=== PATIENT | female | born 1975 | race Hispanic/Latino ===

== ENCOUNTER 2021-08-24 14:58 | Emergency (ER) | payer BC, OTHER, SELFPAY ==
--- NOTE | ~2021-08-24 | XR_ITS ---
EXAMINATION: XR chest 1V portable INDICATION: Fever and body aches TECHNIQUE: Portable AP chest at 1833 hours COMPARISON: 09/01/2019 FINDINGS: There is atelectasis of the left lung base. Minimal airspace opacities are seen in the lung bases. There is no pleural effusion or pneumothorax. The cardiomediastinal silhouette is normal. IMPRESSION: 1. Minimal bibasilar airspace opacities consistent with atelectasis and/or pneumonia. Reviewed, dictated and finalized at location F. ER WAITRESS IMPRESSION: 1. Minimal bibasilar airspace opacities consistent with atelectasis and/or pneu monia.
--- NOTE | ~2021-08-24 | CT_ITS ---
EXAMINATION: CT abdomen pelvis wo con DATE: 08/24/2021 20:16 INDICATION: Back pain and hematuria TECHNIQUE: Computed tomography (CT) of the abdomen and pelvis was performed without intravenous contr ast. The dose-length product (DLP) was 420.59 mGy-cm. Automated exposure control and iterative recons truction technique were employed. COMPARISON: None FINDINGS: There are patchy groundglass opacities of the visualized lung bases. There our areas of sub segmental atelectasis in the lower lobes. The liver, spleen, pancreas, gallbladder, and adrenal gland s are normal. The kidneys are unremarkable. No stones are identified in the kidneys, ureters, or blad annette. There is no hydronephrosis or hydroureter. No pathologically enlarged abdominal or pelvic lymph nodes are identified. The appendix is normal. There is no free intraperitoneal gas or evidence of bow el obstruction. There is a small fat-containing umbilical hernia. Mild enlargement of uterus is likel y due to uterine fibroids. IMPRESSION: 1. No CT correlate for the patient's symptoms. 2. Patchy opacities of the visualized lung bases which could reflect pneumonia, possibly COVID 19. Reviewed, dictated and finalized at location F. LIANCE INVESTIGATOR
[2021-08-24 15:09] VITALS: BP 129/75; PULSE 77; RESP 17; TEMP 36.8; O2SAT 99
[2021-08-24 17:52] VITALS: BP 132/78; PULSE 88; RESP 16; O2SAT 99
[2021-08-24 18:04] VITALS: BP 120/76; PULSE 82; RESP 20; TEMP 36.4; O2SAT 95
--- NOTE | 2021-08-24 18:27 | ECG_ITS ---
Measurements Intervals [place] Rate: 77 P: 57 OR: 165 QRS: 58 QRSD: 68 T: 62 QT: 368 QTc: 419 Interpretive Statements SINUS RHYTHM BASELINE ARTIFACT- I, V4-V6 NORMAL ECG Electronically Signed On 08-25-2021 8:41:26 [employer] by Nicho Abbott D.O.
[2021-08-24] MEDS: ONDANSETRON HCL ODT 4 MG TABLET PO (18:50)
[2021-08-24 19:28] LABS: Add Urine Microscopic? YES; Appearance Urine Cloudy (Clear); Bacteria Urine Trace /hpf; Bilirubin Urine Negative (Negative); Blood Urine 3+ (Negative); Color Urine Yellow (Yellow); Glucose Urine UA Negative (Negative); Ketones Urine 1+ mg/dL (Negative); Leukocyte Esterase Ur 2+ LEU/UL (Negative); Mucus Urine Rare /lpf; Nitrate Urine Negative (Negative); Protein Urine 1+ mg/dL (Negative); RBC Urine 51-75 /hpf (0-2); Specific Grav Ur 1.011 (1.001-1.035); Squamous Epithelial Cell Urine Many /hpf (Few); Urobilinogen Urine Negative mg/dL (<2.0); WBC Urine 31-50 /hpf
--- NOTE | 2021-08-24 19:32 | ED.NAVMDI ---
HPI - Nausea/Vomiting/Diarrhea General Chief complaint: Upper Respiratory Infection Stated complaint: dizzy/nausea/abd pain Time Seen by Provider: 08/24/21 17:58 Source: patient Mode of arrival: ambulatory Limitations: language barrier (egyptian speaking, using alteration tailor) History of Present Illness HPI Narrative: This is a female who presents for evaluation of nausea and body aches. Patient states starting 6 days ago she develop body aches, chills and subjective fever. She reports her body aches have resolved but she is having nausea with intermittent abdominal pain. She is also complaining of back pain. She has mild cough but denies chest pain or shortness of breath. Related Data Allergies Allergy/AdvReac Type Severity Reaction Status Date / Time Penicillins Allergy Rash Verified 09/01/19 14:32 Review of Systems Review of Systems: All systems reviewed & are unremarkable except as noted in HPI and below ENT: Reports sore throat Cardiovascular: Cardiovascular: Denies chest pain Respiratory: Respiratory: Reports cough and Denies dyspnea Gastrointestinal: Gastrointestinal: Reports abdominal pain, Denies diarrhea, Reports nausea and Denies vomiting Genitourinary: Genitourinary: Denies hematuria and Denies dysuria Musculoskeletal: Musculoskeletal: Reports back pain and Reports myalgias PMFSH Past Medical History Medical History Anemia Asthma Gastritis Pre-diabetes Surgical History Surgical History (Updated 09/01/19 @ 13:57 by Regino Longoria) Surgical history unknown Social History Social History (Updated 09/01/19 @ 13:57 by Regino Longoria) Smoking status: Unknown if ever smoked Gender identity (if verbalized by the patient): Female Exam Const: General: no acute distress and alert Orientation/consciousness: patient oriented x3 Eyes: EOM: EOMs intact bilaterally Resp: Effort & Inspection: normal respiratory effort and no retractions Auscultation: clear to auscultation bilaterally Cardio: Rate: regular rate Rhythm: regular rhythm Heart sounds: no murmurs GI: GI Palp: Yes Soft to palpation, Yes Tenderness to palpation present (GI) (LLQ), No Guarding due to palpation present (GI) and No Rigid due to palpation Auscultation: normal bowel sounds : General: Yes no CVA tenderness Skin: General skin exam: normal color Rashes: no rashes Neuro: General: patient oriented x3, moves all extremities and CN's II-XI intact bilaterally Psych: Mental Status: mental status grossly normal Affect: normal affect Course Reevaluation(s) Reevaluation #1: I discussed with patient CT findings consistent with covid pneumonia. She now states daughter developed symptoms 1 day after her and she tested positive with rapid test. Her daughter's symptoms only lasted 2 days but patient's symptoms lasted long. She is not having chest pain or shortness of breath. I discussed discharge plan to treat with antibiotics for bladder infection and symptomatic management Date: 08/24/21 Time: 21:43 Vital Signs Vital signs: Vital Signs Temperature 98.3 F 08/24/21 15:09 Pulse Rate 77 08/24/21 15:09 Respiratory Rate 17 08/24/21 15:09 Blood Pressure 129/75 08/24/21 15:09 Pulse Oximetry 99 08/24/21 15:09 Temperature 97.6 F 08/24/21 18:04 Pulse Rate 78 08/24/21 22:07 Respiratory Rate 18 08/24/21 22:07 Blood Pressure 132/76 08/24/21 22:07 Pulse Oximetry 99 08/24/21 22:07 MDM - Nausea/Vomiting/Diarrhea Lab Data Attestation: I reviewed the patient's lab results. Result diagrams: 08/24/21 19:33 08/24/21 19:33 Labs: Lab Results 08/24/21 08/24/21 08/24/21 Range/Units 19:10 19:27 19:33 WBC 3.1 L (4.5-10.0) K/mm3 RBC 5.01 (4.2-5.4) M/mm3 Hgb 14.6 D (12.0-15.0) g/dL Hct 43.6 (37.0-47.0) % MCV 87.0 (80-100) fl MCH 29.1 (26-34) pg MCHC 33.5
[2021-08-24 19:41] LABS: Basophils Percent Auto 0.3 % (0.2-1.2); Hematocrit 43.6 % (37.0-47.0); Hemoglobin 14.6 g/dL (12.0-15.0); Immature Granulocyte Absolute 0.01 K/mm3 (0.00-0.031); Immature Granulocyte Percent A 0.3 % (0-0.5); Lymphocytes Absolute Auto 0.89 K/mm3 (0.9-3.2); Lymphocytes Percent Auto 28.7 % (18.3-44.2); Mean Corpuscular HGB Conc 33.5 g/dl (32-36); Mean Corpuscular Hemoglobin 29.1 pg (26-34); Mean Platelet Volume 9.1 fl (7.4-10.4); Monocytes Absolute Auto 0.4 K/mm3 (0.1-0.6); Monocytes Percent Auto 12.6 % (2.6-8.5); Neutrophils Absolute Auto 1.8 K/mm3 (1.3-6.7); Neutrophils Percent Auto 58.1 % (45.5-73.1); Platelet Count Result 212 k/mm3 (150-375); Red Blood Count 5.01 M/mm3 (4.2-5.4); Red Cell Distribution Width 14.6 % (11.5-14.5); White Blood Count 3.1 K/mm3 (4.5-10.0)
[2021-08-24 20:00] LABS: Alanine Aminotransferase 53 U/L (4-35); Albumin Level 4.4 g/dL (3.5-5.1); Alkaline Phosphatase 63 U/L (38-126); Anion Gap 9 mmol/L (8-16); Aspartate Amino Transferase 46 U/L (14-36); Bilirubin,Total 0.3 mg/dL (0.2-1.3); Blood Urea Nitrogen 5 mg/dL (7-17); Calcium 8.6 mg/dL (8.4-10.2); Carbon Dioxide 23 mmol/L (22-30); Chloride 106 mmol/L (98-107); Estimated CRCL calculation 110 ml/min; Estimated Glomerular Filt Rate > 60; Glucose 116 mg/dL (65-110); Lipase 66 U/L (23-300); Potassium 3.5 mmol/L (3.4-5.0); Sodium 138 mmol/L (137-145)
[2021-08-24] MEDS: NITROFURANTOIN MONOHYD MACROCR 100 MG CAP PO (22:04)
[2021-08-24 22:07] VITALS: BP 132/76; PULSE 78; RESP 18; O2SAT 99
[2021-08-25 21:02] LABS: SARS-CoV-2 RNA PCR Positive
== END 2021-08-24 22:08 | disposition home or self-care (01) ==
PROVIDERS: Emergency Provider General Practice; PCP Physician Assistant
DX: U07.1 COVID-19 (principal); J12.82 Pneumonia due to coronavirus disease 2019; N39.0 Urinary tract infection, site not specified; J45.909 Unspecified asthma, uncomplicated; R73.03 Prediabetes; Z86.2 Personal history of diseases of the blood and blood-forming organs and certain disorders involving the immune mechanism
CPT/HCPCS: 36415; 71045; 74176; 80053; 81001; 81025; 83690; 85025; 87077; 87086; 87088; 93005; 99284; A9270; C9803; U0003; U0005

== ENCOUNTER 2024-05-30 08:56 | Emergency (ER) | payer BC, OTHER, SELFPAY ==
--- NOTE | ~2024-05-30 | XR_ITS ---
EXAMINATION: XR chest 2V DATE: 05/30/2024 10:24 INDICATION: Cough with fever TECHNIQUE: PA and lateral views of the chest were obtained. COMPARISON: Chest radiograph dated 08/24/2021 FINDINGS: Chronic linear discoid atelectasis/scarring at the left lower lung zone. No other airspace opacities, pulmonary edema, pleural effusion or pneumothorax. The cardiomediastinal silhouette is normal. Visua lized bones and soft tissues are unremarkable. IMPRESSION: 1. Chronic mild discoid atelectasis/scarring at the left lower lung zone. Reviewed, dictated and finalized at location A.
[2024-05-30 09:00] VITALS: BP 105/66; PULSE 94; RESP 20; TEMP 36.4; O2SAT 100
--- NOTE | 2024-05-30 09:18 | ED.GENADULT ---
HPI - General Adult General Chief complaint: Upper Respiratory Infection Stated complaint: cough Time Seen by Provider: 05/30/24 08:58 History of Present Illness HPI narrative: 48-year-old Sammarinese-speaking female presents to the ER with cough, chest congestion, wheezing, and fevers x1 week. Patient has a history of asthma. Patient has been using inhalers with no relief. Patient states she has coughing fits due to constriction. Patient denies any other symptoms. Onset (ago): week(s) (One) Related Data Allergies Allergy/AdvReac Type Severity Reaction Status Date / Time Penicillins Allergy Rash Verified 05/30/24 09:21 Review of Systems Review of Systems: A 10 system review of systems was completed on the patient and is negative except for what is stated in the HPI. Nursing and ancillary documentation was reviewed. [facility] Past Medical History Medical History Anemia Asthma Gastritis Pre-diabetes Surgical History Surgical History (Updated 09/01/19 @ 13:57 by Regino Longoria) Surgical history unknown Social History Social History (Updated 09/01/19 @ 13:57 by Regino Longoria) Smoking status: Unknown if ever smoked Gender identity (if verbalized by the patient): Female Exam Narrative: General appearance: Well-developed, well-nourished Skin: Normal color Head: Normocephalic, nontraumatic Eyes: Clear conjunctiva ENT: Oropharynx normal, ears normal, nose normal Neck: Supple, nontender Chest and respiratory: Airway patent, wheezing in all lung spaces, no accessory muscle use Heart: Regular rate/rhythm Abdomen: Soft, nontender, no organomegaly, quiet bowel sounds Vascular: Normal peripheral pulses, normal capillary refill. Musculoskeletal: Normal range of motion, nontender back Neurologic: Alert and oriented ?3, FLOATLIGHT POWDER MIXER is normal as tested, no gross motor deficit Course Course Emergency Course: labs and cxr, Solu-Medrol, DuoNeb ordered Vital Signs Vital signs: Vital Signs Temperature 36.4 C 05/30/24 09:00 Pulse Rate 94 05/30/24 09:00 Respiratory Rate 20 05/30/24 09:00 Blood Pressure 105/66 05/30/24 09:00 Pulse Oximetry 100 05/30/24 09:00 Oxygen Delivery Room Air 05/30/24 09:00 Temperature 36.4 C 05/30/24 09:00 Pulse Rate 78 05/30/24 09:32 Respiratory Rate 20 05/30/24 09:32 Blood Pressure 105/66 05/30/24 09:00 Pulse Oximetry 100 05/30/24 09:00 Oxygen Delivery Room Air 05/30/24 09:00 Medical Decision Making MDM Narrative Medical decision making narrative: Labs, chest x-ray are negative. Will prescribe prednisone, albuterol nebs, and Pepcid per request. Patient is requesting cough medicine. Differential Diagnosis Differential Diagnosis: URI, asthma exacerbation, pneumonia, COVID, influenza Vital Signs Vital Signs: Vital Signs Temperature 36.4 C 05/30/24 09:00 Pulse Rate 94 05/30/24 09:00 Respiratory Rate 20 05/30/24 09:00 Blood Pressure 105/66 05/30/24 09:00 Pulse Oximetry 100 05/30/24 09:00 Oxygen Delivery Room Air 05/30/24 09:00 Temperature 36.4 C 05/30/24 09:00 Pulse Rate 78 05/30/24 09:32 Respiratory Rate 20 05/30/24 09:32 Blood Pressure 105/66 05/30/24 09:00 Pulse Oximetry 100 05/30/24 09:00 Oxygen Delivery Room Air 05/30/24 09:00 Lab Data 05/30/24 09:26 05/30/24 09:26 Labs: Lab Results 05/30/24 Range/Units 09:26 WBC 8.4 (4.5-10.0) K/mm3 RBC 4.32 (4.2-5.4) M/mm3 Hgb 11.0 L D (12.0-15.0) g/dL Hct 35.8 L (37.0-47.0) % MCV 82.9 (80-100) fl MCH 25.5 L (26-34) pg MCHC 30.7 L (32-36
[2024-05-30] MEDS: methylPREDNISolone SOD SUCC 125 MG VIAL IV PUSH (09:25)
[2024-05-30 09:27] VITALS: PULSE 74; RESP 17
[2024-05-30] MEDS: IPRATROPIUM 0.5 MG/ALBUTEROL SULFATE 2.5 MG AMPUL.NEB 3 ML INHALATION (09:27)
[2024-05-30 09:32] VITALS: PULSE 78; RESP 20
[2024-05-30 09:35] LABS: Basophils Absolute Auto 0.1 K/mm3 (0.0-0.1); Basophils Percent Auto 1.1 % (0.2-1.2); Eosinophils Absolute Auto 0.9 K/mm3 (0-0.3); Eosinophils Percent Auto 10.4 % (0-4.4); Hematocrit 35.8 % (37.0-47.0); Immature Granulocyte Absolute 0.04 K/mm3 (0.00-0.031); Immature Granulocyte Percent A 0.5 % (0-0.5); Lymphocytes Absolute Auto 1.48 K/mm3 (0.9-3.2); Lymphocytes Percent Auto 17.6 % (18.3-44.2); Mean Corpuscular HGB Conc 30.7 g/dl (32-36); Mean Corpuscular Hemoglobin 25.5 pg (26-34); Mean Corpuscular Volume 82.9 fl (80-100); Mean Platelet Volume 9.1 fl (7.4-10.4); Monocytes Absolute Auto 0.7 K/mm3 (0.1-0.6); Monocytes Percent Auto 7.9 % (2.6-8.5); Neutrophils Absolute Auto 5.3 K/mm3 (1.3-6.7); Neutrophils Percent Auto 62.5 % (45.5-73.1); Platelet Count Result 377 k/mm3 (150-375); Red Blood Count 4.32 M/mm3 (4.2-5.4); Red Cell Distribution Width 15.1 % (11.5-14.5); White Blood Count 8.4 K/mm3 (4.5-10.0)
[2024-05-30 09:44] LABS: Alanine Aminotransferase 21 U/L (6-35); Albumin Level 3.7 g/dL (3.5-5.1); Alkaline Phosphatase 46 U/L (38-126); Anion Gap 7 mmol/L (4-12); Aspartate Amino Transferase 26 U/L (14-36); Bilirubin,Total 0.3 mg/dL (0.2-1.3); Blood Urea Nitrogen 7 mg/dL (7-17); Calcium 8.7 mg/dL (8.4-10.2); Carbon Dioxide 25 mmol/L (22-30); Chloride 105 mmol/L (98-107); Estimated CRCL calculation 75 ml/min; Estimated Glomerular Filt Rate > 60; Glucose 115 mg/dL (65-110); Potassium 3.5 mmol/L (3.4-5.0); Sodium 137 mmol/L (137-145)
[2024-05-30 09:53] LABS: Platelet Estimate Slightly Increased (Adequate)
[2024-05-30 09:54] LABS: Anisocytosis 1+; Ovalocytes 1+
[2024-05-30 09:55] LABS: Schistocytes Rare
[2024-05-30 10:10] LABS: Influenza A QL RT-PCR Negative (Negative); Influenza B QL RT-PCR Negative (Negative); SARS-CoV-2 RNA PCR Negative (Negative)
[2024-05-30 11:03] VITALS: BP 107/65; PULSE 87; RESP 20; O2SAT 97
== END 2024-05-30 11:07 | disposition home or self-care (01) ==
PROVIDERS: Emergency Provider Nurse Practitioner Family; PCP Physician Assistant
DX: J45.901 Unspecified asthma with (acute) exacerbation (principal); Z20.822 Contact with and (suspected) exposure to COVID-19; D64.9 Anemia, unspecified; R73.03 Prediabetes
CPT/HCPCS: 36415; 71046; 80053; 85025; 87636; 94640; 96374; 99284; J2919

== ENCOUNTER 2024-06-17 14:02 | Emergency (ER) | payer BC, OTHER, MEDICAID, SELFPAY ==
[2024-06-17] VITALS (16 sets, daily range): BP systolic 98–123; BP diastolic 49–69; PULSE 72–110; RESP 13–24; TEMP 36.3; O2SAT 90–100
--- NOTE | ~2024-06-17 | US_ITS ---
US venous doppler [facility] DATE: 06/17/2024 15:32 INDICATION: Calf pain. Dyspnea. TECHNIQUE: Real-time and color flow imaging and Doppler analysis of the veins of the left lower extre mity COMPARISON: None FINDINGS: The left greater saphenous vein is patent. There is spontaneous and phasic flow and normal augmentation and color flow signal in the common femoral, femoral, popliteal, peroneal and posterior tibial veins. IMPRESSION: No evidence of deep venous thrombosis of the left lower extremity Reviewed, dictated and finalized at Location A. Reviewed, dictated and finalized at location A. NT PAVER
--- NOTE | ~2024-06-17 | CT_ITS ---
EXAMINATION: CTA chest PE protocol DATE: 06/17/2024 16:49 INDICATION: Dizziness TECHNIQUE: Computed tomography angiography (CTA) of the chest was performed with 100 mL Omnipaque-350 intravenous contrast timed to evaluate the pulmonary arteries. Coronal maximum intensity projection 3D-reconstructions were created by the technologist. Automated exposure control and iterative reconst ruction technique were employed. Exam dose: 198.27 mGy-cm total exam DLP. COMPARISON: 05/30/2024 PA and lateral chest FINDINGS: There is diagnostic contrast enhancement of the pulmonary arteries and no evidence of pulmo nary embolism. No thoracic aortic aneurysm or dissection. Normal heart size. No pericardial or pleural effusion. Normal morphology of the adrenal glands. Included upper abdominal structures are unremarkable. Linear discoid atelectasis or scarring, middle lobe, lingula and left lower lobe. No pulmonary infiltrate or consolidation or suspicious pulmonary mass lesion is noted. Included skeletal structures are unremarkable. IMPRESSION: No evidence of pulmonary embolism Reviewed, dictated and finalized at Location A. Reviewed, dictated and finalized at location A. PING/RECEIVING MANAGER
--- NOTE | 2024-06-17 15:18 | ECG_ITS ---
Test Date: 2024-06-17 16:10:14 Measurements Intervals [place] Rate: 79 P: 48 MA: 151 QRS: 67 QRSD: 79 T: 75 QT: 384 QTc: 442 Interpretive Statements SINUS RHYTHM BORDERLINE ST-T WAVE ABNORMALITY- INFERIOR LEADS BASELINE ARTIFACT- I, II, III, AVR, AVL, AVF, V1-V6 BORDERLINE ECG No previous ECG available for comparison Electronically Signed On 06-17-2024 16:44:20 PROCESSING ARCHIVIST by Nicho Abbott D.O.
--- NOTE | 2024-06-17 15:21 | ED.ASTHMA ---
HPI - Asthma General Chief Complaint: Asthma Stated Complaint: asthma Time Seen by Provider: 06/17/24 14:44 History of Present Illness HPI Narrative: 48-year-old female with history of asthma, prediabetes, hyperlipidemia, anemia and GERD presents to the emergency department with her family at bedside for difficulty breathing and increasing her acid reflux. Patient is Malay-speaking. I offered to use a production drilling machine operator, however she is requesting her daughter translate for her. States that she has been struggling with asthma and GERD for several months now. She sees a criminal investigator customs at [facility]. She is on albuterol inhaler, steroid inhaler, Spiriva, montelukast for asthma which she has been taking with minimal improvement. She is on Protonix 40 mg and Pepcid 20 mg b.i.d. which has also been taking without improvement. She states she will get significant acid reflux that then results in her coughing in flaring her asthma. She states yesterday she was coughing so hard she began having blood-tinged sputum. States that has persisted today but seems to be improved. She is also stating that she has pain in her left calf for 1 month with intermittent swelling to this area. States she talked to her PCP about and they were planning to do a Doppler to her LLE, however have yet to do it. She denies history of VTE, fever. She denies melena or hematochezia, hematemesis. States she does get chest pain with inspiration. She is currently on Levaquin from her criminal investigator customs and has been taking this for 3 days. She is not currently on steroids but did finish a course of prednisone 1 week ago. Related Data Allergies Allergy/AdvReac Type Severity Reaction Status Date / Time Penicillins Allergy Rash Verified 06/17/24 14:07 Review of Systems Review of Systems: All systems reviewed & are unremarkable except as noted in HPI and below PMFSH Past Medical History Medical History Anemia Asthma Gastritis Pre-diabetes Surgical History Surgical History Surgical history unknown Social History Social History Smoking status: Unknown if ever smoked Gender identity (if verbalized by the patient): Female Exam Narrative: GENERAL: Well-appearing, well-nourished, and in no acute distress. HEAD: Normocephalic, atraumatic. EYES: PERRLA and EOMI. ENT: Nares clear, no rhinorrhea or epistaxis. Mucous membranes moist. NECK: Supple. CHEST: Decreased breath sounds over all lung sykes with expiratory wheezing. No rales or rhonchi. Speaking in full sentences satting 95% on room air in no respiratory distress. HEART: Regular rate and rhythm. No murmur heard. Normal peripheral pulses. ABDOMEN: Soft, nontender, nondistended, normal active bowel sounds. RECTAL: Chaperoned by Latesha Seth: no melena or hematochezia, negative Hemoccult EXTREMITIES: Normal range of motion. No edema. Tenderness to the left calf, no overlying skin changes SKIN: Warm, dry, no rash. NEURO: No focal deficits. Alert and oriented x3 Course Vital Signs Vital signs: Vital Signs Temperature 97.3 F L 06/17/24 14:04 Pulse Rate 94 06/17/24 14:04 Respiratory Rate 18 06/17/24 14:04 Blood Pressure 123/58 L 06/17/24 14:04 Pulse Oximetry 93 06/17/24 14:04 Oxygen Delivery Room Air 06/17/24 14:04 Temperature 97.3 F L 06/17/24 14:04 Pulse Rate 94 06/17/24 16:23 Respiratory Rate 20 06/17/24 16:23 Blood Pressure 118/69 06/17/24 16:23 Pulse Oximetry 90 06/17/24 16:23 Oxygen Delivery Room Air 06/17/24 14:57 MDM - Asthma MDM Narrative Medical decision making narrative: 48-year-old female with history of GERD and asthma presents to the emergency department for increase in her acid reflux, cough, shortness of breath. See HPI for further history. Vitals are stable. Patient is satting 93% on room air in no respiratory distress. She is speaking in full sentences. Exam is significant for decreased lung sounds and wheezing throughout all lung sykes. Will obtain lab work, chest x-ray, left lower extremity Doppler to rule out DVT and CTA chest PE given reported hemoptysis. CBC shows mild leukocytosis of 10.1. Hemoglobin is stable at 11.5. Chemistry are unremarkable with a normal BUN and creatinine. test is negative. BNP within normal limits. Magnesium normal at 2.3. EKG shows sinus rhythm with normal TX interval, normal QRS duration, normal QTC, no ischemic changes. Troponin is undetectable. Left lower extremity duplex is negative for DVT. CTA chest PE is unremarkable, no PE. I suspect the scant hemoptysis was secondary to irritation from coughing. I did consider GI bleed. She does have a history of peptic ulcers and sees GI at [facility]. She is scheduled for an endoscopy in 2 weeks. Rectal exam showed no melena or hematochezia, Hemoccult was negative. She states that she is certain she was not vomiting blood. Patient was given an hour long DuoNeb and 25 mg of Solu-Medrol with improvement. Lung sounds have significantly improved. Vitals remained stable. She also received Protonix and GI cocktail for her GERD with improvement. She feels safe to be discharged home. will send Maalox to the pharmacy, guard her to continue Protonix and Pepcid. Will also provide another round of steroids, encouraged her to continue her inhalers and Levaquin. She is also requesting refills on her nebulizers. Advised follow-up with her PCP, GI and criminal investigator customs. Strict ED return precautions discussed. She and her family are agreeable to plan verbalized understanding. Discharged in stable condition. Lab Data 06/17/24 15:35 06/17/24 15:35 Labs: Lab Results 06/17/24 06/17/24 Range/Units 15:35 16:47 WBC 10.1 H (4.5-10.0) K/mm3 RBC 4.53 (4.2-5.4) M/mm3 Hgb 11.5 L (12.0-15.0) g/dL Hct 35.8 L (37.0-47.0) % MCV 79.0 L (80-100) fl MCH 25.4 L (26-34) pg MCHC 32.1 (32-36) g/dl RDW 15.8 H (11.5-14.5) % Plt Count 386 H (150-375) k/mm3 MPV 9.6 (7.4-10.4) fl Immature Gran % (Auto) 0.4 (0-0.5) % Neut % (Auto) 67.7 (45.5-73.1) % Lymph % (Auto) 19.8 (18.3-44.2) % Gray % (Auto) 9.6 H (2.6-8.5) % Eos % (Auto) 1.7 (0-4.4) % Baso % (Auto) 0.8 (0.2-1.2) % Lymph # (Auto) 2.00 (0.9-3.2) K/mm3 Gray # (Auto) 1.0 H (0.1-0.6) K/mm3 Eos # (Auto) 0.2 (0-0.3) K/mm3 Baso # (Auto) 0.1 (0.0-0.1) K/mm3 Abs Immat Gran (auto) 0.04 H (0.00-0.031) K/mm3 Absolute Neuts (auto) 6.8 H (1.3-6.7) K/mm3 Absolute Nucleated RBC 0.000 (0.0-0.012) K/mm3 Nucleated RBC % 0.0 (0.0-0.2) % PT 14.4 (11.1-14.7) Seconds INR 1.1 APTT 25.8 (22.3-36.8) Seconds Sodium 140 (137-145) mmol/L Potassium 3.7 (3.4-5.0) mmol/L Chloride 107 (98-107) mmol/L Carbon Dioxide 24 (22-30) mmol/L Anion Gap 9 (4-12) mmol/L BUN 11 (7-17) mg/dL Creatinine 0.90 (0.7-1.0) mg/dL Estim Creat Clear Calc 58 ml/min Estimated GFR > 60 (59 - ) Glucose 120 H (65-110) mg/dL Calcium 9.0 (8.4-10.2) mg/dL Magnesium 2.3 (1.6-2.3) mg/dL Total Bilirubin 0.3 (0.2-1.3) mg/dL AST 20 (14-36) U/L ALT 16 (6-35) U/L Alkaline Phosphatase 39 (38-126) U/L Troponin I < 0.012 (0.000-0.034) ng/mL NT-Pro-B Natriuret Pep < 20 (19.9-100) pg/mL Total Protein 7.0 (6.3-8.2) g/dL Albumin 3.9 (3.5-5.1) g/dL POC Urine HCG, Qual Negative (Negative) Discharge Plan Discharge Clinical Impression: Chronic gastroesophageal reflux disease Asthma with acute exacerbation Qualifiers: Asthma severity: unspecified severity Asthma persistence: unspecified Qualified Code(s): J45.901 - Unspecified asthma with (acute) exacerbation Patient Disposition: Home, Self-Care Condition: Stable Instructions: Antibiotic Form, Asthma (ED), GERD (Gastroesophageal Reflux Disease) (DC) Patient Language: Malay Prescriptions: New prednisone 20 mg tablet 40 mg PO DAILY Qty: 10 0RF ipratropium-albuterol 0.5 mg-3 mg(2.5 mg base)/3 mL solution for nebulization 3 ml inhalation QID PRN (Reason: shortness of breath or wheezing) Qty: 90 1RF alum-mag hydroxide-simeth [Maalox Advanced] 200-200-20 mg/5 mL suspension 10 ml PO QID PRN (Reason: indigestion) Qty: 3000 0RF Rx Instructions: administer between meals and at bedtime No Action nitrofurantoin monohyd/m-cryst [Macrobid] 100 mg capsule 100 mg PO Q12H 5 Days Qty: 10 0RF Rx Instructions: must administer with a meal/food ondansetron 4 mg tablet,disintegrating 4 mg PO Q6H PRN (Reason: nausea and vomiting) Qty: 10 0RF famotidine [Acid Controller] 20 mg tablet 20 mg PO BID Qty: 14 0RF prednisone 20 mg tablet 20 mg PO DAILY Qty: 12 0RF Rx Instructions: 60 mg day 1 and 2, 40 mg day 3 and 4, 20 mg day 5 and 6 dextromethorphan polistirex [Robitussin ER] 30 mg/5 mL suspension,extended rel 12 hr 10 ml PO Q12H PRN (Reason: cough) Qty: 89 0RF albuterol sulfate 2.5 mg /3 mL (0.083 %) solution for nebulization 2.5 mg inhalation Q4H Qty: 90 0RF meclizine 25 mg tablet 25 mg PO BID 10 Days Qty: 20 0RF Follow-up/Referrals: Paul,ABIDA Moyer [Primary Care Provider] -
[2024-06-17] MEDS: IPRATROPIUM 0.5 MG/ALBUTEROL SULFATE 2.5 MG AMPUL.NEB 3 ML INHALATION ×3 (15:30)
[2024-06-17 15:41] LABS: Basophils Absolute Auto 0.1 K/mm3 (0.0-0.1); Basophils Percent Auto 0.8 % (0.2-1.2); Eosinophils Absolute Auto 0.2 K/mm3 (0-0.3); Eosinophils Percent Auto 1.7 % (0-4.4); Hematocrit 35.8 % (37.0-47.0); Hemoglobin 11.5 g/dL (12.0-15.0); Immature Granulocyte Absolute 0.04 K/mm3 (0.00-0.031); Immature Granulocyte Percent A 0.4 % (0-0.5); Lymphocytes Percent Auto 19.8 % (18.3-44.2); Mean Corpuscular HGB Conc 32.1 g/dl (32-36); Mean Corpuscular Hemoglobin 25.4 pg (26-34); Mean Platelet Volume 9.6 fl (7.4-10.4); Monocytes Percent Auto 9.6 % (2.6-8.5); Neutrophils Absolute Auto 6.8 K/mm3 (1.3-6.7); Neutrophils Percent Auto 67.7 % (45.5-73.1); Platelet Count Result 386 k/mm3 (150-375); Red Blood Count 4.53 M/mm3 (4.2-5.4); Red Cell Distribution Width 15.8 % (11.5-14.5); White Blood Count 10.1 K/mm3 (4.5-10.0)
[2024-06-17 15:53] LABS: Alanine Aminotransferase 16 U/L (6-35); Albumin Level 3.9 g/dL (3.5-5.1); Alkaline Phosphatase 39 U/L (38-126); Anion Gap 9 mmol/L (4-12); Aspartate Amino Transferase 20 U/L (14-36); Bilirubin,Total 0.3 mg/dL (0.2-1.3); Blood Urea Nitrogen 11 mg/dL (7-17); Carbon Dioxide 24 mmol/L (22-30); Chloride 107 mmol/L (98-107); Estimated CRCL calculation 58 ml/min; Estimated Glomerular Filt Rate > 60; Glucose 120 mg/dL (65-110); Magnesium 2.3 mg/dL (1.6-2.3); Potassium 3.7 mmol/L (3.4-5.0); Sodium 140 mmol/L (137-145)
[2024-06-17 15:54] LABS: INR 1.1; Prothrombin Time 14.4 Seconds (11.1-14.7)
[2024-06-17 15:55] LABS: Partial Thromboplastin Time 25.8 Seconds (22.3-36.8)
[2024-06-17 16:08] LABS: Troponin I < 0.012 ng/mL (0.000-0.034)
[2024-06-17] MEDS: BELLADONNA ALK/PHENOB ELIX 10 ML, MAG HYDROX/ALUMINUM HYD/SIMETH 30 ML, LIDOCAINE HCL 2... PO (16:12)
[2024-06-17] MEDS: PANTOPRAZOLE SODIUM IV 40 MG VIAL IV PUSH (16:13)
[2024-06-17] MEDS: methylPREDNISolone SOD SUCC 125 MG VIAL IV PUSH (16:14)
[2024-06-17 16:16] LABS: NT Pro B Type Natriuretic Pept < 20 pg/mL (19.9-100)
[2024-06-17 16:49] LABS: BEDSIDEPREGUCG Negative (Negative)
== END 2024-06-17 18:15 | disposition home or self-care (01) ==
PROVIDERS: Emergency Provider Physician Assistant; PCP Physician Assistant
DX: J45.901 Unspecified asthma with (acute) exacerbation (principal); K21.9 Gastro-esophageal reflux disease without esophagitis; M79.662 Pain in left lower leg; E78.5 Hyperlipidemia, unspecified; R73.03 Prediabetes; D64.9 Anemia, unspecified; R94.31 Abnormal electrocardiogram [ECG] [EKG]
CPT/HCPCS: 36415; 71275; 80053; 81025; 83735; 83880; 84484; 85025; 85610; 85730; 93005; 93971; 94640; 96374; 96375; 99284; A9270; J2470; J2919; Q9967

== ENCOUNTER 2024-07-03 18:24 | Inpatient (IN) | payer MEDICAID, SELFPAY ==
[2024-07-03] VITALS (16 sets, daily range): BP systolic 96–119; BP diastolic 51–73; PULSE 85–106; RESP 16–32; TEMP 36.6; O2SAT 91–97
--- NOTE | ~2024-07-03 | CT_ITS ---
EXAMINATION: CTA chest PE protocol DATE: 07/03/2024 21:53 INDICATION: Dyspnea. Hemoptysis. TECHNIQUE: Computed tomography angiography (CTA) of the chest was performed with 100 mL Omnipaque-350 intravenous contrast timed to evaluate the pulmonary arteries. Coronal maximum intensity projection 3D-reconstructions were created by the technologist. Automated exposure control and iterative reconst ruction technique were employed. The dose-length product was 227.25 mGy-cm. COMPARISON: Chest CT 06/17/2024 FINDINGS: There are patchy groundglass opacities in the upper lobes and lower lobes. There is mild at electasis bilaterally. No pleural effusion. The heart size is normal. No pericardial effusion. There is no pulmonary embolus. There is mild thoracic spondylosis. IMPRESSION: 1. No pulmonary embolus. 2. New patchy groundglass opacities in the lungs, consistent with pneumonia. Reviewed, dictated and finalized at location A. CE PATROL LIEUTENANT
--- NOTE | ~2024-07-03 | XR_ITS ---
EXAMINATION: XR chest 2V DATE: 07/03/2024 19:00 INDICATION: Chest pain. Shortness of breath. Cough. TECHNIQUE: Frontal and lateral views of the chest were obtained. COMPARISON: Chest 2 views 05/30/2024, chest CT 06/17/2024 FINDINGS: There is mild scarring at the lung apices. There are airspace opacities in left lower lobe. No pleural effusion or pneumothorax. The heart size is normal. IMPRESSION: 1. Airspace opacities in left lower lobe, consistent with atelectasis versus pneumonia. Reviewed, dictated and finalized at location A. ND LANGUAGE TUTOR IMPRESSION: 1. Airspace opacities in left lower lobe, consistent with atelectasis versus pn eumonia.
--- NOTE | ~2024-07-03 | NM_ITS ---
EXAM: NM gastric emptying study DATE: 07/06/2024 13:06 INDICATION: Early satiety TECHNIQUE: A gastric emptying study was performed using the methodology of Brandon AVILES, et al. J Nucl Med 2007; 48:568-572. The patient was given a meal consisting of 2 scrambled eggs labeled with 1.061 mCi Tc-99m sulfur colloid, 2 slices of toast, two packages of jam, and approximately 120 mL of water . Simultaneous anterior and posterior 1-min images of the abdomen were obtained with the patient supi ne at multiple time points over a total period of 4 hours. The geometric mean of anterior and posteri or views was determined, and the percentage retention was calculated for each time point. COMPARISON: None. FINDINGS: Gastric retention of the radiotracer-labeled meal was 67%, 38%, and 3% at the 1-hour, 2-hour, and 4-h our time points, respectively. With this technique, apparent rapid gastric emptying is suggested by < 30% gastric retention at 1 hour. Delayed gastric emptying is defined by gastric retention of >90% at 1 hour, >60% retention at 2 hours, or >10% retention at 4 hours. IMPRESSION: 1. Normal gastric emptying. Reviewed, dictated and finalized at location B. DENTIAL TREATMENT STAFF IMPRESSION: 1. Normal gastric emptying.
--- NOTE | ~2024-07-03 | XR_ITS ---
CHEST RADIOGRAPH CLINICAL HISTORY: pneumonia . COMPARISON: 07/03/2024 TECHNIQUE: Single portable view of the chest. FINDINGS The cardiomediastinal silhouette is unremarkable. Trace increased interstitial thickening and patchy groundglass opacification within the bilateral low er lobes (right greater than left), when compared with previous days examination. The remainder of the lungs are clear. Visualized osseous structures and soft tissues are unremarkable. IMPRESSION: Trace increased interstitial thickening and patchy groundglass opacification within the bilateral low er lobes (right greater than left), when compared with previous days examination. Reviewed, dictated and finalized at location A. R SCHOOL MUSIC TEACHER IMPRESSION: Trace increased interstitial thickening and patchy groundglass opacification wi thin the bilateral lower lobes (right greater than left), when compared with pr evious days examination.
--- NOTE | 2024-07-03 18:44 | ECG_ITS ---
Test Date: 2024-07-03 18:48:57 Measurements Intervals [place] Rate: 104 P: 74 IA: 172 QRS: 66 QRSD: 72 T: 57 QT: 331 QTc: 437 Interpretive Statements SINUS TACHYCARDIA POSSIBLE LEFT ATRIAL ENLARGEMENT BASELINE ARTIFACT- I, III, AVL BORDERLINE ECG Compared to ECG 06/17/2024 16:10:14 HEART RATE HAS INCREASED Electronically Signed On 07-03-2024 20:25:15 INSPECTOR BICYCLE by Nicho Abbott D.O.
[2024-07-03 19:59] LABS: Basophils Absolute Auto 0.1 K/mm3 (0.0-0.1); Basophils Percent Auto 1.1 % (0.2-1.2); Eosinophils Absolute Auto 0.1 K/mm3 (0-0.3); Eosinophils Percent Auto 1.3 % (0-4.4); Hematocrit 41.3 % (37.0-47.0); Hemoglobin 12.9 g/dL (12.0-15.0); Immature Granulocyte Absolute 0.03 K/mm3 (0.00-0.031); Immature Granulocyte Percent A 0.3 % (0-0.5); Lymphocytes Absolute Auto 2.21 K/mm3 (0.9-3.2); Lymphocytes Percent Auto 23.5 % (18.3-44.2); Mean Corpuscular HGB Conc 31.2 g/dl (32-36); Mean Corpuscular Hemoglobin 24.3 pg (26-34); Mean Corpuscular Volume 77.9 fl (80-100); Mean Platelet Volume 9.7 fl (7.4-10.4); Monocytes Absolute Auto 0.8 K/mm3 (0.1-0.6); Monocytes Percent Auto 8.5 % (2.6-8.5); Neutrophils Absolute Auto 6.2 K/mm3 (1.3-6.7); Neutrophils Percent Auto 65.3 % (45.5-73.1); Platelet Count Result 420 k/mm3 (150-375); Red Cell Distribution Width 16.2 % (11.5-14.5); White Blood Count 9.4 K/mm3 (4.5-10.0)
[2024-07-03 20:09] LABS: Alanine Aminotransferase 15 U/L (6-35); Albumin Level 4.5 g/dL (3.5-5.1); Alkaline Phosphatase 57 U/L (38-126); Anion Gap 9 mmol/L (4-12); Aspartate Amino Transferase 23 U/L (14-36); Bilirubin,Total 0.3 mg/dL (0.2-1.3); Blood Urea Nitrogen 6 mg/dL (7-17); Calcium 9.3 mg/dL (8.4-10.2); Carbon Dioxide 22 mmol/L (22-30); Chloride 108 mmol/L (98-107); Estimated CRCL calculation 72 ml/min; Estimated Glomerular Filt Rate > 60; Glucose 104 mg/dL (65-110); Lipase 108 U/L (23-300); Potassium 3.7 mmol/L (3.4-5.0); Sodium 139 mmol/L (137-145)
[2024-07-03 20:12] LABS: INR 1.1; Prothrombin Time 14.3 Seconds (11.1-14.7)
[2024-07-03 20:13] LABS: Partial Thromboplastin Time 27.5 Seconds (22.3-36.8)
[2024-07-03 20:21] LABS: Troponin I < 0.012 ng/mL (0.000-0.034)
--- NOTE | 2024-07-03 21:14 | ED.SOB ---
HPI - SOB/Dyspnea General Chief Complaint: Shortness of Breath/Dyspnea <Marilyn Gallego PA-C - Last Filed: 07/03/24 23:35> Stated Complaint: SOB <Marilyn Gallego PA-C - Last Filed: 07/03/24 23:35> Time Seen by Provider: 07/03/24 20:58 <Marilyn Gallego PA-C - Last Filed: 07/03/24 23:35> History of Present Illness HPI Narrative: 49-year-old female with history of asthma, gastritis presents to the emergency department complaining of shortness of breath for the past 1-2 days. Patient is Portuguese speaking. Daughter is at bedside. Offered to the translating service, however patient is requesting her daughter translate. States she has been feeling more short of breath the past 2 days with a productive cough. She states the productive cough is consisting of mostly phlegm, however she has noticed streaks of blood in the mucus. She states she has been using her inhaler without improvement. She has a tamale maker but has been unable to get in contact with them for several weeks. Upon arrival to the ED she was satting 88% on room air and was placed on 3 L nasal cannula with O2 saturations at 94%. She normally does not wear O2. Patient is also reporting chest pain with coughing. She notes that she had an endoscopy for her GERD a few weeks ago which showed irritation but no focal ulcers and no active bleeding. She denies smoking and lower extremity edema. Denies fevers <Marilyn Gallego PA-C - Last Filed: 07/03/24 23:35> Related Data Home Medications: Home Medications Medication Instructions Recorded Confirmed albuterol sulfate 2.5 mg/3 mL 2.5 mg inhalation Q6H PRN 07/04/24 07/04/24 (0.083 %) solution for nebulization sob/wheezing albuterol sulfate 90 mcg/actuation 2 puff inhalation Q4H PRN 07/04/24 07/04/24 aerosol inhaler sob/wheezing fluticasone 500 mcg-salmeterol 50 1 inh inhalation BID 07/04/24 07/04/24 mcg/dose blistr powdr for inhalation montelukast 10 mg tablet 10 mg PO HS 07/04/24 07/04/24 pantoprazole 40 mg tablet,delayed 40 mg PO DAILY 07/04/24 07/04/24 release tiotropium bromide 1.25 2 puff inhalation BID 07/04/24 07/04/24 mcg/actuation mist for inhalation (Spiriva Respimat) <Marilyn aGllego PA-C - Last Filed: 07/03/24 23:35> Allergies/Adverse Reactions: Allergies Allergy/AdvReac Type Severity Reaction Status Date / Time Penicillins Allergy Rash Verified 07/03/24 18:24 <Marilyn Gallego PA-C - Last Filed: 07/03/24 23:35> Review of Systems Review of Systems: All systems reviewed & are unremarkable except as noted in HPI and below <Marilyn Gallego PA-C - Last Filed: 07/03/24 23:35> PMFSH Past Medical History Medical History: Medical History Anemia Asthma Gastritis Pre-diabetes <Marilyn Gallego PA-C - Last Filed: 07/03/24 23:35> Surgical History Surgical History: Surgical History Surgical history unknown <Marilyn Gallego PA-C - Last Filed: 07/03/24 23:35> Family History Family History: Family History (Updated 07/04/24 @ 00:52 by Viri Alicia RN) Mother Enlarged heart <Marilyn Gallego PA-C - Last Filed: 07/03/24 23:35> Social History Social History: Social History Smoking status: Never smoker Do You Feel Safe in your Home?: Yes Lack of Transportation: No Lack of Food: Never True Current Housing: I Have Housing Concerned About Future Housing: No Difficulty Paying Gas/Electric Bills: No Difficulty Paying for Meds: No Currently Unemployed: No Education: High School Diploma/GED Difficulty w/ Childcare or Family Care: No Gender identity (if verbalized by the patient): Female Spiritual care concerns: No <Marilyn Gallego PA-C - Last Filed: 07/03/24 23:35> Exam Narrative: GENERAL: Well-appearing, well-nourished, and in no acute distress. HEAD: Normocephalic, atraumatic. EYES: EOMI. ENT: Nares clear, no rhinorrhea or epistaxis. Mucous membranes moist. NECK: Supple. CHEST: decreased lung sounds with expiratory wheezing throughout all lung sykes. Patient satting 94% on 3 L nasal cannula. She is speaking full sentences. No retractions. No respiratory distress. HEART: Regular rate and rhythm. No murmur heard. Normal peripheral pulses. ABDOMEN: Soft, nontender, nondistended, normal active bowel sounds. EXTREMITIES: Normal range of motion. No edema. SKIN: Warm, dry, no rash. NEURO: No focal deficits. Alert and oriented x3 <Marilyn Gallego PA-C - Last Filed: 07/03/24 23:35> Course [employer]PERVISOR [employer]PARTMENT/PA Physician Supervision For this patient encounter, I reviewed the SUPERVISOR [employer] DEPARTMENT or PA documentation, treatment plan, and medical decision making and had [id number] time with this patient. I performed all aspects of the MDM as documented. <Dinora Castillo MD - Last Filed: 07/04/24 01:04> Vital Signs Vital signs: Vital Signs Temperature 97.9 F 07/03/24 18:38 Pulse Rate 106 H 07/03/24 18:38 Respiratory Rate 16 07/03/24 18:38 Blood Pressure 119/68 07/03/24 18:38 Pulse Oximetry 92 07/03/24 18:38 Oxygen Delivery Room Air 07/03/24 18:38 Temperature 97.9 F 07/03/24 18:38 Pulse Rate 98 07/03/24 22:08 Respiratory Rate 24 H 07/03/24 22:08 Blood Pressure 119/68 07/03/24 18:38 Pulse Oximetry 91 07/03/24 20:52 Oxygen Delivery Nasal Cannula 07/03/24 20:52 Oxygen Flow Rate 2 07/03/24 20:52 <Marilyn Gallego PA-C - Last Filed: 07/03/24 23:35> Vital Signs Temperature 97.9 F 07/03/24 18:38 Pulse Rate 106 H 07/03/24 18:38 Respiratory Rate 16 07/03/24 18:38 Blood Pressure 119/68 07/03/24 18:38 Pulse Oximetry 92 07/03/24 18:38 Oxygen Delivery Room Air 07/03/24 18:38 Temperature 97.9 F 07/03/24 18:38 Pulse Rate 98 07/03/24 22:08 Respiratory Rate 24 H 07/03/24 22:08 Blood Pressure 119/68 07/03/24 18:38 Pulse Oximetry 91 07/03/24 20:52 Oxygen Delivery Nasal Cannula 07/03/24 20:52 Oxygen Flow Rate 2 07/03/24 20:52 <Dinora Castillo MD - Last Filed: 07/04/24 01:04> MDM - SOB/Dyspnea MDM Narrative Medical decision making narrative: 49-year-old female with history of asthma presents to emergency department for productive cough and shortness of breath. Triage vitals with tachycardia 106. She is found to be hypoxic at 88% on room air and was placed on 3 L nasal cannula satting 94%. Upon my evaluation the patient speaking full sentences and in no respiratory distress. Lung sounds are significantly diminished throughout all lung sykes with mild expiratory wheezing. Suspect asthma exacerbation. Will give hour long DuoNeb, 125 mg of Solu-Medrol and 2 g of IV magnesium. Given reported hemoptysis, will also obtain CTA chest PE. CBC shows no leukocytosis or anemia. Chemistries are largely unremarkable. ABG with pH is 7.434, pCO2 of 27.4, PO2 of 65, bicarb of 17.9. Lipase is normal. COVID, flu RSV are negative. Mag is normal at 2.3. CTA chest PE shows no PE, there is new patchy ground-glass opacities in the lungs consistent with pneumonia. EKG shows sinus tachycardia with a rate of 104, no ischemic changes. Troponin undetectable. Patient in family updated on workup. She is currently on her DuoNeb satting 98%. Her lung sounds have minimally improved. I feel she would benefit from admission for asthma exacerbation and treatment for pneumonia. Discussed with the hospitalist, Dr. Kristal lemus, who agrees to the plan for admission. Patient was started on Rocephin and azithromycin, blood cultures are pending. <Marilyn Gallego PA-C - Last Filed: 07/03/24 23:35> 49-year-old female with history of asthma presents to emergency department for productive cough and shortness of breath. Triage vitals with tachycardia 106. She is found to be hypoxic at 88% on room air and was placed on 3 L nasal cannula satting 94%. Upon my evaluation the patient speaking full sentences and in no respiratory distress. Lung sounds are significantly diminished throughout all lung sykes with mild expiratory wheezing. Suspect asthma exacerbation. Will give hour long DuoNeb, 125 mg of Solu-Medrol and 2 g of IV magnesium. Given reported hemoptysis, will also obtain CTA chest PE. CBC shows no leukocytosis or anemia. Chemistries are largely unremarkable. ABG with pH is 7.434, pCO2 of 27.4, PO2 of 65, bicarb of 17.9. Lipase is normal. COVID, flu RSV are negative. Mag is normal at 2.3. CTA chest PE shows no PE, there is new patchy ground-glass opacities in the lungs consistent with pneumonia. EKG shows sinus tachycardia with a rate of 104, no ischemic changes. Troponin undetectable. Patient in family updated on workup. She is currently on her DuoNeb satting 98%. Her lung sounds have minimally improved. I feel she would benefit from admission for asthma exacerbation and treatment for pneumonia. Discussed with the hospitalist, Dr. Garcia, who agrees to the plan for admission. Patient was started on Rocephin and azithromycin, blood cultures are pending. <Dinora Castillo MD - Last Filed: 07/04/24 01:04> Lab Data Result diagrams: 07/03/24 19:53 07/03/24 19:53 <Marilyn Gallego PA-C - Last Filed: 07/03/24 23:35> Labs: Lab Results 07/03/24 07/03/24 Range/Units 19:53 22:28 WBC 9.4 (4.5-10.0) K/mm3 RBC 5.30 (4.2-5.4) M/mm3 Hgb 12.9 (12.0-15.0) g/dL Hct 41.3 (37.0-47.0) % MCV 77.9 L (80-100) fl MCH 24.3 L (26-34) pg MCHC 31.2 L (32-36) g/dl RDW 16.2 H (11.5-14.5) % Plt Count 420 H (150-375) k/mm3 MPV 9.7 (7.4-10.4) fl Immature Gran % (Auto) 0.3 (0-0.5) % Neut % (Auto) 65.3 (45.5-73.1) % Lymph % (Auto) 23.5 (18.3-44.2) % [place] % (Auto) 8.5 (2.6-8.5) % Eos % (Auto) 1.3 (0-4.4) % Baso % (Auto) 1.1 (0.2-1.2) % Lymph # (Auto) 2.21 (0.9-3.2) K/mm3 [place] # (Auto) 0.8 H (0.1-0.6) K/mm3 Eos # (Auto) 0.1 (0-0.3) K/mm3 Baso # (Auto) 0.1 (0.0-0.1) K/mm3 Abs Immat Gran (auto) 0.03 (0.00-0.031) K/mm3 Absolute Neuts (auto) 6.2 (1.3-6.7) K/mm3 Absolute Nucleated RBC 0.000 (0.0-0.012) K/mm3 Nucleated RBC % 0.0 (0.0-0.2) % PT 14.3 (11.1-14.7) Seconds INR 1.1 APTT 27.5 (22.3-36.8) Seconds Sodium 139 (137-145) mmol/L Potassium 3.7 (3.4-5.0) mmol/L Chloride 108 H (98-107) mmol/L Carbon Dioxide 22 (22-30) mmol/L Anion Gap 9 (4-12) mmol/L BUN 6 L D (7-17) mg/dL Creatinine 0.70 (0.7-1.0) mg/dL Estim Creat Clear Calc 72 ml/min Estimated GFR > 60 (59 - ) Glucose 104 (65-110) mg/dL Calcium 9.3 (8.4-10.2) mg/dL Magnesium 2.3 (1.6-2.3) mg/dL Total Bilirubin 0.3 (0.2-1.3) mg/dL AST 23 (14-36) U/L ALT 15 (6-35) U/L Alkaline Phosphatase 57 (38-126) U/L Troponin I < 0.012 (0.000-0.034) ng/mL Total Protein 8.0 (6.3-8.2) g/dL Albumin 4.5 (3.5-5.1) g/dL Lipase 108 (23-300) U/L Influenza A (RT-PCR) Negative (Negative) Influenza B (RT-PCR) Negative (Negative) RSV (RT-PCR) Negative (Negative) SARS-CoV-2 RNA (RT-PCR) Negative (Negative) <Marilyn Gallego PA-C - Last Filed: 07/03/24 23:35> Lab Results 07/03/24 07/03/24 Range/Units 19:53 22:28 WBC 9.4 (4.5-10.0) K/mm3 RBC 5.30 (4.2-5.4) M/mm3 Hgb 12.9 (12.0-15.0) g/dL Hct 41.3 (37.0-47.0) % MCV 77.9 L (80-100) fl MCH 24.3 L (26-34) pg MCHC 31.2 L (32-36) g/dl RDW 16.2 H (11.5-14.5) % Plt Count 420 H (150-375) k/mm3 MPV 9.7 (7.4-10.4) fl Immature Gran % (Auto) 0.3 (0-0.5) % Neut % (Auto) 65.3 (45.5-73.1) % Lymph % (Auto) 23.5 (18.3-44.2) % [place] % (Auto) 8.5 (2.6-8.5) % Eos % (Auto) 1.3 (0-4.4) % Baso % (Auto) 1.1 (0.2-1.2) % Lymph # (Auto) 2.21 (0.9-3.2) K/mm3 [place] # (Auto) 0.8 H (0.1-0.6) K/mm3 Eos # (Auto) 0.1 (0-0.3) K/mm3 Baso # (Auto) 0.1 (0.0-0.1) K/mm3 Abs Immat Gran (auto) 0.03 (0.00-0.031) K/mm3 Absolute Neuts (auto) 6.2 (1.3-6.7) K/mm3 Absolute Nucleated RBC 0.000 (0.0-0.012) K/mm3 Nucleated RBC % 0.0 (0.0-0.2) % PT 14.3 (11.1-14.7) Seconds INR 1.1 APTT 27.5 (22.3-36.8) Seconds Sodium 139 (137-145) mmol/L Potassium 3.7 (3.4-5.0) mmol/L Chloride 108 H (98-107) mmol/L Carbon Dioxide 22 (22-30) mmol/L Anion Gap 9 (4-12) mmol/L BUN 6 L D (7-17) mg/dL Creatinine 0.70 (0.7-1.0) mg/dL Estim Creat Clear Calc 72 ml/min Estimated GFR > 60 (59 - ) Glucose 104 (65-110) mg/dL Calcium 9.3 (8.4-10.2) mg/dL Magnesium 2.3 (1.6-2.3) mg/dL Total Bilirubin 0.3 (0.2-1.3) mg/dL AST 23 (14-36) U/L ALT 15 (6-35) U/L Alkaline Phosphatase 57 (38-126) U/L Troponin I < 0.012 (0.000-0.034) ng/mL Total Protein 8.0 (6.3-8.2) g/dL Albumin 4.5 (3.5-5.1) g/dL Lipase 108 (23-300) U/L Influenza A (RT-PCR) Negative (Negative) Influenza B (RT-PCR) Negative (Negative) RSV (RT-PCR) Negative (Negative) SARS-CoV-2 RNA (RT-PCR) Negative (Negative) <Dinora Castillo MD - Last Filed: 07/04/24 01:04> ABG Data ABG results: 07/03/24 22:00 Puncture Site Right radial ABG pH 7.434 ABG pCO2 27.4 L ABG pO2 60.5 L ABG PO2/FiO2 Ratio 2.16 ABG HCO3 17.9 L ABG O2 Saturation 92.4 L ABG O2 Content 15.4 L ABG Base Excess -5.0 A-a Gradient 106.8 Oxyhemoglobin 89.6 L Total Hemoglobin 12.2 O2 Delivery Device Nasal cannula O2 Liters/Min 2.0 FiO2 28 <Marilyn Gallego PA-C - Last Filed: 07/03/24 23:35> 07/03/24 22:00 Puncture Site Right radial ABG pH 7.434 ABG pCO2 27.4 L ABG pO2 60.5 L ABG PO2/FiO2 Ratio 2.16 ABG HCO3 17.9 L ABG O2 Saturation 92.4 L ABG O2 Content 15.4 L ABG Base Excess -5.0 A-a Gradient 106.8 Oxyhemoglobin 89.6 L Total Hemoglobin 12.2 O2 Delivery Device Nasal cannula O2 Liters/Min 2.0 FiO2 28 <Dinora Castillo MD - Last Filed: 07/04/24 01:04> Discharge Plan Discharge Clinical Impression: Acute hypoxic respiratory failure Asthma exacerbation Qualifiers: Asthma severity: unspecified severity Asthma persistence: unspecified Qualified Code(s): J45.901 - Unspecified asthma with (acute) exacerbation Pneumonia Qualifiers: Pneumonia type: due to unspecified organism Laterality: unspecified laterality Lung location: unspecified part of lung Qualified Code(s): J18.9 - Pneumonia, unspecified organism <Marilyn Gallego PA-C - Last Filed: 07/03/24 23:35> Patient Disposition: Still a Patient <Marilyn Gallego PA-C - Last Filed: 07/03/24 23:35> Condition: Stable <Marilyn Gallego PA-C - Last Filed: 07/03/24 23:35>
[2024-07-03] MEDS: MAGNESIUM SULF 2 GM/WATER 50ML 2 GM/50 ML BAG IVPB (21:30)
[2024-07-03] MEDS: methylPREDNISolone SOD SUCC 125 MG VIAL IV PUSH (21:31)
--- NOTE | 2024-07-03 21:35 | PCRCNOTE ---
Addendum entered by Malgorzata Rene, [employer] 07/03/24 21:36: In CT Original Note: Patient not in room for ABG and nebulizer treatment.
[2024-07-03 21:36] LABS: Magnesium 2.3 mg/dL (1.6-2.3)
[2024-07-03] MEDS: IPRATROPIUM 0.5 MG/ALBUTEROL SULFATE 2.5 MG AMPUL.NEB 3 ML INHALATION ×3 (21:54→22:05)
[2024-07-03 22:07] LABS: Alveolar/Arterial O2 Gradient 106.8 mmHg; Fractional Inspired Oxygen 28 %; HCO3 ABG 17.9 mEq/l (22.0-26.0); Oxygen Content ABG 15.4 %vol (16.0-22.0); Oxygen Saturation ABG 92.4 % (95.0-100.0); Oxyhemoglobin 89.6 % THb (90.0-100.0); PCO2 ABG 27.4 mmHg (35.0-45.0); PO2 ABG 60.5 mmHg (80.0-100.0); PO2 FiO2 Ratio Arterial Blood 2.16 %; Total Hemoglobin 12.2 g/dL (12.0-18.0); pH ABG 7.434 (7.350-7.450)
[2024-07-03 22:08] LABS: Device NASAL CANNULA; Modified Allen's Test Pass; Site Drawn RIGHT RADIAL
[2024-07-03 23:09] LABS: Influenza A QL RT-PCR Negative (Negative); Influenza B QL RT-PCR Negative (Negative); RSV RNA, RT-PCR Negative (Negative); SARS-CoV-2 RNA PCR Negative (Negative)
[2024-07-04] VITALS (38 sets, daily range): BP systolic 95–121; BP diastolic 47–61; PULSE 9–132; RESP 18–30; TEMP 36.4–37.7; O2SAT 86–98; BMI 23.7
--- NOTE | 2024-07-04 | ECHO_ITS ---
Patient Info Name: Meaghan Hawthorne Age: 49 years : 1975 Gender: Female Ht: 64 in Wt: 138 lbs BSA: 1.69 m2 HR: 96 bpm BP: 101 / 61 mmHg Technical Quality: Fair Exam Date: 07/04/2024 12:30 PM Exam Location: Echo Lab Patient Status: Inpatient Admit Date: 07/04/2024 Staff Ordering Physician: Evert Alejandra MD Hr Advisor: BRUNILDA Attending Provider: Clarice Garcia MD Exam Type: CA echo doppler w bubble study Study Info Indications - HYPOXIA Contrast/Agitated Saline Contrast/Ag. Saline: Agitated Saline Amount: 2.00 ml Existing IV Access: Yes Summary 1. Normal LV size and wall thickness, hyperdynamic LV systolic function, ejection fraction more than 70%; normal diastolic function. Normal RV size and systolic function. No major interatrial shunt on agitated normal saline study. Image quality suboptimal. Normal mitral valve structure, no significant MR. Aortic valve not well visualized, no significant stenosis by Doppler. Unable to assess RVSP due to inadequate TR jet. Left Ventricle Left ventricular chamber dimension is normal. Left ventricular systolic function is hyperdynamic, estimated at >70%. There is no increased left ventricular wall thickness. Right Ventricle Right ventricular chamber dimension is normal. Right ventricular systolic function is normal. Left Atria Left atrial chamber dimension is normal. Right Atria Right atrial chamber dimension is normal. Aortic Valve The aortic valve is not well visualized. There is no aortic valve stenosis. Mitral Valve The mitral valve has normal leaflets. Tricuspid Valve The tricuspid valve leaflets are normal. Pericardium/Pleural The pericardium appears epicardial fat pad. Aorta The aortic root size at the sinus of Valsalva is normal. Left Ventricular Outflow Tract Name Value Normal LVOT 2D LVOT Diameter 1.9 cm LVOT Doppler LVOT Peak Gradient 5 mmHg LVOT Mean Gradient 2 mmHg LVOT VTI 22 cm LVOT VTI/AV VTI Ratio 0.9 LVOT Stroke Volume 61 ml LVOT CO 5.9 l/min LVOT CI 3.5 l/min/m2 Pulmonic Valve Name Value Normal RVOT Doppler RVOT Peak Gradient 3 mmHg PV Doppler PV Peak Gradient 4 mmHg Mitral Valve Name Value Normal MV Doppler MV Decel [place] 508 cm/s2 MV PHT 43 ms MV Area (PHT) 5.1 cm2 4.0-5.0 MV Diastolic Function MV E Peak Velocity 75 cm/s MV A Peak Velocity 90 cm/s MV E/A 0.8 MV Decel Time 147 ms MV Annular TDI MV E/e' (Septal) 7.4 <=8.0 MV E/e' (Lateral) 5.0 <=8.0 MV E/e' (Average) 6.2 Tricuspid Valve Name Value Normal Estimated PAP/RSVP RA Pressure 10 mmHg <=5 Aorta Name Value Normal Ascending Aorta Ao Root Diameter (MM) 2.4 cm Ao Root Diam Index (MM) 1.4 cm/m2 Aortic Valve Name Value Normal AV Doppler AV Peak Velocity 123 cm/s AV Peak Gradient 6 mmHg AV Mean Gradient 4 mmHg AV VTI 23 cm AV Area (Cont Eq VTI) 2.6 cm2 >=3.0 AV Area (Cont Eq Riley) 2.5 cm2 AV Regurgitation 2D LVOT Area 2.8 cm2 Ventricles Name Value Normal LV Dimensions 2D/MM IVS Diastolic Thickness (2D) 0.9 cm 0.6-1.0 LVID Diastole (2D) 3.5 cm 3.8-5.2 LVIW Diastolic Thickness (2D) 1.1 cm 0.6-0.9 LVID Systole (2D) 2.5 cm 2.2-3.5 LVOT Diameter 1.9 cm LV Mass (2D Cubed) 104.55 g 67.00-162.00 LV Mass Index (2D Cubed) 62 g/m2 43-95 Relative Wall Thickness (2D) 0.63 LV Fractional Shortening/Ejection Fraction 2D/MM LV Fractional Shortening (2D) 29 % 27-45 LV EF (2D Teicholz) 57 % 54-74 LV Diastolic Volume (4C MOD) 70 ml LV EF (4C MOD) 61 % LV Diastolic Volume (2C MOD) 58 ml LV EF (2C MOD) 74 % LV Diastolic Volume (BP MOD) 66 ml 46-106 LV Diastolic Volume Index (BP MOD) 39 ml/m2 29-61 LV Systolic Volume (BP MOD) 21 ml 14-42 LV Systolic Volume Index (BP MOD) 12 ml/m2 8-24 LV EF (BP MOD) 69 % 54-74 LV Diastolic Length (4C) 7.6 cm LV Systolic Length (4C) 5.8 cm LV Stroke Volume (4C MOD) 43 ml Atria Name Value Normal LA Dimensions LA Dimension (MM) 3.0 cm 2.7-3.8 LA Volume (4C A-L) 25 ml LA Volume (BP A-L) 30 ml RA Dimensions RA Area (4C) 10.1 cm2 <=18.0 Report Signatures
--- NOTE | 2024-07-04 01:58 | ADMGEN ---
This patient, Meaghan Hawthorne, was admitted to IMU Room 213-01. Patient/family oriented to hospital policies and general routines including ID bracelet, bed and alarms, visiting hours, pain management, procedures, bathroom and other care routines, personal items, smoking policy, room service/diet, and visiting hours. Information on how to activate the Rapid Response Team has been discussed. Patient/Family are encouraged to report perceived risks to care and to ask questions if they do not understand what they are told or what they should do.
[2024-07-04] MEDS: AZITHROMYCIN 500 MG/NS 250 ML 500 MG/250 ML BAG 250 MG IVPB (02:39)
--- NOTE | 2024-07-04 05:29 | PCRCNOTE ---
Window of time for administration has passed. See next scheduled administration.
[2024-07-04] MEDS: methylPREDNISolone SOD SUCC 125 MG VIAL 60 MG IV PUSH (06:20)
[2024-07-04] MEDS: IPRATROPIUM 0.5 MG/ALBUTEROL SULFATE 2.5 MG AMPUL.NEB 3 ML INHALATION ×3 (08:38→20:02)
--- NOTE | 2024-07-04 08:38 | P.HP_ITS ---
H&P: HPI History of Present Illness Date/Time: 07/04/24 08:38 Chief Complaint: Shortness of breath Narrative: 49yo female with asthma, pre-DM and GERD here for shortness of breath. Patient is Faroese speaking only. Daughter is at bedside. Offered to provide translating service, but patient is comfortable her daughter translate. Patient was seen in ED 05/30/24 for cough and treated as asthma exacerbation. She was sent albuterol, Pepcid and 6 days of tapering prednisone. She was seen again on 06/17/2024 in the ED shortness of breath and was treated for asthma exacerbation. She was discharged on prednisone 40 mg daily for 5 days. Her symptoms did improve initially but then worsened off the steroids. She does follow with a computer systems software architect at [facility]. She has tried to contact him but unable to connect with him. She has been using her inhaler without much improvement. She has been having a chronic cough with coughing jags and post-tussive emesis. Cough is productive of whitish sputum with occasional trace blood. She has been having low back pain mostly on left side as well as headache and neck pain. She does have chronic neck and back pain with associated mild left-sided weakness that is longstanding. She has severe acid reflux and history of gastric ulcer noted by EGD in the recent past and states that she developed pneumonia after that EGD. More recently on 06/25/2024, patient had a repeat EGD which showed ?irritation? the esophagus. Patient also states that the esophagus was dilated. She does have the feeling of acid reflux that also triggers the coughing spells. Does have some mild incontinence with the coughing spells. No dysuria or hematuria. She has been lung constipated but no melena or hematochezia. Last bowel movement was yesterday. She was living with someone who did test positive for TB. She has never been tested herself that she is aware of. No night sweats. She has had about 20 lb weight loss over the past 5 months felt related to the GERD. No clear triggers. No history of mechanical ventilation. They have an air conditioner unit that cools the whole house and they do changes filter out regularly. No history of IV drug use. No HIV risk factors. No sick contacts. No odynophagia dysphagia. Patient's symptoms worsened over the past 2 days prompting this presentation to the ED. In the ED, she was tachycardic (106) but not tachypneic or febrile. She was 92% on room air. Covid, RSV and influenza PCR were negative. CXR showing an airspace opacity in the LLL. CTA chest was negative for PE but showed new patchy ground glass opaticies in the lung in upper and lower lobes with atelectasis in the bases. EKG showing sinus tachycardia (104) and possible LAE. CBC showe normal WBC and Hgb but microcytic. No left shift. Platelet count slightly elevated. AB.43//61 on 2L. CMP essentially normal. Troponin negative. She was given Solu-Medrol, Duoneb, Magnesium, Rocephin and Azithromycin. She was admitted for further care. Oxygen requirement has worsened since admission. She does feel better since admission. Review of Systems Review of Systems: All systems reviewed & are unremarkable except as noted in HPI and below PMFSH Past Medical History Medical History (Updated 07/04/24 @ 09:54 by Evert Alejandra MD) Anemia Asthma Breast cyst Gastritis GERD (gastroesophageal reflux disease) Hx of thyroiditis Pre-diabetes Uterine fibroid Surgical History Surgical History (Updated 07/04/24 @ 09:42 by Evert Alejandra MD) No history of previous surgery Family History Family History (Updated 07/04/24 @ 09:43 by Evert Alejandra MD) Mother Enlarged heart Son Asthma Social History Social History (Updated 07/05/24 @ 06:49 by Evert Alejandra MD) Social History: Lives at home with and 3 children. Lifelong non-smoker. No alcohol or drug use. Code status - Full Code Surrogate decision maker - Smoking status: Never smoker Do You Feel Safe in your Home?: Yes Lack of Transportation: No Lack of Food: Never True Current Housing: I Have Housing Concerned About Future Housing: No Difficulty Paying Gas/Electric Bills: No Difficulty Paying for Meds: No Currently Unemployed: No Education: High School Diploma/GED Difficulty w/ Childcare or Family Care: No Gender identity (if verbalized by the patient): Female Spiritual care concerns: No Meds Home Medications and Allergies Home Medications Medication Instructions Recorded Confirmed Type famotidine 20 mg tablet (Acid 20 mg PO BID #14 tabs 05/30/24 07/04/24 Rx Controller) albuterol sulfate 2.5 mg/3 mL 2.5 mg inhalation Q6H PRN 07/04/24 07/04/24 History (0.083 %) solution for nebulization sob/wheezing albuterol sulfate 90 mcg/actuation 2 puff inhalation Q4H PRN 07/04/24 07/04/24 History aerosol inhaler sob/wheezing fluticasone 500 mcg-salmeterol 50 1 inh inhalation BID 07/04/24 07/04/24 History mcg/dose blistr powdr for inhalation montelukast 10 mg tablet 10 mg PO HS 07/04/24 07/04/24 History pantoprazole 40 mg tablet,delayed 40 mg PO DAILY 07/04/24 07/04/24 History release tiotropium bromide 1.25 2 puff inhalation BID 07/04/24 07/04/24 History mcg/actuation mist for inhalation (Spiriva Respimat) Allergies Allergy/AdvReac Type Severity Reaction Status Date / Time Penicillins Allergy Rash Verified 07/03/24 18:24 Vital Signs Vital Signs - 24 hr 07/03/24 18:38 07/03/24 20:51 07/03/24 20:52 Temperature 97.9 F Pulse Rate 106 H 104 H Respiratory Rate 16 Blood Pressure 119/68 Pulse Oximetry 92 91 Oxygen Delivery Room Air Nasal Cannula Oxygen Flow Rate 2 07/03/24 22:08 07/03/24 22:16 07/03/24 22:31 Temperature Pulse Rate 98 85 86 Respiratory Rate 24 H 27 H 31 H Blood Pressure 109/68 110/73 Pulse Oximetry 97 97 Oxygen Delivery Oxygen Flow Rate 07/03/24 22:45 07/03/24 22:46 07/03/24 23:00 Temperature Pulse Rate 88 86 88 Respiratory Rate 31 H 28 H 32 H Blood Pressure 106/57 L Pulse Oximetry 96 96 93 Oxygen Delivery Oxygen Flow Rate 07/03/24 23:01 07/03/24 23:15 07/03/24 23:16 Temperature Pulse Rate 93 95 96 Respiratory Rate 30 H 29 H 23 H Blood Pressure 103/51 L 96/60 L Pulse Oximetry 94 94 94 Oxygen Delivery Oxygen Flow Rate 07/03/24 23:30 07/03/24 23:31 07/03/24 23:45 Temperature Pulse Rate 97 102 H 95 Respiratory Rate 20 24 H 24 H Blood Pressure 108/51 L Pulse Oximetry 97 97 95 Oxygen Delivery Oxygen Flow Rate 07/03/24 23:46 07/04/24 00:00 07/04/24 00:01 Temperature Pulse Rate 99 109 H 109 H Respiratory Rate 29 H 20 22 H Blood Pressure 103/65 104/60 Pulse Oximetry 95 90 89 L Oxygen Delivery Oxygen Flow Rate 07/04/24 00:15 07/04/24 00:30 07/04/24 00:32 Temperature Pulse Rate 102 H 105 H 103 H Respiratory Rate 27 H 30 H 28 H Blood Pressure 101/47 L Pulse Oximetry 87 L 86 L Oxygen Delivery Oxygen Flow Rate 07/04/24 00:45 07/04/24 00:46 07/04/24 01:00 Temperature Pulse Rate 111 H 114 H 102 H Respiratory Rate 19 29 H 25 H Blood Pressure 102/60 Pulse Oximetry 90 89 L 92 Oxygen Delivery Oxygen Flow Rate 07/04/24 01:01 07/04/24 01:15 07/04/24 01:30 Temperature 98.1 F Pulse Rate 110 H 109 H 117 H Respiratory Rate 24 H 30 H 22 H Blood Pressure 100/56 L 121/59 L Pulse Oximetry 91 90 92 Oxygen Delivery Oxygen Flow Rate 07/04/24 04:21 07/04/24 04:00 07/04/24 06:37 Temperature 98.2 F Pulse Rate 99 99 99 Respiratory Rate 22 H 22 H 22 H Blood Pressure 95/54 L Pulse Oximetry 91 91 91 Oxygen Delivery Nasal Cannula High Flow Nasal Cannula Oxygen Flow Rate 4 6 07/04/24 02:00 07/04/24 04:00 07/04/24 06:00 Temperature Pulse Rate 110 H 102 H 109 H Respiratory Rate Blood Pressure Pulse Oximetry Oxygen Delivery Oxygen Flow Rate 07/04/24 01:35 Temperature Pulse Rate 99 Respiratory Rate 22 H Blood Pressure Pulse Oximetry 91 Oxygen Delivery Nasal Cannula Oxygen Flow Rate 4 Exam Narrative: AF 97.6 101/61 92 20 91% 8L HFNC Gen - well appearing female in no acute respiratory distress who is nontoxic- appearing lying semi recumbent in bed HEENT - normocephalic. Atraumatic. Pupils equal round and reactive. Ext raocular motions intact. Sclera mildly injected and anicteric. Nares patent. Oropharynx was clear. No oral lesions. Moist mucous membranes. Tongue was midline. Palate izaiah symmetrically. No facial asymmetry. Neck - neck was supple. No dominant adenopathy, thyromegaly or masses. No supraclavicular or axillary adenopathy Chest - lungs with distant breath sounds. Bibasilar inspiratory faint crackles. No wheezing. Breast exam was deferred. CV - heart was regular rate and rhythm. S1-S2. No murmurs gallops or rubs. Abd - abdomen was soft. Nondistended. Positive bowel sounds. No organomegaly or masses. No guarding or rebound but states pain in LLQ and epigastric region. Back - left CVA tenderness and left posterior rib pain but no rash or crepitus. Ext - no clubbing, cyanosis or edema. 2+ DP pulses bilaterally. Neuro - patient is alert and oriented x4. Strength is 5/5 in both upper and lower extremities except slight weakness to the left hip flexor. Cranial nerves 2-12 are intact. Speech is clear. Psych - normal mood and affect. Patient is pleasant and cooperative. Skin - warm and dry. No rashes noted. H&P: Results Labs Labs: Short CBC 07/03/24 Range/Units 19:53 WBC 9.4 (4.5-10.0) K/mm3 Hgb 12.9 (12.0-15.0) g/dL Hct 41.3 (37.0-47.0) % Plt Count 420 H (150-375) k/mm3 BMP 07/03/24 19:53 Sodium 139 Potassium 3.7 Chloride 108 H Carbon Dioxide 22 BUN 6 L D Creatinine 0.70 Glucose 104 Calcium 9.3 Cardiac Enzymes 07/03/24 Range/Units 19:53 Troponin I < 0.012 (0.000-0.034) ng/mL Liver Function 07/03/24 Range/Units 19:53 Total Bilirubin 0.3 (0.2-1.3) mg/dL AST 23 (14-36) U/L ALT 15 (6-35) U/L Alkaline Phosphatase 57 (38-126) U/L Albumin 4.5 (3.5-5.1) g/dL Assessment and Plan Assessment and plan (1) Acute hypoxic respiratory failure: Code(s): J96.01 - Acute respiratory failure with hypoxia Status: Acute Assessment and Plan: Patient with poorly controlled asthma. She follows with [facility]. She is on Spiriva and Advair chronically and is compliant. AB.43 on 2L. Covid, RSV and influenza PCR were negative. No systemic eosinophilia (was at 900cells in May). CXR showing an airspace opacity in the LLL. CTA chest was negative for PE but showed new patchy ground glass opacities in the lung in upper and lower lobes with atelectasis in the bases. Hemoptysis felt related to cough and small upper airway irritation. CTA negative for PE. Exclude TB. Flare could be related to severe GERD. Consider also PNA that was partially treated (she was on Levaquin earlier this month). Consider pertussis to explain why she has persistent symptoms. Consider TB given the CTA chest findings and known exposure. Check MRSA swab, pertussis and Gold . Check Sputum Cx. Check Echo. Elevate HOB. Add carafate. GERD diet. Consider GES. Add Vanco. Pulmonary consult (2) Pneumonia: Qualifiers: Laterality: unspecified laterality Lung location: unspecified part of lung Pneumonia type: due to unspecified organism Qualified Code(s): J18.9 - Pneumonia, unspecified organism Code(s): J18.9 - Pneumonia, unspecified organism Status: Acute Assessment and Plan: As above Follow up on BCx. (3) Asthma exacerbation: Qualifiers: Asthma persistence: unspecified Asthma severity: unspecified severity Qualified Code(s): J45.901 - Unspecified asthma with (acute) exacerbation Code(s): J45.901 - Unspecified asthma with (acute) exacerbation Status: Acute Assessment and Plan: As above. Wean steroids today. (4) GERD (gastroesophageal reflux disease): Code(s): K21.9 - Gastro-esophageal reflux disease without esophagitis Status: Acute Assessment and Plan: Elevate HOB. Continue Protonix but increase to Q12h. Add carafate. Plan Microcytosis - check iron studies DVT prophylaxis - SCDs Code status - full Hospitalist MIPS Advance Care Plan I have confirmed that the patient's Advanced Care Plan is present, code status is documented, or surrogate decision maker is listed in patient medical record.: Yes Medication Reconciliation I have utilized all available resources to obtain, update and review the patients current medications (includes all prescriptions, OTC, herbals, cannabis, and nutritional supplements).: Yes
[2024-07-04 10:58] LABS: Add Urine Microscopic? YES; Appearance Urine Cloudy (Clear); Bacteria Urine None Seen /hpf; Bilirubin Urine Negative (Negative); Blood Urine 3+ (Negative); Color Urine Yellow (Yellow); Glucose Urine UA 3+ mg/dL (Negative); Ketones Urine Trace mg/dL (Negative); Leukocyte Esterase Ur Negative LEU/UL (Negative); Nitrate Urine Negative (Negative); Non Pathogenic Casts 0-2; Protein Urine Negative (Negative); RBC Urine >100 /hpf (0-2); Specific Grav Ur 1.016 (1.001-1.035); Squamous Epithelial Cell Urine None Seen /hpf (Few); Urobilinogen Urine 0.2 mg/dL (<2.0); WBC Urine 0-5 /hpf (0-3)
[2024-07-04 11:25] LABS: SPREG INTERNAL CONTROL Positive; Serum Qual hCG Negative
[2024-07-04 11:54] LABS: Thyroid Stimulating Hormone Reflex 0.443 uIU/mL (0.465-4.68)
[2024-07-04 12:10] LABS: MRSA (PCR) NOT DETECTED (NOT DETECTE)
[2024-07-04 12:12] LABS: Folic Acid 11.2 ng/mL (2.76->20)
--- NOTE | 2024-07-04 12:12 | P.CONPL_ITS ---
Assessment and Plan Assessment and plan (1) Asthma exacerbation: Qualifiers: Asthma persistence: unspecified Asthma severity: unspecified severity Qualified Code(s): J45.901 - Unspecified asthma with (acute) exacerbation Code(s): J45.901 - Unspecified asthma with (acute) exacerbation Status: Acute Assessment and Plan: Regarding her asthma she was diagnosed at age 33 with a is been on inhalers since then. Her drug triggers include dust, cold air, upper resp iratory infections and allergies especially in the fall. Over the last year she has had 10 prednisone burst. She got sick and self referred her to [facility] pulmonary in is seen them 5 times since August of 2023. They recommend she start on Dupixent but this was never arranged and she has not heard back from them regarding this medicine. Her PCP started her on trelegy but this caused a cough with nausea and vomiting. She was switched to Advair 500-50 and continued on Spiriva 1.25 at 1 puff b.i.d. and montelukast 10 mg a day. She states that the Advair 500-50 makes her cough and that she takes 1 inhalation 2 to 3 times a week. The Spiriva Respimat does not make her cough. She faithfully takes her Spiriva and montelukast. She takes rescue albuterol every day. At baseline she can walk 1 mi over 40-50 minutes. A year ago she could do the same. 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 Regarding contributing factors to poorly controlled asthma she has bad acid reflux and GERD. She has had EGD twice in the past and both times after that has developed pneumonia. Apparently she had an EGD on 06/25 that showed esophageal irritation. She states that her GERD is poorly controlled and that when her GERD flares her asthma also is worse. She has no sinus congestion. She snores but is not have any witnessed apneas. Her BMI is 23.7. Patient with 2 recent exacerbations Requiring prednisone burst on 05/30/2024 and 06/17/2024. 07/04/2024. The patient's daughter is a room and translates for me. The patient states she is better and breathing 100% back to her normal. She denies any wheezing. She has pain in posterior left rib cage that pulses in his relieved by massage. Today she has some brown phlegm but no hemoptysis. When I walked into the room she was on 8 L nasal cannula saturations 95%. I decreased her to 5 L nasal cannula and her saturations were 93%. She denies fever, chills, rigors, night sweats. Two months ago she had a hot sensation twice at the night that she thought may be related to menopause. She had reflux on presentation but currently her reflux is gone. Plan: I will continue to treat asthma exacerbation. she has improved with steroids, bronchodilators and antibiotics. I will continue Solu-Medrol and decrease the dose to 20 mg IV q.6 hours, increase DuoNebs to Q 4 hours. Continue montelukast 10 mg. I will discontinue her Advair HFA at this time as she is on maximal beta agonist and muscarinic antagonists with the DuoNeb Q 4 hr. Regarding contributors to poorly controlled asthma she has no sinus disease and no history suggestive of a restrictive sleep apnea. She does have bad acid reflux that does worsen her asthma. Currently she is on Protonix 40 mg p.o. q.12 hours and Carafate 1000 AC and HS and today she states that her reflux is gone. Will continue. The patient has had multiple prednisone bursts approximately 10 in the last 10 months. she is unable to tolerate DPI Advair or trelegy so she has been inadequately treated throughout this time. Prior to discharge we will trial her on Advair HFA to determine if she can tolerate this. Discussed with Dr. Alejandra. Will follow with you. (2) Pneumonia: Qualifiers: Laterality: unspecified laterality Lung location: unspecified part of lung Pneumonia type: due to unspecified organism Qualified Code(s): J18.9 - Pneumonia, unspecified organism Code(s): J18.9 - Pneumonia, unspecified organism Status: Acute Assessment and Plan: patient has new patchy small ground-glass infiltrates in all lung sykes on her CT scan new since 06/17/24. COVID, influenza, RSV RT PCR negative. Bordetella PCR study negative. Blood cultures pending. She was started on ceftriaxone and azithromycin. vancomycin was added. Patient's son's recently moved from [place] and is part of this move she had a blood test that was positive for exposure to tuberculosis. A chest x-ray was taken and this was negative. She was told she had been exposed to TB but did not have active disease. Currently she is breast feeding and the doctors told her that when she has finished breast feeding in 2 months they will treat her with 2 meds for 3 months. The patient has 3 children all had skin test and blood tests that were positive for tuberculosis. This was 8 years ago and the patient does not remember if they have chest x-rays. To the siblings were given pills for 4 months and 1 was given a syrup for 6 months. This was in [facility]. Plan: Patient has worsening oxygenation and was on 8 L this morning I have weaned her down to 5 L with adequate oxygenation. I will repeat a chest x-ray. Echocardiogram with bubble study has been ordered. I will send a sputum for Gram stain and culture. I will send the respiratory pathogen panel. I will send a procalcitonin level. Agree with current antibiotics. If MRSA nasal swab negative consider discontinuation of vancomyc in. The patient does not have any symptoms consistent with active tuberculosis. Her CT scan would be atypical for active tuberculosis. The patient may have been previously exposed to tuberculosis as her children and in- laws have and QuantiFERON gold study is pending. At this time I do not feel respiratory isolation or sputum for AFB are warranted. History of Present Illness History of Present Illness Consult date: 07/04/24 Chief complaint: Pneumonia, Acute hypoxic respiratory failure Narrative: 07/04/2024: This is a new pulmonary consult for asthma, pneumonia and TB exposure. 49-year-old with a history of asthma, esophagitis-GERD. regarding her asthma she was diagnosed at age 33 with a is been on inhalers since then. Her drug triggers include dust, cold air, upper respiratory infections and allergies especially in the fall. Over the last year she has had 10 prednisone burst. She got sick and self referred her to [facility] pulmonary in is seen them 5 times since August of 2023. They recommend she start on Dupixent but this was never arranged and she has not heard back from them regarding this medicine. Her PCP started her on trelegy but this caused a cough with nausea and vomiting. She was switched to Advair 500-50 and continued on Spiriva 1.25 at 1 puff b.i.d. and montelukast 10 mg a day. She states that the Advair 500-50 makes her cough and that she takes 1 inhalation 2 to 3 times a week. The Spiriva Respimat does not make her cough. She faithfully takes her Spiriva and montelukast. She takes rescue albuterol every day. At baseline she can walk 1 mi over 40-50 minutes. A year ago she could do the same. 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 Regarding contributing factors to poorly controlled asthma she has bad acid reflux and GERD. She has had EGD twice in the past and both times after that has developed pneumonia. Apparently she had an EGD on 06/25 that showed esophageal irritation. She states that her GERD is poorly controlled and that when her GERD flares her asthma also is worse. She has no sinus congestion. She snores but is not have any witnessed apneas. Her BMI is 23.7. Patient was seen in the emergency department on 05/30/24 and given a prednisone burst. She improved but worsened and on 06/17/24 was seen in the emergency room and received a prednisone burst. she had blood-tinged sputum on this presentation peer Patient presented on 07/03/2024 to the emergency department with 2 days history of shortness of breath, coughing, wheezing, spots of blood in her phlegm and a cough the cause chest pain. Her room air saturations were 88 when she was placed on 3 L nasal cannula and her saturations were 94%. She had mild expiratory wheezes throughout with a white blood cell count of 9.4, eosinophils 1.3% equals 122 per micro L. creatinine 0.7. COVID, influenza, RSV RT PCR studies negative. ABG on 2 L was 7.4 11/08/2060. CT angiogram of the chest showed no PE, Small scattered areas of ground-glass infiltrates in all lobes with no evidence of cavitation, no pleural disease, no emphysema no interstitial lung disease. Patient was treated with Solu-Medrol 125, bronchodilators and IV magnesium. 07/04/2024. The patient's daughter is a room and translates for me. The patient states she is better and breathing 100% back to her normal. She denies any wheezing. She has pain in posterior left rib cage that pulses in his relieved by massage. Today she has some brown phlegm but no hemoptysis. When I walked into the room she was on 8 L nasal cannula saturations 95%. I decreased her to 5 L nasal cannula and her saturations were 93%. She denies fever, chills, rigors, night sweats. Two months ago she had a hot sensation twice at the night that she thought may be related to menopause. She had reflux on presentation but currently her reflux is gone. Patient's son's recently moved from [place] and is part of this move she had a blood test that was positive for exposure to tuberculosis. A chest x-ray was taken and this was negative. She was told she had been exposed to TB but did not have active disease. Currently she is breast feeding and the doctors told her that when she has finished breast feeding in 2 months they will treat her with 2 meds for 3 months. The patient has 3 children all had skin test and blood tests that were positive for tuberculosis. This was 8 years ago and the patient does not remember if they have chest x-rays. To the siblings were given pills for 4 months and 1 was given a syrup for 6 months. This was in [facility]. DATA: 07/03/24: EXAMINATION: CTA chest PE protocol INDICATION: Dyspnea. Hemoptysis. TECHNIQUE: Computed tomography angiography (CTA) of the chest was performed with 100 mL Omnipaque-350 intravenous contrast timed to evaluate the pulmonary arteries. Coronal maximum intensity projection 3D-reconstructions were created by the technologist. Automated exposure control and iterative reconstruction technique were employed. The dose-length product was 227.25 mGy-cm. COMPARISON: Chest CT 06/17/2024 FINDINGS: There are patchy groundglass opacities in the upper lobes and lower lobes. There is mild atelectasis bilaterally. No pleural effusion. The heart size is normal. No pericardial effusion. There is no pulmonary embolus. There is mild thoracic spondylosis. IMPRESSION: 1. No pulmonary embolus. 2. New patchy groundglass opacities in the lungs, consistent with pneumonia. 06/17/24: EXAMINATION: CTA chest PE protocol DATE: 06/17/2024 16:49 INDICATION: Dizziness TECHNIQUE: Computed tomography angiography (CTA) of the chest was performed with 100 mL Omnipaque-350 intravenous contrast timed to evaluate the pulmonary arteries. Coronal maximum intensity projection 3D-reconstructions were created by the technologist. Automated exposure control and iterative reconstruction technique were employed. Exam dose: 198.27 mGy-cm total exam DLP. COMPARISON: 05/30/2024 PA and lateral chest FINDINGS: There is diagnostic contrast enhancement of the pulmonary arteries and no evidence of pulmonary embolism. No thoracic aortic aneurysm or dissection. Normal heart size. No pericardial or pleural effusion. Normal morphology of the adrenal glands. Included upper abdominal structures are unremarkable. Linear discoid atelectasis or scarring, middle lobe, lingula and left lower lobe. No pulmonary infiltrate or consolidation or suspicious pulmonary mass lesion is noted. Included skeletal structures are unremarkable. IMPRESSION: No evidence of pulmonary embolism Review of Systems Constitutional: Constitutional: Reports no additional constitutional c omplaints Eyes: Eyes: Reports no additional eye complaints ENT: Reports system reviewed and no additional complaints, except as documented Cardiovascular: Cardiovascular: Reports no additional cardiovascular complaints Respiratory: Respiratory: Reports no additional respiratory complaints Gastrointestinal: Gastrointestinal: Reports no additional gastrointestinal complaints Musculoskeletal: Musculoskeletal: Reports no additional musculoskeletal complaints Neurologic: Reports system reviewed and no additional complaints, except as documented Psychiatric: Psychiatric: Reports no additional psychiatric complaints Endocrine: Endocrine: Reports no additional endocrine complaints Hematologic/Lymphatic: Hematologic/Lymphatic: Reports no additional hematologic/lymphatic complaints Allergic/Immunologic: Allergic/Immunologic: Reports no additional aller gic/immunologic complaints [facility] Past Medical History Medical History (Updated 07/04/24 @ 09:54 by Evert Alejandra MD) Anemia Asthma Breast cyst Gastritis GERD (gastroesophageal reflux disease) Hx of thyroiditis Pre-diabetes Uterine fibroid Surgical History Surgical History (Updated 07/04/24 @ 09:42 by Evert Alejandra MD) No history of previous surgery Family History Family History (Updated 07/04/24 @ 09:43 by Evert Alejandra MD) Mother Enlarged heart Son Asthma Social History Social History (Updated 07/04/24 @ 09:44 by Evert Alejandra MD) Social History: Lives at home with and 3 children. Lifelong non-smoker. No alcohol or drug use. Code status - Full Code Smoking status: Never smoker Do You Feel Safe in your Home?: Yes Lack of Transportation: No Lack of Food: Never True Current Housing: I Have Housing Concerned About Future Housing: No Difficulty Paying Gas/Electric Bills: No Difficulty Paying for Meds: No Currently Unemployed: No Education: High School Diploma/GED Difficulty w/ Childcare or Family Care: No Gender identity (if verbalized by the patient): Female Spiritual care concerns: No Meds Home Medications and Allergies Home Medications Medication Instructions Recorded Confirmed Type famotidine 20 mg tablet (Acid 20 mg PO BID #14 tabs 05/30/24 07/04/24 Rx Controller) albuterol sulfate 2.5 mg/3 mL 2.5 mg inhalation Q6H PRN 07/04/24 07/04/24 History (0.083 %) solution for nebulization sob/wheezing albuterol sulfate 90 mcg/actuation 2 puff inhalation Q4H PRN 07/04/24 07/04/24 History aerosol inhaler sob/wheezing fluticasone 500 mcg-salmeterol 50 1 inh inhalation BID 07/04/24 07/04/24 History mcg/dose blistr powdr for inhalation montelukast 10 mg tablet 10 mg PO HS 07/04/24 07/04/24 History pantoprazole 40 mg tablet,delayed 40 mg PO DAILY 07/04/24 07/04/24 History release tiotropium bromide 1.25 2 puff inhalation BID 07/04/24 07/04/24 History mcg/actuation mist for inhalation (Spiriva Respimat) Allergies Allergy/AdvReac Type Severity Reaction Status Date / Time Penicillins Allergy Rash Verified 07/03/24 18:24 Vital Signs Vital Signs - 24 hr 07/03/24 18:38 07/03/24 20:51 07/03/24 20:52 Temperature 36.6 C Pulse Rate 106 H 104 H Respiratory Rate 16 Blood Pressure 119/68 Pulse Oximetry 92 91 Oxygen Delivery Room Air Nasal Cannula Oxygen Flow Rate 2 07/03/24 22:08 07/03/24 22:16 07/03/24 22:31 Temperature Pulse Rate 98 85 86 Respiratory Rate 24 H 27 H 31 H Blood Pressure 109/68 110/73 Pulse Oximetry 97 97 Oxygen Delivery Oxygen Flow Rate 07/03/24 22:45 07/03/24 22:46 07/03/24 23:00 Temperature Pulse Rate 88 86 88 Respiratory Rate 31 H 28 H 32 H Blood Pressure 106/57 L Pulse Oximetry 96 96 93 Oxygen Delivery Oxygen Flow Rate 07/03/24 23:01 07/03/24 23:15 07/03/24 23:16 Temperature Pulse Rate 93 95 96 Respiratory Rate 30 H 29 H 23 H Blood Pressure 103/51 L 96/60 L Pulse Oximetry 94 94 94 Oxygen Delivery Oxygen Flow Rate 07/03/24 23:30 07/03/24 23:31 07/03/24 23:45 Temperature Pulse Rate 97 102 H 95 Respiratory Rate 20 24 H 24 H Blood Pressure 108/51 L Pulse Oximetry 97 97 95 Oxygen Delivery Oxygen Flow Rate 07/03/24 23:46 07/04/24 00:00 07/04/24 00:01 Temperature Pulse Rate 99 109 H 109 H Respiratory Rate 29 H 20 22 H Blood Pressure 103/65 104/60 Pulse Oximetry 95 90 89 L Oxygen Delivery Oxygen Flow Rate 07/04/24 00:15 07/04/24 00:30 07/04/24 00:32 Temperature Pulse Rate 102 H 105 H 103 H Respiratory Rate 27 H 30 H 28 H Blood Pressure 101/47 L Pulse Oximetry 87 L 86 L Oxygen Delivery Oxygen Flow Rate 07/04/24 00:45 07/04/24 00:46 07/04/24 01:00 Temperature Pulse Rate 111 H 114 H 102 H Respiratory Rate 19 29 H 25 H Blood Pressure 102/60 Pulse Oximetry 90 89 L 92 Oxygen Delivery Oxygen Flow Rate 07/04/24 01:01 07/04/24 01:15 07/04/24 01:30 Temperature 36.7 C Pulse Rate 110 H 109 H 117 H Respiratory Rate 24 H 30 H 22 H Blood Pressure 100/56 L 121/59 L Pulse Oximetry 91 90 92 Oxygen Delivery Oxygen Flow Rate 07/04/24 04:21 07/04/24 04:00 07/04/24 06:37 Temperature 36.8 C Pulse Rate 99 99 99 Respiratory Rate 22 H 22 H 22 H Blood Pressure 95/54 L Pulse Oximetry 91 91 91 Oxygen Delivery Nasal Cannula High Flow Nasal Cannula Oxygen Flow Rate 4 6 07/04/24 02:00 07/04/24 04:00 07/04/24 06:00 Temperature Pulse Rate 110 H 102 H 109 H Respiratory Rate Blood Pressure Pulse Oximetry Oxygen Delivery Oxygen Flow Rate 07/04/24 01:35 07/04/24 08:38 07/04/24 08:39 Temperature Pulse Rate 99 94 92 Respiratory Rate 22 H 20 20 Blood Pressure Pulse Oximetry 91 91 Oxygen Delivery Nasal Cannula High Flow Nasal Cannula Oxygen Flow Rate 4 8 07/04/24 08:49 07/04/24 08:00 Temperature 36.4 C Pulse Rate 88 96 Respiratory Rate 20 22 H Blood Pressure 101/61 Pulse Oximetry 92 Oxygen Delivery Oxygen Flow Rate Exam Const: General: cooperative, healthy appearing and comfortable Orientation/consciousness: oriented to person, oriented to place and oriented to time HENMT: Head: normal to inspection Ears: hearing grossly normal bilaterally Eyes: General: appearance normal, both eyes and all related structures Neck: Neck: normal visual inspection Chest: Chest palpation & inspection: normal inspection of the chest Resp: Effort & Inspection: normal respiratory effort and able to speak in complete sentences Auscultation: no crackles, no rales, no rhonchi, wheezes and lung sounds not diminished Other: few end-expiratory wheezes on the right, left is clear to auscultation. Cardio: Jugular venous distension: no JVD GI: Inspection: normal to inspection GI Palp: No abdominal tenderness Skin: General skin exam: normal color Neuro: General: oriented to person, oriented to place and oriented to time Extrem: General: normal to inspection and no edema Psych: Appearance: grossly normal Results Laboratory Findings 07/03/24 19:53 07/03/24 19:53 ABG, PT/INR, D-dimer: ABG ABG pH 7.434 (7.350-7.450) 07/03/24 22:00 ABG pCO2 27.4 mmHg (35.0-45.0) L 07/03/24 22:00 ABG pO2 60.5 mmHg (80.0-100.0) L 07/03/24 22:00 ABG O2 Saturation 92.4 % (95.0-100.0) L 07/03/24 22:00 PT/INR, D-dimer PT 14.3 Seconds (11.1-14.7) 07/03/24 19:53 INR 1.1 07/03/24 19:53 Abnormal lab findings: Abnormal Labs 07/03/24 07/03/24 07/04/24 19:53 22:00 10:41 MCV 77.9 L MCH 24.3 L MCHC 31.2 L RDW 16.2 H Plt Count 420 H [place] # (Auto) 0.8 H ABG pCO2 27.4 L ABG pO2 60.5 L ABG HCO3 17.9 L ABG O2 Saturation 92.4 L ABG O2 Content 15.4 L Oxyhemoglobin 89.6 L Chloride 108 H BUN 6 L D TSH (Reflex) 0.443 L Urine Appearance Urine Glucose (UA) Urine Ketones Ur Blood (Man) Urine RBC 07/04/24 10:44 MCV MCH MCHC RDW Plt Count [place] # (Auto) ABG pCO2 ABG pO2 ABG HCO3 ABG O2 Saturation ABG O2 Content Oxyhemoglobin Chloride BUN TSH (Reflex) Urine Appearance Cloudy H Urine Glucose (UA) 3+ H Urine Ketones Trace H Ur Blood (Man) 3+ H Urine RBC >100 H Diagnostic Findings Additional studies: ITS Impressions Chest X-Ray 07/03/24 19:16 IMPRESSION: 1. Airspace opacities in left lower lobe, consistent with atelectasis versus pneumonia. Chest CTA 07/03/24 21:56
[2024-07-04] MEDS: VANCOMYCIN 1,500 MG/NS 500 ML 1,500 MG/500 ML BAG 250 MG IVPB (13:24)
[2024-07-04] MEDS: SUCRALFATE SUSP 100 MG/ML 10 ML UDC 1000 MG PO ×3 (13:27→20:21)
[2024-07-04] MEDS: methylPREDNISolone SOD SUCC 40 MG VIAL 20 MG IV PUSH ×2 (13:27→17:42)
[2024-07-04] MEDS: FAMOTIDINE 20 MG TABLET PO ×2 (13:28→17:40)
[2024-07-04 13:51] LABS: Free T4 Free Thyroxine Reflex 1.36 ng/dL (0.78-2.19)
[2024-07-04 13:52] LABS: Procalcitonin < 0.0 ng/mL
[2024-07-04 14:52] LABS: Total Triiodothyronine (T3) 1.21 NG/ML (0.97-1.69)
[2024-07-04] MEDS: PANTOPRAZOLE 40 MG TABLET PO (20:21)
[2024-07-04 21:53] LABS: Iron 18 ug/dL (37-170)
[2024-07-04 22:02] LABS: Percent Iron Saturation 5 % (20-50)
[2024-07-04 22:29] LABS: Ferritin 5.09 ng/mL (6.24-137)
[2024-07-05] VITALS (23 sets, daily range): BP systolic 90–100; BP diastolic 43–55; PULSE 74–113; RESP 14–20; TEMP 36.7–37.1; O2SAT 86–96
[2024-07-05] MEDS: methylPREDNISolone SOD SUCC 40 MG VIAL 20 MG IV PUSH ×2 (00:06→05:27)
[2024-07-05] MEDS: IPRATROPIUM 0.5 MG/ALBUTEROL SULFATE 2.5 MG AMPUL.NEB 3 ML INHALATION ×3 (00:22→08:30)
--- NOTE | 2024-07-05 00:48 | PC.NURSE ---
This RN used the pt's daughter for translation per request of patient, for patient care.
[2024-07-05] MEDS: SUCRALFATE SUSP 100 MG/ML 10 ML UDC 1000 MG PO ×4 (05:27→20:37)
[2024-07-05 05:51] LABS: Anion Gap 9 mmol/L (4-12); Blood Urea Nitrogen 16 mg/dL (7-17); Calcium 8.7 mg/dL (8.4-10.2); Carbon Dioxide 19 mmol/L (22-30); Chloride 112 mmol/L (98-107); Estimated CRCL calculation 83 ml/min; Estimated Glomerular Filt Rate > 60; Glucose 177 mg/dL (65-110); Potassium 3.4 mmol/L (3.4-5.0); Sodium 140 mmol/L (137-145)
[2024-07-05] MEDS: FAMOTIDINE 20 MG TABLET PO ×2 (09:12→16:33)
[2024-07-05] MEDS: IRON SUCROSE COMPLEX 100 MG in SODIUM CHLORIDE 0.9% IV 50 ML 220 MG IVPB (09:12)
[2024-07-05] MEDS: PANTOPRAZOLE 40 MG TABLET PO ×2 (09:12→20:37)
[2024-07-05] MEDS: DOXYCYCLINE HYCLATE 100 MG TABLET PO ×2 (09:12→20:36)
--- NOTE | 2024-07-05 10:18 | PM.PNPUL ---
Progress Note: A&P Assessment and Plan (1) Asthma exacerbation: Qualifiers: Asthma persistence: unspecified Asthma severity: unspecified severity Qualified Code(s): J45.901 - Unspecified asthma with (acute) exacerbation Code(s): J45.901 - Unspecified asthma with (acute) exacerbation Status: Acute Assessment and Plan: Regarding her asthma she was diagnosed at age 33 with a is been on inhalers since then. Her drug triggers include dust, cold air, upper respiratory infections and allergies especially in the fall. Over the last year she has had 10 prednisone burst. She got sick and self referred her to [facility] pulmonary in is seen them 5 times since August of 2023. They recommend she start on Dupixent but this was never arranged and she has not heard back from them regarding this medicine. Her PCP started her on trelegy but this caused a cough with nausea and vomiting. She was switched to Advair 500-50 and continued on Spiriva 1.25 at 1 puff b.i.d. and montelukast 10 mg a day. She states that the Advair 500-50 makes her cough and that she takes 1 inhalation 2 to 3 times a week. The Spiriva Respimat does not make her cough. She faithfully takes her Spiriva and montelukast. She takes rescue albuterol every day. At baseline she can walk 1 mi over 40-50 minutes. A year ago she could do the same. 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 Regarding contributing factors to poorly controlled asthma she has bad acid reflux and GERD. She has had EGD twice in the past and both times after that has developed pneumonia. Apparently she had an EGD on 06/25 that showed esophageal irritation. She states that her GERD is poorly controlled and that when her GERD flares her asthma also is worse. She has no sinus congestion. She snores but is not have any witnessed apneas. Her BMI is 23.7. Patient with 2 recent exacerbations Requiring prednisone burst on 05/30/2024 and 06/17/2024. 07/04/2024. The patient's daughter is a room and translates for me. The patient states she is better and breathing 100% back to her normal. She denies any wheezing. She has pain in posterior left rib cage that pulses in his relieved by massage. Today she has some brown phlegm but no hemoptysis. When I walked into the room she was on 8 L nasal cannula saturations 95%. I decreased her to 5 L nasal cannula and her saturations were 93%. She denies fever, chills, rigors, night sweats. Two months ago she had a hot sensation twice at the night that she thought may be related to menopause. She had reflux on presentation but currently her reflux is gone. Plan: I will continue to treat asthma exacerbation. she has improved with steroids, bronchodilators and antibiotics. I will continue Solu-Medrol and decrease the dose to 20 mg IV q.6 hours, increase DuoNebs to Q 4 hours. Continue montelukast 10 mg. I will discontinue her Advair HFA at this time as she is on maximal beta agonist and muscarinic antagonists with the DuoNeb Q 4 hr. Regarding contributors to poorly controlled asthma she has no sinus disease and no history suggestive of a restrictive sleep apnea. She does have bad acid reflux that does worsen her asthma. Currently she is on Protonix 40 mg p.o. q.12 hours and Carafate 1000 AC and HS and today she states that her reflux is gone. Will continue. The patient has had multiple prednisone bursts approximately 10 in the last 10 months. she is unable to tolerate DPI Advair or trelegy so she has been inadequately treated throughout this time. Prior to discharge we will trial her on Advair HFA to determine if she can tolerate this. Later in the day echocardiogram with normal LV systolic function, normal right ventricular size and function, normal right atrial size. RVSP not calculated due to inadequate TR jet. Negative bubble study. 07/05/24: Overall the patient has improved. She tells me she is breathing back to normal at rest. She has no shortness of breath when she walks to the bathroom but she does get anxious. Her back pain has resolved. She has no phlegm, no hemoptysis and her cough persists but is improved. Patient had a temperature last night of 37.7. Creatinine 0.6. When I entered the room she was on 2 L nasal cannula with saturations 94% and I placed her on room air and after 11 minutes her saturations were 90-91%. No wheezing on exam. Plan: I will discontinue Solu-Medrol place her on prednisone 40 mg q.day, day 3 steroids. I will discontinue her DuoNebs and place her on Advair HFA 230-21 at 2 puffs b.i.d. hopefully she can tolerate HFA inhalers and this will not cause coughing paroxysms. Goal saturation greater than 88 ideallyi 90-94%. Wean oxygen accordingly. if patient continues to improve will consider discharge on 07/06/2024. Regarding her home symptoms it sounds like she gets chest tightness followed by difficulty breathing in and now followed by anxiety. She has not tried to take rescue albuterol for this chest tightness to see if this alleviates the shortness of breath and anxiety. Regarding her gastroesophageal reflux she says that she has currently no reflux or heartburn on Protonix 40 b.i.d., Carafate 1000 twice a day and Pepcid 20 b.i.d.. Hospitalist managing this issue. Discussed with Dr. Alejandra. Will follow with you. (2) Pneumonia: Qualifiers: Laterality: unspecified laterality Lung location: unspecified part of lung Pneumonia type: due to unspecified organism Qualified Code(s): J18.9 - Pneumonia, unspecified organism Code(s): J18.9 - Pneumonia, unspecified organism Status: Acute Assessment and Plan: Patient has new patchy small ground-glass infiltrates in all lung sykes on her CT scan new since 06/17/24. COVID, influenza, RSV RT PCR negative. Bordetella PCR study negative. Blood cultures pending. She was started on ceftriaxone and azithromycin. vancomycin was added. Patient's son's recently moved from [place] and is part of this move she had a blood test that was positive for exposure to tuberculosis. A chest x-ray was taken and this was negative. She was told she had been exposed to TB but did not have active disease. Currently she is breast feeding and the doctors told her that when she has finished breast feeding in 2 months they will treat her with 2 meds for 3 months. The patient has 3 children all had skin test and blood tests that were positive for tuberculosis. This was 8 years ago and the patient does not remember if they have chest x-rays. To the siblings were given pills for 4 months and 1 was given a syrup for 6 months. This was in [facility]. Plan: Patient has worsening oxygenation and was on 8 L this morning I have weaned her down to 5 L with adequate oxygenation. I will repeat a chest x-ray. Echocardiogram with bubble study has been ordered. I will send a sputum for Gram stain and culture. I will send the respiratory pathogen panel. I will send a procalcitonin level. Agree with current antibiotics. If MRSA nasal swab negative consider discontinuation of vancomycin. The patient does not have any symptoms consistent with active tuberculosis. Her CT scan would be atypical for active tuberculosis. The patient may have been previously exposed to tuberculosis as her children and in-laws have and QuantiFERON gold study is pending. At this time I do not feel respiratory isolation or sputum for AFB are warranted. 07/05/24: Patient has clinically improved and denies fever, chills, rigors. Patient had a temperature last night of 37.7. Plan: Continue ceftriaxone, day 3, status post azithromycin 07/03 through 07/04. Currently on doxycycline day 1. QuantiFERON gold pending, Bordetella pending, extended respiratory pathogen panel pending. Subjective Date/time seen: 07/05/24 10:18 Interval history: 07/04/2024: This is a new pulmonary consult for asthma, pneumonia and TB exposure. 49-year-old with a history of asthma, esophagitis-GERD. regarding her asthma she was diagnosed at age 33 with a is been on inhalers since then. Her drug triggers include dust, cold air, upper respiratory infections and allergies especially in the fall. Over the last year she has had 10 prednisone burst. She got sick and self referred her to [facility] pulmonary in is seen them 5 times since August of 2023. They recommend she start on Dupixent but this was never arranged and she has not heard back from them regarding this medicine. Her PCP started her on trelegy but this caused a cough with nausea and vomiting. She was switched to Advair 500-50 and continued on Spiriva 1.25 at 1 puff b.i.d. and montelukast 10 mg a day. She states that the Advair 500-50 makes her cough and that she takes 1 inhalation 2 to 3 times a week. The Spiriva Respimat does not make her cough. She faithfully takes her Spiriva and montelukast. She takes rescue albuterol every day. At baseline she can walk 1 mi over 40-50 minutes. A year ago she could do the same. 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 Regarding contributing factors to poorly controlled asthma she has bad acid reflux and GERD. She has had EGD twice in the past and both times after that has developed pneumonia. Apparently she had an EGD on 06/25 that showed esophageal irritation. She states that her GERD is poorly controlled and that when her GERD flares her asthma also is worse. She has no sinus congestion. She snores but is not have any witnessed apneas. Her BMI is 23.7. Patient was seen in the emergency department on 05/30/24 and given a prednisone burst. She improved but worsened and on 06/17/24 was seen in the emergency room and received a prednisone burst. she had blood-tinged sputum on this presentation peer Patient presented on 07/03/2024 to the emergency department with 2 days history of shortness of breath, coughing, wheezing, spots of blood in her phlegm and a cough the cause chest pain. Her room air saturations were 88 when she was placed on 3 L nasal cannula and her saturations were 94%. She had mild expiratory wheezes throughout with a white blood cell count of 9.4, eosinophils 1.3% equals 122 per micro L. creatinine 0.7. COVID, influenza, RSV RT PCR studies negative. ABG on 2 L was 7.4 11/08/2060. CT angiogram of the chest showed no PE, Small scattered areas of ground-glass infiltrates in all lobes with no evidence of cavitation, no pleural disease, no emphysema no interstitial lung disease. Patient was treated with Solu-Medrol 125, bronchodilators and IV magnesium. 07/04/2024. The patient's daughter is a room and translates for me. The patient states she is better and breathing 100% back to her normal. She denies any wheezing. She has pain in posterior left rib cage that pulses in his relieved by massage. Today she has some brown phlegm but no hemoptysis. When I walked into the room she was on 8 L nasal cannula saturations 95%. I decreased her to 5 L nasal cannula and her saturations were 93%. She denies fever, chills, rigors, night sweats. Two months ago she had a hot sensation twice at the night that she thought may be related to menopause. She had reflux on presentation but currently her reflux is gone. Patient's son's recently moved from [place] and is part of this move she had a blood test that was positive for exposure to tuberculosis. A chest x-ray was taken and this was negative. She was told she had been exposed to TB but did not have active disease. Currently she is breast feeding and the doctors told her that when she has finished breast feeding in 2 months they will treat her with 2 meds for 3 months. The patient has 3 children all had skin test and blood tests that were positive for tuberculosis. This was 8 years ago and the patient does not remember if they have chest x-rays. To the siblings were given pills for 4 months and 1 was given a syrup for 6 months. This was in [facility]. Later in the day echocardiogram with normal LV systolic function, normal right ventricular size and function, normal right atrial size. RVSP not calculated due to inadequate TR jet. Negative bubble study. 07/05/24: Overall the patient has improved. She tells me she is breathing back to normal at rest. She has no shortness of breath when she walks to the bathroom but she does get anxious. Her back pain has resolved. She has no phlegm, no hemoptysis and her cough persists but is improved. Patient had a temperature last night of 37.7. Creatinine 0.6. When I entered the room she was on 2 L nasal cannula with saturations 94% and I placed her on room air and after 11 minutes her saturations were 90-91%. No wheezing on exam. DATA: 07/04/24: Echo Summary 1. Normal LV size and wall thickness, hyperdynamic LV systolic function, ejection fraction more than 70%; normal diastolic function. Normal RV size and systolic function. No major interatrial shunt on agitated normal saline study. Image quality suboptimal. Normal mitral valve structure, no significant MR. Aortic valve not well visualized, no significant stenosis by Doppler. Unable to assess RVSP due to inadequate TR jet. Left Ventricle Left ventricular chamber dimension is normal. Left ventricular systolic function is hyperdynamic, estimated at >70%. There is no increased left ventricular wall thickness. Right Ventricle Right ventricular chamber dimension is normal. Right ventricular systolic function is normal. Left Atria Left atrial chamber dimension is normal. Right Atria Right atrial chamber dimension is normal. 07/03/24: EXAMINATION: CTA chest PE protocol INDICATION: Dyspnea. Hemoptysis. TECHNIQUE: Computed tomography angiography (CTA) of the chest was performed with 100 mL Omnipaque-350 intravenous contrast timed to evaluate the pulmonary arteries. Coronal maximum intensity projection 3D-reconstructions were created by the technologist. Automated exposure control and iterative reconstruction technique were employed. The dose-length product was 227.25 mGy-cm. COMPARISON: Chest CT 06/17/2024 FINDINGS: There are patchy groundglass opacities in the upper lobes and lower lobes. There is mild atelectasis bilaterally. No pleural effusion. The heart size is normal. No pericardial effusion. There is no pulmonary embolus. There is mild thoracic spondylosis. IMPRESSION: 1. No pulmonary embolus. 2. New patchy groundglass opacities in the lungs, consistent with pneumonia. 06/17/24: EXAMINATION: CTA chest PE protocol DATE: 06/17/2024 16:49 INDICATION: Dizziness TECHNIQUE: Computed tomography angiography (CTA) of the chest was performed with 100 mL Omnipaque-350 intravenous contrast timed to evaluate the pulmonary arteries. Coronal maximum intensity projection 3D-reconstructions were created by the technologist. Automated exposure control and iterative reconstruction technique were employed. Exam dose: 198.27 mGy-cm total exam DLP. COMPARISON: 05/30/2024 PA and lateral chest FINDINGS: There is diagnostic contrast enhancement of the pulmonary arteries and no evidence of pulmonary embolism. No thoracic aortic aneurysm or dissection. Normal heart size. No pericardial or pleural effusion. Normal morphology of the adrenal glands. Included upper abdominal structures are unremarkable. Linear discoid atelectasis or scarring, middle lobe, lingula and left lower lobe. No pulmonary infiltrate or consolidation or suspicious pulmonary mass lesion is noted. Included skeletal structures are unremarkable. IMPRESSION: No evidence of pulmonary embolism Review of Systems Constitutional: Constitutional: Reports no additional constitutional complaints Eyes: Eyes: Reports no additional eye complaints ENT: Reports system reviewed and no additional complaints, except as documented Cardiovascular: Cardiovascular: Reports no additional cardiovascular complaints Respiratory: Respiratory: Reports no additional respiratory complaints Gastrointestinal: Gastrointestinal: Reports no additional gastrointestinal complaints Musculoskeletal: Musculoskeletal: Reports no additional musculoskeletal complaints Neurologic: Reports system reviewed and no additional complaints, except as documented Psychiatric: Psychiatric: Reports no additional psychiatric complaints Endocrine: Endocrine: Reports no additional endocrine complaints Hematologic/Lymphatic: Hematologic/Lymphatic: Reports no additional hematologic/lymphatic complaints Allergic/Immunologic: Allergic/Immunologic: Reports no additional allergic/immunologic complaints Exam Const: General: cooperative, healthy appearing and comfortable Orientation/consciousness: oriented to person, oriented to place and oriented to time HENMT: Head: normal to inspection Ears: hearing grossly normal bilaterally Eyes: General: appearance normal, both eyes and all related structures Neck: Neck: normal visual inspection Chest: Chest palpation & inspection: normal inspection of the chest Resp: Effort & Inspection: normal respiratory effort and able to speak in complete sentences Auscultation: no crackles, no rales, no rhonchi, no wheezes and lung sounds not diminished Other: No wheezing on exam Cardio: Jugular venous distension: no JVD GI: Inspection: normal to inspection Skin: General skin exam: normal color Neuro: General: oriented to person, oriented to place and oriented to time Extrem: General: normal to inspection and no edema Psych: Appearance: grossly normal Objective Data Vital Signs Vital Signs: Vital Signs - 24 hr 07/04/24 12:00 07/04/24 12:00 07/04/24 12:00 Temperature 36.5 C Pulse Rate 113 H 103 H Respiratory Rate 18 Blood Pressure 102/60 Pulse Oximetry 93 95 Oxygen Delivery High Flow Nasal Cannula Oxygen Flow Rate 5 07/04/24 13:05 07/04/24 13:07 07/04/24 13:18 Temperature Pulse Rate 94 89 91 Respiratory Rate 20 20 20 Blood Pressure Pulse Oximetry 92 Oxygen Delivery High Flow Nasal Cannula Oxygen Flow Rate 5 07/04/24 16:12 07/04/24 16:00 07/04/24 16:00 Temperature 37.7 C H Pulse Rate 102 H 96 9 L Respiratory Rate 20 18 20 Blood Pressure 98/53 L Pulse Oximetry 98 Oxygen Delivery Oxygen Flow Rate 07/04/24 16:00 07/04/24 13:30 07/04/24 14:00 Temperature Pulse Rate 90 101 H Respiratory Rate Blood Pressure Pulse Oximetry 95 Oxygen Delivery High Flow Nasal Cannula Oxygen Flow Rate 4 07/04/24 15:30 07/04/24 18:00 07/04/24 20:02 Temperature Pulse Rate 105 H 92 Respiratory Rate 20 Blood Pressure Pulse Oximetry 94 Oxygen Delivery High Flow Nasal Cannula Oxygen Flow Rate 2 07/04/24 20:05 07/04/24 20:14 07/04/24 20:37 Temperature 36.8 C Pulse Rate 101 H 104 H Respiratory Rate 20 20 Blood Pressure 101/47 L Pulse Oximetry 92 92 Oxygen Delivery High Flow Nasal Cannula Oxygen Flow Rate 2 07/04/24 20:00 07/04/24 20:00 07/04/24 22:00 Temperature Pulse Rate 103 H 132 H Respiratory Rate Blood Pressure Pulse Oximetry 94 Oxygen Delivery Nasal Cannula Oxygen Flow Rate 3 07/05/24 00:00 07/05/24 00:22 07/05/24 00:30 Temperature Pulse Rate 96 100 Respiratory Rate 20 20 Blood Pressure Pulse Oximetry 92 Oxygen Delivery Nasal Cannula Oxygen Flow Rate 3 07/05/24 00:23 07/05/24 00:00 07/05/24 02:00 Temperature 37.1 C Pulse Rate 95 107 H 79 Respiratory Rate 20 Blood Pressure 91/50 L Pulse Oximetry 93 Oxygen Delivery Oxygen Flow Rate 07/05/24 04:22 07/05/24 04:31 07/05/24 05:10 Temperature 37.1 C Pulse Rate 102 H 96 107 H Respiratory Rate 20 20 20 Blood Pressure 100/50 L Pulse Oximetry 91 Oxygen Delivery Oxygen Flow Rate 07/05/24 04:00 07/05/24 04:00 07/05/24 04:05 Temperature Pulse Rate 74 Respiratory Rate Blood Pressure Pulse Oximetry 86 L 96 Oxygen Delivery Nasal Cannula Nasal Cannula Oxygen Flow Rate 3 4 07/05/24 06:00 07/05/24 08:00 07/05/24 08:31 Temperature 37.1 C Pulse Rate 95 105 H Respiratory Rate 18 Blood Pressure 100/52 L Pulse Oximetry 90 96 Oxygen Delivery Nasal Cannula Oxygen Flow Rate 4 07/05/24 08:31 07/05/24 08:43 07/05/24 09:00 Temperature Pulse Rate 113 H 90 Respiratory Rate 20 20 Blood Pressure Pulse Oximetry 92 Oxygen Delivery Room Air Oxygen Flow Rate 07/05/24 09:00 07/05/24 08:00 07/05/24 10:00 Temperature Pulse Rate 90 105 H Respiratory Rate Blood Pressure Pulse Oximetry 92 Oxygen Delivery Room Air Oxygen Flow Rate Intake/Output Intake/Output: Intake & Output 07/02/24 07/03/24 07/04/24 07/05/24 23:59 23:59 23:59 23:59 Intake Total 50 1490 600 Balance 50 1490 600 Meds/Results Medications: Active Medications Generic Name Dose Route Start Last Admin Trade Name Freq PRN Reason Stop Dose Admin Albuterol 2 puff 07/04/24 10:01 Albuterol Sulfate (*Sp) Aerosol 1 Puff INHALATION Q4H PRN sob/wheezing Doxycycline Hyclate 100 mg 07/05/24 09:00 07/05/24 09:12 Doxycycline Hyclate 100 Mg Tablet PO 07/10/24 21:01 100 mg Q12HR MARIAM Administration Famotidine 20 mg 07/04/24 10:05 07/05/24 09:12 Famotidine 20 Mg Tablet PO 20 mg BID MARIAM Administration Ceftriaxone Sodium 1 gm in 50 mls @ 100 mls/hr 07/05/24 01:00 07/05/24 00:36 Rocephin 1 Gm/Ns 50 Ml IVPB Infused Q24H MARIAM Infusion Iron Sucrose 100 mg/ Sodium 55 mls @ 220 mls/hr 07/05/24 09:00 07/05/24 09:12 Chloride IVPB 07/07/24 09:14 220 mls/hr DAILY MARIAM Administration Pantoprazole Sodium 40 mg 07/04/24 21:00 07/05/24 09:12 Pantoprazole 40 Mg Tablet PO 40 mg Q12HR MARIAM Administration Perflutren Lipid Microsphere 0 ml 07/04/24 10:02 Perflutren Lipid Microspheres 1.5 Ml Vial Diluted To 10 Ml Total Volume IV PUSH 07/07/24 10:03 ONCE PRN adequate visualization Protocol Prednisone 40 mg 07/05/24 10:15 Prednisone 20 Mg Tablet PO DAILY@0800 MARIAM Fluticasone/Salmeterol 2 puff 07/05/24 10:15 Fluticasone/Salmeterol 230-21 Mcg Inhaler 1 Puff INHALATION Q12HRT MARIAM Sucralfate 1,000 mg 07/04/24 11:30 07/05/24 05:27 Sucralfate Susp 100 Mg/Ml 10 Ml Udc PO 1,000 mg ACHS MARIAM Administration Radiology Results: ITS Impressions Chest CTA 07/03/24 21:56 IMPRESSION: 1. No pulmonary embolus. 2. New patchy groundglass opacities in the lungs, consistent with pneumonia. Chest X-Ray 07/04/24 13:18 IMPRESSION: Trace increased interstitial thickening and patchy groundglass opacification within the bilateral lower lobes (right greater than left), when compared with previous days examination. Labs Labs: Laboratory Results - last 24 hr 07/04/24 07/04/24 07/05/24 10:41 10:44 05:02 Sodium 140 Potassium 3.4 Chloride 112 H Carbon Dioxide 19 L Anion Gap 9 BUN 16 D Creatinine 0.60 L Estim Creat Clear Calc 83 Estimated GFR > 60 Glucose 177 H Calcium 8.7 Iron 18 L TIBC 353 % Saturation 5 L Ferritin 5.09 L Vitamin B12 658.0 Folate 11.2 Procalcitonin < 0.0 TSH (Reflex) 0.443 L Free T4 1.36 Total T3 1.21 Serum HCG, Qual Negative Urine Color Yellow Urine Appearance Cloudy H Urine pH 6.0 Ur Specific [place] 1.016 Urine Protein Negative Urine Glucose (UA) 3+ H Urine Ketones Trace H Ur Blood (Man) 3+ H Urine Nitrate Negative Urine Bilirubin Negative Urine Urobilinogen 0.2 Leukocyte Esterase Rfl Negative Urine RBC >100 H Urine WBC 0-5 Ur Squamous Epith Cells None seen Urine Bacteria None seen Urine Casts 0-2 Nasal MRSA (PCR) Not detected
--- NOTE | 2024-07-05 10:59 | P.PNIM_ITS ---
Progress Note: A&P Assessment and Plan (1) Acute hypoxic respiratory failure: Code(s): J96.01 - Acute respiratory failure with hypoxia Status: Acute Assessment and Plan: Patient with poorly controlled asthma. She follows with [facility]. She is on Spiriva and Advair chronically and is somewhat compliant. AB.43 on 2L. Covid, RSV and influenza PCR were negative. No systemic eosinophilia (w as at 900cells in May). CXR showing an airspace opacity in the LLL. CTA chest was negative for PE but showed new patchy ground glass opacities in the lung in upper and lower lobes with atelectasis in the bases. CTA negative for PE. Gold testing ordered to exclude TB. Hemoptysis felt related to cough and upper airway irritation. MRSA nasal swab negative. Asthma flare could be related to severe GERD. Consider also PNA that was partially treated (she was on Levaquin earlier this month). Consider pertussis to explain why she has persistent symptoms. Consider TB given the CTA chest findings and known exposure. Pertussis and Gold pending. Sputum Cx pending Echo normal LV size and wall thickness, hyperdynamic LV systolic fxn with EF 70% and normal diastolic fxn. No intracardiac shunt. No significant valve disease. Continue bronchodilators and steroids. Advair HFA added to see if this helps with compliance. Change the prednisone. Elevate HOB. Continue Carafate, Pepcid and Protonix. GERD diet. Pulmonary consulted and appreciate their input. (2) Pneumonia: Qualifiers: Laterality: unspecified laterality Lung location: unspecified part of lung Pneumonia type: due to unspecified organism Qualified Code(s): J18.9 - Pneumonia, unspecified organism Code(s): J18.9 - Pneumonia, unspecified organism Status: Acute Assessment and Plan: As above BCx no growth to date (3) Asthma exacerbation: Qualifiers: Asthma persistence: unspecified Asthma severity: unspecified severity Qualified Code(s): J45.901 - Unspecified asthma with (acute) exacerbation Code(s): J45.901 - Unspecified asthma with (acute) exacerbation Status: Acute Assessment and Plan: Weaned steroids to the prednisone now. As above (4) GERD (gastroesophageal reflux disease): Code(s): K21.9 - Gastro-esophageal reflux disease without esophagitis Status: Acute Assessment and Plan: Elevate HOB. Continue Protonix but increase to Q12h. Continue Carafate. Will stop Pepcid. She is having early satiety so will check gastric emptying scan. Plan Microcytosis -iron deficiency noted. She states she is on oral iron at home. Will start IV iron. DVT prophylaxis - SCDs Code status - full Subjective Date/time seen: 07/05/24 10:59 Interval history: 49yo female with asthma, pre-DM and GERD here for shortness of breath. Patient is [place] speaking only. Daughter is at bedside who translates. She feels better. SHe felt anxious prior to going to sleep last night but able to sleep without problems overnight. Walking to tbathroom with some fatigue. GERD symptoms are better but only ate small amount due to coughing with food. She also has early satiety and bloating after eating. Weaned to room air. Heart rate increases with walking Exam Narrative: AF 98.7 100/52 105 20 92% RA Gen - NARD Chest - clear, distant BS. CV - RRR S1/S2. Tele showing occasional sinus tachycardia. Abd - Soft, ND, Positive BS. Mild epigastric pain w/o guarding Ext - No pedal edema Psych - Nml mood and affect Skin - Warm and dry Objective Data Vital Signs Vital Signs: Vital Signs - 24 hr 07/04/24 12:00 07/04/24 12:00 07/04/24 12:00 Temperature 97.7 F Pulse Rate 113 H 103 H Respiratory Rate 18 Blood Pressure 102/60 Pulse Oximetry 93 95 Oxygen Delivery High Flow Nasal Cannula Oxygen Flow Rate 5 07/04/24 13:05 07/04/24 13:07 07/04/24 13:18 Temperature Pulse Rate 94 89 91 Respiratory Rate 20 20 20 Blood Pressure Pulse Oximetry 92 Oxygen Delivery High Flow Nasal Cannula Oxygen Flow Rate 5 07/04/24 16:12 07/04/24 16:00 07/04/24 16:00 Temperature 99.8 F H Pulse Rate 102 H 96 9 L Respiratory Rate 20 18 20 Blood Pressure 98/53 L Pulse Oximetry 98 Oxygen Delivery Oxygen Flow Rate 07/04/24 16:00 07/04/24 13:30 07/04/24 14:00 Temperature Pulse Rate 90 101 H Respiratory Rate Blood Pressure Pulse Oximetry 95 Oxygen Delivery High Flow Nasal Cannula Oxygen Flow Rate 4 07/04/24 15:30 07/04/24 18:00 07/04/24 20:02 Temperature Pulse Rate 105 H 92 Respiratory Rate 20 Blood Pressure Pulse Oximetry 94 Oxygen Delivery High Flow Nasal Cannula Oxygen Flow Rate 2 07/04/24 20:05 07/04/24 20:14 07/04/24 20:37 Temperature 98.2 F Pulse Rate 101 H 104 H Respiratory Rate 20 20 Blood Pressure 101/47 L Pulse Oximetry 92 92 Oxygen Delivery High Flow Nasal Cannula Oxygen Flow Rate 2 07/04/24 20:00 07/04/24 20:00 07/04/24 22:00 Temperature Pulse Rate 103 H 132 H Respiratory Rate Blood Pressure Pulse Oximetry 94 Oxygen Delivery Nasal Cannula Oxygen Flow Rate 3 07/05/24 00:00 07/05/24 00:22 07/05/24 00:30 Temperature Pulse Rate 96 100 Respiratory Rate 20 20 Blood Pressure Pulse Oximetry 92 Oxygen Delivery Nasal Cannula Oxygen Flow Rate 3 07/05/24 00:23 07/05/24 00:00 07/05/24 02:00 Temperature 98.7 F Pulse Rate 95 107 H 79 Respiratory Rate 20 Blood Pressure 91/50 L Pulse Oximetry 93 Oxygen Delivery Oxygen Flow Rate 07/05/24 04:22 07/05/24 04:31 07/05/24 05:10 Temperature 98.8 F Pulse Rate 102 H 96 107 H Respiratory Rate 20 20 20 Blood Pressure 100/50 L Pulse Oximetry 91 Oxygen Delivery Oxygen Flow Rate 07/05/24 04:00 07/05/24 04:00 07/05/24 04:05 Temperature Pulse Rate 74 Respiratory Rate Blood Pressure Pulse Oximetry 86 L 96 Oxygen Delivery Nasal Cannula Nasal Cannula Oxygen Flow Rate 3 4 07/05/24 06:00 07/05/24 08:00 07/05/24 08:31 Temperature 98.7 F Pulse Rate 95 105 H Respiratory Rate 18 Blood Pressure 100/52 L Pulse Oximetry 90 96 Oxygen Delivery Nasal Cannula Oxygen Flow Rate 4 07/05/24 08:31 07/05/24 08:43 07/05/24 09:00 Temperature Pulse Rate 113 H 90 Respiratory Rate 20 20 Blood Pressure Pulse Oximetry 92 Oxygen Delivery Room Air Oxygen Flow Rate 07/05/24 09:00 07/05/24 08:00 07/05/24 10:00 Temperature Pulse Rate 90 105 H Respiratory Rate Blood Pressure Pulse Oximetry 92 Oxygen Delivery Room Air Oxygen Flow Rate Intake/Output Intake/Output: Intake & Output 07/02/24 07/03/24 07/04/24 07/05/24 23:59 23:59 23:59 23:59 Intake Total 50 1490 720 Balance 50 1490 720 Meds/Results Medications: Active Medications Generic Name Dose Route Start Last Admin Trade Name Freq PRN Reason Stop Dose Admin Albuterol 2 puff 07/04/24 10:01 Albuterol Sulfate (*Sp) Aerosol 1 Puff INHALATION Q4H PRN sob/wheezing Doxycycline Hyclate 100 mg 07/05/24 09:00 07/05/24 09:12 Doxycycline Hyclate 100 Mg Tablet PO 07/10/24 21:01 100 mg Q12HR MARIAM Administration Famotidine 20 mg 07/04/24 10:05 07/05/24 09:12 Famotidine 20 Mg Tablet PO 20 mg BID MARIAM Administration Ceftriaxone Sodium 1 gm in 50 mls @ 100 mls/hr 07/05/24 01:00 07/05/24 00:36 Rocephin 1 Gm/Ns 50 Ml IVPB Infused Q24H MARIAM Infusion Iron Sucrose 100 mg/ Sodium 55 mls @ 220 mls/hr 07/05/24 09:00 07/05/24 09:12 Chloride IVPB 07/07/24 09:14 220 mls/hr DAILY MARIAM Administration Pantoprazole Sodium 40 mg 07/04/24 21:00 07/05/24 09:12 Pantoprazole 40 Mg Tablet PO 40 mg Q12HR MARIAM Administration Perflutren Lipid Microsphere 0 ml 07/04/24 10:02 Perflutren Lipid Microspheres 1.5 Ml Vial Diluted To 10 Ml Total Volume IV PUSH 07/07/24 10:03 ONCE PRN adequate visualization Protocol Prednisone 40 mg 07/05/24 10:15 Prednisone 20 Mg Tablet PO DAILY@0800 MARIAM Fluticasone/Salmeterol 2 puff 07/05/24 10:15 Fluticasone/Salmeterol 230-21 Mcg Inhaler 1 Puff INHALATION Q12HRT MARIAM Sucralfate 1,000 mg 07/04/24 11:30 07/05/24 05:27 Sucralfate Susp 100 Mg/Ml 10 Ml Udc PO 1,000 mg ACHS MARIAM Administration Radiology Results: ITS Impressions Chest CTA 07/03/24 21:56 IMPRESSION: 1. No pulmonary embolus. 2. New patchy groundglass opacities in the lungs, consistent with pneumonia. Chest X-Ray 07/04/24 13:18 IMPRESSION: Trace increased interstitial thickening and patchy groundglass opacification within the bilateral lower lobes (right greater than left), when compared with previous days examination. Labs Labs: Laboratory Results - last 24 hr 07/04/24 07/04/24 07/05/24 10:41 10:44 05:02 Sodium 140 Potassium 3.4 Chloride 112 H Carbon Dioxide 19 L Anion Gap 9 BUN 16 D Creatinine 0.60 L Estim Creat Clear Calc 83 Estimated GFR > 60 Glucose 177 H Calcium 8.7 Iron 18 L TIBC 353 % Saturation 5 L Ferritin 5.09 L Vitamin B12 658.0 Folate 11.2 Procalcitonin < 0.0 TSH (Reflex) 0.443 L Free T4 1.36 Total T3 1.21 Serum HCG, Qual Negative Urine Color Yellow Urine Appearance Cloudy H Urine pH 6.0 Ur Specific [place] 1.016 Urine Protein Negative Urine Glucose (UA) 3+ H Urine Ketones Trace H Ur Blood (Man) 3+ H Urine Nitrate Negative Urine Bilirubin Negative Urine Urobilinogen 0.2 Leukocyte Esterase Rfl Negative Urine RBC >100 H Urine WBC 0-5 Ur Squamous Epith Cells None seen Urine Bacteria None seen Urine Casts 0-2 Nasal MRSA (PCR) Not detected
[2024-07-05] MEDS: predniSONE 20 MG TABLET 40 MG PO (11:51)
[2024-07-05] MEDS: FLUTICASONE/SALMETEROL 230-21 MCG INHALER 1 PUFF 2 PUFF INHALATION ×2 (11:54→20:23)
--- NOTE | 2024-07-05 14:06 | PCSTNOTE ---
Please refer to the Bedside Swallow Evaluation in the EMR. Please note, silent aspiration cannot be ruled out at bedside. The above pt was admitted with acute respiratory failure, pneumonia, asthma, and severe GERD. Through the daughter translating the pt conveyed that she had an esophageal dilation in February 2024. She gestured that her difficulty with swallowing was in her chest region. She conveyed that the tomatoes she had at lunch were causing her to have reflux issues. She reported an isolated incidence of cough during a meal on this date. Otherwise, she denied h/o choking or coughing during meals. Pt was able to dry swallow on command and exhibited a clear vocal quality before oral trials. SOB was noted on vowel prolongation. Oral mucosa is normal; natural dentition is in good condition. Oral peripheral exam revealed lingual and labial structures to be within normal limits regarding ROM, speed, and strength. Pt was seated upright at bedside for an optimal feeding position. Just before the testing of controlled trials, the pt took her water bottle and drank consecutive swallows of water via a straw without difficulty. She was then also formally tested with thin liquids, pudding, and cracker in controlled amounts; pudding and thin liquids were then also tested again in uncontrolled amounts; thin liquids via a cup and a straw. The oral stages appeared WNL. No oral leakage or pocketing was noted. During the pharyngeal stage, swallow reflex appeared prompt & laryngeal elevation adequate. It is suspected dysphagia lies in the esophageal stage of the swallow for which the RN reported the pt is on several prescription medications. During this evaluation, no overt s/s of aspiration were exhibited; however, silent aspiration cannot be ruled out at bedside. General impression is normal swallow ability. Recommendation: Continue the current diet. Reflux precaution, i.e., sitting upright for at least an hour after all oral intake, was recommended. Thank you for this referral.
--- NOTE | 2024-07-05 17:45 | PC.NURSE ---
This patient, Meaghan Hawthorne, was transferred to [[id number]] on 07/05/24 at 1745. Personal belongings sent with patient. Report given to [Tigre NAVARRO]. Appropriate documentation sent with patient.
--- NOTE | 2024-07-05 17:45 | PC.NURSE ---
This patient, Meaghan Hawthorne, was received from ICU on 07/05/24 at 1831. Patient/family oriented to unit policies and routines
[2024-07-06] VITALS (8 sets, daily range): BP systolic 92–96; BP diastolic 48–54; PULSE 66–85; RESP 14–18; TEMP 36.4; O2SAT 93–96
[2024-07-06 08:18] LABS: Anion Gap 9 mmol/L (4-12); Blood Urea Nitrogen 19 mg/dL (7-17); Calcium 8.5 mg/dL (8.4-10.2); Carbon Dioxide 20 mmol/L (22-30); Chloride 109 mmol/L (98-107); Estimated CRCL calculation 83 ml/min; Estimated Glomerular Filt Rate > 60; Glucose 111 mg/dL (65-110); Potassium 3.6 mmol/L (3.4-5.0); Sodium 138 mmol/L (137-145)
--- NOTE | 2024-07-06 08:22 | PM.PNPUL ---
Progress Note: A&P Assessment and Plan (1) Asthma exacerbation: Qualifiers: Asthma persistence: unspecified Asthma severity: unspecified severity Qualified Code(s): J45.901 - Unspecified asthma with (acute) exacerbation Code(s): J45.901 - Unspecified asthma with (acute) exacerbation Status: Acute Assessment and Plan: Regarding her asthma she was diagnosed at age 33 with a is been on inhalers since then. Her drug triggers include dust, cold air, upper respiratory infections and allergies especially in the fall. Over the last year she has had 10 prednisone burst. She got sick and self referred her to [facility] pulmonary in is seen them 5 times since August of 2023. They recommend she start on Dupixent but this was never arranged and she has not heard back from them regarding this medicine. Her PCP started her on trelegy but this caused a cough with nausea and vomiting. She was switched to Advair 500-50 and continued on Spiriva 1.25 at 1 puff b.i.d. and montelukast 10 mg a day. She states that the Advair 500-50 makes her cough and that she takes 1 inhalation 2 to 3 times a week. The Spiriva Respimat does not make her cough. She faithfully takes her Spiriva and montelukast. She takes rescue albuterol every day. At baseline she can walk 1 mi over 40-50 minutes. A year ago she could do the same. 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 Regarding contributing factors to poorly controlled asthma she has bad acid reflux and GERD. She has had EGD twice in the past and both times after that has developed pneumonia. Apparently she had an EGD on 06/25 that showed esophageal irritation. She states that her GERD is poorly controlled and that when her GERD flares her asthma also is worse. She has no sinus congestion. She snores but is not have any witnessed apneas. Her BMI is 23.7. Patient with 2 recent exacerbations Requiring prednisone burst on 05/30/2024 and 06/17/2024. 07/04/2024. The patient's daughter is a room and translates for me. The patient states she is better and breathing 100% back to her normal. She denies any wheezing. She has pain in posterior left rib cage that pulses in his relieved by massage. Today she has some brown phlegm but no hemoptysis. When I walked into the room she was on 8 L nasal cannula saturations 95%. I decreased her to 5 L nasal cannula and her saturations were 93%. She denies fever, chills, rigors, night sweats. Two months ago she had a hot sensation twice at the night that she thought may be related to menopause. She had reflux on presentation but currently her reflux is gone. Plan: I will continue to treat asthma exacerbation. she has improved with steroids, bronchodilators and antibiotics. I will continue Solu-Medrol and decrease the dose to 20 mg IV q.6 hours, increase DuoNebs to Q 4 hours. Continue montelukast 10 mg. I will discontinue her Advair HFA at this time as she is on maximal beta agonist and muscarinic antagonists with the DuoNeb Q 4 hr. Regarding contributors to poorly controlled asthma she has no sinus disease and no history suggestive of a restrictive sleep apnea. She does have bad acid reflux that does worsen her asthma. Currently she is on Protonix 40 mg p.o. q.12 hours and Carafate 1000 AC and HS and today she states that her reflux is gone. Will continue. The patient has had multiple prednisone bursts approximately 10 in the last 10 months. she is unable to tolerate DPI Advair or trelegy so she has been inadequately treated throughout this time. Prior to discharge we will trial her on Advair HFA to determine if she can tolerate this. Later in the day echocardiogram with normal LV systolic function, normal right ventricular size and function, normal right atrial size. RVSP not calculated due to inadequate TR jet. Negative bubble study. 07/05/24: Overall the patient has improved. She tells me she is breathing back to normal at rest. She has no shortness of breath when she walks to the bathroom but she does get anxious. Her back pain has resolved. She has no phlegm, no hemoptysis and her cough persists but is improved. Patient had a temperature last night of 37.7. Creatinine 0.6. When I entered the room she was on 2 L nasal cannula with saturations 94% and I placed her on room air and after 11 minutes her saturations were 90-91%. No wheezing on exam. Plan: I will discontinue Solu-Medrol place her on prednisone 40 mg q.day, day 3 steroids. I will discontinue her DuoNebs and place her on Advair HFA 230-21 at 2 puffs b.i.d. hopefully she can tolerate HFA inhalers and this will not cause coughing paroxysms. Goal saturation greater than 88 ideallyi 90-94%. Wean oxygen accordingly. if patient continues to improve will consider discharge on 07/06/2024. Regarding her home symptoms it sounds like she gets chest tightness followed by difficulty breathing in and now followed by anxiety. She has not tried to take rescue albuterol for this chest tightness to see if this alleviates the shortness of breath and anxiety. Regarding her gastroesophageal reflux she says that she has currently no reflux or heartburn on Protonix 40 b.i.d., Carafate 1000 twice a day and Pepcid 20 b.i.d.. Hospitalist managing this issue. 07/06/24: Improving from a breathing perspective states she is breathing good and back to her normal. She still has a persistent cough that is dry and very minimal back pain. No phlegm and no hemoptysis. Currently she is on room air with saturations 92%. She has no wheezing on exam. states acid reflux is well controlled but has some bloating. Managed by hospitalist From a pulmonary perspective patient is ready to be discharged on these pulmonary medications: Prednisone 40 mg p.o. q.day x1 day, last dose on 07/07/2024 Doxycycline 100 mg PO BID X 7 days Cefdinir 300 mg PO BID Advair 230-21 at 2 puffs b.i.d. Spiriva Respimat 2.5 mcg at 1 puff twice a day rescue albuterol 2 puffs q.4 hours p.r.n. shortness of breath or wheezing Follow-up in the Pulmonary Clinic in 4 weeks. 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 Discussed with Dr. Alejandra. Will sign off. (2) Pneumonia: Qualifiers: Laterality: unspecified laterality Lung location: unspecified part of lung Pneumonia type: due to unspecified organism Qualified Code(s): J18.9 - Pneumonia, unspecified organism Code(s): J18.9 - Pneumonia, unspecified organism Status: Acute Assessment and Plan: Patient has new patchy small ground-glass infiltrates in all lung sykes on her CT scan new since 06/17/24. COVID, influenza, RSV RT PCR negative. Bordetella PCR study negative. Blood cultures pending. She was started on ceftriaxone and azithromycin. vancomycin was added. Patient's son's recently moved from [place] and is part of this move she had a blood test that was positive for exposure to tuberculosis. A chest x-ray was taken and this was negative. She was told she had been exposed to TB but did not have active disease. Currently she is breast feeding and the doctors told her that when she has finished breast feeding in 2 months they will treat her with 2 meds for 3 months. The patient has 3 children all had skin test and blood tests that were positive for tuberculosis. This was 8 years ago and the patient does not remember if they have chest x-rays. To the siblings were given pills for 4 months and 1 was given a syrup for 6 months. This was in [facility]. Plan: Patient has worsening oxygenation and was on 8 L this morning I have weaned her down to 5 L with adequate oxygenation. I will repeat a chest x-ray. Echocardiogram with bubble study has been ordered. I will send a sputum for Gram stain and culture. I will send the respiratory pathogen panel. I will send a procalcitonin level. Agree with current antibiotics. If MRSA nasal swab negative consider discontinuation of vancomycin. The patient does not have any symptoms consistent with active tuberculosis. Her CT scan would be atypical for active tuberculosis. The patient may have been previously exposed to tuberculosis as her children and in-laws have and QuantiFERON gold study is pending. At this time I do not feel respiratory isolation or sputum for AFB are warranted. 07/05/24: Patient has clinically improved and denies fever, chills, rigors. Patient had a temperature last night of 37.7. Plan: Continue ceftriaxone, day 3, status post azithromycin 07/03 through 07/04. Currently on doxycycline day 1. QuantiFERON gold pending, Bordetella pending, extended respiratory pathogen panel pending. 07/06/24: Clinically improving. Afebrile, no fever chills or rigors. Currently on ceftriaxone day 3 and status post azithromycin x2 days and doxycycline day 1. Plan: Will discharge on doxycycline 100 p.o. b.i.d. x7 days and cefdinir 300 mg p.o. b.i.d. x7 days. Will follow up on QuantiFERON gold, Bordetella, extended respiratory pathogen panel and mycoplasma IgM. Patient will need a CT scan in 6 Weeks to reassess infiltrates. Subjective Date/time seen: 07/06/24 08:22 Interval history: 07/04/2024: This is a new pulmonary consult for asthma, pneumonia and TB exposure. 49-year-old with a history of asthma, esophagitis-GERD. regarding her asthma she was diagnosed at age 33 with a is been on inhalers since then. Her drug triggers include dust, cold air, upper respiratory infections and allergies especially in the fall. Over the last year she has had 10 prednisone burst. She got sick and self referred her to [facility] pulmonary in is seen them 5 times since August of 2023. They recommend she start on Dupixent but this was never arranged and she has not heard back from them regarding this medicine. Her PCP started her on trelegy but this caused a cough with nausea and vomiting. She was switched to Advair 500-50 and continued on Spiriva 1.25 at 1 puff b.i.d. and montelukast 10 mg a day. She states that the Advair 500-50 makes her cough and that she takes 1 inhalation 2 to 3 times a week. The Spiriva Respimat does not make her cough. She faithfully takes her Spiriva and montelukast. She takes rescue albuterol every day. At baseline she can walk 1 mi over 40-50 minutes. A year ago she could do the same. 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 Regarding contributing factors to poorly controlled asthma she has bad acid reflux and GERD. She has had EGD twice in the past and both times after that has developed pneumonia. Apparently she had an EGD on 06/25 that showed esophageal irritation. She states that her GERD is poorly controlled and that when her GERD flares her asthma also is worse. She has no sinus congestion. She snores but is not have any witnessed apneas. Her BMI is 23.7. Patient was seen in the emergency department on 05/30/24 and given a prednisone burst. She improved but worsened and on 06/17/24 was seen in the emergency room and received a prednisone burst. she had blood-tinged sputum on this presentation peer Patient presented on 07/03/2024 to the emergency department with 2 days history of shortness of breath, coughing, wheezing, spots of blood in her phlegm and a cough the cause chest pain. Her room air saturations were 88 when she was placed on 3 L nasal cannula and her saturations were 94%. She had mild expiratory wheezes throughout with a white blood cell count of 9.4, eosinophils 1.3% equals 122 per micro L. creatinine 0.7. COVID, influenza, RSV RT PCR studies negative. ABG on 2 L was 7.4 11/08/2060. CT angiogram of the chest showed no PE, Small scattered areas of ground-glass infiltrates in all lobes with no evidence of cavitation, no pleural disease, no emphysema no interstitial lung disease. Patient was treated with Solu-Medrol 125, bronchodilators and IV magnesium. 07/04/2024. The patient's daughter is a room and translates for me. The patient states she is better and breathing 100% back to her normal. She denies any wheezing. She has pain in posterior left rib cage that pulses in his relieved by massage. Today she has some brown phlegm but no hemoptysis. When I walked into the room she was on 8 L nasal cannula saturations 95%. I decreased her to 5 L nasal cannula and her saturations were 93%. She denies fever, chills, rigors, night sweats. Two months ago she had a hot sensation twice at the night that she thought may be related to menopause. She had reflux on presentation but currently her reflux is gone. Patient's son's recently moved from [place] and is part of this move she had a blood test that was positive for exposure to tuberculosis. A chest x-ray was taken and this was negative. She was told she had been exposed to TB but did not have active disease. Currently she is breast feeding and the doctors told her that when she has finished breast feeding in 2 months they will treat her with 2 meds for 3 months. The patient has 3 children all had skin test and blood tests that were positive for tuberculosis. This was 8 years ago and the patient does not remember if they have chest x-rays. To the siblings were given pills for 4 months and 1 was given a syrup for 6 months. This was in [facility]. Later in the day echocardiogram with normal LV systolic function, normal right ventricular size and function, normal right atrial size. RVSP not calculated due to inadequate TR jet. Negative bubble study. 07/05/24: Overall the patient has improved. She tells me she is breathing back to normal at rest. She has no shortness of breath when she walks to the bathroom but she does get anxious. Her back pain has resolved. She has no phlegm, no hemoptysis and her cough persists but is improved. Patient had a temperature last night of 37.7. Creatinine 0.6. When I entered the room she was on 2 L nasal cannula with saturations 94% and I placed her on room air and after 11 minutes her saturations were 90-91%. No wheezing on exam. 07/06/24: Improving from a breathing perspective states she is breathing good and back to her normal. She still has a persistent cough that is dry and very minimal back pain. No phlegm and no hemoptysis. Currently she is on room air with saturations 92%. She has no wheezing on exam. DATA: 07/04/24: Echo Summary 1. Normal LV size and wall thickness, hyperdynamic LV systolic function, ejection fraction more than 70%; normal diastolic function. Normal RV size and systolic function. No major interatrial shunt on agitated normal saline study. Image quality suboptimal. Normal mitral valve structure, no significant MR. Aortic valve not well visualized, no significant stenosis by Doppler. Unable to assess RVSP due to inadequate TR jet. Left Ventricle Left ventricular chamber dimension is normal. Left ventricular systolic function is hyperdynamic, estimated at >70%. There is no increased left ventricular wall thickness. Right Ventricle Right ventricular chamber dimension is normal. Right ventricular systolic function is normal. Left Atria Left atrial chamber dimension is normal. Right Atria Right atrial chamber dimension is normal. 07/03/24: EXAMINATION: CTA chest PE protocol INDICATION: Dyspnea. Hemoptysis. TECHNIQUE: Computed tomography angiography (CTA) of the chest was performed with 100 mL Omnipaque-350 intravenous contrast timed to evaluate the pulmonary arteries. Coronal maximum intensity projection 3D-reconstructions were created by the technologist. Automated exposure control and iterative reconstruction technique were employed. The dose-length product was 227.25 mGy-cm. COMPARISON: Chest CT 06/17/2024 FINDINGS: There are patchy groundglass opacities in the upper lobes and lower lobes. There is mild atelectasis bilaterally. No pleural effusion. The heart size is normal. No pericardial effusion. There is no pulmonary embolus. There is mild thoracic spondylosis. IMPRESSION: 1. No pulmonary embolus. 2. New patchy groundglass opacities in the lungs, consistent with pneumonia. 06/17/24: EXAMINATION: CTA chest PE protocol DATE: 06/17/2024 16:49 INDICATION: Dizziness TECHNIQUE: Computed tomography angiography (CTA) of the chest was performed with 100 mL Omnipaque-350 intravenous contrast timed to evaluate the pulmonary arteries. Coronal maximum intensity projection 3D-reconstructions were created by the technologist. Automated exposure control and iterative reconstruction technique were employed. Exam dose: 198.27 mGy-cm total exam DLP. COMPARISON: 05/30/2024 PA and lateral chest FINDINGS: There is diagnostic contrast enhancement of the pulmonary arteries and no evidence of pulmonary embolism. No thoracic aortic aneurysm or dissection. Normal heart size. No pericardial or pleural effusion. Normal morphology of the adrenal glands. Included upper abdominal structures are unremarkable. Linear discoid atelectasis or scarring, middle lobe, lingula and left lower lobe. No pulmonary infiltrate or consolidation or suspicious pulmonary mass lesion is noted. Included skeletal structures are unremarkable. IMPRESSION: No evidence of pulmonary embolism Review of Systems Constitutional: Constitutional: Reports no additional constitutional complaints Eyes: Eyes: Reports no additional eye complaints ENT: Reports system reviewed and no additional complaints, except as documented Cardiovascular: Cardiovascular: Reports no additional cardiovascular complaints Respiratory: Respiratory: Reports no additional respiratory complaints Gastrointestinal: Gastrointestinal: Reports no additional gastrointestinal complaints Musculoskeletal: Musculoskeletal: Reports no additional musculoskeletal complaints Neurologic: Reports system reviewed and no additional complaints, except as documented Psychiatric: Psychiatric: Reports no additional psychiatric complaints Endocrine: Endocrine: Reports no additional endocrine complaints Hematologic/Lymphatic: Hematologic/Lymphatic: Reports no additional hematologic/lymphatic complaints Allergic/Immunologic: Allergic/Immunologic: Reports no additional allergic/immunologic complaints Exam Const: General: cooperative, healthy appearing and comfortable Orientation/consciousness: oriented to person, oriented to place and oriented to time HENMT: Head: normal to inspection Ears: hearing grossly normal bilaterally Eyes: General: appearance normal, both eyes and all related structures Neck: Neck: normal visual inspection Chest: Chest palpation & inspection: normal inspection of the chest Resp: Effort & Inspection: normal respiratory effort and able to speak in complete sentences Auscultation: no crackles, no rales, no rhonchi, no wheezes and lung sounds not diminished Other: No wheezing on exam Cardio: Jugular venous distension: no JVD GI: Inspection: normal to inspection Skin: General skin exam: normal color Neuro: General: oriented to person, oriented to place and oriented to time Extrem: General: normal to inspection and no edema Psych: Appearance: grossly normal Objective Data Vital Signs Vital Signs: Vital Signs - 24 hr 07/05/24 08:31 07/05/24 08:31 07/05/24 08:43 Temperature Pulse Rate 113 H 90 Respiratory Rate 20 20 Blood Pressure Pulse Oximetry 96 Oxygen Delivery Nasal Cannula Oxygen Flow Rate 4 07/05/24 09:00 07/05/24 09:00 07/05/24 10:00 Temperature Pulse Rate 105 H Respiratory Rate Blood Pressure Pulse Oximetry 92 92 Oxygen Delivery Room Air Room Air Oxygen Flow Rate 07/05/24 11:23 07/05/24 12:00 07/05/24 12:00 Temperature 36.7 C Pulse Rate 110 H 104 H Respiratory Rate 18 Blood Pressure 90/43 L Pulse Oximetry 95 91 Oxygen Delivery Room Air Oxygen Flow Rate 07/05/24 14:00 07/05/24 16:14 07/05/24 16:00 Temperature 36.7 C Pulse Rate 107 H 93 94 Respiratory Rate 18 Blood Pressure 95/54 L Pulse Oximetry 91 Oxygen Delivery Oxygen Flow Rate 07/05/24 20:00 07/05/24 20:00 07/05/24 20:22 Temperature Pulse Rate 88 Respiratory Rate Blood Pressure Pulse Oximetry 93 Oxygen Delivery Room Air Room Air Oxygen Flow Rate 07/05/24 20:00 07/06/24 00:05 07/06/24 04:00 Temperature 36.8 C Pulse Rate 80 82 75 Respiratory Rate 14 Blood Pressure 95/55 L Pulse Oximetry 92 Oxygen Delivery Oxygen Flow Rate 07/06/24 06:00 Temperature 36.4 C L Pulse Rate 84 Respiratory Rate 14 Blood Pressure 92/54 L Pulse Oximetry 96 Oxygen Delivery Oxygen Flow Rate Intake/Output Intake/Output: Intake & Output 07/03/24 07/04/24 07/05/24 07/06/24 23:59 23:59 23:59 23:59 Intake Total 50 1490 1505 50 Balance 50 1490 1505 50 Meds/Results Medications: Active Medications Generic Name Dose Route Start Last Admin Trade Name Freq PRN Reason Stop Dose Admin Albuterol 2 puff 07/04/24 10:01 Albuterol Sulfate (*Sp) Aerosol 1 Puff INHALATION Q4H PRN sob/wheezing Doxycycline Hyclate 100 mg 07/05/24 09:00 07/05/24 20:36 Doxycycline Hyclate 100 Mg Tablet PO 07/10/24 21:01 100 mg Q12HR MARIAM Administration Ceftriaxone Sodium 1 gm in 50 mls @ 100 mls/hr 07/05/24 01:00 07/06/24 01:30 Rocephin 1 Gm/Ns 50 Ml IVPB Infused Q24H MARIAM Infusion Iron Sucrose 100 mg/ Sodium 55 mls @ 220 mls/hr 07/05/24 09:00 07/05/24 09:30 Chloride IVPB 07/07/24 09:14 Infused DAILY MARIAM Infusion Pantoprazole Sodium 40 mg 07/04/24 21:00 07/05/24 20:37 Pantoprazole 40 Mg Tablet PO 40 mg Q12HR MARIAM Administration Perflutren Lipid Microsphere 0 ml 07/04/24 10:02 Perflutren Lipid Microspheres 1.5 Ml Vial Diluted To 10 Ml Total Volume IV PUSH 07/07/24 10:03 ONCE PRN adequate visualization Protocol Prednisone 40 mg 07/05/24 10:15 07/05/24 11:51 Prednisone 20 Mg Tablet PO 40 mg DAILY@0800 MARIAM Administration Fluticasone/Salmeterol 2 puff 07/05/24 10:15 07/05/24 20:23 Fluticasone/Salmeterol 230-21 Mcg Inhaler 1 Puff INHALATION 2 puff Q12HRT MARIAM Administration Sucralfate 1,000 mg 07/04/24 11:30 07/06/24 06:24 Sucralfate Susp 100 Mg/Ml 10 Ml Udc PO Not Given ACHS MARIAM Radiology Results: ITS Impressions Chest CTA 07/03/24 21:56 IMPRESSION: 1. No pulmonary embolus. 2. New patchy groundglass opacities in the lungs, consistent with pneumonia. Chest X-Ray 07/04/24 13:18 IMPRESSION: Trace increased interstitial thickening and patchy groundglass opacification within the bilateral lower lobes (right greater than left), when compared with previous days examination. Labs Labs: Laboratory Results - last 24 hr 07/06/24 07:52 Sodium 138 Potassium 3.6 Chloride 109 H Carbon Dioxide 20 L Anion Gap 9 BUN 19 H Creatinine 0.60 L Estim Creat Clear Calc 83 Estimated GFR > 60 Glucose 111 H Calcium 8.5
[2024-07-06] MEDS: IRON SUCROSE COMPLEX 100 MG in SODIUM CHLORIDE 0.9% IV 50 ML 220 MG IVPB (09:48)
[2024-07-06] MEDS: FLUTICASONE/SALMETEROL 230-21 MCG INHALER 1 PUFF 2 PUFF INHALATION (11:02)
--- NOTE | 2024-07-06 14:24 | P.DS_ITS ---
DS: Admitting Diagnosis Discharge Date 07/06/24 Admitting Diagnosis Shortness of breath DS: Discharge Diagnosis Discharge Diagnosis (1) Acute hypoxic respiratory failure: Code(s): J96.01 - Acute respiratory failure with hypoxia Status: Acute (2) Pneumonia: Qualifiers: Laterality: unspecified laterality Lung location: unspecified part of lung Pneumonia type: due to unspecified organism Qualified Code(s): J18.9 - Pneumonia, unspecified organism Code(s): J18.9 - Pneumonia, unspecified organism Status: Acute (3) Asthma exacerbation: Qualifiers: Asthma persistence: unspecified Asthma severity: unspecified severity Qualified Code(s): J45.901 - Unspecified asthma with (acute) exacerbation Code(s): J45.901 - Unspecified asthma with (acute) exacerbation Status: Acute (4) GERD (gastroesophageal reflux disease): Code(s): K21.9 - Gastro-esophageal reflux disease without esophagitis Status: Acute DS: Summary Hospital Course Reason for hospitalization: 49yo female with asthma, pre-DM and GERD here for shortness of breath. Please see H&P for details Hospital Course: Patient with poorly controlled asthma. She follows with [facility]. She is on Spiriva and Advair chronically and is somewhat compliant. AB.43 on 2L. Covid, RSV and influenza PCR were negative. No systemic eosinophilia (was at 900cells in May). CXR showing an airspace opacity in the LLL. CTA chest was negative for PE but showed new patchy ground glass opacities in the lung in upper and lower lobes with atelectasis in the bases. CTA negative for PE. Gold testing ordered to exclude TB. Hemoptysis felt related to cough and upper airway irritation. MRSA nasal swab negative. Speech therapy consulted and did not find and concerns with bedside swallow exam. Asthma flare could be related to severe GERD. Consider also PNA that was partially treated (she was on Levaquin earlier this month). Pertussis and Gold test pending. Sputum Cx pending. BCx no growth. Echo normal LV size and wall thickness, hyperdynamic LV systolic fxn with EF 70% and normal diastolic fxn. No intracardiac shunt. No significant valve disease. She was treated with bronchodilators and steroids. Advair HFA added. Pulmonary consulted and appreciate their input. We continued her medications for her GERD. She was having bloating and early stiety but gastric emptying scan normal. Consider Hpylori but had EGD recently. Recommended patient follow up with GI after discharge. Microcytosis noted and found to have iron deficiency noted. She states she is on oral iron at home. Treated with IV iron. She had clinical improvement. She was weaned to room air. She was able to be discharged on 07/06/24. Discharge instructions discussed and family translated. Status at Discharge Cognitive/behavioral status at discharge: stable. Time Spent with Patient Time attestation: Total time spent providing and/or coordinating discharge services: 35 minutes Time spent: Greater than 30 minutes Exam Narrative: AF 97.5 92/54 66 14 96% RA Gen - NARD Chest - clear, distant BS. CV - RRR S1/S2. Tele showing no significant dysrhytmias Abd - Soft, ND, Positive BS. Ext - No pedal edema Psych - Nml mood and affect Skin - Warm and dry DS: Data Data Completed and Pending Labs on day of discharge: Labs from last 24 hours 07/06/24 07/06/24 07:54 07:52 Sodium 138 Potassium 3.6 Chloride 109 H Carbon Dioxide 20 L Anion Gap 9 BUN 19 H Creatinine 0.60 L Estim Creat Clear Calc 83 Estimated GFR > 60 Glucose 111 H Calcium 8.5 Mycoplasma pneumon IgM Pending Preliminary micro results at discharge 07/04/24 16:47 Sputum Culture - Preliminary Sputum 07/04/24 00:23 Blood Culture - Preliminary Blood 07/04/24 00:23 Blood Culture - Preliminary Blood Discharge Plan Discharge Attending physician on discharge: Evert Alejandra Consulting providers: Erick Gordon Discharging Clinician: Evert Alejandra Anticipated Discharge Date/Time: 07/06/24 14:30 Patient Disposition: Home, Self-Care Activity: as tolerated Diet: heart healthy Discharge Instructions: Please provide discharge instructions in Pashto Please complete your antibiotic course even if you are starting to feel well. Contact your doctor or call 911 and come to the Emergency Room if you have increasing shortness of breath or other worrisome symptoms. Avoid NSAIDs (ibuprofen, naproxen, Aleve). Tylenol is safe to take. Follow-up with your primary care provider in 1-2 weeks. Please call for appointment. Follow-up with [facility] Supervisor in 4 weeks. Please call for appointment. Follow-up with your GI provider in 1-2 weeks. Please call for appointment. Thank you for using [facility] for your health care needs. Patient Instructions: Antibiotic Form, Pain Management (DC) Stand Alone Forms: General Discharge Information Follow-up/Referrals: UNKNOWN,DOCTOR [Primary Care Provider] - Call for Appointment Erick Gordon MD [Physician] - 4 Weeks Discharge Medications: New doxycycline hyclate 100 mg Tablet 100 mg PO Q12HR Qty: 15 0RF cefdinir 300 mg capsule 300 mg PO Q12H Qty: 15 0RF fluticasone propion-salmeterol [Advair HFA] 230-21 mcg/actuation Hfa Aerosol Inhaler 2 puff inhalation Q12HRT Qty: 12 1RF prednisone 20 mg Tablet 40 mg PO DAILY@0800 1 Days Qty: 2 0RF Continued famotidine [Acid Controller] 20 mg tablet 20 mg PO BID Qty: 14 0RF albuterol sulfate 90 mcg/actuation HFA aerosol inhaler 2 puff INHALATION Q4H PRN (Reason: sob/wheezing) albuterol sulfate 2.5 mg /3 mL (0.083 %) solution for nebulization 2.5 mg inhalation Q6H PRN (Reason: sob/wheezing) Spiriva Respimat 1.25 mcg/actuation mist 2 puff INHALATION BID pantoprazole 40 mg tablet,delayed release (DR/EC) 40 mg PO DAILY montelukast 10 mg Tablet 10 mg PO HS Discontinued fluticasone propion-salmeterol 500-50 mcg/dose blister with device 1 inh INHALATION BID Date of admission: 07/04/24 09:54 Primary Care Provider: UNKNOWN,DOCTOR Admitting Provider: Clarice Garcia V. Attending physician on admission: Clarice Garcia V. Condition: Stable Hospitalist MIPS Heart Failure (Exclusion) Patient has history of Heart Transplant or Left Ventricular Assistive Device?: No IF YES, STOP HERE Heart Failure (Qualifier) Patient has current or prior documentation of LVEF less than or equal to 40%, or mod/servere depressed LVSF?: No IF NO, STOP HERE
[2024-07-06 17:09] LABS: Pneumococcal Antigen Urine NOT DETECTED
[2024-07-07 14:09] LABS: NIL 0.01 IU/mL; Quantiferon TB Plus, 1T NEGATIVE (NEGATIVE); TB1-NIL 0.02 IU/mL; TB2-NIL 0.03 IU/mL
[2024-07-09 13:43] LABS: Adenovirus DNA Not Detected (Not Detected); Chlamydophila pneumoniae Not Detected (Not Detected); Coronavirus 229E Not Detected (Not Detected); Coronavirus HKU1 Not Detected (Not Detected); Coronavirus NL63 Not Detected (Not Detected); Coronavirus OC43 Not Detected (Not Detected); Human Metapneumovirus Not Detected (Not Detected); Human Parainfluenza Virus 1 Not Detected (Not Detected); Human Parainfluenza Virus 2 Not Detected (Not Detected); Human Parainfluenza Virus 3 Not Detected (Not Detected); Human Parainfluenza Virus 4 Not Detected (Not Detected); Human RSV B Not Detected (Not Detected); Influenza A Not Detected (Not Detected); Influenza B Not Detected (Not Detected); Mycoplasma pneumoniae Not Detected (Not Detected); Rhinovirus/Enterovirus Not Detected (Not Detected)
--- NOTE | 2024-07-10 08:01 | PC.NURSE ---
TB Gold, Pertussis, Urine Pneumococcl, Resp panel, Sputum, and Blood cx are all negative; not detected. Dr. Alejandra aware of findings.
== END 2024-07-06 15:33 | disposition home or self-care (01) | DRG 139 ==
LOC: ANHED 23:35 → ANHIMU 07-04 00:17 → ANH3MEDSUR 07-06 14:32 → ANHIMU 07-09 13:18
PROVIDERS: Emergency Medicine; Internal Medicine Pulmonary Disease; Admitting Provider Internal Medicine; Emergency Provider Physician Assistant; Visit Provider Internal Medicine
DX: J18.9 Pneumonia, unspecified organism (principal); J96.01 Acute respiratory failure with hypoxia; J45.901 Unspecified asthma with (acute) exacerbation; E61.1 Iron deficiency; K21.9 Gastro-esophageal reflux disease without esophagitis; R68.81 Early satiety; R73.03 Prediabetes; M54.2 Cervicalgia; M54.9 Dorsalgia, unspecified; G89.29 Other chronic pain; Z20.822 Contact with and (suspected) exposure to COVID-19
CPT/HCPCS: 36415; 36600; 71045; 71046; 71275; 78264; 80048; 80053; 81001; 82607; 82728; 82746; 82805; 83540; 83550; 83690; 83735; 84145; 84439; 84443; 84480; 84484; 84703; 85018; 85025; 85610; 85730; 86480; 86738; 87040; 87070; 87205; 87449; 87633; 87637; 87641; 87798; 87899; 92610; 93005; 93306; 94640; 94668; 96365; 96375; 99199; 99285; A9270; A9541; G0378; J0456; J0696; J1756; J2919; J3370; J3475; J7512; Q9967

== ENCOUNTER 2024-10-05 22:39 | Emergency (ER) | payer OTHER, SELFPAY ==
--- NOTE | ~2024-10-05 | XR_ITS ---
EXAMINATION: XR chest 1V DATE: 10/06/2024 00:09 INDICATION: Persistent cough TECHNIQUE: frontal view of the chest was obtained. COMPARISON: Chest radiograph dated 07/04/[address] dated 07/03/2024 FINDINGS: Airspace opacities in the left lower lung zone. Right lung is clear. No pulmonary edema, pleural effu nicolas or pneumothorax.. The cardiomediastinal silhouette is normal. Visualized bones and soft tissues are unremarkable. IMPRESSION: 1. Subtle opacities in the left lower lung zone which could represent atelectasis or pneumonia. Reviewed, dictated and finalized at location A. NG CHANGER IMPRESSION: 1. Subtle opacities in the left lower lung zone which could represent atelectas is or pneumonia.
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
--- OUTSIDE RECORDS SUMMARY | 2024-10-05 22:41 | XMS_ITS | Referral Summary ---
Author Organization [facility] Physician Office Building [address] [place] [address] Care Team Providers Care Service Sprinkler Helper Name Role Phone Lino Watson Primary Care Provider +1- [phone] Encounters Date Type Department Care Team Description 09/06/2024 2:15 PM MANAGER CLINICAL Office Visit [facility] [address] [place] [phone] Gilbert Carson MD Mary's thyroiditis (Primary Dx) from Last 3 Months Allergies Active Allergy Reactions Criticality Noted Date Comments Penicillanic Sulfone Bl Beta -Lactamase Inhibitors Hives Medium 10/27/2023 Medications polyethylene glycol (MIRALAX) 17 gram/dose bulk powder [address] (PROTONIX) 40 mg EC tablet Take 1 tablet (40 mg total) by mouth daily 4 Active montelukast (SINGULAIR) 10 mg tablet Take 1 tablet (10 mg total) by mouth nightly Active loratadine (CLARITIN) 10 mg tablet TAKE ONE TABLET BY MOUTH EVERY MORNING FOR ALLERGIES 4 Active fluticasone propionate (FLONASE) 50 mcg/actuation nasal spray 4 Active FeroSuL 325 mg (65 mg iron) tablet Take 1 tablet (325 mg total) by mouth 2 (two) times a day 4 Active albuterol HFA (PROVENTIL HFA,VENTOLIN HFA,PROAIR HFA) 90 mcg/actuation inhaler Inhale 2 puffs every 6 (six) hours as needed for wheezing Active alcohol swabs pads, medicated USE TO CLEAN THE INJECTION SITE OF INSULIN AND WHEN CHECKING BLOOD SUGAR 4 Active True Metrix Glucose Test Strip strip USE TO USE TO CHECK BLOOD SUGAR BLOOD SUGAR ONCE DAILY 4 Active TRUEplus Lancets 33 gauge misc USE TO CHECK BLOOD SUGAR ONCE DAILY 4 Active mometasone (ELOCON) 0.1 % ointment 3 Active sucralfate (CARAFATE) 1 gram tablet TAKE ONE TABLET BY MOUTH FOUR TIMES DAILY FOR STOMACH 4 Active fluticasone propion-salmet [place] (Advair Diskus) 500-50 mcg/dose diskus inhaler Inhale 1 puff 2 (two) times a day Rinse mouth with water after use. Do not swallow. 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 Should be a risk of developing hypothyroidism in the future so thyroid function tests should be monitored every 6 to 12 months. No sonographic of any solid nodules need to be addressed Social History Tobacco Use Types Packs/Day Years Used Date Smoking Tobacco: Never Tobacco Cessation:Counseling Given: Not Answered Comments Unknown Sex and Gender Information Value Date Recorded Sex Assigned at Not on file Legal Sex Female 3:55 PM MANAGER CLINICAL Gender Identity Not on file Sexual Orientation Not on file Last Filed Vital Signs Vital Sign Reading Time Taken Comments Blood Pressure 100/60 09/06/2024 1:53 PM MANAGER CLINICAL Pulse 66 09/06/2024 1:53 PM MANAGER CLINICAL Temperature 35.6 C (96 F) 05/28/2024 9:49 AM CDT Respiratory Rate 18 09/06/2024 1:53 PM MANAGER CLINICAL Oxygen Saturation 96% 05/28/2024 9:49 AM CDT Inhaled Oxygen Concentration - - Weight 65 kg (143 lb 3.2 oz) 09/06/2024 1:53 PM MANAGER CLINICAL Height 157.5 cm (5' 2 ) 09/06/2024 1:53 PM MANAGER CLINICAL Body Mass Index 26.19 09/06/2024 1:53 PM MANAGER CLINICAL Plan of Treatment Not on file Insurance [employer] OOS Care Teams Service Sprinkler Helper Relationship Specialty Start Date End Date Lino Watson PA [address] [place] [address] PCP - General Physician Acid Polymerization Operator 11/01/23
--- OUTSIDE RECORDS SUMMARY | 2024-10-05 22:41 | XMS_ITS | Data Portability ---
Author Organization [place] [facility], Main Office Address [address] [place] [address] Care Team Providers Care Hand Scraper Name Role Phone SAVITA MARSH Referring Provider Assessment No assessment recorded. Plan of Treatment Reminders Order Date Submit Date Provider Last Modified By Organization Details Last Modified Time Details Appointments None recorded. Lab None recorded. Referral None recorded. Procedures colonoscopy procedure (PROC) [address] ([facility]), [address] [place], [address], 3 08:05:09 upper endoscopy procedure (EGD) (PROC) [address] ([facility]), [address] [place], [address], 3 08:05:08 Surgeries None recorded. Imaging None recorded. Medication Orders Golytely 236 gram-22.74 gram-6.74 gram-5.86 gram oral solution 2022 023 [facility], [address] [place], [place], [id number], 3 13:21:06 Patient TargetsNo targets recorded. Patient Instructions Encounter Date Encounter Id Patient Instructions Last Modified By Organization Details Last Modified Time 11/17/2022 [id number] GOLYTELY [email or web address] Not available 12/2022 13:07:09 PT WITH GRED AND HX/O H. PYLORI . RECOMMEND AN EGD . PT NEEDS A SCREENING COLON . R/O POLYP . RECOMMEND A COLONOSOPY . Risks benefits and complications were explained to the pt. ( BLEEDING PERFORATION , INFECTION , ). PT VERBALIZES UNDERSTANDING AND IS WILLING TO PROCEDE . Not available 11/17/2022 13:08:01 Reason for Referral None Reported. Problems Name Problem SNOMED Code Status Onset Date Resolution Date Notes Provider Name and Address Organization Details Recorded Time Left upper quadrant pain 238305758 Active Alyssa Corrigan LPN null, [place] [facility] 3 12:33:22 Asthma 122870779 Active Alyssa Corrigan LPN null, [place] [facility] 3 12:33:53 Chronic obstructiv e pulmonary disease 91134271 Active Alyssa Corrigan LPN null, [place] [facility] 3 12:34:01 History of Helicobact er pylori infection 3663079109517 9108 Active Alyssa Corriagn LPN null, [place] [facility] 3 12:34:30 Constipati on 06857554 Active Alyssa Corrigan LPN null, [place] [facility] 3 12:42:29 Anemia 628528015 Active Alyssa Corrigan LPN null, [place] [facility] 3 11:56:55 Gastroesop hageal reflux disease without esophagiti s 353736511 Active 2022 Sonia Coronado MD [address] [place] [address], [phone] , [facility] 13:05:52 Problem Notes None recorded. Medical Equipment None Reported. Allergies Allergen ID Allergen Name Allergen Category Reaction Reaction Severity Criticality Documentation Date Start Date Code Code System Note Provider Name and Address Organization Details Recorded Time 17448 Product containin g penicilli n (product) medicatio n Not available Not available Not available 11/09/2022 21588 8001 SNOMED Alyssa dyer LPN null, [place] [facility] 3 12:36:14 Medications Name Sig Start Date Stop Date Status Note LastModified by Organization Details LastModified Time azithromyci n 250 mg tablet TAKE 2 TABLETS BY MOUTH ON DAY 1, THEN TAKE 1 TABLET DAILY ON DAYS 2-5 11/17 completed Not Available Not Available Not Available ibuprofen 800 mg tablet TAKE ONE TABLET BY MOUTH THREE TIMES DAILY WITH MEALS FOR 7 DAYS active Not Available Not Available No t Available benzonatate 200 mg capsule TAKE ONE CAPSULE BY MOUTH THREE TIMES DAILY NEEDED FOR 7 DAYS active Not Available Not Available No t Available sulfamethox azole 800 mg-trimetho prim 160 mg tablet TAKE ONE TABLET BY MOUTH EVERY TWELVE HOURS FOR 5 DAYS active Not Available Not Available No t Available triamcinolo ne acetonide 0.1 % topical cream APPLY TO THE AFFECTED AREA(S) TWICE DAILY FOR 7-10 DAYS active Not Available Not Available No t Available doxycycline monohydrate 100 mg capsule TAKE ONE CAPSULE BY MOUTH TWICE DAILY FOR 7 DAYS active Not Available Not Available No t Available cephalexin 500 mg capsule TAKE ONE TABLET BY MOUTH TWICE DAILY FOR 7 DAYS 11/17 completed Not Available Not Available Not Available nystatin 100,000 unit/gram topical cream APPLY TO THE AFFECTED AREA(S) TWICE DAILY active Not Available Not Available No t Available montelukast 10 mg tablet TAKE ONE TABLET BY MOUTH EVERY DAY FOR BREATHING active Not Available Not Available No t Available mometasone 0.1 % topical ointment aplicar TO RASH ON HANDS, FEET, ARMS, AND FOR BACK active Not Available Not Available No t Available methylpredn isolone 4 mg tablets in a dose pack Use as directed on package 11/17 completed Not Available Not Available Not Available albuterol sulfate HFA 90 mcg/actuati on aerosol inhaler Inhale 2 puffs every 4 hours by inhalatio n route as needed. active Not Available Not Available No t Available fluticasone propionate 50 mcg/actuati on nasal spray,suspe nsion [place] 1 spray every day by intranasa l route. active Not Available Not Available No t Available loratadine 10 mg tablet Take 1 tablet every day by oral route in the morning. active Not Available Not Available No t Available nitrofurant oin monohydrate /macrocryst als 100 mg capsule TAKE ONE CAPSULE BY MOUTH EVERY TWELVE HOURS FOR 5 DAYS active Not Available Not Available No t Available Swanzey Oil 1,000 mg capsule Take 1 capsule 3 times a day by oral route. active Not Available Not Available No t Available Symbicort 160 mcg-4.5 mcg/actuati on HFA aerosol inhaler Inhale 2 puffs twice a day by inhalatio n route. active Not Available Not Available No t Available peg 3350-electr olytes 236 gram-22.74 gram-6.74 gram-5.86 gram solution USE DIRECTED active Not Available Not Available No t Available vitamin E (dl, acetate) 450 mg (1,000 unit) capsule Take 1 capsule every day by oral route. active Not Available Not Available No t Available Combivent Respimat 20 mcg-100 mcg/actuati on solution for inhalation Inhale 1 puff 4 times a day by inhalatio n route. active Not Available Not Available No t Available Vitals Date Recorded Body weight Body mass index (BMI) Body height Body temperature Heart rate Oxygen saturation Oxygen saturation in Arterial blood by Pulse oximetry Provider Name and Address Organization Details Last Updated DateTime 3 71866.8 6 g 25.7 kg/m2 162.56 cm 97.6 [degF] 63 /min 97 % 97 % Alyssa dyer LPN [facility] 3 11:54:53 Social History Question Answer Notes LastModified by Organizat ion Details LastModified Time Tobacco Smoking Status Never Smoker Alyssa Corrigan LPN null, [facility] 11/09/2022 12:36:42 Do You Have An Advance Directive? No [email or web address] Information not available 11/09/2022 What Is Your Level Of Alcohol Consumption? None [email or web address] Information not available 11/09/2022 What Is Your Level Of Caffeine Consumption? Moderate [email or web address] Information not available 11/17/2022 What Type Of Diet Are You Following? REGULAR [email or web address] Information not available 11/17/2022 What Is The Highest Grade Or Level Of School You Have Completed Or The Highest Degree You Have Received? [id number] [email or web address] Information not available 11/09/2022 What Was The Date Of Your Most Recent Tobacco Screening? 11/01/2022 [email or web address] Information not available 11/09/2022 Do You Use Your Seat Belt Or Car Seat Routinely? Yes [email or web address] Information not available 11/09/2022 Are You Sexually Active? Yes [email or web address] Information not available 11/09/2022 Do You Have Smoke And Carbon Monoxide Detectors In Your Home? Yes [email or web address] Information not available 11/09/2022 Are You Passively Exposed To Smoke? Yes [email or web address] Information no t available 11/09/2022 Do You Use Any Illicit Or Recreational Drugs? No [email or web address] Information not available 11/09/2022 Has Tobacco Cessation Counseling Been Provided? No [email or web address] Information not available 11/09/2022 Do You Or Have You Ever Used Any Other Forms Of Tobacco Or Nicotine? No [email or web address] Information not available 11/09/2022 Sex: Unknown Functional Status Question Answer Note LastModified by Organizat ion Details LastModified Time What is your exercise level? Occasional [email or web address] Information not available 11/17/2022 Mental Status None recorded. Family History Relationship Description Onset Age of this Age Resolved Age Notes LastModified by Organization Details LastModified Time Father No current problems or disability [email or web address] Not available 0 11/09/2022 12:36:02 Mother No current problems or disability [email or web address] Not available 0 11/09/2022 12:36:02 Medical History No medical history recorded. Gynecological HistoryNo gynecological history recorded. Obstetrics History GPAL:G 0 P 0 0 0 0 Past Encounters Encounter ID Performer Location Encounter Start Date Encounter Closed Date Diagnosis/Indication Diagnosis SNOMED-CT Code Diagnosis ICD10 Code Diagnosis Note [id number] Sonia Coronado MD [facility] General Surgery [address] [phone] 11/17/2022 11:39:28 12/10/2022 11:20:57 Gastroesophageal reflux disease without esophagitis 964855973 K21.9 Left upper quadrant pain 525122334 R10.12 Screening for malignant neoplasm of colon 737581600 Z12.11 Health Concerns Section Related Observation LastModified by Organization Detai ls LastModified Time None Recorded Concern Status LastModified by Organization Details LastModified Time None Recorded Advance Directives Directive N: Payers Encounter Date Sequence Insurance Name Policy Number Policy Armstrong Covered Member ID Armstrong Member ID Guarantor Name 11/17/2022 1 [place] [id number] 01 Drew Pearson [id number] Meaghan Sarmiento Notes Date Note Type Note Provider Name and Address Organization Details Recorded Time 11/17/2022 text/html DESEAN WAS SE EN IN THE OFFICE TODAY FOR EVALUATION . PT IS C/O LUQ PAIN . SHE IS S/P H. [facility] DX [facility] TREATMENT . UBT DOCUMENTED ERRADICATION . SHE REPORTS WT LOSS 20 + LBS. SHE DENIES COLON SCREENING. SHE IS FROM [place] . SHE DENIES BLEEDING . N/V. Sonia Coronado MD [address] [place] [address], [place] [address], [place], [address], [place] [facility] 11/17/2022 13:09:01 OBGyn Episode No OBEpisode recorded.
--- OUTSIDE RECORDS SUMMARY | 2024-10-05 22:41 | XMS_ITS | Clinical Summary ---
Author Organization [facility] [address] [place] [address] Care Team Providers Care Cognos Developer Name Role Phone Lino Watson Primary Care Provider +1- [phone] Allergies Active Allergy Reactions Criticality Noted Date [...] 12/19/2023 Assessment & Plan (09/06/2024 2:39 PM CATERPILLAR OPERATOR): Update TFTS If TSH is normal, will [...] any solid nodules need to be addressed Encounters Date Type Department Care Team Description 09/06/2024 2:15 PM CATERPILLAR OPERATOR Office [facility] of [address] [address] Gilbert Carson MD Mary's thyroiditis (Primary Dx) from Last 3 Months Medical History Medical History Date Comments Thyroid disease Family History Medical History Relation Name Comments Hyperlipidemia Sister Relation Name Status Comments Sister Social History Tobacco Use Types Packs/Day Years Used Date Smoking Tobacco: Never Tobacco Cessation:Counseling Given: Not Answered Comments Unknown Sex and Gender Information Value Date Recorded Sex Assigned at Not on file Legal Sex Female 3:55 PM CATERPILLAR OPERATOR Gender Identity Not on file Sexual Orientation Not on file Obstetrics History Last Filed Vital Signs Vital Sign Reading Time Taken Comments Blood Pressure 100/60 09/06/2024 1:53 PM CATERPILLAR OPERATOR Pulse 66 09/06/2024 1:53 PM CATERPILLAR OPERATOR Temperature 35.6 C (96 F) 05/28/2024 9:49 AM CDT Respiratory Rate 18 09/06/2024 1:53 PM CATERPILLAR OPERATOR Oxygen Saturation 96% 05/28/2024 9:49 AM CDT Inhaled Oxygen Concentration - - Weight 65 kg (143 lb 3.2 oz) 09/06/2024 1:53 PM CATERPILLAR OPERATOR Height 157.5 cm (5' 2 ) 09/06/2024 1:53 PM CATERPILLAR OPERATOR Body Mass Index 26.19 09/06/2024 1:53 PM CATERPILLAR OPERATOR Plan of Treatment Health Maintenance Due Date Last Done Comments Breast Cancer Screening-Mammogram 1975 Cervical Cancer Screening 1975 Colon Cancer Screening-Colonoscopy 1975 Depression Screening 1975 Hepatitis C Screening 1975 DTaP/Tdap/Td Vaccine (1 - Tdap) 1986 Hepatitis B Screening 1993 Regular Well Visit/Exam 18-64 1993 Influenza Vaccine (#1) 2024 Pneumococcal vaccine <65 Completed 04/10/2024 Insurance Narr8 OOS Member Subscriber Plan / Payer (Ef fective 2019-Present) Name:Meaghan Torres Relation to Subscriber:Spouse Name:JUSTIN PEARSON Date of :1968 (Home) Address: [address] [place] [address] Payer ID:[id number] (NAIC) Type:BC ALLIANCE Address: [facility] [id number] [place] [phone] Care Teams Cognos Developer Relationship Specialty Start Date End Date Lino Watson PA [address] [place] [address] PCP - General Physician Chief Clinical Dietitian 11/01/23
--- OUTSIDE RECORDS SUMMARY | 2024-10-05 22:42 | XMS_ITS | Clinical Summary ---
Author Organization [facility] Care Team Providers Care Barrel Roller Name Role Phone Unavailable Primary Care Provider Unavailabl e Social History Tobacco Use Types Packs/Day Years Used Date Smoking Tobacco: Never Assessed Comments Unknown Sex and Gender Information Value Date Recorded Sex Assigned at Not on file Legal Sex Female 12:43 PM POULTRY FARM MANAGER Gender Identity Not on file Sexual Orientation Not on file Plan of Treatment Health Maintenance Due Date Last Done Comments Hepatitis C Virus (HCV) Screening 1975 TdaP Immunization 1975 Hepatitis B Immunization (1 of 3 - 19+ 3-dose series) 1994 Pap Smear 1996 Cervical Cancer Screening (CCS) 2005 HPV/Cotest 2005 Discussion re Starting/Frequ ency of Mammograms 2015 Colonoscopy 2020 Colorectal Cancer Screening 2020 Influenza Immunization (#1) 2024 SARS-COV-2 Immunization ( season) 2024 Respiratory Syncytial Virus (RSV) Immunization (Adult) (1 - 1-dose 75+ series) 2050 Meningococcal Immunization (ACWY) Aged Out No longer eligible based on patient's age to complete this topic Pneumococcal Immunization Combined Aged Out No longer eligible based on patient's age to complete this topic Rotavirus Immunization Aged Out No lo nger eligible based on patient's age to complete this topic
--- OUTSIDE RECORDS SUMMARY | 2024-10-05 22:42 | XMS_ITS | Patient Health Summary ---
Author Organization [facility] Address [address] [place] [address] Care Team Providers Care Woven Paper Hat Mender Name Role Phone Connie Miller PA-C Primary Care Provider + Note from [facility],non-owned Affiliates and Associated Physician Practices is amultiple site organization consisting of ambulatory clinics and hospital sitesin [place], [place], [place] and [place]. This disclosure is being madepursuant to the Care Everywhere program and may not contain all information available regarding this patient. Last updated 18.[facility] Allergies * Penicillins(Urticaria) -Medium Criticality Medications * Be aware that medications may not be up to date on this document. Alwaysverify current medications with the patient. * Budesonide-Formoterol Fumarate (SYMBICORT IN) 2 Sprays every 12 hours * Ipratropium-Albuterol (COMBIVENT IN) 2 sprays as needed * Umeclidinium [place] (INCRUSE ELLIPTA IN) Inhale by mouth once daily * montelukast (Singulair) 10 MG tablet Take 1 (one) tablet by mouth at bedtime * Ferrous Sulfate (IRON PO) Take by mouth once daily * Multiple Vitamin (MULTIVITAMIN ADULT PO) Take by mouth once daily * cetirizine (ZyrTEC) 10 MG tablet As needed * mometasone (Elocon) 0.1 % ointment(Started 10/03/2024) Apply to hands, feet, arms and back twice a day as needed for rash. 30 days supply. Label in malian please Ended Medications* mometasone (Elocon) 0.1 % ointment(Started 11/19/2022) (Discontinued) Apply to hands, feet, arms and back twice a day as needed for rash. 30 days supply. Label in malian please 3 refills by 11/19/2023 * mometasone (Elocon) 0.1 % ointment(Started 10/03/2024)(Discontinued) Apply to hands, feet, arms and back twice a day as needed for rash. 30 days supply. 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 Gastroesophageal reflux disease without esophagi tis 11/17/2022 Resolved Problems Problem Noted Date Diagnosed Date Resolved Date Constipation 11/19/2022 12/17/2022 Social History Tobacco Use Types Packs/Day Years Used Date Smoking Tobacco: Never Smokeless Tobacco: Never Tobacco Cessation:Counseling Given: No Sex and Gender Information Value Date Recorded Sex Assigned at Not on file Gender Identity Not on file Sexual Orientation Not on file Care Teams Woven Paper Hat Mender Relationship Specialty Start Date End Date Connie Miller PA-C [address] [place] [phone] PCP - General 06/11/22
--- OUTSIDE RECORDS SUMMARY | 2024-10-05 22:42 | XMS_ITS | Referral Summary ---
Author Organization [facility] Address [address] [facility] [place] [address] Care Team Providers Care Peanut Sheller Name Role Phone Connie Miller PA-C Primary Care Provider + Source Comments [facility],non-owned Affiliates and Associated Physician Practices is [facility] organization consisting of ambulatory clinics and hospital sitesin [place], [place], [place] and [place]. This disclosure is being madepursuant to the Care Everywhere program and may not contain all information available regarding this patient. Last updated 18.[facility] Encounters Date Type Department Care Team Description 10/03/2024 Refill [facility] - Dermatology [address] [place] [phone] Katalina Tai MD MEDICATION REFILL 10/01/2024 Refill [facility] [address] [place] [phone] Katalina Tai MD MEDICATION REFILL 10/01/2024 Telephone [facility] [address] [place] [phone] Katalina Tai MD Refill Request from Last 3 Months Allergies Active Allergy Reactions Criticality Noted Date Comments Penicillins Urticaria Medium 08/19/2022 Medications * Be aware that medications may not be up to date on this document. Alwaysverify current medications with the patient. Medication Sig Dispensed Refills Start Date End Date Status Budesonide-Formote rol Fumarate (SYMBICORT IN) 2 Sprays every 12 hours Active Ipratropium-Albute rol (COMBIVENT IN) 2 sprays as needed Active Umeclidinium Flushing (INCRUSE ELLIPTA IN) Inhale by mouth once daily Active montelukast (Singulair) 10 MG tablet Take 1 (one) tablet by mouth at bedtime Active Ferrous Sulfate (IRON PO) Take by mouth once daily Active Multiple Vitamin (MULTIVITAMIN ADULT PO) Take by mouth once daily Active cetirizine (ZyrTEC) 10 MG tablet As needed Active mometasone (Elocon) 0.1 % ointmentIndication s:Other specified dermatitis,Other pruritus,Macular cutaneous amyloidosis (HCC) Apply to hands, feet, arms and back twice a day as needed for rash. 30 days supply. Label in liberian please 45 g 10/03/2024 Active mometasone (Elocon) 0.1 % ointmentIndication s:Other specified dermatitis,Other pruritus,Macular cutaneous amyloidosis (HCC) Apply to hands, feet, arms and back twice a day as needed for rash. 30 days supply. Label in liberian please 45 g 3 11/19/2022 10/01/2024 Discontinued( Reorder) mometasone (Elocon) 0.1 % ointmentIndication s:Other specified dermatitis,Other pruritus,Macular cutaneous amyloidosis (HCC) Apply to hands, feet, arms and back twice a day as needed for rash. 30 days supply. Label in liberian please 45 g 10/03/2024 10/03/2024 Discontinued( Reorder) Active Problems Problem Noted Date Diagnosed Date [...] Orientation Not on file Plan of Treatment Upcoming Encounters Date Type Department Care Team (Late st Contact Info) Description 01/18/2025 1:30 PM CDT Office Visit [facility] - Dermatology [address] [facility], [place] [address] Katalina Tai MD [address] [facility] [address] [place] [address] Care Teams Peanut Sheller Relationship Specialty Start Date End Date Connie Miller PA-C [address] [place] [phone] PCP - General 06/11/22
--- OUTSIDE RECORDS SUMMARY | 2024-10-05 22:42 | XMS_ITS | Encounter Summary ---
Author Organization [facility] Address [address] [place], [place] [address] [address] Care Team Providers Care Geothermal Plant Manager Name Role Phone Connie Miller PA-C Primary Care Provider + Reason for Visit * Reason Onset Date Comments Medication Issue 09/13/2022 Encounter Details Date Type Department Care Team (Late st Contact Info) Description 09/13/2022 Telephone [facility] [address] [place] [address] Katalina Tai MD [facility] DE[place] [phone] Medication Issue Social History Tobacco Use Types Packs/Day Years Used Date Smoking Tobacco: Never Smokeless Tobacco: Never Sex and Gender Information Value Date Recorded Sex Assigned at Not on file Gender Identity Not on file Sexual Orientation Not on file documented as of this encounter Miscellaneous Notes * Telephone Encounter - Destini Ovalles PA - 09/24/2022 5:30 PM CST Switch to prescription mometasone ointment twice a day as needed for raised, pink, itchy rash on hands, feet, arms and back Start over the counter Sarna lotion multiple times a day as needed for itching (but no active rash - skin looks normal) Recommend continuing to use eucerin cream daily to skin as moisturizer Send us photos via MyChart if develop pus on bottom of foot again I attempted to call her and she needs a pulmonary nurse practitioner Clinical staff will call her and let her know she was advised to use Sarna CAL MANAGER * Telephone Encounter - Dee Grant - 09/13/2022 3:20 PM CST Pt needs to know what over the counter medication she was prescribed, she can't remember. CAL MANAGER documented in this encounter Plan of Treatment Upcoming Encounters Date Type Department Care Team (Late st Contact Info) Description 01/18/2025 1:30 PM CDT Office Visit [facility] - Dermatology [address] [place] [address], [place] [address] Katalina Tai MD [address] [place] [address] [address] [place] [address] documented as of this encounter Visit Diagnoses Not on filedocumented in this encounter Care Teams Geothermal Plant Manager Relationship Specialty Start Date End Date Connie Miller PA-C [address] [place] [phone] PCP - General 06/11/22 documented as of this encounter
--- OUTSIDE RECORDS SUMMARY | 2024-10-05 22:42 | XMS_ITS | Clinical Summary ---
Author Organization [facility] [employer] Address [address] [facility] [place] [address] Care Team Providers Care Attendance Secretary Name Role Phone Connie Miller PA-C Primary Care Provider + Source Comments [facility] [employer],non-owned Affiliates and Associated Physician Practices is amultiple site organization consisting of ambulatory clinics and hospital sitesin [place], [place], [place] and [place]. This disclosure is being madepursuant to the Care Everywhere program and may not contain all information available regarding this patient. Last updated 18.[facility] [employer] Allergies Active Allergy Reactions Criticality Noted Date Comments Penicillins Urticaria Medium 08/19/2022 Medications * Be aware that medications may not be up to date on this document. Alwaysverify current medications with the patient. Medication Sig Dispensed Refills Start Date End Date Status Budesonide-Formote rol Fumarate (SYMBICORT IN) 2 Sprays every 12 hours Active Ipratropium-Albute rol (COMBIVENT IN) 2 sprays as needed Active Umeclidinium [place] (INCRUSE ELLIPTA IN) Inhale by mouth once [...] for rash. 30 days supply. Label in singaporean please 45 g 10/03/2024 Active mometasone (Elocon) 0.1 % ointmentIndication s:Other specified dermatitis,Other pruritus,Macular cutaneous amyloidosis (HCC) Apply to hands, feet, arms and back twice a day as needed for rash. 30 days supply. Label in singaporean please 45 g 3 11/19/2022 10/01/2024 Discontinued( Reorder) mometasone (Elocon) 0.1 % ointmentIndication s:Other specified dermatitis,Other pruritus,Macular cutaneous amyloidosis (HCC) Apply to hands, feet, arms and back twice a day as needed for rash. 30 days supply. Label in singaporean please 45 g 10/03/2024 10/03/2024 Discontinued( Reorder) [...] Diagnosed Date Resolved Date Constipation 11/19/2022 12/17/2022 Encounters Date Type Department Care Team Description 10/03/2024 Refill [facility] Derm[facility]ology [address] [place] [phone] Katalina Tai MD MEDICATION REFILL 10/01/2024 Refill [facility] [address] [place] [phone] Katalina Tai MD MEDICATION REFILL 10/01/2024 Telephone [facility] [address] [place] [phone] Katalina Tai MD Refill Request from Last 3 Months Social History Tobacco Use Types Packs/Day Years [...] Visit [facility] [address] [facility] [place] [phone] Katalina Tai MD [address] [facility] [address] [place] [address] Health Maintenance Due Date Last Done Comments COLOGUARD (AGES 45-75) - COL ON CA SCREENING 1975 COLON MONITORING 1975 COLONOSCOPY - COLON CA SCREENING 1975 CT COLONOGRAPHY - COLON CA SCREENING 1975 Colorectal Cancer Screening 1975 FIT - COLON CA SCREENING 1975 FLEX SIG - COLON CA SCREENING 1975 LIPID TESTING 1975 MAMMOGRAM 1975 PAP SMEAR 1975 HIV SCREENING 1990 HEPATITIS C SCREENING 06/27/1993 DTAP/TDAP/TD VACCINES (1 - Tdap) 1994 HEPATITIS B VACCINE (1 of 3 - 19+ 3-dose series) 1994 COVID-19 VACCINE ( - 2023-2 5 season) 2024 INFLUENZA VACCINE (#1) 2024 DEPRESSION SCREENING 08/15/2024 ZOSTER VACCINE (1 of 2) 2025 HIB VACCINE Aged Out No longer eligi ble based on patient's age to complete this topic HPV VACCINE Aged Out No longer eligi ble based on patient's age to complete this topic MENINGOCOCCAL (Group B) VACCINE Aged Out No longer eligible based on patient's age to complete this topic MENINGOCOCCAL VACCINE Aged Out No nita sarah eligible based on patient's age to complete this topic Care Teams Attendance Secretary Relationship Specialty Start Date End Date Connie Miller PA-C [address] [place] [address] PCP - General 06/11/22
--- OUTSIDE RECORDS SUMMARY | 2024-10-05 22:42 | XMS_ITS | Data Portability ---
Author Organization [place] [facility] Address [address] [place] [address] Care Team Providers Care High Risk Ob Name Role Phone LINO WATSON Primary Care Provider [phone] Assessment Encounter Date Assessment Date Assessment LastModified by Organization Details LastModified Time 08/07/2024 08/07/2024 Labs completed 09/16/2023 TSH 1.800, T4 free 1.14, WBC 6.8, Hgb 10.3, Hct 34.9, Plt 471, Glucose 87, BUN 10, Creatinine 0.57, eGFR 112, Sodium 139, Potassium 4.4, Chloride 104, Co2 24, Calcium 8.8, Protein 7.0, Albumin 3.9, Bilirubin 0.3, AST 22, ALT 14 Laboratories done on 12/20/2022, cholesterol 170, triglycerides 147, HDL 45 and LDL 99 ECG performed on 08/07/2024 shows sinus bradycardia with a rate of 59 beats per minute, normal EKG ASSESSMENT Chest pain, had a CT of her chest on 06/17/2024 with no evidence of pulmonary embolism and normal ecg. Low blood pressure with a 10 mm orthostatic drop in her blood pressure History of asthma History of fibromyalgia History of type 2 diabetes mellitus History of GERD Iron deficiency anemia with iron studies with an iron level of 17 and iron saturation is 6 on 04/18/2024 on iron supplementation twice daily [id number], followed by her primary care physician PLAN: She is not on iron supplementation so I told her she needs to take iron 325 mg twice a day if she can tolerate it if not at least take it once a day. I told her she has to drink plenty of fluids including sports types drinks and told her to salt her food to try to improve her blood pressure. I will check a 2D echo Doppler evaluate her LV function light of her hypotension and chest pain if it was not done at [facility] she thinks she may have had an echo there. I will set her up for a treadmill stress test evaluate her chest pain symptoms. I would like her to return in 4 weeks' time for re-evaluation. I asked her to return sooner if she has any cardiac issues or problems. CARDIAC TESTING CTA CHEST 06/17/2024: No evidence of pulmonary embolism US VENOUS DOPPLER 06/17/2024: No evidence of deep venous thrombosis of the left lower extremity. [email or web address] Not available 08/07/2024 12:49:51 Plan of Treatment Reminders Order Date Submit Date Provider Last Modified By Organization Details Last Modified Time Details Appointments ANY 2024 09:15A Fred TAI Not available Not available Not available ANY 2024 01:00P Fred Perera MD Not available Not available Not available ANY 30 2024 09:00A Fred WATSON PA-C Not available Not available Not available Lab None record ed. Referral cardio logist referr al 2023 024 vincent Escobedo MD, [address] [facility], [facility] [address], [place], [address], 07/20/2024 10:48:12 Procedures None record ed. Surgeries None record ed. Imaging US, breast , unilat eral 2024 025 [facility] Scheduling, [address] [place], [address], 09/18/2024 10:53:39 US, breast , unilat eral [facility] [address] [place], [address], 09/26/2024 14:45:55 electr ocardi ogram 2023 024 [email or web address] In-Office Order, Internal Use Only DO Not Attach Compendium DO Not Attach Compendium, Do Not Delete/merge, [id number] 08/07/2024 12:48:20 exerci se stress test 2023 [facility], [address] [place], [address], 09/04/2024 07:53:43 US, echoca rdiogr am, transt horaci c, comple te, w/ color flow 2023 024 [facility], [address] [place], [address], 09/04/2024 07:53:43 Medication Orders famoti dine 20 mg tablet 2023 [facility], [address] [place] [address], [phone], 09/20/2024 16:27:19 Patient TargetsNo targets recorded. Patient Instructions Encounter Date Encounter Id Patient Instructions Last Modified By Organization Details Last Modified Time 07/17/2024 [id number] F/u 3 month [email or web address] Not available 12:07:17 07/18/2024 [id number] A healthy lifestyle: care instructions [email or web address] Not available 07/18/2024 15:20:12 presi n arterial baja: instrucciones de cuidado - [low blood pressure: care instructions] [email or web address] Not available 07/18/2024 15:05:11 08/22/2024 [id number] A healthy lifestyle: care instructions [email or web address] Not available 08/22/2024 10:48:48 Reason for Referral Social Work Nurse Referral for Lo w blood pressure Referring Physician: Lino Watson, Family Medicine, Encounter Date: 07/18/2024 Results Created Date Observation Date Name Description Value Unit Range Abnormal Flag Note LastModifiedBy Organization Detail LastModifiedTime 06/17/2006/17/2024 US, duple x, venou s, lower extre mity, unila teral No observ ation record ed. [facility] (Rad) [address], [place], [address], 06/28/2024 17:38:08 06/17/20 24 06/17/2024 CT, angio gram, chest , w/ contr ast No observ ation record ed. [address], [place], [address], 06/28/2024 17:38:27 08/07/20 24 08/07/2024 elect rocar diogr am No observ ation record ed. [facility] Order Internal Use Only DO Not Attach Compendium DO Not Attach Compendium, Do Not Delete/merge, [id number] 08/07/2024 12:56:55 08/07/20 elect rocar diogr am No observ ation record ed. [email or web address] Not Available 08/07 12:56:56 09/12/19 25 09/12/2024 MAMMO , diagn ostic , digit al, bilat eral No observ ation record ed. [facility] Scheduling [address], [place], [address], 09/28/2024 10:16:15 09/12/19 25 09/12/2024 US, gris gayle No observ ation record ed. [facility] Scheduling [address], [place], [address], 09/28/2024 10:16:15 Result Notes None recorded. Problems Name Problem SNOMED Code Status Onset Date Resolution Date Notes Provider Name and Address Organization Details Recorded Time Chronic bronchit is 44574659 Completed 201601/02/2020 ABIDA CHAIDEZ Attn: Accounting ,[address] [facility], [place], [address] , [facility] 0 12:15:39 Acute bronchit is 00159917 Completed 201604/20/2019 ABIDA CHAIDEZ Attn: Accounting ,[address] [facility], [place], [address] , [place] [facility] 10:11:24 Eczema 58681990 Active 2017 Lala Acevedo PA-C Attn: Accounting ,[address] [facility], [place], [address] , [place] [facility] 11:31:46 Bronchit is 66962659 Completed 201706/07/2019 ABIDA CHAIDEZ Attn: Accounting ,[address] [place], [address] , [place] [facility] 20:10:33 Muscle pain 47948378 Active 2018 Multifoc al Christy Lang MD Attn: Accounting ,[address] [place], [address] , [place] [facility] 17:28:13 Abdomina l bloating 527581118 Completed 201801/02/2020 ABIAD CHAIDEZ Attn: Accounting ,[address] [place], [address] , [place] [facility] 12:15:30 Abnormal weight gain 006529791 Completed 201801/31/2020 ABIDA CHAIDEZ Attn: Accounting ,[address] [place], [address] , [place] [facility] 10:53:50 Fatigue 58471221 Completed 201808/16/2019 ABIDA CHAIDEZ Attn: Accounting ,[address] [place], [address] , [place] [facility] 13:31:56 Allergic rhinitis 52089263 Active 2018 Christy Lang MD Attn: Accounting ,[address] [place], [address] , [place] [facility] 17:40:06 Iron deficien cy anemia 09899000 Active 2018 Christy Lang MD Attn: Accounting ,[address] [place], [address] , [place] [facility] 19:10:42 Vitamin D deficien cy 44332479 Active 2018 Christy Lang MD Attn: Accounting ,[address] [place], [address] , [place] [facility] 11:48:01 Constipa tion 80830040 Active 2018 Christy Lang MD Attn: Accounting ,[address] [place], [address] , [place] [facility] 11:49:11 Helicoba cter pylori-a ssociate d gastriti s 950363412 Active 2018 Christy Lang MD Attn: Accounting ,[address] [place], [address] , [place] [facility] 11:13:26 Gastroes ophageal reflux disease 282081645 Active 2018 LINO WATSON PA-C Attn: Accounting ,[address] [place], [address] , [place] [facility] 15:17:04 Acute otitis media 8383049 Completed 201808/16/2019 ABIDA CHAIDEZ Attn: Accounting ,[address] [place], [address] , [place] [facility] 13:31:51 Uterine leiomyom a 97776637 Active 2019 US of pelvis showed multiple intermur al fibroids ranging from 2.2 to 3.8 cm ABIDA CHAIDEZ Attn: Accounting ,[address] [place], [address] , [place] [facility] 14:19:21 Mass of ovary 366126415 Active 2019 US 10/2019 showed a small hypoecho ic structur e on R ovary, repeat US 01/2020 showed small 18 mm simple cystic appearin g lesion on R ovary (similar to before), 6 month f/u recommen ded ABIDA CHAIDEZ Attn: Accounting ,[address] [place], [address] , [place] [facility] 14:23:41 Compress ion fracture of thoracic vertebra 61127660017 04 Active 2021 T12 ABIDA CHAIDEZ Attn: Accounting ,[address] [place], [address] , [place] [facility] 10:52:31 Fibromya lgia 730495086 Active 2023 LINO WATSON PA-C Attn: Accounting ,[address] [place], [address] , [place] [facility] 10:58:53 Type 2 diabetes mellitus 52795599 Active 2023 LINO WATSON PA-C Attn: Accounting ,[address] [place], [address] , [place] [facility] 12:17:22 Low blood pressure 53254766 Active 2023 Sarah Escobedo MD Attn: Accounting ,[address] [place], [address] , [place] [facility] 12:45:29 Chest pain 24549535 Active 2023 Sarah Escobedo MD Attn: Accounting ,[address] [place], [address] , [place] [facility] 12:45:31 Asthma 401147355 Active 2015 LINO WATSON PA-C Attn: Accounting ,[address] [place], [address] , [place] [facility] 15:21:59 Depressi ve disorder 44530216 Active 2015 Lala Acevedo PA-C Attn: Accounting ,[address] [place], [address] , [place] [facility] 15:15:51 Atopic dermatit is 62569305 Completed 201501/31/2020 ABIDA CHAIDEZ Attn: Accounting ,[address] [place], [address] , [place] [facility] 10:54:00 Anxiety 99244162 Active 2015 Lala Acevedo PA-C Attn: Accounting ,[address] [facility], [place], [address] , [place] [facility] 6 15:15:53 Body mass index 25-29 - overweig ht 761082802 Active 2015 Lala Acevedo PA-C Attn: Accounting ,[address] [facility], [place], [address] , [place] [facility] 6 15:15:55 Thyroid stimulat ing hormone level above referenc e range 630186069 Completed 201507/28/2017 repeat at next visit Removal Reason: resolved Lala Acevedo PA-C Attn: Accounting ,[address], [place], [address] [place] [address] , [place] [facility] 7 11:48:20 Mammogra phy abnormal 854861750 Active 05/2021: Mammogra m and US showed bilatera l small masses in the area where she is having pain which are likely incident al and benign. They recommen d F/u with US again in 6 months so 11/2021 ABIDA CHAIDEZ Attn: Accounting ,[address] [place], [address] , [place] [facility] 13:09:18 Blood glucose outside referenc e range 736176749 Active 2015 Lala Acevedo PA-C Attn: Accounting ,[address] [place], [address] , [place] [facility] 6 11:26:52 Candidia sis of vagina 66966191 Completed 201604/20/2019 ABIDA CHAIDEZ Attn: Accounting ,[address] [place], [address] , [place] [facility] 9 10:11:54 Vaginal discharg e 916561809 Completed 201604/20/2019 ABIDA CHAIDEZ Attn: Accounting ,[address] [facility], [place], [address] , [place] [facility] 10:11:39 Vaginal pain 21968380 Completed 201606/07/2019 ABIDA CHAIDEZ Attn: Accounting ,[address] [facility], [place], [address] , [place] [facility] 20:10:29 Notes:Some problems listed i n Documents: #[id number], #[id number] could not be added to this patient's chart. Please review these documents and add these problems to the patient's chart manually as needed. Problem Notes None recorded. Procedures Surgical History Date Name Laterality Status Provider Name and Address Organization Details Recorded Time 02/23/2021 Date of Last Pap Smear completed Bridgett Bean [place] [facility] 10/01/2022 09:53:00 Imaging Results Imaging Date Name Status LastModified by Organization Details LastModified Time 06/17/2024 US, duplex, venous, lower extremity, unilateral completed [facility] ([facility]) [address] [place], [address], 06/28/2024 17:38:08 06/17/2024 CT, angiogram, chest, w/ contrast completed [address], [address], 06/28/2024 17:38:27 08/07/2024 electrocardiogram completed [facility] Order Internal Use Only DO Not Attach Compendium DO Not Attach Compendium, Do Not Delete/merge, [id number] 08/07/2024 12:56:55 08/07/2024 electrocardiogram completed [email or web address] Informa tion not available 08/07/2024 12:56:56 09/12/2024 MAMMO, diagnostic, digital, bilateral completed [facility] Scheduling [address] [place], [address], 09/28/2024 10:16:15 09/12/2024 US, breast, unilateral completed [facility] Scheduling [address] [place], [address], 09/28/2024 10:16:15 Procedure Notes None recorded. Medical Equipment None Reported. Allergies Allergen ID Allergen Name Allergen Category Reaction Reaction Severity Criticality Documentation Date Start Date Code Code System Note Provider Name and Address Organization Details Recorded Time 91190 Product containin g penicilli n (product) medicatio n anaphylax is Not available Not available 06/10/2016 52825 8001 SNOMED Not Available Not Available Not Available Medications Name Sig Start Date Stop Date Status Note LastModified by Organization Details LastModified Time device true metrix meter USE TO CHECK BLOOD SUGAR ONCE DAILY active Not Available Not Available No t Available multivitami n tablet Take 1 tablet every day by oral route as directed for 100 days. 10/01 completed Not Available Not Available Not Available neomycin-po lymyxin-hyd rocort 3.5 mg/mL-10,00 0 unit/mL-1 % ear solution Instill 4 drops 3 times a day by otic route as directed for 7 days. 11/07 completed Not Available Not Available Not Available Colace 100 mg capsule Take 2 capsules every day by oral route. 10/04 completed Not Available Not Available Not Available prednisone 10 mg tablet TAKE 4 TABLETS BY MOUTH FOR 3 DAYS THEN TAKE THREE TABLETS FOR 3 DAYS THEN TAKE TWO TABLETS FOR 3 DAYS THEN TAKE ONE TABLET FOR 3 DAYS 07/18 completed Not Available Not Available Not Available doxycycline hyclate 100 mg capsule TAKE ONE CAPSULE BY MOUTH EVERY MORNING & EVERY EVENING FOR 10 DAYS 03/05 completed Not Available Not Available Not Available albuterol sulfate 2.5 mg/3 mL (0.083 %) solution for nebulizatio n INHALE THE CONTENTS OF 1 VIAL VIA NEBULIZER q4 NEEDED SHORTNESS OF BREATH OR WHEEZING active Not Available Not Available No t Available triamcinolo ne acetonide 0.5 % topical cream APPLY A THIN LAYER TO THE AFFECTED AREA(S) BY TOPICAL ROUTE 2 TIMES PER DAY 07/28 completed Not Available Not Available Not Available cetirizine 10 mg tablet Take 1 tablet every day by oral route as directed for 30 days. 07/18 completed Not Available Not Available Not Available azithromyci n 250 mg tablet TAKE 2 TABLETS BY MOUTH ON DAY 1, THEN TAKE 1 TABLET DAILY ON DAYS 2-5 02/20 completed Not Available Not Available Not Available ibuprofen 800 mg tablet TAKE ONE TABLET BY MOUTH THREE TIMES DAILY WITH MEALS FOR 7 DAYS 12/14 completed Not Available Not Available Not Available fluconazole 150 mg tablet Take 1 tablet by oral route. 10/04 completed Not Available Not Available Not Available benzonatate 200 mg capsule TAKE ONE CAPSULE BY MOUTH THREE TIMES DAILY NEEDED FOR 7 DAYS 12/14 completed Not Available Not Available Not Available clarithromy scott 500 mg tablet Take 1 tablet every 12 hours by oral route as directed for 14 days. 12/25 completed Not Available Not Available Not Available albuterol sulfate 1.25 mg/3 mL solution for nebulizatio n INHALE THE CONTENTS OF 1 VIAL VIA NEBULIZER EVERY 6 HOURS NEEDED FOR WHEEZING OR SHORTNESS OF BREATH 08/07 completed Not Available Not Available Not Available sucralfate 1 gram tablet TAKE ONE TABLET BY MOUTH FOUR TIMES DAILY FOR STOMACH 03/28 completed Not Available Not Available Not Available prednisone 20 mg tablet TAKE TWO TABLETS BY MOUTH EVERY DAY FOR 5 DAYS 06/13 completed Not Available Not Available Not Available metronidazo le 500 mg tablet Take 1 tablet 3 times a day by oral route as directed for 14 days. 12/25 completed Not Available Not Available Not Available dextrometho rphan-guaif enesin 10 mg-100 mg/5 mL oral syrup Take 10 mL every 4 hours by oral route as needed for 4 days. 12/06 completed Not Available Not Available Not Available sulfamethox azole 800 mg-trimetho prim 160 mg tablet TAKE ONE TABLET BY MOUTH EVERY TWELVE HOURS FOR 5 DAYS 10/01 completed Not Available Not Available Not Available triamcinolo ne acetonide 0.1 % topical cream APPLY TO THE AFFECTED AREA(S) TWICE DAILY FOR 7-10 DAYS 10/01 completed Not Available Not Available Not Available bupropion HCl SR 100 mg tablet,12 hr sustained-r elease Take 1 tablet twice a day by oral route. 07/28 completed Not Available Not Available Not Available famotidine 20 mg tablet Take 2 tablets every day by oral route as directed for 30 days. 2023 active Not Available Not Available Not Avai lable amitriptyli ne 25 mg tablet TAKE ONE TABLET BY MOUTH EVERY DAY 04/10 completed Not Available Not Available Not Available benzonatate 100 mg capsule Take 1 capsule 3 times a day by oral route as needed for 7 days. 12/07 completed Not Available Not Available Not Available doxycycline monohydrate 100 mg capsule TAKE ONE CAPSULE BY MOUTH TWICE DAILY FOR 7 DAYS 10/01 completed Not Available Not Available Not Available cephalexin 500 mg capsule TAKE ONE TABLET BY MOUTH TWICE DAILY FOR 7 DAYS 03/16 completed Not Available Not Available Not Available pantoprazol e 40 mg tablet,tai yed release TAKE ONE TABLET BY MOUTH EVERY DAY 07/18 completed Not Available Not Available Not Available nystatin 100,000 unit/gram topical cream APPLY TO THE AFFECTED AREA(S) TWICE DAILY 05/11 completed Not Available Not Available Not Available ranitidine 150 mg tablet Take 1 tablet twice a day by oral route. 10/04 completed Not Available Not Available Not Available fluticasone 500 mcg-salmete rol 50 mcg/dose blistr powdr for inhalation INHALE 1 PUFF BY MOUTH TWICE DAILY EVERY MORNING & AT BEDTIME FOR BREATHING - RINSE MOUTH WITH WATER AFTER USE. DO NOT SWALLOW active Not Available Not Available No t Available ibuprofen 400 mg tablet Take 1 tablet every 6 hours by oral route as needed for 30 days. 11/07 completed Not Available Not Available Not Available Advair Diskus 250 mcg-50 mcg/dose powder for inhalation Inhale 1 puff twice a day by inhalatio n route as directed for 30 days. 01/10 completed Not Available Not Available Not Available venlafaxine 50 mg tablet Take 1 tablet twice a day by oral route. 01/05 completed Not Available Not Available Not Available omeprazole 20 mg capsule,del ayed release Take 1 capsule twice a day by oral route as directed for 14 days. 06/04 completed Not Available Not Available Not Available diclofenac sodium 75 mg tablet,tai yed release Take 1 tablet twice a day by oral route as needed for 30 days. 01/25 completed Not Available Not Available Not Available cephalexin 500 mg tablet Take 1 tablet twice a day by oral route as directed for 7 days. 03/16 completed Not Available Not Available Not Available montelukast 10 mg tablet Take 1 tablet every day by oral route as directed for 30 days. 07/18 completed Not Available Not Available Not Available bisacodyl 5 mg tablet,tai yed release TAKE ALL FOUR TABLETS BY MOUTH DAY BEFORE procedure 11/30 completed Not Available Not Available Not Available alcohol swabs USE TO CLEAN THE INJECTION SITE OF INSULIN AND WHEN CHECKING BLOOD SUGAR active Not Available Not Available No t Available mometasone 0.1 % topical ointment apply a thin layer TO AFFECTED AREAS of THE SKIN ONCE DAILY 06/13 completed Not Available Not Available Not Available ergocalcife rol (vitamin D2) 1,250 mcg (50,000 unit) capsule Take 1 capsule every week by oral route. 10/23 completed Not Available Not Available Not Available polyethylen e glycol 3350 17 gram/dose oral powder IN A PITCHER, MIX ENTIRE BOTTLE OF MIX 17 GRAMS (ONE CAPFUL) DIRECTED AND DRINK BY MOUTH ONCE DAILY IN ONE 64 OUNCE BOTTLE OF YELLOW OR GREEN GATORADE AND TAKE OVER 90 MINUTES NO LATER THAN 5PM THE DAY PRIOR TO YOUR PROCEDURE 11/30 completed Not Available Not Available Not Available levofloxaci n 500 mg tablet TAKE ONE TABLET BY MOUTH EVERY DAY FOR 7 DAYS 07/18 completed Not Available Not Available Not Available levofloxaci n 750 mg tablet Take 1 tablet every day by oral route as directed for 5 days. 10/23 completed Not Available Not Available Not Available methylpredn isolone 4 mg tablets in a dose pack Use as directed on package 10/01 completed Not Available Not Available Not Available albuterol sulfate HFA 90 mcg/actuati on aerosol inhaler INHALE TWO PUFFS BY MOUTH EVERY 4 HOURS NEEDED FOR BREATHING active Not Available Not Available No t Available ondansetron 4 mg disintegrat ing tablet 10/23 completed Not Available Not Available Not Available albuterol sulfate concentrate 5 mg/mL(0.5 %) solution for nebulizatio n 08/07 completed Not Available Not Available Not Available fluticasone propionate 50 mcg/actuati on nasal spray,suspe nsion INSTILL ONE SPRAY IN EACH NOSTRIL EVERY DAY DIRECTED FOR ALLERGIES active Not Available Not Available No t Available sertraline 50 mg tablet Take 1 tablet every day by oral route in the morning for 30 days. 10/23 completed Not Available Not Available Not Available doxycycline hyclate 100 mg tablet Take 1 tablet twice a day by oral route as directed for 10 days. 11/07 completed Not Available Not Available Not Available loratadine 10 mg tablet TAKE ONE TABLET BY MOUTH EVERY MORNING FOR ALLERGIES 04/10 completed Not Available Not Available Not Available naproxen 500 mg tablet Take 1 tablet twice a day by oral route with meals for 14 days. 09/15 completed Not Available Not Available Not Available Vistaril 50 mg capsule Take 1 capsule 3 times a day by oral route as needed. 01/05 completed Not Available Not Available Not Available mometasone 0.1 % topical cream APPLY A THIN LAYER TO THE AFFECTED AREA(S) BY TOPICAL ROUTE ONCE DAILY 06/13 completed Not Available Not Available Not Available simethicone 80 mg chewable tablet Take 1 tablet twice a day by oral route. 10/04 completed Not Available Not Available Not Available neomycin-po lymyxin-hyd rocort 3.5 mg-10,000 unit/mL-1 % ear drops,susp INSTILL 4 DROPS INTO AFFECTED EAR(S) BY OTIC ROUTE 3 TIMES PER DAY X 7 DAYS 11/07 completed Not Available Not Available Not Available cyclobenzap rine 5 mg tablet Take 1 tablet every day by oral route at bedtime for 30 days. 01/25 completed Not Available Not Available Not Available Senna Plus 8.6 mg-50 mg tablet TAKE TWO TABLETS BY MOUTH EVERY DAY FOR CONSTIPAT ION 07/18 completed Not Available Not Available Not Available nitrofurant oin monohydrate /macrocryst als 100 mg capsule TAKE ONE CAPSULE BY MOUTH EVERY TWELVE HOURS FOR 5 DAYS 12/14 completed Not Available Not Available Not Available duloxetine 30 mg capsule,del ayed release Take 1 capsule every day by oral route in the morning for 30 days. 01/25 completed Not Available Not Available Not Available montelukast 1 tab daily active Not Available Not Available No t Available Pylera 140 mg-125 mg-125 mg capsule Take 3 capsules 4 times a day by oral route after meals for 10 days. 06/04 completed Not Available Not Available Not Available Wiley Oil 1,000 mg capsule Take 1 capsule 3 times a day by oral route as directed for 30 days. 04/10 completed Not Available Not Available Not Available Symbicort 160 mcg-4.5 mcg/actuati on HFA aerosol inhaler INHALE TWO PUFFS BY MOUTH TWICE DAILY 02/22 completed Not Available Not Available Not Available peg 3350-electr olytes 236 gram-22.74 gram-6.74 gram-5.86 gram solution USE DIRECTED 11/30 completed Not Available Not Available Not Available Symbicort 05/11 completed Not Available Not Available Not Available FeroSul 325 mg (65 mg iron) tablet TAKE ONE TABLET BY MOUTH TWICE DAILY FOR IRON REPLACEME NT 04/10 completed Not Available Not Available Not Available omeprazole 20 mg tablet,tai yed release Take 1 tablet every day by oral route before meals for 30 days. 01/01 completed Not Available Not Available Not Available vitamin E (dl, acetate) 450 mg (1,000 unit) capsule Take 1 capsule every day by oral route as directed for 30 days. 09/15 completed Not Available Not Available Not Available Metamucil Sugar-Free (aspartame) 3.4 gram/5.8 gram oral powder Take 3.4 g every day by oral route as directed for 30 days. 10/23 completed Not Available Not Available Not Available OneTouch Verio test strips Use to check blood sugars once daily 2023 active Not Available Not Available Not Avai lable Combivent Respimat 20 mcg-100 mcg/actuati on solution for inhalation INHALE ONE PUFF BY MOUTH FOUR TIMES DAILY DIRECTED 07/18 completed Not Available Not Available Not Available Combivent Respimat 10/01 completed Not Available Not Available Not Available TRUEplus Lancets 33 gauge USE TO CHECK BLOOD SUGAR ONCE DAILY active Not Available Not Available No t Available Incruse Ellipta 62.5 mcg/actuati on powder for inhalation Inhale 1 puff every day by inhalatio n route for 30 days. 09/07 completed Not Available Not Available Not Available Spiriva Respimat 1.25 mcg/actuati on solution for inhalation INHALE TWO PUFFS BY MOUTH TWICE DAILY EVERY MORNING & AT BEDTIME FOR BREATHING active Not Available Not Available No t Available Trelegy Ellipta 200 mcg-62.5 mcg-25 mcg powder for inhalation INHALE ONE PUFFS DAILY. RINSE MOUTH AFTER USE 07/18 completed Not Available Not Available Not Available Vitals Date Recorded Body height Pain severity - 0-10 verbal numeric rating [Score] - Reported Body temperature Body mass index (BMI) Body weight Respiratory rate Oxygen saturation Oxygen saturation in Arterial blood by Pulse oximetry Heart rate Systolic blood pressure Diastolic blood pressure Provider Name and Address Organization Details Last Updated DateTime 4 158.75 cm 0 97.2 [degF] 25.6 kg/m2 10243.1 2 g 18 /min 100 % 100 % 62 /min 82 mm[Hg] 46 mm[Hg] Deysi Mabry LPN [facility] 4 10:40:10 Date Recorded Body height Oxygen saturation Oxygen saturation in Arterial blood by Pulse oximetry Respiratory rate Heart rate Body mass index (BMI) Body weight Systolic blood pressure Diastolic blood pressure Provider Name and Address Organization Details Last Updated DateTime 4 158.75 cm 98 % 98 % 16 /min 68 /min 25.5 kg/m2 43829.3 2 g 80 mm[Hg] 56 mm[Hg] Linsey Abebe MA [facility] 4 14:27:07 Date Recorded Body height Systolic blood pressure Diastolic blood pressure Provider Name and Address Organization Details Last Updated DateTime 08/01/2024 158.75 cm 124 mm[Hg] 74 mm[Hg] Nimo Bazan MA [facility] 08/01/2024 10:52:10 Date Recorded Body height Body mass index (BMI) Body weight Heart rate Oxygen saturation Oxygen saturation in Arterial blood by Pulse oximetry Systolic blood pressure Diastolic blood pressure Provider Name and Address Organization Details Last Updated DateTime 4 158.75 cm 25 kg/m2 60907.3 4 g 60 /min 99 % 99 % 98 mm[Hg] 62 mm[Hg] Monique Martinez MA [facility] 4 12:12:06 Date Recorded Body height Body mass index (BMI) Body weight Oxygen saturation Oxygen saturation in Arterial blood by Pulse oximetry Heart rate Systolic blood pressure Diastolic blood pressure Provider Name and Address Organization Details Last Updated DateTime 5 158.75 cm 25.7 kg/m2 64574.7 1 g 98 % 98 % 64 /min 106 mm[Hg] 74 mm[Hg] Nimo Bazan MA [facility] 5 10:23:40 Social History Question Answer Notes LastModified by Organizat ion Details LastModified Time Tobacco Smoking Status Never Smoker Bessy Ocampo MA [facility] 06/10/2016 15:39:40 Do You Have An Advance Directive? No Information not available 06/10/2016 What Is Your Level Of Alcohol Consumption? None Information not available 06/10/2016 Are You Blind Or Do You Have Difficulty Seeing? No Information not available 06/10/2016 What Is Your Level Of Caffeine Consumption? Moderate Information not available 06/10/2016 How Much Tobacco Do You Chew? None Information not available 06/10/2016 In The 14 Days Before Symptom Onset, Have You Had Close Contact With A Laboratory-confir med COVID-19 While That Case Was Ill? No Information not available 02/27/2021 In The 14 Days Before Symptom Onset, Have You Had Close Contact With A Person Who Is Under Investigation For COVID-19 While That Person Was Ill? No Information not available 02/27/2021 Have You Been To An Area Known To Be High Risk For COVID-19? No Information not available 02/27/2021 Are You Currently Employed? No Information not available 06/10/2016 Are You Deaf Or Do You Have Serious Difficulty Hearing? No Information not available 06/10/2016 What Type Of Diet Are You Following? REGULAR Information not available 06/10/2016 Which Illicit Or Recreational Drugs Have You Used? None Information not available 06/10/2016 Do You Or Have You Ever Used E-cigarettes Or Vape? Never Used Electronic Cigarettes Information not available 08/05/2020 Education 12 Information no t available 06/10/2016 Are There Any Guns Present In Your Home? No Information not available 06/10/2016 Hard Of Hearing Or Deaf In One Or Both Ears? No Information not available 06/10/2016 Legally Blind In One Or Both Eyes? No Information no t available 06/10/2016 Live Alone Or With Others? With Others Information not available 06/10/2016 Do You Have A High School Diploma Or Higher Education? Yes Information not available 02/27/2021 Do You Sometimes Have To Miss Your Medical Appointments Due To Difficult Getting Transportation? No Information not available 02/27/2021 Do You Feel Unfairly Treated Due To Things Such As Race, Age, Gender, Disability Or Some Other Reason? No Information not available 02/27/2021 Do You Feel Physically And Emotionally Safe While Living At Home? Yes Information not available 02/27/2021 Do You Feel Physically And Emotionally Safe In Your Neighborhood Or Other Public Places? Yes Information not available 02/27/2021 Do You Have A Medical Power Of Freelance Web Designer? No [email or web address] Information not available 12/07/2021 What Was The Date Of Your Most Recent Tobacco Screening? 08/07/2024 Information not available 08/07/2024 How Many Children Do You Have? 4 Information not available 06/10/2016 Do You Use Protection During Sex? No Information not available 06/10/2016 What Is Your Relationship Status? Information not available 02/27/2021 Seat Belts Used Routinely Yes Information not available 06/10/2016 Are You Sexually Active? Yes Information not available 06/10/2016 Smoke Alarm In Home Yes Information not available 06/10/2016 Do You Have Smoke And Carbon Monoxide Detectors In Your Home? Yes Information not available 02/27/2021 Are You Passively Exposed To Smoke? Yes Information no t available 06/10/2016 Do You Or Have You Ever Used Smokeless Tobacco? Never Used Smokeless Tobacco Information not available 08/05/2020 How Much Tobacco Do You Smoke? No Information not available 06/10/2016 General Stress Level Low Information not available 06/10/2016 Do You Use Any Illicit Or Recreational Drugs? No Information not available 02/27/2021 Do You Use Sunscreen Routinely? No Information not available 06/10/2016 Has Tobacco Cessation Counseling Been Provided? Yes Information not available 06/13/2024 On What Date Was Tobacco Cessation Counseling Provided? 08/07/2024 Information not available 08/07/2024 Do You Or Have You Ever Used Any Other Forms Of Tobacco Or Nicotine? No Information not available 06/13/2024 Sex: Female Functional Status Question Answer Note LastModified by Organizat ion Details LastModified Time Do you have difficulty walking or climbing stairs? No Information not available 06/10/2016 Do you have difficulty doing errands alone? No Information not available 06/10/2016 Are you able to care for yourself? Yes Information n ot available 06/10/2016 Do you have difficulty dressing or bathing? No Information not available 06/10/2016 What is your exercise level? Moderate Information not available 06/10/2016 Mental Status Question Answer Note LastModified by Organization D etails LastModified Time Do you have difficulty concentrating, remembering or making decisions? No Information no t available 06/10/2016 Family History Relationship Description Onset Age of this Age Resolved Age Notes LastModified by Organization Details LastModified Time Father No current problems or disability [email or web address] Not available 04/20 10:06:57 Mother No current problems or disability [email or web address] Not available 04/20 10:06:57 Medical History Condition Response Coronary Artery Disease N Other N High Blood Pressure N Atrial Fibrillation N Thyroid Problems N Kidney or Bladder Problems N GI Problems N Depression N COPD N Blood Clots N Skin Problems N Eating Disorder N Anemia N Heart Attack ([place]) N Diabetes N Anxiety Disorder N Muscle, Joint, or Bone Problems N Seizures/Epilepsy N Arthritis N Acid Reflux (GERD) N Cancer N Stroke N Asthma N Allergies N ADHD N Substance Abuse N High Cholesterol N Hepatitis N Liver Disease N Schizophrenia N Headaches N Osteoporosis N Heart Failure N Gynecological History Statement/Question Response Date of Last Mammogram Flow Moderate Date of LMP 2024 Duration of Flow (days) 7 Current Control Method Partner Vas ectomy Age at First Child 18 Frequency of Cycle (Q days) 28 Sexually Active? Y Date of Last Pap Smear 02/23/2021 Sexual Problems? N LMP Approximate Obstetrics History GPAL:G 4 P 4 0 0 4 Type Value Multiple Births 0 Full Term 4 Induced 0 Spontaneous 0 Premature 0 Living 4 Ectopics 0 Total 4 Immunizations Vaccine Type Date Status Note Provider Nam e and Address Organization Details Recorded Time Pneumococcal conjugate PCV20, polysaccharide [place]945 conjugate, adjuvant, PF 4 completed Amanda Santos MA [facility] 04/10/2024 12:56:06 Past Encounters Encounter ID Performer Location Encounter Start Date Encounter Closed Date Diagnosis/Indication Diagnosis SNOMED-CT Code Diagnosis ICD10 Code Diagnosis Note [id number] [facility] [address] [place] [address] 18074-089 0 06/10/2016 15:19:13 06/10/2016 18:22:10 Body mass index 25-29 - overweight 414158624 Z68.29 Advised 30 minutes of exercise 5 days/weekA dvised not to drink her calories Gynecologi c examination 62314320 Z01.411 Breast tenderness 102392 07 N64.4 Patient has mammogram appointmen t tomorrow at 1:40PM Inflammati on of cervix 92755404 N72 Depressive disorder 6655 2225 F33.1 Advised to schedule an appointmen t to establish for PCP and then we can address this [id number] [facility]) [address] [place] [address] [phone] 0 06/24/2016 12:00:19 06/24/2016 13:44:34 Body mass index 25-29 - overweight 514340999 Z68.29 Advised 30 minutes of exercise 5 days/weekA dvised not to drink her calories Depressive disorder 3457 6891 F33.1 Will begin venlafaxin e 50mgDiscus sed doing calming exercise and finding some time to herselfAny SI/HI go directly to the ERRTC 6 weeks for f/u Atopic dermatitis 151063 01 L20.9 Anxiety 39484606 F41.9 Adult heal th examination 321130438 Z00.01 40YO female here to establish care. [id number] [facility]) [address] [place] [address] [id number] 0 08/06/2016 10:19:12 08/06/2016 16:38:21 Thyroid stimulating hormone level above reference range 382257561 R79.89 Will repeat today Blood gluc ose outside reference range 330410173 R73.09 a1c: 6.2LDL: 118 Lost 2lbsAdvise d to stay away from sugary drinks, tortillas, breads, sweets, potatoes, rice Body mass index 25-29 - overweight 196725112 Z68.29 Advised 30 minutes of exercise 5 days/weekA dvised not to drink her calories Depressive disorder 3548 9007 F33.1 Will begin venlafaxin e 50mg and to take this BID and Vistaril PRNDiscuss ed doing calming exercise and finding some time to herselfAny SI/HI go directly to the ERContact office in 2-3 weeks to let us know how medication is working [id number] [facility]) [address] [place] [address] [phone] 0 09/16/2016 10:52:40 09/16/2016 15:14:33 Depressive disorder 34987709 F33.1 Will begin buproprion 100mg QD x 1 week and then BID and to take this BID and Vistaril PRNDiscuss ed doing calming exercise and finding some time to herselfAny SI/HI go directly to the ERContact office in 2-3 weeks to let us know how medication is working and have a message sent to sd [id number] [facility]) [address] [place] [address] 86926-433 0 01/05/2017 13:52:50 01/05/2017 14:49:50 Vaginal discharge 899219191 N89.8 WIll check Nuswab Candidiasis of vagina 72 073117 B37.3 Long discussion concerning the angry red appearance of her genital area and that it likely points to a vaginal yeast infection - advised no cortisone cream to area - use nystatin BID x 1 weekAdvise d to keep area clean and dry other than with creamTake fluconazol e pill as well Atopic dermatitis 863575 01 L20.9 Will refill triamcinol one cream - had an allergic rx to something outside and has worked in the past Depressive disorder 8248 9007 F33.1 Wellbutrin working work - will continue medication [id number] [facility]) [address] [place] [address] [id number] 0 02/16/2017 14:08:23 02/17/2017 12:29:53 Vaginal pain 19746957 R10.2 Will check NuswabUA negativeWI ll treat for yeast infection at this time and send patient results of swab via patient portal and then she states she will find someone in [place] for treatment if necessary after receiving swab results Advised to purchase lubricant for sex to help with pain Candidiasis of vagina 72 330227 B37.3 Will retreat at this [facility] [id number] [facility]) [address] [place] [address] [id number] 0 04/13/2017 09:28:11 04/13/2017 17:55:27 Tonsillitis 81800624 J03.90 Sinusitis 48434261 J32.9 sx's> 2 weeksAdvis ed to drink plenty of waterAlter marysol ibuprofen and tylenol for painRestOT C cough syrup PRN Allergic rhinitis 371536 04 J30.9 [id number] [facility]) [address] [place] [address] 72505-429 0 06/02/2017 09:32:01 06/02/2017 11:48:38 Acute bronchitis 82903304 J20.9 wheezing gone after albuterol tx'sWIll initiate medrol dose pack and refill inhalerAdv ised that if her SOB or wheezing worsens, she develops fever, chills, n/v she needs to go directly to the ER - advised [facility] d/t insurance issues Acute otitis media 18024 03 H66.92 left earwill treat with abx at this time - PCN allergy Dyspnea 722775032 R06.00 wheezing gone after albuterol txs Acute asthma 515978264 J 45.901 wheezing gone after albuterol tx's WIll initiate medrol dose pack and refill inhaler Advised that if her SOB or wheezing worsens, she develops fever, chills, n/v she needs to go directly to the ER - advised [facility] d/t insurance issues [id number] [facility] [address] [place] [address] [phone] 0 07/28/2017 10:21:12 07/28/2017 12:22:32 Acute bronchitis 40376794 J20.9 WIll initiate medrol dose pack and refill inhalerAdv ised that if her SOB or wheezing worsens, she develops fever, chills, n/v she needs to go directly to the ER - advised [facility] ER d/t insurance issuesAdvi sed to complete abx as prescribed for pneumonia Chronic bronchitis 41864 004 J42 D/t 3 bouts of pneumonia over the last 3 months, will refer to pulm In addition, will initiate Advair 1 puff BID as maintainan ce RTC if no improvemen t [id number] [facility]) [address] [place] [address] [phone] 0 10/05/2017 10:33:10 10/05/2017 12:00:26 Gastroenteritis 70085304 K52.9 Advised bland BRAT dietNo spicy foodsPlent y of waterVirus runs its own course and she is feeling betterNo need for further interventi on at this time Chronic bronchitis 26848 004 J42 c/w Advair BID - ProAir PRNf/u with pulmwell controlled at this time Contact clinic if you use ProAir more than 3-4 times week, wake up at night coughing, begin to have SOB [id number] [facility]) [address] [place] [address] [phone] 0 11/23/2017 10:58:31 11/23/2017 13:37:01 Chronic bronchitis 48850300 J42 c/w Advair BID - ProAir PRNf/u with pulmwell controlled at this time Contact clinic if you use ProAir more than 3-4 times week, wake up at night coughing, begin to have SOB Allergic disposition 609 382148 Z91.09 Body mass index 25-29 - overweight 066841859 Z68.29 Advised 30 minutes of exercise 5 days/weekA dvised not to drink her calories Blood gluc ose outside reference range 603908184 R73.09 last a1c: 6.2LDL: 118 Lost 2lbsAdvise d to stay away from sugary drinks, tortillas, breads, sweets, potatoes, rice Eczema 76776344 L30.9 left antecubitu s: Apply plenty of lotion on your skin at least 3 times every day regardless if there are any dry spots or not. Eucerin, Aveeno, Lubriderm, and Vaseline Intensive Care are examples of good lotions to use; but any lotion that is fragrance free may be acceptable . Use the prescribed steroid cream twice daily for one week for excessivel y dry areas. You must stop applying the steroid cream after one week and give your child's skin a one week break before apply it again. Call the office if your child's skin is not improving in 1-2 weeks. The parents verbalized understand ing. Asthma 175462953 J45.90 9 Refilled Advair for 3 months. Instructed family if albuterol usage increases beyond 2 times per week for 2 weeks, it may been a sign of worsening control. Call office or go to ER for worsening cough, wheeze or work of breathing. Follow up in office in 3 months - family verbalized understand ing. [id number] [facility]) [address] [place] [address] 12/13/2017 10:24:46 12/13/2017 11:42:29 Bronchitis 20451563 J40 Improvingc omplete all medication s as prescribed c/w inhalers as prescribed establish with pulm Body mass index 25-29 - overweight 798434139 Z68.29 Advised 30 minutes of exercise 5 days/weekA dvised not to drink her calories Asthma 621245787 J45.90 9 Patient to f/u with pulm [id number] MD Leigh [facility] (Adult Med) [address] [place] [address] [id number] 0 01/06/2018 16:22:32 01/10/2018 11:40:59 Asthmatic bronchitis 209424492 J45.909 F/U with her PCP PAC Ms. Acevedo, may go t ER any time for any concern she understood and agreed. Has no health insurance. [id number] MD Leigh [facility] (Adult Med) [address] [place] [address] [id number] 0 01/20/2018 15:01:53 01/23/2018 11:48:56 Asthmatic bronchitis 697611651 J45.909 F/U with her PCP PAC Ms. Acevedo, may go t ER any time for any concern she understood and agreed. Has no health insurance. Go to Er any time for any concern, they understood and agreed,. Chronic bronchitis 89389 004 J42 [id number] Moises Maria MD [facility] [address] [address] 2 04/03/2018 10:45:58 04/05/2018 12:21:59 Moderate persistent asthma 211604719 J45.40 Patient to use Advair 250/50 on regular basis. Change theophylli ne to 100 mg BID. Continue Albuterol on PRN and quit Prednisone . She was advised about the harms of taking prednisone on regular basis. Will et PFTs, CXR, CBC, IgE Allergic rhinitis 536439 04 J30.9 Patient will be continued on Zyrtec Chronic cough 80014917 R 05 multifacto rial Dyspnea on exertion 6084 5006 R06.09 Secondary to asthma. Sleep disorder 35639150 G47.9 I will check overnight O2 study [id number] MD Leigh Gibson ([facility]) [address] [place] [address] 04890-842 0 04/24/2018 11:15:03 04/24/2018 12:39:20 Pain of breast 64903868 N64.4 Counseled about it and possible causes.Adv ised to decrease caffeine. Pain in pelvis 06697987 R10.2 Counseled about possible causes. Patient refused any testing, pelvic exam because she does not have insurance. She say she will get [facility]. She say she will let me know when decided. [id number] [facility] ([facility]) [address] [place] [address] 43687-259 0 04/26/2018 13:32:10 04/27/2018 10:49:32 Allergic disposition 682777645 Z91.09 lungs clear-like ly allergies continue zyrtec daily restart flonase nasal spray f/u as needed Asthmatic bronchitis 405 549533 J45.909 continue advair and proair as needed f/u prn [id number] Moises Maria MD [facility] [address] [place] [address] 05/18/2018 10:11:41 05/19/2018 14:37:47 Moderate persistent asthma 828592981 J45.40 Patient to use Advair Diskus 250/50 on regular basis. Change theophylli ne to 100 mg BID. Continue Albuterol on PRN and quit Prednisone . She was advised about the harms of taking prednisone on regular basis. Will get PFTs, CXR, CBC, IgE Acute uppe r respiratory infection 30509623 J06.9 Viral, symptomati c treament Chronic cough 34035285 R 05 multifacto rial Sleep disorder 11224360 G47.9 nocturnal hypoxemia, EDS, EDF and sleep disturbanc es, I will check split sleep study on the patient Dyspnea on exertion 6084 5006 R06.09 Secondary to asthma. Allergic rhinitis 786355 04 J30.9 Patient will be continued on Zyrtec, I will add Flonase [id number] Amrik Steinberg MD [facility] [address] [place] [address] 05/25/2018 12:28:54 05/30/2018 14:09:33 Fibrocystic disease of breast 99473582 N60.19 Right uppe r quadrant pain 768317909 R10.11 [id number] [facility]) [address] [place] [address] 03217-170 0 06/29/2018 09:04:11 06/29/2018 12:02:52 Asthmatic bronchitis 224387844 J45.909 Patient has uncontroll ed Asthma. Using rescue inhaler 3+ times/day. Patient offered pneumonia and FLU shot but denied them at this time. Patient to f/u with pulm with any problems as they will be managing her asthma. Refilled Advair and started Singulair for the patient for 3 months.Umer l office or go to ER for worsening cough, wheeze or work of breathing. Remind patient that now she is following with pulmonolog y, so I would like her to be contacting Dr. Maria for all of her asthma concerns. Allergic disposition 609 169582 Z91.09 Allergic rhinitis 025821 04 J30.9 continue with medication . [id number] [facility]) [address] [place] [address] 06987-978 0 07/17/2018 09:02:27 07/18/2018 10:06:11 Acute otitis media 3073123 H66.92 Patient presents today to f/u after being diagnosed in urgent care last Tuesday. She was given a z-pack which she completed on Tuesday. She feels better today but continues to feel some occasional pain. Vital WNL. On exam the right ear was slightly red and retracted. It looks like it has been healing. No abx at this time because Z-pack gives coverage for 10 days. Return if not better by Co ntinue 800mg ibuprofen until every 8 hours to control painReturn if symptoms worsen [id number] MD Leigh [facility] (Adult Med) [address] [place] [address] [id number] 0 11/29/2018 15:55:36 11/30/2018 09:17:21 Asthma 987428835 J45.909 increase advair Depressive disorder 3548 9007 F32.9 Abdominal bloating 85691 9008 R14.0 Muscle pain 77147029 M79 .10 Abnormal weight gain 161 117512 R63.5 Allergic rhinitis 914487 04 J30.9 [id number] MD Leigh Flores (Adult Med) [address] [place] [address] 48400-107 0 01/10/2019 10:43:22 01/11/2019 11:43:07 Iron deficiency anemia 00566961 D50.9 Allergic rhinitis 552276 04 J30.9 Fatigue 95070618 R53.83 Asthma 934883051 J45.90 9 DcAdvair .Trial Symbicort Vitamin D deficiency 347 77786 E55.9 Constipation 93226822 K5 9.00 Abdominal bloating 85098 9008 R14.0 [id number] MD Leigh Flores (Adult Med) [address] [place] [address] 69367-894 0 02/20/2019 17:06:02 02/21/2019 09:50:08 Asthma 423726254 J45.909 STart Medrol dose pascual then restart Advair in three days Allergic rhinitis 201871 04 J30.9 Gastroesop hageal reflux disease 960122000 K21.9 [id number] [facility] ([facility]ult [facility]) [address] [place] [address] [id number] 0 04/20/2019 09:48:54 04/23/2019 11:59:40 Acute otitis media 5684220 H66.93 Bilateral TM erythema and bulging present Allergic to penicillin - Will start patient on azithromyc in Gastroesop hageal reflux disease 372363610 K21.9 Will refill omeprazole for patient [id number] MD Leigh Flores (Adult Med) [address] [place] [address] 04015-321 0 05/17/2019 11:46:02 05/18/2019 09:46:52 Asthma 349185775 J45.909 Cont. meds she is using now. F/U with lung specialist [id number] [facility] ([facility]ult [facility]) [address] [place] [address] 76481-008 0 06/07/2019 11:06:45 06/08/2019 09:17:50 Acute otitis media 6463802 H66.93 Complainin g of right ear pain, cough, and nasal congestion x 1 weekBilate ral TM erythema and bulging present Allergic to penicillin - Will start patient on doxycyclin e x 7 days- Provided her with informatio n regarding supportive care Tendinitis of left rotator cuff [id number] 6410466 M67.814 Complainin g of left shoulder pain x 2 weeksAdmit s to decreased ROM, pain with ROM, decreased strengthNo trauma or injury, patient is at home and does not workOn PE: + coracoid process, lateral aspect of clavicle, head of humerus TTP. Decreased abduction and forward flexion of left shoulder due to pain, + bryant test, + empty can testSounds like RC tendonitis - Will start patient with PT to help increase ROM- Provided her with exercises to start at home- Advised to take NSAID as needed for pain and decrease inflammati on- Apply ice to affected area 3x/day Screening for malignant neoplasm of breast [id number] Z12.39 5 cm cyst of the left breast visualized on prior mammograms Last mammogram was 04/28/18- Will put in mammogram order [id number] Moises Maria MD [facility] [address] [address] 06/21/2019 11:23:44 06/22/2019 08:46:01 Moderate persistent asthma 366931412 J45.40 Patient to continue (trelegy). Continue Albuterol on PRN and quit Prednisone . She was advised about the harms of taking prednisone on regular basis. She did not receive flu shot Chronic cough 36581407 R 05 multifacto rial Sleep disorder 66555036 G47.9 nocturnal hypoxemia, EDS, EDF and sleep disturbanc es, sleep study showed no ANGELA Dyspnea on exertion 6084 5006 R06.09 Secondary to asthma. Allergic rhinitis 166907 04 J30.9 Patient will be continued on Zyrtec, Patient to continue Flonase Tolerant non-smoker 8773 9003 Z87.891 lifelong but she has second hand smoking exposure Solitary n odule of lung 314903992 R91.1 was seen on outside chest Xray in [place], Xray is not available. I will repeat CXR on the patient [id number] ABIDA CHAIDEZ (Adult Med) [facility] [place] [address] 08/16/2019 09:50:20 08/17/2019 09:36:19 Asthma 226869510 J45.[address] Maria for pulmonary care.Eviee ann using an inhaler from [facility] because it is much cheaper and it is working well.- continue to follow with Dr. Maria Impaired g lucose tolerance 7683556 R73.03 Hx of abnormal HgbA1c- Will check today Anemia 454142306 D64.9 Hx of anemia- Will check today Candidiasis of vagina 72 045217 B37.3 Complainin g of external vaginal irritation and itching.Ur ine dipstick in office showed trace LE and moderate amount of blood, patient on menses- Will start nystatin cream and diflucan Adult [facility] th examination [id number] Z00.00 - Will check labs Gastroesop hageal reflux disease 871234900 K21.9 Complainin g of epigastric pain and burning sensation radiating up her chest x 1-2 months- Will restart omeprazole 20 mg Constipation 47893796 K5 9.00 Admits to constipati on and bloatingHa s 2-3 BMs per day, but admits to straining and only being able to go small amounts.- Provided her with informatio n regarding constipati on- Advised her to drink 8-10 glasses of water per day- Take metamucil daily- Provided her with Miralax supplement s, take when no BM in 2-3 days Atypical chest pain 1025 10555 R07.89 Complainin g of my heart is fatigued . Admits to episodes of feeling an ache in the left aspect of her chest and SOB 3x/week. Symptoms usually occur while being active and will last x 5-10 minutes at a time.No prior cardiac history.- Will order EKG Uterine leiomyoma 023322 05 D25.9 Hx of uterine fibroids. Was told in [place] but has never had imaging, patient is requesting more informatio n.- Will order [id number] ABIDA BOSWELL (CADET [facility]) [address] [place] [address] 09/14/2019 15:47:30 09/14/2019 16:44:12 Upper respiratory infection 44230019 J06.9 Likely viral URI.-Get plenty of rest-rescu e inhaler as needed to wheezing-i buprofen as needed to headaches, body aches, and fevers-cet irizine QD-increas e fluid intake-OTC cough syrup prn [id number] ABIDA CHAIDEZ (Adult Med) [facility] [place] [address] 10/04/2019 10:36:09 10/04/2019 13:27:56 Subcutaneous nodule 30959593 R22.9 Complainin g of knot on her L calf x 2 weeks ago.States it is slighty hard and tender to touch. Also causes her pain when walking and standing.A dmits to having a couple similar nodules under her skin in different areas but this is the only one that is painful. Denies injury to leg. Denies recent travel or outdoor activity.O n PE: 2 cm slightly indurated subcutaneo us nodule on the medial and posterior aspect of L calf. Slightly erythemato us. TTP.- will get US of nodule to better assess Sciatica 78671416 M54.32 Complainin g of lower back pain with left leg numbness, tingling, and weakness x 2 weeksOn PE: left SI joint TTP - will start steroids to decrease inflammati on- take muscle relaxer at bedtime- complete stretches and exercies at home, if no improvemen t, will put in order for PT [id number] ABIDA CHAIDEZ (Adult Med) [address] [place] [address] 10/24/2019 09:54:00 10/25/2019 12:22:47 Subcutaneous nodule 73623190 R22.9 Complainin g of knot on her L calf x 3 months. US completed on 10/17/19 showed no abnormalit y (normal soft tissues). Pain has improved since last OV.On PE: 2 cm slightly indurated subcutaneo us nodule on the medial and posterior aspect of L calf. No erythema or TTP today. - Discussed risks/bene fits of MRI of the left lower leg w/ and w/o contrast as suggested by radiology or to wait one more month to see if her sx continue to improve. - Pt elects to wait one more month to see if the lesion goes away on its own. - If pt notes it is becoming more painful or more tender to touch, will get MRI at f/u Iron defic iency anemia 12885143 D50.9 Labs from 08/31/19 indicative of SAIDA. Ferritin 5, iron level 20, iron saturation 6, Hgb 10.5. Iron supplement s given, pt has been on these for over a month. - Provided pt lab handouts from previous results, pt states will get labs tested today. Acute otitis media 14303 03 H66.93 Complainin g of bilateral ear pain which has persisted for 3 years.Bila teral TM erythema and bulging present Allergic to penicillin - Will start patient on doxycyclin e x 5 days and antibacter ial ear drops for the issue. Cyst of right ovary 1223 191851 5530132 N83.201 Discussed results of pelvic US from 10/17/19 including numerous intermural fibroids and a small cyst to the right ovary.- Discussed radiologis t suggestion to repeat pelvic US in 6-10 weeks when off menstrual period. Pt is understand ing of this and states will repeat this US in late November when off menstrual period. Body mass index 25-29 - overweight 194213156 Z68.29 BMI 29- Advised decreased portion sizes, good food choices, limited eating out or fast food and eliminate soda and juice from diet. Advised physical activity daily and offered encouragem ent to continue with positive changes made so far. [id number] ABIDA CHAIDEZ (Adult Med) [address] [place] [address] 01/02/2020 11:56:10 01/03/2020 10:21:05 Acute otitis media 7004440 H66.93 Complainin g of bilateral ear pain (R>L) x 1 week.She has a history of recurrent ear infections and allergies over the past 5 years.Take s cetirizine at home, does not feel like flonase helps her allergy symptomsTh e pain is located inside her ears.Admit s to ear pruritus, mild dizziness, popping of the ears, and nasal congestion .Allergic to penicillin - Will start patient on doxycyclin e x 5 days and antibacter ial ear drops for the issue.- will place ENT referral due to recurrent ear infections Cyst of right ovary 1223 [id number] 9816036 N83.201 Discussed results of pelvic US from 10/17/19 including numerous intermural fibroids and a small cyst to the right ovary.- Discussed radiologis t suggestion to repeat pelvic US in 6-10 weeks when off menstrual period. Pt is due for repeat US now, encouraged her to call and get US scheduled. Body mass index 25-29 - overweight 025200353 Z68.29 BMI 29- Advised decreased portion sizes, good food choices, limited eating out or fast food and eliminate soda and juice from diet. Advised physical activity daily and offered encouragem ent to continue with positive changes made so far. Cyst of breast 616023388 N60.09 Notes to have continued intermitte nt pain coming from her left breast cyst.She has been dealing with this cyst over the past couple years.Desc ribes the pain as burning and tingling. She does not do anything for the pain at home.Admit s to worsening of pain during her menstrual cycle.US of L breast 04/2018: ultrasound redemonstr ates a hypoechoic ovoid cyst in the 3:00 sector 5 cm from the nipple measuring 6 mm in diameter. No significan t change from prior exams. Long-term stability compatible with benign etiology.M ammogram 06/2019: normal, repeat in 1 year- discussed supportive care for pain including applying heat to affected area, taking IBU prn, and minimizing caffeine intake- if symptoms continue to get worse, make a f/u visit with me in the office Eczema 44989161 L30.9 Hx of eczema on her arms and legsReques ting refill on medication - will send triamcinol one to her pharmacy-U se moisturize r at least twice a day.- Wash the affected area with water only. Soap can make dryness and itching worse. Pat dry.- Apply a moisturize r after bathing. Use a cream such as Aquaphor that does not irritate the skin or cause a rash. Apply the cream while your skin is still damp after lightly drying with a towel.- Use cold, wet cloths to reduce itching.- Keep cool, and stay out of the sun.- If itching affects your normal activities , an over-the-c ounter antihistam ine, such as diphenhydr amine (Benadryl) or loratadine (Claritin) may help. Read and follow all instructio ns on the label. [id number] ABIDA CHAIDEZ (Adult Med) [address] [place] [address] 01/31/2020 10:41:24 02/01/2020 14:34:07 Iron deficiency anemia 12938283 D50.9 08/31/19: Hgb 10.5, Iron and ferritin both low10/24/19 : Hgb 10.8, iron and ferritin the sameRan out of iron pills and never returned for repeat testing - provided her with labs to repeat iron testing Mass of ovary 374842040 R19.09 US 10/17/2019 showed numerous intermural fibroids and small hypoechoic structure on R ovary, it was recommende d that she repeats US in 6-10 weeksPatie nt never completed repeat US- provided with order today in the office, encouraged her to call and get appointmen t scheduled Contact dermatitis 57885 004 L25.9 Complainin g of rash on dorsal aspect of feet bilaterall y x 7-8 days.No known cause, states she was furniture shopping the day it started, admits to wearing sandals. Describes the rash as erythemato us papules and macules on skin, was pruritic the first 3 days but no longer pruritic. She has seen improvemen ts in the rash since yesterday. Rash not located on plantar aspect of feet or elsewhere on the body.Denie s outdoor activity, travel, new skin products, and others with same rash. ON PE: scattered, small, erythemato us papules and macules on the dorsal aspect of feet and ankles bilaterall yPossible chigger bites- discussed using calamine lotion and placing cool washcloths on skin to help with pruritis- will send topical steroid cream, use x 7 days- wash all clothes worn around the time she noticed the rash- can take benadryl at night to help sleep if needed Acute otitis media 77974 03 H66.93 Complainin g ofl eft ear pain with left pain in throat x 4 days She has a history of recurrent ear infections and allergies over the past 5 years.Take s cetirizine at home, does not feel like flonase helps her allergy symptomsTh e pain is located inside her ear.Allerg ic to penicillin On PE: left EAC and TM erythemato us with mild bulging present- Will start patient on doxycyclin e x 10 days and antibacter ial ear drops for the issue.- provided her with ENT referral due to recurrent ear infections , she is to call and get appointmen t scheduled Increased frequency of urination 952196024 R35.0 Complainin g of left flank pain x 1 day. Admits to urinary hesitancy and urinary frequency x 2-3 days. She has not tried anything for this at home. Denies dysuria and hematuria. Urine dipstick in the office showed: moderate LE and trace blood- will treat for UTI with macrobid- will send urine off for culture Bursitis o f ankle region 099583968 M76.899 Complainin g of swelling of left anterior ankle x 2-3 days.State s she was wearing tennis-brynn es and walking all day prior to noticing the swelling.T he area is mildly tender to touch.She applied ice the other day which helped bring down the swelling but it came back the next day after walking again.Yash es known injury to left ankle. No erythema or warmth to joint.- encouraged her to ice affected area 3x/day and take scheduled Ibuprofen x 7 days to help bring down inflammati on Blood gluc ose outside reference range 553413998 R73.09 HgbA1c elevated in the past- will screen her again Abnormal weight loss 267 003472 R63.4 Patient notes she has lost weight since last visit without trying, feels like she has been eating more than usual and still losing weightWas 161 pounds (10/24/2019 ) and today weighs 155 pounds (01/31/2020 ) - encouraged her to log her diet at home and continue to monitor her weight- return to office in 1 month for weight check [id number] ABIDA CHAIDEZ (Adult Med) [address] [place] [address] 08/05/2020 08:25:36 08/06/2020 11:06:59 Gastroesophageal reflux disease 132174588 K21.9 Reports epigastric pain and burning sensation radiating up her chest. Reports coughing with eating and feels that her food gets stuck in her esophagus at times. Currently not taking any medication s for the symptoms. Took omeprazole 20mg in past with minimal relief due to provider advising her to only take the medication no longer than a month at a time.Tiki mock reports that doctor in [place] told her she needed an EGD. However patient has not on been on any medication s.Likely GERD-Presc ribed famotidine 20 mg BID x 1 month-F/u with 1 month; advised to bring medication s prescribed from [place]- f/u in 1 month Asthma 577237086 J45.90 9 Patient has a history of asthma and was seeing Dr. Maria for pulmonary care. Receives her medication from [facility]. Currently taking a maintenanc e inhaler with betamethas one and salmeterol BID (Trelegy). Denies having a rescue inhaler at this moment.-Pr escribed albuterol inhaler to use as needed Upper resp iratory infection 70222835 J06.9 Began having chest congestion , green rhinorrhea , otalgia, and coughing green sputum 4 days ago. Patient has not been around anybody with the same symptoms. Denies COVID exposure.R eports taking 2 of ibuprofen with no relief. -Prescribe d kamran benavides for symptomati c treatment- Prescribed Z-Pascual for URI symptoms, allergic to PCN Screening for malignant neoplasm of breast 897363904 Z12.39 5 cm cyst of the left breast visualized on prior mammograms Was unable to get a mammogram due to insurance- Will do a clinical breast exam at f/u visit in 1 month Allergic rhinitis 796155 04 J30.9 Pt taking zyrtec and flonase. States she sees no improvemen t with with flonase-d/ c zyrtec-Pre scribed montelukas t with hx of asthma-Booker l hold off on flonase for now [id number] ABIDA CHAIDEZ (Adult Med) [address] [place] [address] 09/03/2020 10:50:48 09/05/2020 09:58:19 Asthma 747461441 J45.909 Patient has a history of asthma and was seeing Dr. Maria for pulmonary care.Recei ves her medication from [facility]. Currently taking a maintenanc e inhaler with betamethas one and salmeterol BID (Trelegy). Improvemen t in symptoms with previously prescribed albuterol inhalerExp eriencing chest congestion and pain due coughing of green phlegm, sputum worse in the morning.PE : End inspirator y wheezing auscultate d in R upper lobe and bilateral lower lung lobes- Prescribed Medrol dose pack for wheezing heard on PE- F/U with office, if symptoms worsen call office or go to the ER Gastroesop hageal reflux disease 685790681 K21.9 Previously seen for epigastric pain and burning sensation, also for reports of coughing with eating and feels that her food gets stuck in her esophagus at timesTook omeprazole 20mg in past with minimal reliefNoti cable improvemen t in symptoms with previously prescribed Famotidine 20mg- c/w famotidine 20 mg BID- Patient stopped eating irritative foods like chili, admits that ketchup makes her cough- F/U with office, if symptoms worsen come back call office or go to ER Acute sinusitis 62092352 J01.90 Previous 08-05-2020 visit complaints of green rhinorrhea , otalgia, and coughing green sputumPrev iously prescribed tessalon pearls and azithromyc in which helped with cough but not with chest congestion . Currently experienci ng chest pain due associated with coughing of green phlegm, sputum worse in the morning. Also right ear pain and pruritus, nasal congestion , and irritation of her eyesNo sick contacts, fever, chills, headache, nausea, vomiting or dizzinessP E:Eyes - bilateral eyelid edema without dryness or crusting, bilateral scleral injection w/o d/cEars - external auditory canal clear, mild erythema of the R tympanic membrane + bulging, right preauricul ar swelling, mild erythema and tenderness Nose - nares patent, no sinus tenderness , erythemato us nasal mucosa w/ bilateral edematous turbinates Mouth - visually enlarges tonsils w/o exudates, mild erythema of the posterior oropharynx Pt. allergic to PCN - Prescribed tessalon pearls 100mg for cough relief- Prescribed doxycyclin e hyclate 100mg for acute sinusitis- Continue Flonase as directed for improvemen t of edematous turbinates - F/U with office, if symptoms worsen call office or go to the ER Irritable bowel syndrome 82172304 K58.9 Mixed IBS, dominate constipati on Complains of intermitte nt constipati on and diarrhea that began 3 months agoAdmits to diarrhea for 1 week with 5 episodes/d ay, followed by constipati on, BM's are small and require pt to strain.Exp eriencing constant abdominal pain and cramping, eats less tortillas and drinks water throughout the dayDenies blood in the stool, urinary symptoms, nausea, or vomiting.- Patient expresses interest in natural remedies, prescribed metamucil QD for 1 month- Continue drinking water throughout the day to help with symptoms- F/U with office, if symptoms worsen come back call office or go to ER Allergic rhinitis 932786 04 J30.9 Pt taking zyrtec and flonase, no improvemen t, d/c zyrtec 08-05-2020 & prescribed montelukas t 10mgNotica ble improvemen t with montelukas tComplaini ng of pruritus in the right ear canal - Educated patient that this is a medication she will take on a daily basis- will send ear drops to pharmacy to help with pruritus Screening for malignant neoplasm of breast 710312558 Z12.39 5 cm cyst of the left breast visualized on prior mammograms Was unable to get a mammogram due to insuranceU nable to do clinical breast exam at todays visit- Will do clinical breast exam at f/u visit [id number] ABIDA CHAIDEZ (Adult Med) [address] [place] [address] 11/07/2020 09:14:18 11/10/2020 08:55:38 Left upper quadrant pain 784211993 R10.12 Complains of abdominal distension x 1 month Has associated decreased appetite, lower abdominal cramping, and sharp LUQ abdominal pain that radiates into left side of back She states the pain is most noticeable when she is dehydrated States these symptoms are similar when she had H. pylori in 2019 Of note, the patient did not return for CARRIE after being treated for H. pylori No fever, chills, nausea, vomiting, or changes in bowel movements - Ordered H. 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, no recent trauma or injury Uses an ointment and does regular stretches in the morning with improvemen t of pain No numbness or tingling, family history of RA or other autoimmune disease CHANTELLE, ESR, CK were normal in 11/2018 - Ordered RA profile for further evaluation Tension-type headache 39 4465541 G44.209 Complains of left-sided headache that radiates into left posterior neck for the past few weeks She describes the pain as a tightness and attributes it to stress Has had similar pain in the past for which she completed PT with improvemen t Has not tried any medication s at home On PE: Trapezius muscles are very tight and TTP, suspect tension headache - Prescribed ibuprofen 800 mg TID x 10 days and cyclobenza emperatriz 5 mg QD at bedtime x 10 days - Advised her to use heat for symptomati c relief - Provided referral to PT as it helped with similar pain in the past - Provided informatio n on tension headaches Iron defic iency anemia 48993261 D50.9 08/31/2019: Hgb 10.5, iron and ferritin both low 10/24/2019: Hgb 10.8, iron and ferritin the same 02/05/2020: Hgb 12.5, iron normal, iron sat low, and ferritin low - Ordered repeat CBC, ferritin, iron and TIBC - Continue oral iron QD to help increase iron storage Anxiety 78075178 F41.9 Reports constantly worrying about her health and recent marital problems with her She thinks they will end up getting a divorce soon and reports recent depression and sadness She has 1 friend in the area who she is able to talk to, but otherwise has felt isolated since the COVID pandemic Reports staying home everyday and does not currently work She feels she would benefit from talking to a counselor and starting medication s for anxiety and depression today - Agreeable to starting SSRI; discussed common adverse effects including worsening depression /anxiety, call if there are any problems with the medication , call or go to ER if she feels she is a danger to self or others - Start sertraline 50 mg QD for anxiety and depression , patient is aware to be patient as it takes 4-6 weeks for the medication to reach full efficacy and to not stop drug without contacting us first - Advised her to schedule an appointmen t with our counselor' s here Hand joint stiff [id number] 09 M25.649 Complains of diffuse arthralgia s ( all joints ) and morning stiffness x 1 year Pain is greatest in her left hand and left elbow and worsened in the past week, has noticed intermitte nt swelling in her left hand 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, no recent trauma or injury Uses an ointment and does regular stretches in the morning with improvemen t of pain No numbness or tingling, family history of RA or other autoimmune disease CHANTELLE, ESR, CK were normal in 11/2018 - Ordered XR of left hand and RA profile for further evaluation - Advised her to rest left hand and left elbow and to avoid cleaning at home until pain improves [id number] ABIDA CHAIDEZ (Adult Med) [address] [place] [address] 12/25/2020 11:26:00 12/29/2020 18:59:00 Gastroesophageal reflux disease 350561016 K21.9 Pt with nausea and loss of appetite x 1 month with bloating, acid reflux. Treated for H. pylori (positive on 11/07/20), noticed improvemen t in symptoms. Off meds x1 month. Reflux is worse when eating spicy foods. Drinking mint tea which improves symptoms somewhat. Not currently taking famotidine . Still has regular periods, LMP started 3 days ago, does not have abd cramping from menstruati on. Denies diarrhea, constipati on, abd pain, blood in stool - Check h.pylori today - If negative, restart famotidine or omeprazole to see if symptoms improve Helicobact er pylori-associated gastritis 958547108 B96.81 Hx of H pylori infection 11/07/20 and back in 2019 Treated for recent infection but not in 2019 - Check h. pylori breast test today Asthma 641022489 J45.90 9 Pt with asthma exacerbati on 2 weeks ago with stomach retraction s and racing heart, improved with albuterol which she used daily for one week at the time. Also using Trimbow inhaler from [email or web address] twice dialy (contains beclometas one dipropiona te, formoterol fumarate dihydrate, glycopyrro nium bromide). She reports daily cough with thick white sputum. Asthma is exacerbate d by cold morning air. Also reports rhinorrhea . Pt notes CP and pressure under her left breast, sometimes worse with exertion. She reports having a heart test one year ago that was normal. Not currently using fluticason e Denies sore throat, fever, chills - Continue Trimbow inhaler BID, albuterol as needed - CXR ordered today due to O2 sat 90% and abnormal CXR in 2018 - will get back in touch with pulmonolog y Pain of left wrist 53071 [id number] 18024 M25.532 Pt with sharp stabbing pain over ventral aspect of left wrist near thumb. Pain is worse in the morning and with direct light touch Admits to weakness in left wrist. Pt is right handed, does not use left hand as much. Denies numbness, tingling in her fingers. On PE: TTP over ventral aspect of L distal, lateral forearm with mild localized swelling noted - Advised to try splint at night x one month, has one at home - short course of steroids prescribed her inflammati on, avoid NSAIDs for now due to GI issues - Consider left wrist x-ray, ortho referral Hypoxia 115560967 R09.02 O2 sat 90% today, has been in this range since 08/2020 CXR 04/03/18 showed persistent opacity in the medial right lung base is nonspecifi c. Follow-up CT chest without contrast recommende d to exclude underlying lesion. CXR 04/20/18 was normal. History of asthma and oxygen desaturati on at night - per overnight pulse oximetry test results patient was a candidate for noctural oxygen but do not see this was started. Sleep study showed no evidence of ANGELA. Was following with Dr. Maria back in 2018 and 2019 but lost to f/u since - Order CXR today - May need f/u CT - Review pulm records Eczema 66161297 L30.9 Hx of eczema on her arms and legs On PE: Left metzger with oval shaped darker discolored skin about 6in x 3 in Right forearm: oval-shape d area 4 in x 2 in with numerous 1mm papules. No erythema. Did not discuss plan in detail at this visit due to multiple other complaints , will discuss further at next visit -Use moisturize r at least twice a day. - Wash the affected area with water only. Soap can make dryness and itching worse. Pat dry. - Apply a moisturize r after bathing. Use a cream such as Aquaphor that does not irritate the skin or cause a rash. Apply the cream while your skin is still damp after lightly drying with a towel. - Use cold, wet cloths to reduce itching. - Keep cool, and stay out of the sun. - If itching affects your normal activities , an over-the-c ounter antihistam ine, such as diphenhydr amine (Benadryl) or loratadine (Claritin) may help. Read and follow all instructio ns on the label. [id number] ABIDA CHAIDEZ (Adult Med) [address] [place] [address] 02/23/2021 09:21:27 02/24/2021 12:30:11 Gynecologic examination [id number] Z01.419 Patient presents for annual well woman exam, last pap test done in 2015 showed ASCUS with negative HPV. Patient admits to having abnormal bleeding/ spotting 15 days before her regular cycle begins.- Obtained Nuswab today to check for infection- Obtained pap test today. Informed patient that we will contact her with the results when we receive them a few days from now.- Informed patient that depending on the results of the pap test, we may proceed with a transvagin al ultrasound to assess for structural abnormalit ies such as fibroids that may contribute to her bleeding mid cycle. Screening mammography 24 657905 Z12.31 Patient with a family history of breast cancer. Last mammogram done in 2019 stable, showing dense breast tissue bilateral. - Mammogram order placed today. Mastodynia of bilateral breasts [id number] 5702735 N64.4 Patient complainin g of 6 years of bilateral breast pain and tenderness to the touch.- Diagnostic mammogram ordered today. [id number] [facility] [address] [place] [address] 02/27/2021 12:34:12 03/02/2021 14:19:00 Break-through bleeding 05344557 N92.1 Patient seen on 02/23/21 for annual pap test and complaints of bleeding mid cycle.Pap test and nuswab came back negative.W ill order pelvic US today to assess for any structural abnormalit ies. Patient is going to [place] in two days. She reports not being able to get this test done before she leaves. Will go to have it done when she returns. Helicobact er pylori-associated gastritis 063624490 B96.81 Hx of H pylori infection 11/07/20 and back in 2019 Treated for recent infection with triple abx therapy, Repeat hpylori breath test at 6 weeks was positive- unsure if tested too soon or if actually treatment failure, will repeat test again today- if positive, will start quad. therapy Hypoxia 286833823 R09.02 O2 sat 92% today, has been in this range since 08/2020 CXR 04/03/18 showed persistent opacity in the medial right lung base is nonspecifi c. Follow-up CT chest without contrast recommende d to exclude underlying lesion.CXR 12/26/2020: opacities in bilaterall y lower lobes likely pneumonia, pulmonary nodule can not be excluded. Treated with antibiotic s, saw improvemen t until about 2 weeks ago and now complainin g of worsening SOB with activity like the stairs History of asthma and oxygen desaturati on at night - per overnight pulse oximetry test results patient was a candidate for noctural oxygen but do not see this was started. Sleep study showed no evidence of ANGELA. Was following with Dr. Maria back in 2017 and 2018 but lost to f/u since - Order repeat CXR today to check for resolution of PNA-consid er chest CT- Advised patient I would like to see her follow up with pulm Iron defic iency anemia 09045299 D50.9 08/31/2019: Hgb 10.5, iron and ferritin both low 10/24/2019: Hgb 10.8, iron and ferritin the same 02/05/2020: Hgb 12.5, iron normal, iron sat low, and ferritin low - Ordered repeat CBC, ferritin, iron and TIBC - Continue oral iron QD to help increase iron storage Impaired g lucose tolerance 3514364 R73.03 Patient requests HbA1c testing today.Will order with other labs [id number] Moises Maria MD [facility] [address] [place] [address] 06/29/2021 10:44:24 06/29/2021 15:09:44 Moderate persistent asthma 960979126 J45.40 Patient is using Symbicort 160/4.5, 2 puffs BID and Combivent respimat. ( she has been using those and buying them from [place]. I will add Incruse Chronic cough 82233504 R 05.3 Multifacto rial Tolerant non-smoker 8773 9003 Z87.891 lifelong but she has second hand smoking exposure Sleep disorder 17952253 G47.9 nocturnal hypoxemia, EDS, EDF and sleep disturbanc es, sleep study showed no ANGELA(2018) Solitary n odule of lung 039359982 R91.1 was seen on outside chest Xray in [facility], Xray is not available. Irepeated CXR 06/2021 showed peribronch ial thickening Dyspnea on exertion 6084 5006 R06.09 Secondary to asthma. Allergic rhinitis 721251 04 J30.9 Patient will be continued on Zyrtec, Patient to continue Flonase [id number] Shahrzad Ken MD [facility] (Adult Med) [address] [place] [address] 08/21/2021 17:20:31 08/24/2021 13:16:46 Suspected COVID-19 255766602 Z20.822 She agreed for the med as ordered, advised to go to ER any time for any concern. She also agreed. [id number] Moises Maria MD [facility] [address] [place] [address] 09/07/2021 10:44:37 09/07/2021 13:10:28 Moderate persistent asthma 441001382 J45.40 Patient is using Symbicort 160/4.5, 2 puffs BID and Combivent respimat. ( she has been using those and buying them [place]. she did not try Incruse Chronic ob structive pulmonary disease 16466020 J44.9 FEV1 68%, FVC 83%, FEV1/FVC 70%, BD- TLC 98%, DLCO 93% ( 2020) Allergic rhinitis 166548 04 J30.9 Patient will be continued on Zyrtec, singulair Patient to continue Flonase IgE-mediat ed allergic asthma 356040377 J45.909 Elevated IgE, continue Singulair, Flonase and Zyrtic History of SARS-CoV-2 29 84194424 33533370 Z86.16 She has COVID-19 pneumonia 07/2021 Dyspnea on exertion 6084 5006 R06.09 Secondary to asthma. Air trapping 71201154 J9 8.8 RV 128% Chronic cough 02971044 R 05.3 Multifacto rial Solitary n odule of lung 671941699 R91.1 was seen on outside chest Xray in [place], Xray is not available. Irepeated CXR 06/2021 showed peribronch ial thickening Tolerant non-smoker 8773 9003 Z87.891 lifelong but she has second hand smoking exposure [id number] ABIDA CHAIDEZ (Adult Med) [address] [place] [address] 10/23/2021 12:27:57 10/26/2021 12:59:32 Chronic back pain 754501870 G89.29 Worsening back pain x1 yr. She states the pain is mostly over her spine in the upper and middle back. Pt states she can feel balls between the vertebrae . She also has some low back pain of the paraverteb ral muscles and not over the spine.Saw orthopedic surgeon 1 yr ago who ordered xrays and diagnosed her with fibromyalg ia. She has taken muscle relaxers in the past that provided reliefPt states she also gets lumps in her head, arm, and leg on the left side when she is stressed. It sounds like she is describing her muscles tightening or balling up. 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 She has a history of vitamin D deficiency .- start multivitam in- treat mood/depre ssion by starting medication today Depressive disorder 7537 8231 F32.9 Admits to decreased mood, low energy, anhedonia, and extremitie s feeling heavyPt started on sertraline at last visit for depressed mood but misunderst ood and only took 1 pill.- Agreeable to starting SNRI; discussed common AE including worsening depression /anxiety. Call if any prob w/ meds. Call or go to ER if she feels she is a danger to self or others.- started her with duloxetine to help with mood and chronic pain, patient aware to be patient because it takes 4-6 weeks for drug to reach full efficacy, and do not stop drug without contacting us first- f/u in 1 month Allergic disposition 609 521203 T78.40XA Pt reports drowsiness from cetirizine . She is worried about worsened drowsiness with the muscle relaxer in addition to the cetirizine .- switch to loratadine to avoid drowsiness [id number] Moises Maria MD [facility] [address] [place] [address] 12/07/2021 10:58:38 12/09/2021 14:17:09 Moderate persistent asthma 336873330 J45.40 Patient is using Symbicort 160/4.5, 2 puffs BID and Combivent respimat. ( she has been using those and buying them from [place]. she did not try Incruse Chronic ob structive pulmonary disease 25534584 J44.9 FEV1 68%, FVC 83%, FEV1/FVC 70%, BD- TLC 98%, DLCO 93% ( 2020) Allergic rhinitis 986442 04 J30.9 Patient will be continued on Zyrtec, singulair Patient to continue Flonase Tolerant non-smoker 8773 9003 Z87.891 lifelong but she has second hand smoking exposure Chronic cough 26602016 R 05.3 Multifacto rial Dyspnea on exertion 6084 5006 R06.09 Secondary to asthma. Air trapping 07250864 J9 8.8 RV 128% IgE-mediat ed allergic asthma 503623604 J45.909 Elevated IgE, continue Singulair, Flonase and Zyrtic History of SARS-CoV-2 29 79515601 49429268 Z86.16 She has COVID-19 pneumonia 07/2021 [id number] ABIDA CHAIDEZ (Adult Med) [address] [place] [address] 01/25/2022 10:06:17 01/26/2022 10:35:42 Compression fracture of thoracic vertebra 8434677135 104 M48.54XA Patient complainin g today of left sided back pain. She completed PT and says it helped, but still experienci ng left sided muscle pain that start in her left side of back and radiates toward the left side of her stomach/ab domen - on PE patient has lower left sided back/flank pain that wraps around her flank anteriorly - will order MRI thoracic spine due to hx of compressio n fx and possible nerve injury History of Helicobacter pylori infection [id number] 3388112 Z86.19 Hx of more than 1 episode of positive H. pylori test, patient having similar symptoms again today (01/25/22)- will repeat test- if negative, start PPI for indigestio n Depressive disorder 8566 9007 F32.9 Admitted in the past to decreased mood, low energy, anhedonia, and extremitie s feeling heavyPt was first started on sertraline for depressed mood but misunderst ood and only took 1 pill. Was then started on duloxetine and patient reported today that the medication worked great for her and she self discontinu ed 1 month ago because she was feeling better. She did not understand she was supposed to continue with medication . - will continue with duloxetine 30 mg for mood and chronic pain, patient aware to be patient because it takes 4-6 weeks for drug to reach full efficacy, and do not stop drug without contacting us first- f/u in 1 month Left flank pain 99185055 9 R10.9 Left flank pain has been hurting over ~1 year. The pain occurs whenever she lays on her left side and goes away whenever she rolls over in bed. The pain also is noticeable whenever she sits for long periods of time. She says this pain feels more muscular compared to her previous back pain. She last went to PT 2 weeks ago which helped with her other back pain. She has been experienci ng some recent dysuria. - on PE patient has left CVA and left lower back/flank muscle TTP- will check UA Left upper quadrant pain 190490674 R10.12 Complainin g of similar abdominal pain today for ~3 months compared to when she had H. pylori in 2019 and 2020. Has been experienci ng indigestio n, acid reflex, bloating, nausea and is not taking any medication s for it. She says she is burping a lot and feels like vomiting after eating, and is only eating 1 meal a day now because of feeling bloated. Has associated decreased appetite, lower abdominal cramping, and sharp LUQ abdominal pain that radiates into left side of back No fever, chills, nausea, vomiting, or changes in bowel movements- PE remarkable for epigastric and LUQ TTP and the abdomen is distended (probably due to body habitus)- Ordered H. pylori breath test, amylase, lipase, CMP, CBC Blood gluc ose outside reference range 910525531 R73.09 HgbA1c elevated, 6.0- continue with lifestyle changes- will continue to monitor, ordering HgbA1C and lipid panel Mammography abnormal 168 888224 R92.8 Mammogram and US 06/04 showed bilateral breast cysts, f/u with bilateral US in 6 months was rec.- order placed for repeat breast US Cyst of right ovary 1223 [id number] 0833058 N83.201 Discussed results of pelvic US from 10/17/19 including numerous intermural fibroids and a small cyst to the right ovary.- Discussed radiologis t suggestion to repeat pelvic US in 6-10 weeks when off menstrual period. Pt is due for repeat US now, encouraged her to call and get US scheduled. [id number] Shahrzad Ken MD [facility] (Adult Med) [address] [place] [address] 04/09/2022 17:04:43 04/12/2022 11:38:13 Tinea corporis 37638099 B35.4 Rashes . itching spots on the, left hand, left foot and left chest . She is wiling to try, optional dermatolog ist referral. Tinea pedis 0123742 B35. 3 Will order topic cream as above. [id number] Moises Maria MD [facility] [address] [place] [address] 04/29/2022 10:58:52 04/29/2022 13:39:18 Moderate persistent asthma 247118765 J45.40 Patient is using Symbicort 160/4.5, 2 puffs BID and Combivent respimat. ( she has been using those and buying them from [place]. she did not try Incruse Chronic ob structive pulmonary disease 45044072 J44.9 FEV1 68%, FVC 83%, FEV1/FVC 70%, BD- TLC 98%, DLCO 93% ( 2020) Air trapping 70766953 J9 8.8 RV 128% Disorder o f function of stomach 120988361 K31.89 I will send for GI eval Thoracic back pain 00154 8004 M54.6 I will check chest xray. Tolerant non-smoker 8773 9003 Z87.891 lifelong but she has second hand smoking exposure Allergic rhinitis 163848 04 J30.9 Patient will be continued on Zyrtec, singulair Patient to continue Flonase History of SARS-CoV-2 29 74350378 46683249 Z86.16 She has COVID-19 pneumonia 07/2021 Dyspnea on exertion 6084 5006 R06.09 Secondary to asthma. Chronic cough 33589705 R 05.3 Multifacto rial IgE-mediat ed allergic asthma 030321115 J45.909 Elevated IgE, continue Singulair, Flonase and Zyrtic [id number] ABIDA CHAIDEZ (Adult Med) 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 Rash on left foot started out of a blister with fluid present, blister has since opened and drained. Residual redness, intermitte nt drainage and pain still slightly present.Seals s been using topical steroid cream and anti-funga l cream on foot lesion, seen mild improvemen t During the time of the developing rash on her foot, she developed heel pain, ankle pain and pain in the distal toe joints.- concern for pustular psoriasis and psoriatic arthritis- will check labs- rheumatolo gy and dermatolog y referral placed Psoriatic arthritis 9621 81057 L40.50 New concern for pustular plantar and palmar psoriasis after seeing her rash todayDurin g the time of the developing rash on her foot, she developed heel pain, ankle pain and pain in the distal toe joints. History of lung disease and currently following with pulmonolog y.Past labs showed elevated inflammato ry markers- concern for psoriatic arthritis- will check labs- rheumatolo gy referal placed- will reach out to pulmonolog y to let them know of possible underlying inflammato ry condition Standard c hest X-ray abnormal 095737901 R93.89 Following with Pulmonolog yRecent xray abnormal, showed new densities and CT scan of chest rec.- appears CT scan of chest has been ordered but waiting on approval [id number] Moises Maria MD [facility] [address] [place] [address] 06/17/2022 10:24:36 06/17/2022 12:35:55 Moderate persistent asthma 512575723 J45.40 Patient is using Symbicort 160/4.5, 2 puffs BID, Incruse ellipta, and Combivent respimat.S he's in exacerbati on , will give Prednisone and Zpak Chronic ob structive pulmonary disease 56665079 J44.9 FEV1 68%, FVC 83%, FEV1/FVC 70%, BD- TLC 98%, DLCO 93% ( 2020) Iron defic iency anemia 86582220 D50.9 She needs iron supplement Allergic rhinitis 011058 04 J30.9 Patient will be continued on Zyrtec, singulair Patient to continue Flonase IgE-mediat ed allergic asthma 646902211 J45.909 Elevated IgE, continue Singulair, Flonase and Zyrtic Chronic cough 44080042 R 05.3 Multifacto rial Thoracic back pain 42538 8004 M54.6 Chest Xray was unremarkab le except for atelectasi s, I will order ct chest without contrast2021Mild abnormalit ies in the lungs. Dyspnea on exertion 6084 5006 R06.09 Secondary to asthma. Disorder o f function of stomach 861465514 K31.89 being evaluated with GI Air trapping 72707078 J9 8.8 RV 128% [id number] Moises Maria MD [facility] [address] [place] [address] 07/22/2022 10:57:41 07/27/2022 14:38:16 Moderate persistent asthma 435354165 J45.40 Patient is using Symbicort 160/4.5, 2 puffs BID, Incruse ellipta, and Combivent respimat.S he's in exacerbati on , will give Prednisone and Zpak Chronic ob structive pulmonary disease 73894232 J44.9 FEV1 68%, FVC 83%, FEV1/FVC 70%, BD- TLC 98%, DLCO 93% ( 2020) Tolerant non-smoker 8773 9003 Z87.891 lifelong but she has second hand smoking exposure CT of chest abnormal 267 0921225 2992212 R93.89 . Atelectasi s in the medial segment right middle lobe and throughout portions of the lingula.2. Patchy bilateral groundglas s pulmonary opacities worrisome for pneumonia. 3. Bronchial wall thickening could indicate bronchitis , reactive airway disease and/or smoking.4. Prominent, but nonenlarge d lymph nodes in the mediastinu m are possibly reactive in nature. I will repeat Ct chest in 3 months Air trapping 44959631 J9 8.8 RV 128% Disorder o f function of stomach 440029502 K31.89 being evaluated with GI Dyspnea on exertion 6084 5006 R06.09 Secondary to asthma. Iron defic iency anemia 78437101 D50.9 She needs iron supplement IgE-mediat ed allergic asthma 859132980 J45.909 Elevated IgE, continue Singulair, Flonase and Zyrtic Allergic rhinitis 332493 04 J30.9 Patient will be continued on Zyrtec, singulair Patient to continue Flonase Chronic cough 75377457 R 05.3 Multifacto rial Thoracic back pain 09583 8004 M54.6 Chest Xray was unremarkab le except for atelectasi s, I will order ct chest without contrast2021Mild abnormalit ies in the lungs. [id number] ABIDA CHAIDEZ [facility] (Adult Med) [address] [place] [address] 10/01/2022 09:40:38 10/04/2022 15:21:43 Overweight 366374917 E66.3 Advised decreased portion sizes, good food choices, limited eating out or fast food and eliminate soda and juice from diet. Advised physical activity daily and offered encouragem ent to continue with positive changes made so far. Mammography abnormal 168 165646 R92.8 Mammogram and US 06/04 showed bilateral breast cysts, f/u with bilateral US in 6 months was rec.US 02/2022 showed again 2 cysts on the L breast, repeat in 6 monthsComp laining of intermitte nt left breast pain, worse during cycles- order placed for mammogram and US, will send to [facility] Pain of left breast 1010 547866 N64.4 Hx of breast cysts in bilateral breasts, complainin g of L breast pain during menses but no pain of the R breasts. Takes tylenol for pain which helps.On PE: bilateral breast pain at superior, lateral and inferior aspects of both breasts- due for f/u mammogram- provided informatio n on benign breast disease- try to avoid caffeine and chocolate, aware of pattern with cycles, and supplement s and NSAIDs given to help with pain [id number] ABIDA CHAIDEZ (Adult Med) [address] [place] [address] 11/01/2022 10:14:26 11/02/2022 10:33:56 Acute bronchitis 03503188 J20.9 Recent ER visit for sore throat, rhinorrhea , body aches, voice hoarseness , cough, chest pain and SOB x 3 days, went to [facility] on 10/28/2022. Chest xray normal, discharged home with z-pack, cough medication and albuterol. States the sore throat, body aches, and chest pain has since resolved. The hoarseness of the voice and cough and congestion have improved but still present.- c/w cough medication and albuterol, finish last dose of z-pack today. Cough may be the last thing to resolve but should continue to improve- lung sounds overall normal on exam- c/w supportive care at home CT of chest abnormal 327 2147805 3907256 R93.89 . Atelectasi s in the medial segment right middle lobe and throughout portions of the lingula.2. Patchy bilateral groundglas s pulmonary opacities worrisome for pneumonia. 3. Bronchial wall thickening could indicate bronchitis , reactive airway disease and/or smoking.4. Prominent, but nonenlarge d lymph nodes in the mediastinu m are possibly reactive in nature.Per pulm - plan to get repeat in 3 month- encouraged patient ot f/u with pulm for repeat CT scan of chest Moderate p ersistent asthma 463786445 J45.40 Patient is using Symbicort 160/4.5, 2 puffs BID and Combivent respimat PRN right now.- provided new inhaler of albuterol to use as needed- c/w pulm Chronic ob structive pulmonary disease 32627289 J44.9 Patient is using Symbicort 160/4.5, 2 puffs BID and Combivent respimat PRN right now.- combivent best to use everyday- c/w pulm Left upper quadrant pain 624035504 R10.12 Having left upper quadrant pain x 2-3 weeks, states this started before her URI symptoms. The pain is not constant, hurts with direct pressure, before having bowel movements, after having bowel movements and sometimes at night when sleeping. The pain is sharp, sometimes pulsating and sometimes radiates to her left flank.Admi ts to hx of chronic irregular bowel movements, can be a mix of constipati on and diarrhea. Recent CT scan overall normal in the left upper quadrant besides atelectasi s to lungs - GI referral for EGD and colonoscop y- check UA to rule out UTI/kidney issues- MRI of thoracic spine to rule out radiculopa thy- f/u with pulm for chronic lung disease- ribcage on L side TTP: take IBU three times a day with meal x 2 weeks for pain/MSK inflammati on Screening for malignant neoplasm of colon 011028026 Z12.11 No prior history of colon cancer screeningH aving LUQ pain before and after bowel movements plus irregular bowel movements- referral sent for colonoscop y Thoracic back pain 31567 8004 M54.6 Patient complainin g today of left sided back pain. She completed PT 01/2022 which provided mild relief but pain is still present on exam today. Worse with valsalva, coughing, movements of the left arm. She has continued PT exercises at home since > 6 months since discharge from PT service and still not improving. - on PE patient has lower left sided back/flank pain that wraps around her flank anteriorly - will order MRI thoracic spine due to hx of compressio n fx and possible nerve injury Overweight 349064204 E66 .3 Advised decreased portion sizes, good food choices, limited eating out or fast food and eliminate soda and juice from diet. Advised physical activity daily and offered encouragem ent to continue with positive changes made so far. Depression screening 171 162109 Z13.31 PHQ 09/23 was negative in office today (0 out of 27) [id number] Moises Maria MD [facility] [address] [place] [address] 11/29/2022 11:05:52 11/30/2022 08:13:41 Chronic obstructive pulmonary disease 91485237 J44.9 FEV1 68%, FVC 83%, FEV1/FVC 70%, BD- TLC 98%, DLCO 93% ( 2020), I will check PFTs, She has not received COVID-19 vaccine Moderate p ersistent asthma 110986498 J45.40 Patient is using Symbicort 160/4.5, 2 puffs BID,was unable to tolerate Incruse ellipta, and Combivent respimat Allergic rhinitis 656719 04 J30.9 Patient will be continued on Zyrtec, singulair Patient to continue Flonase Tolerant non-smoker 8773 9003 Z87.891 lifelong but she has second hand smoking exposure Gastroesop hageal reflux disease 728641335 K21.9 Will add protonix Dyspnea on exertion 6084 5006 R06.09 Secondary to asthma. 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 Atelectasi s in the medial segment right middle lobe and throughout portions of the lingula.2. Patchy bilateral groundglas s pulmonary opacities worrisome for pneumonia. 3. Bronchial wall thickening could indicate bronchitis , reactive airway disease and/or smoking.4. Prominent, but nonenlarge d lymph nodes in the mediastinu m are possibly reactive in nature. I will repeat Ct chest in 6 months Thoracic back pain 75640 8004 M54.6 Chest Xray was unremarkab le except for atelectasi s, I will order ct chest without contrast2021Mild abnormalit ies in the lungs. Iron defic iency anemia 96084367 D50.9 She needs iron supplement [id number] ABIDA CHAIDEZ (Adult Med) [address] [place] [address] 12/14/2022 11:08:19 12/16/2022 12:36:05 Overweight 622345909 E66.3 Advised decreased portion sizes, good food choices, limited eating out or fast food and eliminate soda and juice from diet. Advised physical activity daily and offered encouragem ent to continue with positive changes made so far. Asthma 642145851 J45.90 9 Using Trimbow inhaler from [place] twice dialy (contains beclometas one dipropiona te, formoterol fumarate dihydrate, glycopyrro nium bromide). She reports daily cough with thick white sputum. Asthma is exacerbate d by cold morning air. Also reports rhinorrhea . Not currently using fluticason e Denies sore throat, fever, chills - Continue Trimbow inhaler BID, albuterol as needed - following with pulm- recently completed lung tests at [facility], will request records Acute bronchitis 3101099 2 J20.9 Was recovering from acute bronchitis at our last visit, today she states the cough, nasal congestion and voice hoarseness has all since resolved- no further action needed Screening for malignant neoplasm of colon 238878251 Z12.11 No prior history of colon cancer screeningH aving LUQ pain before and after bowel movements plus irregular bowel movements- has colonoscop y scheduled for 12/20/2022 Depression screening 171 729406 Z13.31 PHQ 2/9 was mildly positive in office today (8 out of 27)- will continue to monitor Gastroesop hageal reflux disease without esophagitis 064508028 K21.9 Picked up Pantoprazo le but has not taken it yet, prescribed by Pulm due to chronic coughSched uled for EGD and colonoscop y on 12/20/2022-e ncouraged okay to wait until after her procedures , if GI finds concern for GERD/gastr itis - start taking PPI Iron defic iency without anemia 547418589 E61.1 Hx of SAIDA, taking iron supplement once daily- recheck levels today Large tonsils 722938272 J35.1 Seen on exam todayAdmit s to frequent URI infections and snoring at night with daytime fatigue- refer to ENT Thyroid nodule 503154172 E04.1 Complainin g of nodule on anterior throat and under jaw line on R side. Denies ear pain, dental infection or current sinus issues.- unable to palpate on exam but will order thyroid US to ensure Hyperlipidemia 84180679 E78.5 Hx of HLD- due for recheck today Impaired g lucose tolerance 9749640 R73.03 Patient requests HbA1c testing today.Will order with other labs [id number] Sandro Roberts MD [facility] [address] [place] [address] 01/18/2023 15:46:48 01/24/2023 15:02:06 Acute sinusitis 74299507 J01.90 continue Flonase Dermatitis of external ear 704096544 H60.93 Hypertroph y of tonsils 14835066 J35.1 Sensorineu ral hearing loss of bilateral ears 363647417 H90.3 [id number] ABIDA CHAIDEZ (Adult Med) [address] [place] [address] 03/07/2023 08:31:06 03/08/2023 09:45:27 Pain of left knee joint 4152890383 37284 M25.562 Tender to palpation in many areas on PE, unclear etiology. Never previously imaged- will Xray to visualize potential bony abnormalit y or arthritis. -about to go out of country for a couple weeks, will complete PT when return, then return to clinic to assess improvemen t at regular follow-up scheduled for in naproxen, take for 2 weeks to decrease inflammati on and aid in pain control Low back pain 257071842 M54.50 Previous Xrays show no degenerati ve disk disease or spondyloli sthesis, believe to be MSK origin of pain. Possible piriformis syndrome, although PE unclear with many different areas of tenderness elicited.- about to go out of country for a couple weeks, will complete PT when return, then return to clinic to assess improvemen t at regular follow up scheduled for in naproxen, take for 2 weeks to decrease inflammati on and aid in pain control Overweight 106348336 E66 .3 Advised decreased portion sizes, good food choices, limited eating out or fast food and eliminate soda and juice from diet. Advised physical activity daily and offered encouragem ent to continue with positive changes made so far. [id number] CUCA LOERA (Adult Med) [facility] [place] [address] 09/15/2023 14:55:26 09/15/2023 16:03:04 Depression screening 341761544 Z13.31 PHQ9- {{Negative Positive Mild* Mode rate Sever e}} (8 out of 27) Mental hea lth screening 611162506 Z13.39 GAD7- {{Negative Positive Mild* Mode rate Sever e}} (5 out of 21) Body mass index 25-29 - overweight 258383873 Z68.26 BMI 26 Asthma 200844339 J45.90 9 Currently on Symbicort two puffs daily, albuterol is used on when having asthma attackComb ivent is used PRN.Will send new referral Thyroid nodule 502788051 E04.1 Was following to follow up with endocrinol bonnie but has not been able to scheduleWi ll redo labs todayWill send new referral Gastroesop hageal reflux disease 577083541 K21.9 Patient is having heart burn almost every day, feeling burning sensation all the way up to her throat.Sta giorgio had U/S done in [place] and was told that she had severe GERD- patient to bring notes from doctor for reviewHas not been taking GERD medication , forgot she was given it before-Booker l restart pantoprazo le 40mg daily-Decr ease greasy, fatty, fried foods, decrease spice and acidic foods. Prediabetes 363481941 R7 3.03 Iron defic iency anemia 30430224 D50.9 Will redo labs today and call patient with results Allergic rhinitis 146035 04 J30.9 Start nasal spray and loratadine Headache 72713913 R51.9 Screening for malignant neoplasm of colon 280981882 Z12.11 Varicose v eins of lower extremity 46659359 I83.892 L calf pain almost every nightPatie nt is not employedHa s relief with elevating legWill order compressio n socks, use daily upon waking upWill order [id number] Luis Estrada MD [facility] [address] [place] [address] 09/22/2023 09:59:36 09/22/2023 11:30:39 Screening for malignant neoplasm of colon 921050158 Z12.11 Patient with need for screening colonoscop y. Risks and benefits explained to patient, including bleeding and perforatio n. We have discussed the procedure details as well as the benefits of colonoscop y screening for malignancy . Patient has been given instructio ns for bowel preparatio n and explained the need for and importance of the prep. Will proceed to the endoscopy suite as soon as is convenient . [id number] LINO WATSON PA-C [facility] (Adult Med) [address] [place] [address] 12/01/2023 16:36:02 12/02/2023 08:42:35 Type 2 diabetes mellitus 93746718 E11.9 Last A1C:Today 6.5 (09/16/23)Go al A1C less than:{{7.0 %* 8.0%}}C urrent Therapy:No neStatin:{ {yes no* d eclined due to adverse reaction/a llergy dec lined}}BALJIT /ARB:{{yes no* no due to negative nephropath y screening contraindi cated decl ined due to adverse reaction/a llergy dec lined}}Hunter t Exam: NL today (12/01/23)N ephropathy Screening: {{complete d in the past 12 months- negative c ompleted in the past 12 months- positive d ue*}}Pneum ovax 23:{{UTD D eclined* N ot given}}Eye Exam:{{com pleted in the last 12 months- negative c ompleted in the last 12 months- positive c ompleted per patient report due - recommende d annual dilated eye exam*}}- referral given todayPatie nt Education: healthy diet:yesex ercise:yes weight loss:yesfo ot care:yesco mplication s of uncontroll ed diabetes:y esmedicati on compliance :yesNext Visit: {{1 2 3* 4 5 6 7 8 9 10 11 12} } {{week(s) month(s)*} }Pt does not want to start medication at this time and wants to work on getting healthier on her own. Discussed importance of starting medication and patient refusedGav e packet on DMPt to check blood sugars daily while fasting Iron defic iency anemia 33030914 D50.9 Will redo labs today and call patient with results Fibromyalgia 780874657 M 79.7 Pt states [place] not take medication for itStart amitriptyl ine 25mg daily Gastroesop hageal reflux disease 217619658 K21.9 Patient is having heart burn almost every day, feeling burning sensation all the way up to her throat.She sometimes feels like she cannot swallow -C/W pantoprazo le 40mg daily-Decr ease greasy, fatty, fried foods, decrease spice and acidic foods.-Ref erral to GI Body mass index 25-29 - overweight 087731287 Z68.26 BMI 26.3 [id number] [facility] [address] [place] [address] 12/29/2023 14:30:57 12/30/2023 08:31:29 Presbyopia 96259175 H52.4 Prediabetes 136077241 R7 3.03 [id number] [facility] [address] [place] [address] 12/29/2023 15:20:30 12/30/2023 07:58:52 Gastroesophageal reflux disease 515105712 K21.9 Burning ep igastric pain 26020227 R10.13 continue pantoprazo le; await EGD to tailor therapy Constipation 77806663 K5 9.00 likely due to PO iron. Start senna and docusate sodium for symptomati c relief [id number] Frantz Kapadia MD [facility] (Adult Med) [address] [place] [address] 02/21/2024 10:29:24 02/24/2024 12:15:56 Screening for malignant neoplasm of breast 365979076 Z12.39 CBE done today= Pain to palpation jazmin breast Mammogram and US 06/04 showed bilateral breast cysts, f/u with bilateral US in 6 months was rec.US 02/2022 showed again 2 cysts on the L breast, repeat in 6 months bcrisktool calculator : Average Lifetime Risk = 7.3% Mammogram ordered todayU/S ordered today [id number] CUCA LOERA (Adult Med) [address] [place] [address] 02/23/2024 10:35:36 02/24/2024 14:06:30 Community acquired pneumonia 622659345 J18.9 Called [facility] for ER records C/W albuterol inhaler and nebulizer as neededC/w Trelegy inhaler Start doxycyclin e hyclate 100mg twice daily x 10 daysStart prednisone 20mg tablet twice daily x 10 days RTC 10 daysPatien t to return to ER if symptoms worsen Constipation 17221889 K5 9.00 Patient has Senna medication prescribed by GI- pt OK to takeIncrea se water intakeIncr ease fiber intake Discussed OK holding off on taking Iron supplement ation at this time while on ABX for PNA Overweight 208969293 E66 .3 BMI 26 [id number] CUCA LOERA (Adult Med) [address] [place] [address] 03/05/2024 16:51:01 03/06/2024 16:22:43 Left flank pain 668370311 R10.9 L Flank pain Overweight 632787580 E66 .3 BMI 26.0 Asthma 263961679 J45.90 9 Currently on Symbicort two puffs daily, albuterol is used on when having asthma attackComb ivent is used PRN.Keep appt with pulmonolog y [id number] SHARMILA TAI [facility] [address] [place] [address] 03/08/2024 11:42:41 03/08/2024 13:19:23 Gastroesophageal reflux disease 292920333 K21.9 EGD 02/13/2024 with esophageal dilation; improved dysphagia Constipation 81298754 K5 9.00 likely due to PO iron. Improved with senna with docusate. Gastric erosion 88555523 6 K25.9 continue daily PPI; has enough refills currentlya dd sucralfate x 1 month Abnormal c onsistency of stool 876305973 R19.5 increase fiber and water.enco uraged patient to purchase OTC fiber powder and take 1 scoop per day [id number] CUCA LOERA (Adult Med) [address] [place] [address] 04/10/2024 11:51:43 04/11/2024 14:48:09 Type 2 diabetes mellitus 66662413 E11.9 Last A1C:Today 6.2 (04/10/24), 6.5 (09/16/23)Go al A1C less than:{{7.0 %* 8.0%}}C urrent Therapy:No neStatin:{ {yes no* d eclined due to adverse reaction/a llergy dec lined}}BALJIT /ARB:{{yes no* no due to negative nephropath y screening contraindi cated decl ined due to adverse reaction/a llergy dec lined}}Hunter t Exam:Miroslava l (12/01/23)N ephropathy Screening: {{complete d in the past 12 months- negative c ompleted in the past 12 months- positive d ue*}}Pneum ovax 23:Prevnar 20 04/10/20Eye Exam:{{com pleted in the last 12 months- negative* completed in the last 12 months- positive c ompleted per patient report due - recommende d annual dilated eye exam}} 12/29/23Pat ient Education: healthy diet:yesex ercise:yes weight loss:yesfo ot care:yesco mplication s of uncontroll ed diabetes:y esmedicati on compliance :yes Keep a food diaryFollo w a healthy heart low fat low cholestero l dietExerci se 50-60 minutes 5-6 times per weekIncrea se water intakeStop concentrat ed sugarsTake your diabetes medication dailyCheck blood sugars fasting and post prandial --keep a log--bring to next appointmen tStop concentrat ed sugars--fo llow 1500 meal planExerci se 50-60 minutes daily on most daysCheck your feet for sores, cuts, etc.See eye doctor once a yearsee dentist every 6 months Next Visit: {{1 2 3 4 5 6* 7 8 9 10 11 12} } {{week(s) month(s)*} }Okay to continue w/o medication at this timePt to check blood sugars daily while fasting Iron defic iency anemia 17994298 D50.9 Will redo labs today Fibromyalgia 587846544 M 79.7 Pt [place] for [place].P t wants to wait for referrals at this time- doing better with exercising . Gastroesop hageal reflux disease 125166897 K21.9 C/W pantoprazo le 40mg daily- prescribed now by GI-Decreas e greasy, fatty, fried foods, decrease spice and acidic foods.-Kg p f/u with GI Body mass index 25-29 - overweight 206873696 Z68.26 BMI 26.3 IgE-mediat ed allergic asthma 487680088 J45.909 C/W montelukas t 10mg at night Allergic rhinitis 951304 04 J30.9 C/W nasal sprayStop loratadine Start cetirizine Depression screening 171 284061 Z13.31 PHQ9- {{Negative Positive Mild* Mode rate Sever e}} (5 out of 27) Mental hea lt screening 706384623 Z13.39 GAD7- {{Negative Positive Mild* Mode rate Sever e}} (5 out of 21) [id number] SHARMILA TAI [facility] [address] [address] 05/03/2024 11:07:34 05/03/2024 13:52:44 Abdominal pain 27157674 R10.9 After quick consult with Dr. Briones present in clinic, he recommends gastric emptying study given chronicity of symptoms Gastroesop hageal reflux disease 982051488 K21.9 EGD 02/13/2024 with esophageal dilation; improved dysphagia. Still having burning esophageal pain. Await repeat EGD results Gastric erosion 52428997 6 K25.9 Recommend repeat endoscopy in 1 month to eval for healing. Continue pantoprazo le until EGD. Depending on results, may consider switching to H2 prince. [id number] CUCA LOERA (Adult Med) [address] [place] [address] 06/13/2024 15:06:07 06/16/2024 11:48:50 Gastroesophageal reflux disease 933483471 K21.9 C/W pantoprazo le 40mg daily- prescribed now by GI-Jordyn e greasy, fatty, fried foods, decrease spice and acidic foods.-Kg christy f/u with GI- last appt was 1 month ago- pt to call and schedule upper endoscopy Depression screening 171 642803 Z13.31 PHQ9- {{Negative Positive Mild* Mode rate Sever e}} (9 out of 27) Overweight 458259073 E66 .3 BMI 26.0 Pain of left calf 732992 9891 941817 M79.662 US venous doppler orderedPt to ER if symptoms worsen Influenza vaccination declined 963980721 Z28.21 [id number] SHARMILA TAI [facility] [address] [place] [address] 07/17/2024 10:18:36 07/17/2024 13:51:40 Abdominal pain 22089960 R10.9 07/04/2024 : normal gastric emptying study continue famotidine . Recommend 40 mg famotidine in the morning 15-30 minutes before food.If no relief, return back to 20 mg BID dosing. Gastroesop hageal reflux disease 549449198 K21.9 EGD 02/13/2024 with esophageal dilation; improved dysphagia. Still having burning esophageal pain.Repea t EGD 06/25/2024 : moderate, chronic nonspecifi c gastritis. Gastric erosion 64522245 6 K25.9 no evidence of gastric erosion on repeat EGD dated 06/25/2024 [id number] CUCA LOERA (Adult Med) [address] [place] [address] 07/18/2024 14:13:03 07/19/2024 15:16:05 Depression screening 352162647 Z13.31 PHQ9- {{Negative Positive Mild Moder ate* Sever e}} (11 out of 27) Mental hea lt screening 947716199 Z13.39 GAD7- {{Negative Positive Mild* Mode rate Sever e}} (6 out of 21) Low blood pressure 23951 003 I95.9 BP today 80/56Discu ssed with patient increasing water intake and electrolyt es to increase BPRTC 2 weeks for BP f/u- discussed starting medication to increase BP if BP is not better with increased fluid and electrolyt e intake Atypical chest pain 1025 85875 R07.89 Intermitte nt CP not reproducib le on PEReferral to cardiology Overweight 625071670 E66 .3 BMI 25.5 [id number] JEFFREY Bryson (Adult Med) [address] [place] [address] 08/01/2024 10:33:58 08/03/2024 13:47:35 Abnormal blood pressure 29988470 Z01.31 [id number] Sarah Escobedo MD [facility] [address] [place] [address] 08/07/2024 11:22:36 08/09/2024 15:54:46 Chest pain 40144947 R07.9 Low blood pressure 61768 003 I95.9 Iron defic iency anemia 03817418 D50.9 [id number] CUCA LOERA (Adult Med) [address] [place] [address] 08/22/2024 09:57:19 08/23/2024 16:15:45 Mass of right breast 4973044665 1142356 N63.10 U/S done 03/07/24: Probable benign mass R breast at 10:00 position, 6cm from nipple Breast parenchyma difference in appearance - recommend repeat u/s in 6 months (08/2024) CBE done today- pain on palpation of Right upper and lower quadrants, mass felt on upper outer quadrant Repeat U/S ordered today Overweight 224331568 E66 .3 BMI 25.7 Depression screening 171 011352 Z13.31 PHQ9- {{Negative Positive Mild Moder ate* Sever e}} (12 out of 27) Mental hea [facility] screening 919811413 Z13.39 GAD7- {{Negative Positive Mild* Mode rate Sever e}} (8 out of 21) Pain of left breast 1010 275331 N64.4 Normal mammogramP ain on PE of L outer quadrant Health Concerns Section Related Observation LastModified by Organization Detai ls LastModified Time None Recorded Concern Status LastModified by Organization Details LastModified Time None Recorded Advance Directives Directive N: Payers Encounter Date Sequence Insurance Name Policy Number Policy Armstrong Covered Member ID Armstrong Member ID Guarantor Name 07/17/2024 1 [place] [employer] [facility] [employer] Meaghan Sarmiento [id number] Meaghan Mccloudquez 07/18/2024 1 [place] [employer] Meaghan Kulkarniz [id number] Meaghan Sarmiento 08/01/2024 1 [place] [employer] Meaghan Kulkarniz [id number] Meaghan Sarmiento 08/07/2024 1 [place] [employer] [facility] [employer] Meaghan Kulkarniz [id number] Meaghan Sarmiento 08/22/2024 1 [place] [facility] Meaghan Sarmiento [id number] Meaghan Sarmiento Notes Date Note Type Note Provider Name and Address Organization Details Recorded Time 07/17/2024 text/html Patient presents today for follow up after EGD 06/25/2024. Gastric erosion healed. Showed moderate, chronic non specific gastritis. Patient is taking pantoprazole and famotidine BID. Is still experiencing acid reflux after she eats. Tried sucralfate with no relief. Has changed diet and avoids trigger foods and drinks. When acid reflux is bad, it exacerbates asthma by coughing and occasionally noticed blood-tinged sputum. Also completed GES 07/04/2024 that was normal. SHARMILA TAI [address] [place], [address], [facility] 07/17/2024 12:07:34 07/18/2024 text/html 49 y/o F here for ER f/u. Pt went to [facility] and was admitted for pneumonia. Pt states she is doing better but her BP has been running low. Was low at her GI appt yesterday and was told to f/u with PCP. She does c/o of some CP that occurs when she lays down, states it Feels like her heart doesn't get enough air and then it causes her to jump. Denies radiation to any arm. Denies SOB, CP, SEALS, N/V/D at this time. LINO WATSON PA-C Attn: Accounting,[address] [place], [address], [facility] 07/18/2024 15:20:46 08/07/2024 text/html Ms. Sarmiento is a 49-year-old female who has a history of asthma who was referred for cardiac evaluation treatment by physician assistant Watson for lower blood pressures and chest pain. She will on occasion wake up with chest pain which usually lasts 10-20 seconds without any associated shortness of breath for the past intermittently for the past year. She denies any chest pain with physical activity except when going up and down steps she can get some shortness of breath which she attributes to her asthma. She had a CT performed on 06/17/2024 with no evidence of PE, heart size was normal, no pericardial effusion and no comment on coronary calcification. She was noted to have a bp of 80 mmhg systolic when she saw her primary care provider but denies any feeling up being dizzy. She denies any dizziness, syncope, orthopnea, paroxysmal nocturnal dyspnea, palpitations or lower extremity edema. Sarah Escobedo MD Attn: Accounting,[address] [place], [address], [facility] 08/07/2024 12:50:00 08/22/2024 text/html 49 y/o F here for f/u mass of R breast. Pt states she has pain of jazmin breasts all the time on palpation, worse during menses. She denies any nipple discharge. Has noticed some inflammation of outer quadrants of bilateral breasts. Denies fever, chills. LINO WATSON PA-C Attn: Accounting,[address] [place], [address], [facility] - [facility] 08/22/2024 10:49:10 OBGyn Episode Ob Episode Information Episode Created Date Number of Fetuses Patient Bloodtype Patient rh Status Prepregnancy Weight lbs Domestic Partner Domestic Partner Phone Father Name Pulp Tester Status 03/21/20 24 1 DELETED Fetus Data First Name Last Name Admitted to NICU Weight (g) Sex Living Outcome Pediatric Complications Fetus ID Race Codes Race Delivery Type [id number] Eriberto Calculation Initial Eriberto Date Initial Exam Date Initial Exam Provider Initial Ultrasound Date Last Menstrual Period Date Ultra Sound Weeks Gestation 03/21/2024 0 Eighteen To Twenty Week Eriberto Update [...] Post Complications Tubal Sterilization Discharge Date Comments Discharge Information Feeding Method Contraceptive Method Maternal HG B and HCT Levels
[2024-10-05 22:48] VITALS: BP 101/61; PULSE 85; RESP 18; TEMP 36.2; O2SAT 97
[2024-10-06 03:46] LABS: Basophils Absolute Auto 0.1 K/mm3 (0.0-0.1); Eosinophils Absolute Auto 0.1 K/mm3 (0-0.3); Eosinophils Percent Auto 1.3 % (0-4.4); Hematocrit 38.5 % (37.0-47.0); Hemoglobin 12.3 g/dL (12.0-15.0); Immature Granulocyte Absolute 0.02 K/mm3 (0.00-0.031); Immature Granulocyte Percent A 0.2 % (0-0.5); Lymphocytes Absolute Auto 2.44 K/mm3 (0.9-3.2); Lymphocytes Percent Auto 27.4 % (18.3-44.2); Mean Corpuscular HGB Conc 31.9 g/dl (32-36); Mean Corpuscular Hemoglobin 26.6 pg (26-34); Mean Corpuscular Volume 83.3 fl (80-100); Mean Platelet Volume 9.4 fl (7.4-10.4); Monocytes Absolute Auto 0.8 K/mm3 (0.1-0.6); Monocytes Percent Auto 8.9 % (2.6-8.5); Neutrophils Absolute Auto 5.4 K/mm3 (1.3-6.7); Neutrophils Percent Auto 61.2 % (45.5-73.1); Platelet Count Result 330 k/mm3 (150-375); Red Blood Count 4.62 M/mm3 (4.2-5.4); Red Cell Distribution Width 16.9 % (11.5-14.5); White Blood Count 8.9 K/mm3 (4.5-10.0)
[2024-10-06 03:58] LABS: Alanine Aminotransferase 32 U/L (6-35); Albumin Level 3.9 g/dL (3.5-5.1); Alkaline Phosphatase 58 U/L (38-126); Anion Gap 8 mmol/L (4-12); Aspartate Amino Transferase 30 U/L (14-36); Bilirubin,Total 0.5 mg/dL (0.2-1.3); Blood Urea Nitrogen 10 mg/dL (7-17); Carbon Dioxide 26 mmol/L (22-30); Chloride 105 mmol/L (98-107); Estimated CRCL calculation 77 ml/min; Estimated Glomerular Filt Rate > 60; Glucose 104 mg/dL (65-110); Magnesium 2.2 mg/dL (1.6-2.3); Potassium 3.9 mmol/L (3.4-5.0); Sodium 139 mmol/L (137-145)
--- OUTSIDE RECORDS SUMMARY | 2024-10-06 03:58 | XMS_ITS | Referral Summary ---
Author Organization [facility] [address] [place] [phone] Care Team Providers Care Customer Service Advocate Name Role Phone Lino Watson Primary Care Provider +1- [phone] Encounters Date Type Department Care Team Description 09/06/2024 2:15 PM BUSINESS SERVICES ASSISTANT Office 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 Assessment & Plan (09/06/2024 2:39 PM BUSINESS SERVICES ASSISTANT): Update TFTS If TSH is normal, will [...] on file Legal Sex Female 3:55 PM BUSINESS SERVICES ASSISTANT Gender Identity Not on file Sexual Orientation Not on file Last Filed Vital Signs Vital Sign Reading Time Taken Comments Blood Pressure 100/60 09/06/2024 1:53 PM BUSINESS SERVICES ASSISTANT Pulse 66 09/06/2024 1:53 PM BUSINESS SERVICES ASSISTANT Temperature 35.6 C (96 F) 05/28/2024 9:49 AM CDT Respiratory Rate 18 09/06/2024 1:53 PM BUSINESS SERVICES ASSISTANT Oxygen Saturation 96% 05/28/2024 9:49 AM CDT Inhaled Oxygen Concentration - - Weight 65 kg (143 lb 3.2 oz) 09/06/2024 1:53 PM BUSINESS SERVICES ASSISTANT Height 157.5 cm (5' 2 ) 09/06/2024 1:53 PM BUSINESS SERVICES ASSISTANT Body Mass Index 26.19 09/06/2024 1:53 PM BUSINESS SERVICES ASSISTANT Plan of Treatment Not on file Insurance [employer] OOS Member Subscriber Plan / Payer (Ef fective 2019-Present) Name:Meaghan Torres Relation to Subscriber:Spouse Name:JUSTIN PEARSON Date of :1968 (Home) Address: [address] [place] [id number] Payer ID:[id number] (NAIC) Type:[employer] Address: [address] [place] [id number] Care Teams Customer Service Advocate Relationship Specialty Start Date End Date Lino Watson PA [address] [place] [address] PCP - General Physician Art Museum Aide 11/01/23
--- OUTSIDE RECORDS SUMMARY | 2024-10-06 03:58 | XMS_ITS | Clinical Summary ---
[facility] Organization [facility] [address] [place] [phone] Care Team Providers Care Remote Pilot Operator Name Role Phone Lino Watson Primary Care Provider +1- [phone] Allergies Active Allergy Reactions Criticality Noted Date [...] 12/19/2023 Assessment & Plan (09/06/2024 2:39 PM FIELD PROJECT MANAGER): Update TFTS If TSH is normal, will [...] Department Care Team Description 09/06/2024 2:15 PM FIELD PROJECT MANAGER [facility] [address] [address] Gilbert Carson MD Mary's thyroiditis [...] on file Legal Sex Female 3:55 PM FIELD PROJECT MANAGER Gender Identity Not on file Sexual Orientation Not on file Obstetrics History Last Filed Vital Signs Vital Sign Reading Time Taken Comments Blood Pressure 100/60 09/06/2024 1:53 PM FIELD PROJECT MANAGER Pulse 66 09/06/2024 1:53 PM FIELD PROJECT MANAGER Temperature 35.6 C (96 F) 05/28/2024 9:49 AM CDT Respiratory Rate 18 09/06/2024 1:53 PM FIELD PROJECT MANAGER Oxygen Saturation 96% 05/28/2024 9:49 AM CDT Inhaled Oxygen Concentration - - Weight 65 kg (143 lb 3.2 oz) 09/06/2024 1:53 PM FIELD PROJECT MANAGER Height 157.5 cm (5' 2 ) 09/06/2024 1:53 PM FIELD PROJECT MANAGER Body Mass Index 26.19 09/06/2024 1:53 PM FIELD PROJECT MANAGER Plan of Treatment Health Maintenance Due Date Last Done Comments Breast Cancer Screening-Mammogram 1975 Cervical Cancer Screening 1975 Colon Cancer Screening-Colonoscopy 1975 Depression Screening 1975 Hepatitis C Screening 1975 DTaP/Tdap/Td Vaccine (1 - Tdap) 1986 Hepatitis B Screening 1993 Regular Well Visit/Exam 18-64 1993 Influenza Vaccine (#1) 2024 Pneumococcal vaccine <65 Completed 04/10/2024 Insurance [employer] OOS Care Teams Remote Pilot Operator Relationship Specialty Start Date End Date Lino Watson PA [address] [place] [address] PCP - General Physician Pillowcase Sewer 11/01/23
--- OUTSIDE RECORDS SUMMARY | 2024-10-06 03:59 | XMS_ITS | Patient Health Summary ---
Author Organization [facility] Address [address] [facility] [place] [address] Care Team Providers Care Lath Tier Name Role Phone Connie Miller PA-C Primary Care Provider + Note from [facility],non-owned Affiliates and Associated Physician Practices is amultiple site organization consisting of ambulatory clinics and hospital sitesin [place], [place], [place] and [place]. This disclosure is being madepursuant to the Care Everywhere program and may not contain all information available regarding this patient. Last updated 18.[facility] Allergies * Penicillins(Urticaria) -Medium Criticality Medications * Be aware that medications may not be up to date on this document. Alwaysverify current medications with the patient. * Budesonide-Formoterol Fumarate (SYMBICORT IN) 2 Sprays every 12 hours * Ipratropium-Albuterol (COMBIVENT IN) 2 sprays as needed * Umeclidinium [place] (INCRUSE ELLIPTA IN) Inhale by mouth once [...] for rash. 30 days supply. Label in chilean please Ended Medications* mometasone (Elocon) 0.1 % ointment(Started 11/19/2022) (Discontinued) Apply to hands, feet, arms and back twice a day as needed for rash. 30 days supply. Label in chilean please 3 refills by 11/19/2023 * mometasone (Elocon) 0.1 % ointment(Started 10/03/2024)(Discontinued) Apply to hands, feet, arms and back twice a day as needed for rash. 30 days supply. Label in chilean please Active Problems Problem Noted Date Diagnosed [...] Sexual Orientation Not on file Care Teams Lath Tier Relationship Specialty Start Date End Date Connie Miller PA-C [address] [place] [phone] PCP - General 06/11/22
--- OUTSIDE RECORDS SUMMARY | 2024-10-06 03:59 | XMS_ITS | Referral Summary ---
Author Organization [facility] Address [address] [facility] [place] [address] Care Team Providers Care Scorer Helper Name Role Phone Connie Miller PA-C Primary Care Provider + Source Comments [facility],non-owned Affiliates and Associated Physician Practices is [facility] organization consisting of ambulatory clinics and hospital sitesin [place], [place], [place] and [place]. This disclosure is being madepursuant to the Care Everywhere program and may not contain all information available regarding this patient. Last updated 18.[facility] Encounters Date Type Department Care Team Description 10/03/2024 Refill [facility] [address] [place] [phone] Katalina Tai MD MEDICATION REFILL 10/01/2024 Refill [facility] [address] [place] [phone] Katalina Tai MD MEDICATION REFILL 10/01/2024 Telephone [facility] [address] [place] [phone] Katalina Tai MD Refill Request from Last [...] IN) 2 sprays as needed Active Umeclidinium [place] (INCRUSE ELLIPTA IN) Inhale by mouth once [...] for rash. 30 days supply. Label in french please 45 g 10/03/2024 Active mometasone (Elocon) 0.1 % ointmentIndication s:Other specified dermatitis,Other pruritus,Macular cutaneous amyloidosis (HCC) Apply to hands, feet, arms and back twice a day as needed for rash. 30 days supply. Label in french please 45 g 3 11/19/2022 10/01/2024 Discontinued( Reorder) mometasone (Elocon) 0.1 % ointmentIndication s:Other specified dermatitis,Other pruritus,Macular cutaneous amyloidosis (HCC) Apply to hands, feet, arms and back twice a day as needed for rash. 30 days supply. Label in french please 45 g 10/03/2024 10/03/2024 Discontinued( Reorder) [...] Visit [facility] [address] [facility], [place] [address] Katalina Tai MD [address] [facility] [address] [place] [address] Care Teams Scorer Helper Relationship Specialty Start Date End Date Connie Miller PA-C [address] [place] [phone] PCP - General 06/11/22
--- OUTSIDE RECORDS SUMMARY | 2024-10-06 03:59 | XMS_ITS | Clinical Summary ---
Author Organization [facility] Care Team Providers Care Renewable Energy Consultant Name Role Phone Unavailable Primary Care Provider Unavailabl e Social History Tobacco Use Types Packs/Day Years Used Date Smoking Tobacco: Never Assessed Comments Unknown Sex and Gender Information Value Date Recorded Sex Assigned at Not on file Legal Sex Female 12:43 PM PEDIATRICIAN Gender Identity Not on file Sexual Orientation [...]
--- OUTSIDE RECORDS SUMMARY | 2024-10-06 03:59 | XMS_ITS | Clinical Summary ---
Author Organization [facility] [email or web address] Address [address] [facility] [place] [address] Care Team Providers Care Cutting Machine Tender Decorative Name Role Phone Connie Miller PA-C Primary Care Provider + Source Comments [facility] [email or web address],non-owned Affiliates and Associated Physician Practices is amultiple site organization consisting of ambulatory clinics and hospital sitesin [place], [place], [place] and [place]. This disclosure is being madepursuant to the Care Everywhere program and may not contain all information available regarding this patient. Last updated 18.[facility] [email or web address] Allergies Active Allergy Reactions Criticality Noted Date Comments Penicillins Urticaria Medium 08/19/2022 Medications * Be aware that medications may not be up to date on this document. Alwaysverify current medications with the patient. Medication Sig Dispensed Refills Start Date End Date Status Budesonide-Formote rol Fumarate (SYMBICORT IN) 2 Sprays every 12 hours Active Ipratropium-Albute rol (COMBIVENT IN) 2 sprays as needed Active Umeclidinium [place] (INCRUSE ELLIPTA IN) Inhale by mouth once [...] for rash. 30 days supply. Label in bruneian please 45 g 10/03/2024 Active mometasone (Elocon) 0.1 % ointmentIndication s:Other specified dermatitis,Other pruritus,Macular cutaneous amyloidosis (HCC) Apply to hands, feet, arms and back twice a day as needed for rash. 30 days supply. Label in bruneian please 45 g 3 11/19/2022 10/01/2024 Discontinued( Reorder) mometasone (Elocon) 0.1 % ointmentIndication s:Other specified dermatitis,Other pruritus,Macular cutaneous amyloidosis (HCC) Apply to hands, feet, arms and back twice a day as needed for rash. 30 days supply. Label in bruneian please 45 g 10/03/2024 10/03/2024 Discontinued( Reorder) [...] 10/03/2024 Refill [facility] [address] [place] [phone] Katalina Tai MD MEDICATION REFILL 10/01/2024 Refill [facility] [address] [place] [phone] Katalina Tai MD MEDICATION REFILL 10/01/2024 Telephone [facility] [address] [place] [phone] Katalina Tai MD Refill Request from Last [...] Visit [facility] [address] [facility], [place] [phone] Katalina Tai MD [address] [facility] [address] [place] [address] Health Maintenance Due Date Last Done Comments [...] age to complete this topic Care Teams Cutting Machine Tender Decorative Relationship Specialty Start Date End Date Connie Miller PA-C [address] [place] [phone] PCP - General 06/11/22
--- OUTSIDE RECORDS SUMMARY | 2024-10-06 03:59 | XMS_ITS | Encounter Summary ---
Author Organization [facility] Address [address] [place], [place] [address] [address] Care Team Providers Care Bar Pilot Name Role Phone Connie Miller PA-C Primary Care Provider + Reason for Visit * Reason Onset Date Comments Medication Issue 09/13/2022 Encounter Details Date Type Department Care Team (Late st Contact Info) Description 09/13/2022 Telephone [facility] [address] [place] [address] Katalina Tai MD [facility] [place] [phone] Medication Issue Social History Tobacco Use Types [...] to call her and she needs a skein tier Clinical staff will call her and let her know she was advised to use Sarna EW MANAGER * Telephone Encounter - Dee Grant - 09/13/2022 3:20 PM CST Pt needs to know what over the counter medication she was prescribed, she can't remember. EW MANAGER documented in this encounter Plan of Treatment Upcoming Encounters Date Type Department Care Team (Late st Contact Info) Description 01/18/2025 1:30 PM CDT Office Visit [facility] - Dermatology [address] [place] [address], [place] [address] Katalina Tai MD [address] [place] [address] [address] [place] [address] documented as of this encounter Visit Diagnoses Not on filedocumented in this encounter Care Teams Bar Pilot Relationship Specialty Start Date End Date Connie Miller PA-C [address] [place] [phone] PCP - General 06/11/22 documented as of this encounter
[2024-10-06 04:16] VITALS: BP 108/60; PULSE 78; RESP 16; O2SAT 97
[2024-10-06 04:17] VITALS: O2SAT 97
[2024-10-06 04:18] VITALS: PULSE 78
[2024-10-06 04:22] LABS: Influenza A QL RT-PCR Negative (Negative); Influenza B QL RT-PCR Negative (Negative); RSV RNA, RT-PCR Negative (Negative); SARS-CoV-2 RNA PCR Negative (Negative)
--- NOTE | 2024-10-06 04:39 | ED_ITS ---
HPI - General Adult General Chief complaint: Shortness of Breath/Dyspnea Stated complaint: coughing asthma and SOB Time Seen by Provider: 10/06/24 03:05 History of Present Illness HPI narrative: Patient is a 49-year-old female who presents the emergency department this evening complaining of a cough for the past 5 days asthma exacerbation. Patient states that she does have a history of asthma and follows up with a nursing education specialist. She was last put on steroids on September 18 for 5 days which she feels as though it helped her symptoms, however, after finishing steroids she felt as though her symptoms have worsened. She states that she was recently placed by her doctor on a Z-Pascual 3 days ago which she is currently taking. Denies any fevers or chills at home, any chest pain, any exposure to sick contacts. Related Data Home Medications ?Medication ?Instructions ?Recorded ?Confirmed ?Last Taken ?Type albuterol sulfate 2.5 mg/3 mL 2.5 mg inhalation Q6H PRN 07/04/24 08/22/24 Unknown History (0.083 %) solution for nebulization sob/wheezing albuterol sulfate 90 mcg/actuation 2 puff inhalation Q4H PRN 07/04/24 08/22/24 Unknown History aerosol inhaler sob/wheezing pantoprazole 40 mg tablet,delayed 40 mg PO DAILY 07/04/24 08/22/24 Unknown History release tiotropium bromide 1.25 2 puff inhalation BID 07/04/24 08/22/24 Unknown History mcg/actuation mist for inhalation (Spiriva Respimat) Allergies Allergy/AdvReac Type Severity Reaction Status Date / Time Penicillins Allergy Rash Verified 08/22/24 13:21 Review of Systems 2 Review of Systems: All systems are reviewed and are negative unless stated otherwise in the HPI. [facility] Past Medical History Medical History GERD (gastroesophageal reflux disease) Uterine fibroid Breast cyst Hx of thyroiditis Asthma Gastritis Pre-diabetes Anemia Surgical History Surgical History No history of previous surgery Family History Family History Mother Enlarged heart Son Asthma Social History Social History Social History: Lives at home with and 3 children. Lifelong non-smoker. No alcohol or drug use. Code status - Full Code Surrogate decision maker - Smoking status: Never smoker Do You Feel Safe in your Home?: Yes Lack of Transportation: No Lack of Food: Never True Current Housing: I Have Housing Concerned About Future Housing: No Difficulty Paying Gas/Electric Bills: No Difficulty Paying for Meds: No Currently Unemployed: No Education: High School Diploma/GED Difficulty w/ Childcare or Family Care: No Gender identity (if verbalized by the patient): Female Spiritual care concerns: No Exam 2 Narrative: General: Alert, awake, afebrile, in no acute distress. HEENT: PERRL, no rhinorrhea, no post nasal drip, oropharynx clear. Neck: Trachea midline, no JVD, no lymphadenopathy. Cardiovascular: Regular rate and rhythm, no murmurs, rubs or gallops, no peripheral edema. Respiratory: Faint inspiratory and expiratory bilaterally, tachypnea, no respiratory distress. Abdomen: Soft, nontender, nondistended, no rebound, no guarding, no peritoneal signs. Musculoskeletal: No joint swelling or deformity, normal muscle tone. Skin: No rashes or petechia, no signs of infection. Psychiatric: Alert and oriented, normal behavior and judgment for situation. Neurological: Alert and oriented to person, place, and time. Follows all commands. No focal deficits, speech is clear and fluent. Course Vital Signs Vital signs: Vital Signs Temperature 97.2 F L 10/05/24 22:48 Pulse Rate 85 10/05/24 22:48 Respiratory Rate 18 10/05/24 22:48 Blood Pressure 101/61 10/05/24 22:48 Pulse Oximetry 97 10/05/24 22:48 Oxygen Delivery Room Air 10/05/24 22:48 Temperature 97.2 F L 10/05/24 22:48 Pulse Rate 77 10/06/24 05:01 Respiratory Rate 17 10/06/24 05:01 Blood Pressure 108/60 10/06/24 04:16 Pulse Oximetry 97 10/06/24 04:17 Oxygen Delivery Room Air 10/06/24 04:17 Medical Decision Making MDM Narrative Medical decision making narrative: The patient was evaluated by myself in the emergency department. History is obtained from patient who is an independent historian and physical exam was performed. External medical records were reviewed at this time. IV was established and pertinent tests were ordered. Patient was administered an hour long DuoNeb breathing treatment and 125 mg of IV Solu-Medrol. Laboratory results obtained revealing no acute process. Viral swabs were noted to be negative for COVID/influenza/RSV. Imaging studies obtained included CXR which was independently interpreted by me revealing no acute cardiopulmonary process, which is pending final radiology interpretation. Differential diagnosis considerations include asthma exacerbation, acute viral syndrome including COVID/influenza/RSV, pneumonia. Comorbidities impacting this visit include history of asthma. I have evaluated and discussed social determinants of health with the patient that could potentially impact subsequent diagnosis and treatment plans. On repeat assessment of the patient, reevaluation revealed that the patient is doing well and is in no acute distress. Patient symptoms have improved since she arrived to our emergency department. Repeat vital signs were all reviewed and noted to be stable. Differential diagnosis and treatment plan were discussed with the patient at bedside. Patient agrees with discussion and after shared medical decision making agrees with discharge. All questions were answered to the patient's satisfaction. Patient will follow up with her PCP/nursing education specialist in 3-5 days. She was instructed to continue taking the medications her PCP prescribed her in addition to a Medrol Dosepak that was sent to her pharmacy and patient is agreeable with this plan. Patient was provided with strict return precautions and instructed to return to the emergency department if any new or worsening symptoms develop. The patient was discharged in stable condition. Vital Signs Vital Signs: Vital Signs Temperature 97.2 F L 10/05/24 22:48 Pulse Rate 85 10/05/24 22:48 Respiratory Rate 18 10/05/24 22:48 Blood Pressure 101/61 10/05/24 22:48 Pulse Oximetry 97 10/05/24 22:48 Oxygen Delivery Room Air 10/05/24 22:48 Temperature 97.2 F L 10/05/24 22:48 Pulse Rate 77 10/06/24 05:01 Respiratory Rate 17 10/06/24 05:01 Blood Pressure 108/60 10/06/24 04:16 Pulse Oximetry 97 10/06/24 04:17 Oxygen Delivery Room Air 10/06/24 04:17 Lab Data 10/06/24 03:40 10/06/24 03:40 Labs: Lab Results 10/06/24 Range/Units 03:40 WBC 8.9 (4.5-10.0) K/mm3 RBC 4.62 (4.2-5.4) M/mm3 Hgb 12.3 (12.0-15.0) g/dL Hct 38.5 (37.0-47.0) % MCV 83.3 (80-100) fl MCH 26.6 (26-34) pg MCHC 31.9 L (32-36) g/dl RDW 16.9 H (11.5-14.5) % Plt Count 330 (150-375) k/mm3 MPV 9.4 (7.4-10.4) fl Immature Gran % (Auto) 0.2 (0-0.5) % Neut % (Auto) 61.2 (45.5-73.1) % Lymph % (Auto) 27.4 (18.3-44.2) % Beadle % (Auto) 8.9 H (2.6-8.5) % Eos % (Auto) 1.3 (0-4.4) % Baso % (Auto) 1.0 (0.2-1.2) % Lymph # (Auto) 2.44 (0.9-3.2) K/mm3 Beadle # (Auto) 0.8 H (0.1-0.6) K/mm3 Eos # (Auto) 0.1 (0-0.3) K/mm3 Baso # (Auto) 0.1 (0.0-0.1) K/mm3 Abs Immat Gran (auto) 0.02 (0.00-0.031) K/mm3 Absolute Neuts (auto) 5.4 (1.3-6.7) K/mm3 Absolute Nucleated RBC 0.000 (0.0-0.012) K/mm3 Nucleated RBC % 0.0 (0.0-0.2) % Sodium 139 (137-145) mmol/L Potassium 3.9 (3.4-5.0) mmol/L Chloride 105 (98-107) mmol/L Carbon Dioxide 26 (22-30) mmol/L Anion Gap 8 (4-12) mmol/L BUN 10 D (7-17) mg/dL Creatinine 0.62 L (0.7-1.0) mg/dL Estim Creat Clear Calc 77 ml/min Estimated GFR > 60 (59 - ) Glucose 104 (65-110) mg/dL Calcium 9.0 (8.4-10.2) mg/dL Magnesium 2.2 (1.6-2.3) mg/dL Total Bilirubin 0.5 (0.2-1.3) mg/dL AST 30 (14-36) U/L ALT 32 (6-35) U/L Alkaline Phosphatase 58 (38-126) U/L Total Protein 7.0 (6.3-8.2) g/dL Albumin 3.9 (3.5-5.1) g/dL Influenza A (RT-PCR) Negative (Negative) Influenza B (RT-PCR) Negative (Negative) RSV (RT-PCR) Negative (Negative) SARS-CoV-2 RNA (RT-PCR) Negative (Negative) Discharge Plan Discharge Clinical Impression: Asthma exacerbation Qualifiers: Asthma severity: unspecified severity Asthma persistence: unspecified Qualified Code(s): J45.901 - Unspecified asthma with (acute) exacerbation Patient Disposition: Home, Self-Care Condition: Improved Instructions: Antibiotic Form, Asthma (ED) Additional Instructions: Please follow-up with your family doctor within the next 3-5 days. Return to the ED if any new or worsening symptoms develop. Use the prescribed Medrol Dosepak as instructed. Patient Language: Angolan Prescriptions: New methylprednisolone [Medrol (Pascual)] 4 mg tablets,dose pack See Rx Instructions .ROUTE .COMPLEX Qty: 21 0RF Rx Instructions: for 6 days methylprednisolone [Medrol (Pascual)] 4 mg tablets,dose pack See Rx Instructions .ROUTE .COMPLEX Qty: 21 0RF Rx Instructions: for 6 days No Action famotidine [Acid Controller] 20 mg tablet 20 mg PO BID Qty: 14 0RF albuterol sulfate 90 mcg/actuation HFA aerosol inhaler 2 puff INHALATION Q4H PRN (Reason: sob/wheezing) albuterol sulfate 2.5 mg /3 mL (0.083 %) solution for nebulization 2.5 mg inhalation Q6H PRN (Reason: sob/wheezing) Spiriva Respimat 1.25 mcg/actuation mist 2 puff INHALATION BID pantoprazole 40 mg tablet,delayed release (DR/EC) 40 mg PO DAILY fluticasone propion-salmeterol [Advair HFA] 230-21 mcg/actuation Hfa Aerosol Inhaler 2 puff inhalation Q12HRT Qty: 12 1RF Follow-up/Referrals: Yeyo Rodriguez MD [Physician] - 3 Days UNKNOWN,DOCTOR [Primary Care Provider] - 3 Days Time of Disposition: 06:12
[2024-10-06] MEDS: methylPREDNISolone SOD SUCC 125 MG VIAL IV PUSH (04:49)
[2024-10-06] MEDS: IPRATROPIUM BR 0.02% INH SOLN 0.5 MG/2.5 ML VIAL 2 MG INHALATION (04:56)
[2024-10-06] MEDS: ALBUTEROL SULFATE NEB 2.5 MG/3 ML INH 10 MG INHALATION (04:56)
[2024-10-06 05:01] VITALS: PULSE 77; RESP 17
[2024-10-06 06:19] VITALS: BP 104/60; PULSE 99; RESP 19; TEMP 36.8; O2SAT 97
== END 2024-10-06 06:20 | disposition home or self-care (01) ==
PROVIDERS: Emergency Provider Emergency Medicine
DX: J45.901 Unspecified asthma with (acute) exacerbation (principal); Z20.822 Contact with and (suspected) exposure to COVID-19; K21.9 Gastro-esophageal reflux disease without esophagitis; R73.03 Prediabetes; Z86.2 Personal history of diseases of the blood and blood-forming organs and certain disorders involving the immune mechanism
CPT/HCPCS: 36415; 71045; 80053; 83735; 85025; 87637; 94640; 96374; 99284; J2919

== ENCOUNTER 2024-11-23 16:44 | Outpatient (CLI) | payer BC, SELFPAY ==
--- NOTE | ~2024-11-23 | CT_ITS ---
CT Scan of the Chest without Contrast: Clinical Indication: Pneumonia COMPARISON: 07/03/2024 Technique: Contiguous sections were acquired throughout the chest without intravenous contrast. Dose reduction technique was used on this scan by utilizing automated exposure control and iterative recon struction technique. The dose-length product (DLP) was 130.04 mGy-cm. Findings: There is no evidence of any significant mediastinal, hilar or axillary lymphadenopathy. The mediastin al soft tissues appear normal. There is no evidence of pleural or pericardial effusion. There is bibasilar patchy consolidation, suggestive of atelectasis versus possibly pneumonia. There a re additional scattered focal ground glass opacities bilaterally, predominantly in the upper lobes. Images through the upper abdomen reveal no abnormalities. Impression: Scattered groundglass opacities predominantly in the upper lobes, suggestive of atypical pneumonia. Bibasilar patchy consolidation suggestive of atelectatic change versus additional pneumonia. Reviewed, dictated and finalized at [facility]. Impression: Scattered groundglass opacities predominantly in the upper lobes, suggestive of atypical pneumonia. Bibasilar patchy consolidation suggestive of atelectatic change versus addition al pneumonia.
--- OUTSIDE RECORDS SUMMARY | 2024-11-23 16:46 | XMS_ITS | Referral Summary ---
Author Organization [facility] [address] [place] [id number] Care Team Providers Care Shoe Stitcher Name Role Phone Lino Watson Primary Care Provider [phone]- [phone] Encounters Date Type Department Care Team Description 09/06/2024 2:15 PM STRIPPING CUTTER AND WINDER Office Visit [facility] [address] [place] [phone] Gilbert Carson MD Mary's thyroiditis (Primary [...] 12/19/2023 Assessment & Plan (09/06/2024 2:39 PM STRIPPING CUTTER AND WINDER): Update TFTS If TSH is normal, will [...] on file Legal Sex Female 3:55 PM STRIPPING CUTTER AND WINDER Gender Identity Not on file Sexual Orientation Not on file Last Filed Vital Signs Vital Sign Reading Time Taken Comments Blood Pressure 100/60 09/06/2024 1:53 PM STRIPPING CUTTER AND WINDER Pulse 66 09/06/2024 1:53 PM STRIPPING CUTTER AND WINDER Temperature 35.6 C (96 F) 05/28/2024 9:49 AM CDT Respiratory Rate 18 09/06/2024 1:53 PM STRIPPING CUTTER AND WINDER Oxygen Saturation 96% 05/28/2024 9:49 AM CDT Inhaled Oxygen Concentration - - Weight 65 kg (143 lb 3.2 oz) 09/06/2024 1:53 PM STRIPPING CUTTER AND WINDER Height 157.5 cm (5' 2 ) 09/06/2024 1:53 PM STRIPPING CUTTER AND WINDER Body Mass Index 26.19 09/06/2024 1:53 PM STRIPPING CUTTER AND WINDER Plan of Treatment Not on file Insurance [employer] OOS Member Subscriber Plan / Payer (Ef fective 2019-Present) Name:Meaghan Torres Relation to Subscriber:Spouse Name:JUSTIN PEARSON Date of :1968 (Home) Address: [address] [place] [id number] Payer ID:[id number] (NAIC) Type:BC ALLIANCE Address: [address] [place] [id number] Care Teams Shoe Stitcher Relationship Specialty Start Date End Date Lino Watson PA [address] [place] [address] PCP - General Physician Timber Grader 11/01/23
--- OUTSIDE RECORDS SUMMARY | 2024-11-23 16:46 | XMS_ITS | Clinical Summary ---
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): Update TFTS If TSH is normal, [...] Department Care Team Description 09/06/2024 2:15 PM TRACK SURFACING MACHINE OPERATOR [facility] of [address] [address] Gilbert Carson MD Mary's thyroiditis [...] on file Legal Sex Female 3:55 PM TRACK SURFACING MACHINE OPERATOR Gender Identity Not on file Sexual Orientation Not on file Obstetrics History Last Filed Vital Signs Vital Sign Reading Time Taken Comments Blood Pressure 100/60 09/06/2024 1:53 PM TRACK SURFACING MACHINE OPERATOR Pulse 66 09/06/2024 1:53 PM TRACK SURFACING MACHINE OPERATOR Temperature 35.6 C (96 F) 05/28/2024 9:49 AM CDT Respiratory Rate 18 09/06/2024 1:53 PM TRACK SURFACING MACHINE OPERATOR Oxygen Saturation 96% 05/28/2024 9:49 AM CDT Inhaled Oxygen Concentration - - Weight 65 kg (143 lb 3.2 oz) 09/06/2024 1:53 PM TRACK SURFACING MACHINE OPERATOR Height 157.5 cm (5' 2 ) 09/06/2024 1:53 PM TRACK SURFACING MACHINE OPERATOR Body Mass Index 26.19 09/06/2024 1:53 PM TRACK SURFACING MACHINE OPERATOR Plan of Treatment Health Maintenance Due Date Last Done Comments Breast Cancer Screening-Mammogram 1975 Cervical Cancer Screening 1975 Colon Cancer Screening-Colonoscopy 1975 Depression Screening 1975 Hepatitis C Screening 1975 DTaP/Tdap/Td Vaccine (1 - Tdap) 1986 Hepatitis B Screening 1993 Regular Well Visit/Exam 18-64 1993 Influenza Vaccine (Season Ended) 2025 Pneumococcal vaccine <65 Completed 04/10/2024 Insurance [employer] OOS Care Teams Gerentological Physiotherapist Relationship Specialty Start Date End Date Lino Watson PA [address] [place] [address] PCP - General Physician Waterworks Operator 11/01/23
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
--- OUTSIDE RECORDS SUMMARY | 2024-11-23 16:47 | XMS_ITS | Data Portability ---
Author Organization [place] [facility], Main Office Address [address] [place] [address] Care Team Providers Care Change Management Name Role Phone SAVITA MARSH Referring Provider Assessment No assessment recorded. Plan of Treatment Reminders Order Date Submit Date Provider Last Modified By Organization Details Last Modified Time Details Appointments None recorded. Lab None recorded. Referral None recorded. Procedures colonoscopy procedure (PROC) [address] ([facility]), [address] [place], [address], 3 08:05:09 upper endoscopy procedure (EGD) (PROC) [address] ([facility]), [address] [place], [address], 3 08:05:08 Surgeries None recorded. Imaging None recorded. Medication Orders Golytely 236 gram-22.74 gram-6.74 gram-5.86 gram oral solution 2022 023 [facility], [address] [place], [place], [id number], 3 13:21:06 Patient TargetsNo targets recorded. Patient Instructions Encounter Date Encounter Id Patient Instructions Last Modified By Organization Details Last Modified Time 11/17/2022 [id number] GOLYTELY [email or web address] Not available 12/2022 13:07:09 PT WITH GRED AND HX/O H. PYLORI . RECOMMEND AN EGD . PT NEEDS A SCREENING COLON . R/O POLYP . RECOMMEND A COLONOSOPY . Risks benefits and complications were explained to the pt. ( BLEEDING PERFORATION , INFECTION , ). PT VERBALIZES UNDERSTANDING AND IS WILLING TO PROCEDE . [email or web address] Not available 11/17/2022 13:08:01 Reason for Referral None Reported. Problems Name Problem SNOMED Code Status Onset Date Resolution Date Notes Provider Name and Address Organization Details Recorded Time Left upper quadrant pain 228094933 Active Alyssa Corrigan LPN null, [place] [facility] 3 12:33:22 Asthma 258257163 Active Alyssa Corrigan LPN null, [place] [facility] 3 12:33:53 Chronic obstructiv e pulmonary disease 16431083 Active Alyssa Corrigan LPN null, [place] [facility] 3 12:34:01 History of Helicobact er pylori infection 7084412825064 9108 Active Alyssa Corrigan LPN null, [place] [facility] 3 12:34:30 Constipati on 96045718 Active Alyssa Corrigan LPN null, [place] [facility] 3 12:42:29 Anemia 696490803 Active Alyssa Corrigan LPN null, [place] [facility] 3 11:56:55 Gastroesop hageal reflux disease without esophagiti s 092469848 Active 2022 Sonia Coronado MD [address] [place] [address], [phone] , [facility] 13:05:52 Problem Notes None recorded. Medical Equipment None Reported. Allergies Allergen ID Allergen Name Allergen Category Reaction Reaction Severity Criticality Documentation Date Start Date Code Code System Note Provider Name and Address Organization Details Recorded Time 18847 Product containin g penicilli n (product) medicatio n Not available Not available Not available 11/09/2022 32543 8001 SNOMED Alyssa dyer LPN null, [place] [facility] 3 12:36:14 Medications Name Sig Start Date [...] propionate 50 mcg/actuati on nasal spray,suspe nsion Oolitic 1 spray every day by intranasa l [...] Not Available Not Available No t Available Butner Oil 1,000 mg capsule Take 1 capsule [...] Address Organization Details Last Updated DateTime 3 76211.8 6 g 25.7 kg/m2 162.56 cm 97.6 [degF] 63 /min 97 % 97 % Alyssa dyer LPN [facility] 3 11:54:53 Social History Question Answer Notes LastModified by Organizat ion Details LastModified Time Tobacco Smoking Status Never Smoker Alyssa Corrigan LPN null, [facility] 11/09/2022 12:36:42 Do You Have An Advance Directive? No linda Information not available 11/09/2022 What Is Your Level Of Alcohol Consumption? None [email or web address] Information not available 11/09/2022 What Is Your Level Of Caffeine Consumption? Moderate [email or web address] Information not available 11/17/2022 What Type Of Diet Are You Following? REGULAR [email or web address] Information not available 11/17/2022 What Is The Highest Grade Or Level Of School You Have Completed Or The Highest Degree You Have Received? TG17209-1 [email or web address] Information not available 11/09/2022 What Was The Date Of Your Most Recent Tobacco Screening? 11/01/2022 [email or web address] Information not available 11/09/2022 Do You Use Your Seat Belt Or Car Seat Routinely? Yes [email or web address] Information not available 11/09/2022 Are You Sexually Active? Yes [email or web address] Information not available 11/09/2022 Do You Have Smoke And Carbon Monoxide Detectors In Your Home? Yes [email or web address] Information not available 11/09/2022 Are You Passively Exposed To Smoke? Yes [email or web address] Information no t available 11/09/2022 Do You Use Any Illicit Or Recreational Drugs? No [email or web address] Information not available 11/09/2022 Has Tobacco Cessation Counseling Been Provided? No [email or web address] Information not available 11/09/2022 Do You Or Have You Ever Used Any Other Forms Of Tobacco Or Nicotine? No [email or web address] Information not available 11/09/2022 Sex: Unknown Functional Status Question Answer Note LastModified by Organizat ion Details LastModified Time What is your exercise level? Occasional [email or web address] Information not available 11/17/2022 Mental Status None recorded. Family History Relationship Description Onset Age of this Age Resolved Age Notes LastModified by Organization Details LastModified Time Father No current problems or disability [email or web address] Not available 0 11/09/2022 12:36:02 Mother No current problems or disability [email or web address] Not available 0 11/09/2022 12:36:02 Medical History No medical history recorded. Gynecological HistoryNo gynecological history recorded. Obstetrics History GPAL:G 0 P 0 0 0 0 Past Encounters Encounter ID Performer Location Encounter Start Date Encounter Closed Date Diagnosis/Indication Diagnosis SNOMED-CT Code Diagnosis ICD10 Code Diagnosis Note [id number] Sonia Coronado MD [facility] General Surgery [address] [phone] 11/17/2022 11:39:28 12/10/2022 11:20:57 Gastroesophageal reflux disease without esophagitis 308345662 K21.9 Left upper quadrant pain 924192503 R10.12 Screening for malignant neoplasm of colon 888480402 Z12.11 Health Concerns Section Related Observation LastModified by Organization Detai ls LastModified Time None Recorded Concern Status LastModified by Organization Details LastModified Time None Recorded Advance Directives Directive N: Payers Encounter Date Sequence Insurance Name Policy Number Policy Armstrong Covered Member ID Armstrong Member ID Guarantor Name 11/17/2022 1 [employer] [id number] 01 Drew Pearson [id number] Meaghan Sarmiento Notes Date Note Type Note Provider Name and Address Organization Details Recorded Time 11/17/2022 text/html DESEAN WAS SE EN IN THE OFFICE TODAY FOR EVALUATION . PT IS C/O LUQ PAIN . SHE IS S/P [facility] TREATMENT . UBT DOCUMENTED ERRADICATION . SHE REPORTS WT LOSS 20 + LBS. SHE DENIES COLON SCREENING. SHE IS FROM [place] . SHE DENIES BLEEDING . N/V. Sonia Coronado MD [address] [place] [address], [place] [address], [place], [address], [place] [facility] 11/17/2022 13:09:01 OBGyn Episode No OBEpisode recorded.
--- OUTSIDE RECORDS SUMMARY | 2024-11-23 16:48 | XMS_ITS | Clinical Summary ---
Author Organization [facility] Care Team Providers Care Miscellaneous Machine Operator Name Role Phone Unavailable Primary Care Provider Unavailabl e Social History Tobacco Use Types Packs/Day Years Used Date Smoking Tobacco: Never Assessed Comments Unknown Sex and Gender Information Value Date Recorded Sex Assigned at Not on file Legal Sex Female 12:43 PM [employer]UE[employer] Gender Identity Not on file Sexual Orientation [...]
--- OUTSIDE RECORDS SUMMARY | 2024-11-23 16:48 | XMS_ITS | Clinical Summary ---
Author Organization [facility] Address [address] [place] [address] Care Team Providers Care Business Attorney Name Role Phone Connie Miller PA-C Primary Care Provider + Source Comments [facility]non-owned Affiliates and Associated Physician Practices is amultiple site organization consisting of ambulatory clinics and hospital sitesin [place], [place], [place] and [place]. This disclosure is being madepursuant to the Care Everywhere program and may not contain all information available regarding this patient. Last updated 18.[facility] Allergies Active Allergy Reactions Criticality Noted Date Comments Penicillins Urticaria Medium 08/19/2022 Medications * Be aware that medications may not be up to date on this document. Alwaysverify current medications with the patient. Medication Sig Dispensed Refills Start Date End Date Status Budesonide-Formoterol Fumarate (SYMBICORT IN) 2 Sprays every 12 hours Active Ipratropium-Albuterol (COMBIVENT IN) 2 sprays as needed Ac tive Umeclidinium Pfeifer (INCRUSE ELLIPTA IN) Inhale by mouth once daily Active montelukast (Singulair) 10 MG tablet Take 1 (one) tablet by mouth at bedtime Active Ferrous Sulfate (IRON PO) Take by mouth once daily Active Multiple Vitamin (MULTIVITAMIN ADULT PO) Take by mouth once daily Active cetirizine (ZyrTEC) 10 MG tablet As needed Active mometasone (Elocon) 0.1 % ointmentIndications:Ot her specified dermatitis,Other pruritus,Macular cutaneous amyloidosis (HCC) Apply to hands, feet, arms and back twice a day as needed for rash. 30 days supply. Label in moroccan please 45 g 10/03/2024 Active Active Problems Problem Noted Date Diagnosed [...] 10/03/2024 Refill [facility] [address] [place] [phone] Katalina Tai MD MEDICATION REFILL 10/01/2024 Refill [facility] [address] [place] [phone] Katalina Tai MD MEDICATION REFILL 10/01/2024 Telephone [facility] [address] [place] [phone] Katalina Tai MD Refill Request from Last [...] Description 01/18/2025 1:30 PM CDT Office Visit [facility] [address] [place] [phone] Katalina Tai MD [address] [place] [address] [address] [place] [address] Health Maintenance Due Date Last Done Comments [...] - 19+ 3-dose series) 1994 COVID-19 VACCINE (1 - 2023-2 5 season) 2024 DEPRESSION SCREENING 08/15/2024 INFLUENZA VACCINE (Season Ended) 2025 ZOSTER VACCINE (1 of 2) 2025 HIB VACCINE Aged Out No longer eligi ble based on patient's age to complete this topic HPV VACCINE Aged Out No longer eligi ble based on patient's age to complete this topic MENINGOCOCCAL (Group B) VACC INE SHARED DECISION-MAKING Aged Out No longer eligibl e based on patient's age to complete this topic MENINGOCOCCAL GROUPS A/C/Y/W VACCINE Aged Out No longer eligible b ased on patient's age to complete this topic Care Teams Business Attorney Relationship Specialty Start Date End Date Connie Miller PA-C [address] [place] [address] PCP - General 06/11/22
--- OUTSIDE RECORDS SUMMARY | 2024-11-23 16:48 | XMS_ITS | Data Portability ---
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 Address Organization Details Last Updated DateTime 5 158.75 cm 26.9 kg/m2 71969.4 2 g 73 /min 96.9 [degF] 105 mm[Hg] 65 mm[Hg] Elizabeth Shannon [facility] 5 10:36:38 Date Recorded Body height Body mass index (BMI) Body weight Body temperature Oxygen saturation Oxygen saturation in Arterial blood by Pulse oximetry Heart rate Systolic blood pressure Diastolic blood pressure Provider Name and Address Organization Details Last Updated DateTime 5 158.75 cm 26.5 kg/m2 19051.0 8 g 98.1 [degF] 93 % 93 % 90 /min 118 mm[Hg] 64 mm[Hg] Amanda Santos MA [facility] 5 12:49:53 Date Recorded Body height Body mass index (BMI) Body weight Body temperature Oxygen saturation Oxygen saturation in Arterial blood by Pulse oximetry Heart rate Systolic blood pressure Diastolic blood pressure Provider Name and Address Organization Details Last Updated DateTime 5 158.75 cm 26.2 kg/m2 56192.0 5 g 97.6 [degF] 91 % 91 % 92 /min 122 mm[Hg] 72 mm[Hg] Amanda Santos MA [facility] 5 11:34:11 Social History Question Answer Notes LastModified by Organizat ion Details LastModified Time Tobacco Smoking Status Never Smoker Bessy Ocampo MA [facility], [place] - [facility] 06/10/2016 15:39:40 Do You Have An Advance [...] Do You Have A Medical Power Of Sales Representative [employer]? No [email or web address] Information not available 12/07/2021 What Was The Date Of Your Most Recent Tobacco Screening? 11/19/2024 [email or web address] Information not available 11/19/2024 How Many Children Do You Have? 4 [...] What Date Was Tobacco Cessation Counseling Provided? 10/15/2024 [email or web address] Information not available 10/15/2024 Do You Or Have You Ever Used [...] Eating Disorder N Anemia N Heart Attack (MT) N Anxiety Disorder N Diabetes N Muscle, Joint, or Bone Problems N Arthritis N Seizures/Epilepsy N Acid Reflux (GERD) N Cancer N Stroke N Asthma N Allergies N ADHD N Substance Abuse N High Cholesterol N Hepatitis N Liver Disease N Schizophrenia N Headaches N Heart Failure N Osteoporosis N Gynecological History Statement/Question Response Date of Last Mammogram Flow Moderate Date of LMP 11/13/2024 Duration of Flow (days) 7 Current Control [...] Details Recorded Time Pneumococcal conjugate PCV20, polysaccharide EDJ675 conjugate, adjuvant, PF 4 completed Amanda Santos MA [place], [place] - [facility] 04/10/2024 12:56:06 Past Encounters Encounter ID Performer Location Encounter Start Date Encounter Closed Date Diagnosis/Indication Diagnosis SNOMED-CT Code Diagnosis ICD10 Code Diagnosis Note [id number] [facility] ([facility]ult [facility]) [address] [place] [address]77-[address] 0 06/10/2016 15:19:13 06/10/2016 18:22:10 Body mass index 25-29 - overweight 070608026 Z68.29 Advised 30 minutes of exercise 5 days/weekA dvised not to drink her calories Gynecologi c examination 32403193 Z01.411 Breast tenderness 128206 07 N64.4 Patient has mammogram appointmen t tomorrow at 1:40PM Inflammati on of cervix 02813131 N72 Depressive disorder 3548 9007 F33.1 Advised to schedule an appointmen t to establish for PCP and then we can address this [id number] [facility] ([facility]) [address] [place] [address] 98965-382 0 06/24/2016 12:00:19 06/24/2016 13:44:34 Body mass index 25-29 - overweight 820289905 Z68.29 Advised 30 minutes of exercise 5 days/weekA dvised not to drink her calories Depressive disorder 3548 9007 F33.1 Will begin venlafaxin e 50mgDiscus sed doing calming exercise and finding some time to herselfAny SI/HI go directly to the ERRTC 6 weeks for f/u Atopic dermatitis 814307 01 L20.9 Anxiety 13552660 F41.9 Adult heal th examination 264440064 Z00.01 40YO female here to establish care. [id number] [facility] ([facility]) [address] [place] [address] 19251-544 0 08/06/2016 10:19:12 08/06/2016 16:38:21 Thyroid stimulating hormone level above reference range 937840378 R79.89 Will repeat today Blood gluc ose outside reference range 801337212 R73.09 a1c: 6.2LDL: 118 Lost 2lbsAdvise d to stay away from sugary drinks, tortillas, breads, sweets, potatoes, rice Body mass index 25-29 - overweight 834946923 Z68.29 Advised 30 minutes of exercise 5 days/weekA dvised not to drink her calories Depressive disorder 3548 9007 F33.1 Will begin venlafaxin e 50mg and to take this BID and Vistaril PRNDiscuss ed doing calming exercise and finding some time to herselfAny SI/HI go directly to the ERContact office in 2-3 weeks to let us know how medication is working [id number] [facility] ([facility]) [address] [place] [address] [phone] 0 09/16/2016 10:52:40 09/16/2016 15:14:33 Depressive disorder 44759294 F33.1 Will begin buproprion 100mg QD x 1 week and then BID and to take this BID and Vistaril PRNDiscuss ed doing calming exercise and finding some time to herselfAny SI/HI go directly to the ERContact office in 2-3 weeks to let us know how medication is working and have a message sent to al [id number] [facility] ([facility]ult [facility]) [address] [place] [address] [phone] 0 01/05/2017 13:52:50 01/05/2017 14:49:50 Vaginal discharge 254606874 N89.8 WIll check Nuswab Candidiasis of vagina 72 860052 B37.3 Long discussion concerning the angry red appearance of her genital area and that it likely points to a vaginal yeast infection - advised no cortisone cream to area - use nystatin BID x 1 weekAdvise d to keep area clean and dry other than with creamTake fluconazol e pill as well Atopic dermatitis 685556 01 L20.9 Will refill triamcinol one cream - had an allergic rx to something outside and has worked in the past Depressive disorder 3548 9007 F33.1 Wellbutrin working work - will continue medication [id number] [facility] ([facility]) [address] [place] [address] 02/16/2017 14:08:23 02/17/2017 12:29:53 Vaginal pain 36214095 R10.2 Will check NuswabUA negativeWI ll treat for yeast infection at this time and send patient results of swab via patient portal and then she states she will find someone in [place] for treatment if necessary after receiving swab results Advised to purchase lubricant for sex to help with pain Candidiasis of vagina 72 338941 B37.3 Will retreat at this tme [id number] [facility] ([facility]) [address] [place] [address] 04/13/2017 09:28:11 04/13/2017 17:55:27 Tonsillitis 20543785 J03.90 Sinusitis 69053061 J32.9 sx's> 2 weeksAdvis ed to drink plenty of waterAlter marysol ibuprofen and tylenol for painRestOT C cough syrup PRN Allergic rhinitis 416928 04 J30.9 [id number] [facility] ([facility]) [address] [place] [address] 06/02/2017 09:32:01 06/02/2017 11:48:38 Acute bronchitis 99902242 J20.9 wheezing gone after albuterol tx'sWIll initiate medrol dose pack and refill inhalerAdv ised that if her SOB or wheezing worsens, she develops fever, chills, n/v she needs to go directly to the ER - advised [facility] ER d/t insurance issues Acute otitis media 52607 03 H66.92 left earwill treat with abx at this time - PCN allergy Dyspnea 607076771 R06.00 wheezing gone after albuterol txs Acute asthma 525408332 J 45.901 wheezing gone after albuterol tx's WIll initiate medrol dose pack and refill inhaler Advised that if her SOB or wheezing worsens, she develops fever, chills, n/v she needs to go directly to the ER - advised [facility] ER d/t insurance issues [id number] [facility] ([facility]) [address] [place] [address] 89035-643 0 07/28/2017 10:21:12 07/28/2017 12:22:32 Acute bronchitis 53834523 J20.9 WIll initiate medrol dose pack and refill inhalerAdv ised that if her SOB or wheezing worsens, she develops fever, chills, n/v she needs to go directly to the ER - advised [facility] d/t insurance issuesAdvi sed to complete abx as prescribed for pneumonia Chronic bronchitis 35283 004 J42 D/t 3 bouts of pneumonia over the last 3 months, will refer to pulm In addition, will initiate Advair 1 puff BID as maintainan ce RTC if no improvemen t [facility] ([facility]) [address] [place] [address] 91378[address]887 0 10/05/2017 10:33:10 10/05/2017 12:00:26 Gastroenteritis 49686428 K52.9 Advised bland BRAT dietNo spicy foodsPlent y of waterVirus runs its own course and she is feeling betterNo need for further interventi on at this time Chronic bronchitis 37335 004 J42 c/w Advair BID - ProAir PRNf/u with pulmwell controlled at this time Contact clinic if you use ProAir more than 3-4 times week, wake up at night coughing, begin to have SOB [id number] [facility] ([facility]) [address] [place] [address] 85008-880 0 11/23/2017 10:58:31 11/23/2017 13:37:01 Chronic bronchitis 13670146 J42 c/w Advair BID - ProAir PRNf/u with pulmwell controlled at this time Contact clinic if you use ProAir more than 3-4 times week, wake up at night coughing, begin to have SOB Allergic disposition 609 001639 Z91.09 Body mass index 25-29 - overweight 670365757 Z68.29 Advised 30 minutes of exercise 5 days/weekA dvised not to drink her calories Blood gluc ose outside reference range 077990893 R73.09 last a1c: 6.2LDL: 118 Lost 2lbsAdvise d to stay away from sugary drinks, tortillas, breads, sweets, potatoes, rice Eczema 49812502 L30.9 left antecubitu s: Apply plenty of [...] weeks. The parents verbalized understand ing. Asthma 878685123 J45.90 9 Refilled Advair for 3 months. Instructed family if albuterol usage increases beyond 2 times per week for 2 weeks, it may been a sign of worsening control. Call office or go to ER for worsening cough, wheeze or work of breathing. Follow up in office in 3 months - family verbalized understand ing. [id number] [facility] ([facility]) [address] [place] [address] 62797-314 0 12/13/2017 10:24:46 12/13/2017 11:42:29 Bronchitis 28115620 J40 Improvingc omplete all medication s as prescribed c/w inhalers as prescribed establish with pulm Body mass index 25-29 - overweight 322337518 Z68.29 Advised 30 minutes of exercise 5 days/weekA dvised not to drink her calories Asthma 789447739 J45.90 9 Patient to f/u with pulm [id number] MD Leigh Lamar (Adult Med) [address] [place] [address] 0 01/06/2018 16:22:32 01/10/2018 11:40:59 Asthmatic bronchitis 669910820 J45.909 F/U with her PCP PAC Purvi Acevedo, may go t ER any time for any concern she understood and agreed. Has no health insurance. [id number] MD Leigh Lamar (Adult Med) [address] [place] [address] 18328-860 0 01/20/2018 15:01:53 01/23/2018 11:48:56 Asthmatic bronchitis 203611329 J45.909 F/U with her PCP PAC Ms. Acevedo, may go t ER any time for any concern she understood and agreed. Has no health insurance. Go to Er any time for any concern, they understood and agreed,. Chronic bronchitis 74321 004 J42 [id number] Moises Maria MD [facility] [address] [address] 04/03/2018 10:45:58 04/05/2018 12:21:59 Moderate persistent asthma 211999941 J45.40 Patient to use Advair 250/50 on regular basis. Change theophylli ne to 100 mg BID. Continue Albuterol on PRN and quit Prednisone . She was advised about the harms of taking prednisone on regular basis. Will et PFTs, CXR, CBC, IgE Allergic rhinitis 483500 04 J30.9 Patient will be continued on Zyrtec Chronic cough 02763012 R 05 multifacto rial Dyspnea on exertion 6084 5006 R06.09 Secondary to asthma. Sleep disorder 47092286 G47.9 I will check overnight O2 study [id number] MD [facility] (BANKING ASSISTANT) [address] [place] [address] 61984-578 0 04/24/2018 11:15:03 04/24/2018 12:39:20 Pain of breast 31237420 N64.4 Counseled about it and possible causes.Adv ised to decrease caffeine. Pain in pelvis 84209716 R10.2 Counseled about possible causes. Patient refused any testing, pelvic exam because she does not have insurance. She say she will get clearance from [facility] for PAP smear. She say she will let me know when decided. [id number] SHARMILA PIZANO, SALES PLANNING ANALYST-C Leigh SHELDON (Adult Med) [address] [place] [address] 08309[address]380 0 04/26/2018 13:32:10 04/27/2018 10:49:32 Allergic disposition 635754952 Z91.09 lungs clear-like ly allergies continue zyrtec daily restart flonase nasal spray f/u as needed Asthmatic bronchitis 405 704985 J45.909 continue advair and proair as needed f/u prn [id number] Moises Maria MD [facility] [address] [place] [address] 05/18/2018 10:11:41 05/19/2018 14:37:47 Moderate persistent asthma 325033076 J45.40 Patient to use Advair Diskus 250/50 on regular basis. Change theophylli ne to 100 mg BID. Continue Albuterol on PRN and quit Prednisone . She was advised about the harms of taking prednisone on regular basis. Will get PFTs, CXR, CBC, IgE Acute uppe r respiratory infection 02143188 J06.9 Viral, symptomati c treament Chronic cough 71018468 R 05 multifacto rial Sleep disorder 83291004 G47.9 nocturnal hypoxemia, EDS, EDF and sleep disturbanc es, I will check split sleep study on the patient Dyspnea on exertion 6084 5006 R06.09 Secondary to asthma. Allergic rhinitis 968429 04 J30.9 Patient will be continued on Zyrtec, I will add Flonase [id number] Amrik Steinberg MD [facility] [address] [place] [address] 05/25/2018 12:28:54 05/30/2018 14:09:33 Fibrocystic disease of breast 36728504 N60.19 Right uppe r quadrant pain 398039994 R10.11 [id number] Lala Acevedo PA-C [facility] (Adult Med) [address] [place] [address] 08696-006 0 06/29/2018 09:04:11 06/29/2018 12:02:52 Asthmatic bronchitis 885839707 J45.909 Patient has uncontroll ed Asthma. Using rescue inhaler 3+ times/day. Patient offered pneumonia and FLU shot but denied them at this time. Patient to f/u with pulm with any problems as they will be managing her asthma. Refilled Advair and started Singulair for the patient for 3 months.Boyd l office or go to ER for worsening cough, wheeze or work of breathing. Remind patient that now she is following with pulmonolog y, so I would like her to be contacting Dr. Maria for all of her asthma concerns. Allergic disposition 609 353264 Z91.09 Allergic rhinitis 917816 04 J30.9 continue with medication . [id number] [facility] ([facility]) [address] [place] [address] 90722-352 0 07/17/2018 09:02:27 07/18/2018 10:06:11 Acute otitis media 5713159 H66.92 Patient presents today to f/u after [...] hours to control painReturn if symptoms worsen [id number] MD Leigh Flores (Adult Med) [address] [place] [address] 75853-603 0 11/29/2018 15:55:36 11/30/2018 09:17:21 Asthma 158910059 J45.909 increase advair Depressive disorder 3548 9007 F32.9 Abdominal bloating 28550 9008 R14.0 Muscle pain 07766175 M79 .10 Abnormal weight gain 161 875670 R63.5 Allergic rhinitis 740906 04 J30.9 [id number] MD Leigh Flores (Adult Med) [address] [place] [address] 01725-716 0 01/10/2019 10:43:22 01/11/2019 11:43:07 Iron deficiency anemia 39288888 D50.9 Allergic rhinitis 309018 04 J30.9 Fatigue 31103579 R53.83 Asthma 043461581 J45.90 9 DcAdvair .Trial Symbicort Vitamin D deficiency 347 61263 E55.9 Constipation 29469390 K5 9.00 Abdominal bloating 05751 9008 R14.0 [id number] MD Leigh Flores (Adult Med) [address] [place] [address] 37673-632 0 02/20/2019 17:06:02 02/21/2019 09:50:08 Asthma 203433621 J45.909 STart Medrol dose pascual then restart Advair in three days Allergic rhinitis 446481 04 J30.9 Gastroesop hageal reflux disease 484066306 K21.9 [id number] [facility] ([facility]ult [facility]) [address] [place] [address] 09634-003 0 04/20/2019 09:48:54 04/23/2019 11:59:40 Acute otitis media 2386351 H66.93 Bilateral TM erythema and bulging present Allergic to penicillin - Will start patient on azithromyc in Gastroesop hageal reflux disease 602134605 K21.9 Will refill omeprazole for patient [id number] MD Leigh Flores (Adult Med) [address] [place] [address] 01854-848 0 05/17/2019 11:46:02 05/18/2019 09:46:52 Asthma 701192857 J45.909 Cont. meds she is using now. F/U with lung specialist [id number] [facility] (Adult Med) [address] [place] [address] 70798-838 0 06/07/2019 11:06:45 06/08/2019 09:17:50 Acute otitis media 0724693 H66.93 Complainin g of right ear pain, cough, and nasal congestion x 1 weekBilate ral TM erythema and bulging present Allergic to penicillin - Will start patient on doxycyclin e x 7 days- Provided her with informatio n regarding supportive care Tendinitis of left rotator cuff [id number] 1402971 M67.814 Complainin g of left shoulder pain [...] 3x/day Screening for malignant neoplasm of breast 763997515 Z12.39 5 cm cyst of the left breast visualized on prior mammograms Last mammogram was 04/28/18- Will put in mammogram order [id number] Moises Maria MD [facility] [address] [place] [address] 06/21/2019 11:23:44 06/22/2019 08:46:01 Moderate persistent asthma 206384822 J45.40 Patient to continue (trelegy). Continue Albuterol on PRN and quit Prednisone . She was advised about the harms of taking prednisone on regular basis. She did not receive flu shot Chronic cough 32099952 R 05 multifacto rial Sleep disorder 63798425 G47.9 nocturnal hypoxemia, EDS, EDF and sleep disturbanc es, sleep study showed no ANGELA Dyspnea on exertion 6084 5006 R06.09 Secondary to asthma. Allergic rhinitis 083308 04 J30.9 Patient will be continued on Zyrtec, Patient to continue Flonase Tolerant non-smoker 8773 9003 Z87.891 lifelong but she has second hand smoking exposure Solitary n odule of lung 863509431 R91.1 was seen on outside chest Xray in [place], Xray is not available. I will repeat CXR on the patient [id number] [facility] (Adult Med) [facility] [place] [address] 08/16/2019 09:50:20 08/17/2019 09:36:19 Asthma 538575221 J45.[address] Maria for pulmonary care.Curre ntly using an inhaler from [place] because it is much cheaper and it is working well.- continue to follow with Dr. Maria Impaired g lucose tolerance 7752878 R73.03 Hx of abnormal HgbA1c- Will check today Anemia 348724395 D64.9 Hx of anemia- Will check today Candidiasis of vagina 72 790366 B37.3 Complainin g of external vaginal irritation and itching.Ur ine dipstick in office showed trace LE and moderate amount of blood, patient on menses- Will start nystatin cream and diflucan Adult [facility] th examination 399692594 Z00.00 - Will check labs Gastroesop hageal reflux disease 962091750 K21.9 Complainin g of epigastric pain and burning sensation radiating up her chest x 1-2 months- Will restart omeprazole 20 mg Constipation 61990135 K5 9.00 Admits to constipati on and bloatingHa s 2-3 BMs per day, but admits to straining and only being able to go small amounts.- Provided her with informatio n regarding constipati on- Advised her to drink 8-10 glasses of water per day- Take metamucil daily- Provided her with Miralax supplement s, take when no BM in 2-3 days Atypical chest pain 1025 83405 R07.89 Complainin g of my heart is fatigued . Admits to episodes of feeling an ache in the left aspect of her chest and SOB 3x/week. Symptoms usually occur while being active and will last x 5-10 minutes at a time.No prior cardiac history.- Will order EKG Uterine leiomyoma 708337 05 D25.9 Hx of uterine fibroids. Was told in [place] but has never had imaging, patient is requesting more informatio n.- Will order [place] [id number] [facility] (BANKING ASSISTANT) [address] [place] [address] 764[address] 09/14/2019 15:47:30 09/14/2019 16:44:12 Upper respiratory infection 85935028 J06.9 Likely viral URI.-Get plenty of rest-rescu e inhaler as needed to wheezing-i buprofen as needed to headaches, body aches, and fevers-cet irizine QD-increas e fluid intake-OTC cough syrup prn [id number] [facility] (Adult Med) [address] [place] [address]61[address] 0 10/04/2019 10:36:09 10/04/2019 13:27:56 Subcutaneous nodule 29074586 R22.9 Complainin g of knot on her [...] US of nodule to better assess Sciatica 30397883 M54.32 Complainin g of lower back pain with left leg numbness, tingling, and weakness x 2 weeksOn PE: left SI joint TTP - will start steroids to decrease inflammati on- take muscle relaxer at bedtime- complete stretches and exercies at home, if no improvemen t, will put in order for PT [id number] [facility] (Adult Med) [facility] [place] [address] 10/24/2019 09:54:00 10/25/2019 12:22:47 Subcutaneous nodule 41611753 R22.9 Complainin g of knot on her [...] MRI at f/u Iron defic iency anemia 61502070 D50.9 Labs from 08/31/19 indicative of SAIDA. Ferritin 5, iron level 20, iron saturation 6, Hgb 10.5. Iron supplement s given, pt has been on these for over a month. - Provided pt lab handouts from previous results, pt states will get labs tested today. Acute otitis media 75158 03 H66.93 Complainin g of bilateral ear pain which has persisted for 3 years.Bila teral TM erythema and bulging present Allergic to penicillin - Will start patient on doxycyclin e x 5 days and antibacter ial ear drops for the issue. Cyst of right ovary 1223 424119 8073213 N83.201 Discussed results of pelvic US from 10/17/19 including numerous intermural fibroids and a small cyst to the right ovary.- Discussed radiologis t suggestion to repeat pelvic US in 6-10 weeks when off menstrual period. Pt is understand ing of this and states will repeat this US in late November when off menstrual period. Body mass index 25-29 - overweight 595584297 Z68.29 BMI 29- Advised decreased portion sizes, good food choices, limited eating out or fast food and eliminate soda and juice from diet. Advised physical activity daily and offered encouragem ent to continue with positive changes made so far. [id number] [facility] (Adult Med) [address] [place] [address] 01/02/2020 11:56:10 01/03/2020 10:21:05 Acute otitis media 2924020 H66.93 Complainin g of bilateral ear pain [...] ear infections Cyst of right ovary 1223 199392 9271695 N83.201 Discussed results of pelvic US from 10/17/19 including numerous intermural fibroids and a small cyst to the right ovary.- Discussed radiologis t suggestion to repeat pelvic US in 6-10 weeks when off menstrual period. Pt is due for repeat US now, encouraged her to call and get US scheduled. Body mass index 25-29 - overweight 936315063 Z68.29 BMI 29- Advised decreased portion sizes, good food choices, limited eating out or fast food and eliminate soda and juice from diet. Advised physical activity daily and offered encouragem ent to continue with positive changes made so far. Cyst of breast 014617254 N60.09 Notes to have continued intermitte nt [...] visit with me in the office Eczema 04752627 L30.9 Hx of eczema on her arms [...] follow all instructio ns on the label. [id number] [facility] (Adult Med) [address] [place] [address]681[address] 0 01/31/2020 10:41:24 02/01/2020 14:34:07 Iron deficiency anemia 14734159 D50.9 08/31/19: Hgb 10.5, Iron and ferritin both low10/24/19 : Hgb 10.8, iron and ferritin the sameRan out of iron pills and never returned for repeat testing - provided her with labs to repeat iron testing Mass of ovary [id number] R19.09 US 10/17/2019 showed numerous intermural fibroids and small hypoechoic structure on R ovary, it was recommende d that she repeats US in 6-10 weeksPatie nt never completed repeat US- provided with order today in the office, encouraged her to call and get appointmen t scheduled Contact dermatitis [phone] L25.9 Complainin g of rash on [...] help sleep if needed Acute otitis media 91250 03 H66.93 Complainin g ofl eft ear [...] appointmen t scheduled Increased frequency of urination 130216547 R35.0 Complainin g of left flank pain x 1 day. Admits to urinary hesitancy and urinary frequency x 2-3 days. She has not tried anything for this at home. Denies dysuria and hematuria. Urine dipstick in the office showed: moderate LE and trace blood- will treat for UTI with macrobid- will send urine off for culture Bursitis o f ankle region 860431953 M76.899 Complainin g of swelling of left anterior ankle x 2-3 days.State s she was wearing tennis-brynn es and walking all day prior to noticing the swelling.T he area is mildly tender to touch.She applied ice the other day which helped bring down the swelling but it came back the next day after walking again.Yash naylor known injury to left ankle. No erythema or warmth to joint.- encouraged her to ice affected area 3x/day and take scheduled Ibuprofen x 7 days to help bring down inflammati on Blood gluc ose outside reference range 773475204 R73.09 HgbA1c elevated in the past- will screen her again Abnormal weight loss 267 464084 R63.4 Patient notes she has lost weight since last visit without trying, feels like she has been eating more than usual and still losing weightWas 161 pounds (10/24/2019 ) and today weighs 155 pounds (01/31/2020 ) - encouraged her to log her diet at home and continue to monitor her weight- return to office in 1 month for weight check [id number] ABIDA CHAIDEZ (Adult Med) [address] [place] [address] 08/05/2020 08:25:36 08/06/2020 11:06:59 Gastroesophageal reflux disease 831740813 K21.9 Reports epigastric pain and burning sensation radiating up her chest. Reports coughing with eating and feels that her food gets stuck in her esophagus at times. Currently not taking any medication s for the symptoms. Took omeprazole 20mg in past with minimal relief due to provider advising her to only take the medication no longer than a month at a time.Tiki emili reports that doctor in [place] told her she needed an EGD. However patient has not on been on any medication s.Likely GERD-Presc ribed famotidine 20 mg BID x 1 month-F/u with 1 month; advised to bring medication s prescribed from [place]- f/u in 1 month Asthma 043267995 J45.90 9 Patient has a history of asthma and was seeing Dr. Maria for pulmonary care. Receives her medication from [place]. Currently taking a maintenanc e inhaler with betamethas one and salmeterol BID (Trelegy). Denies having a rescue inhaler at this moment.-Pr escribed albuterol inhaler to use as needed Upper resp iratory infection 32509014 J06.9 Began having chest congestion , green rhinorrhea , otalgia, and coughing green sputum 4 days ago. Patient has not been around anybody with the same symptoms. Denies COVID exposure.R eports taking 2 of ibuprofen with no relief. -Prescribe d kamran benavides for symptomati c treatment- Prescribed Z-Pascual for URI symptoms, allergic to PCN Screening for malignant neoplasm of breast 455809901 Z12.39 5 cm cyst of the left breast visualized on prior mammograms Was unable to get a mammogram due to insurance- Will do a clinical breast exam at f/u visit in 1 month Allergic rhinitis 818693 04 J30.9 Pt taking zyrtec and flonase. States she sees no improvemen t with with flonase-d/ c zyrtec-Pre scribed montelukas t with hx of asthma-Booker l hold off on flonase for now [id number] ABIDA CHAIDEZ (Adult Med) [facility] [place] [address] 09/03/2020 10:50:48 09/05/2020 09:58:19 Asthma 891018288 J45.909 Patient has a history of asthma and was seeing Dr. Maria for pulmonary care.Recei ves her medication from [place]. Currently taking a maintenanc e inhaler with [...] to the ER Gastroesop hageal reflux disease 010897189 K21.9 Previously seen for epigastric pain and [...] office or go to ER Acute sinusitis 04739885 J01.90 Previous 08-05-2020 visit complaints of green [...] go to the ER Irritable bowel syndrome 83674650 K58.9 Mixed IBS, dominate constipati on Complains [...] office or go to ER Allergic rhinitis 656419 04 J30.9 Pt taking zyrtec and flonase, no improvemen t, d/c zyrtec 08-05-2020 & prescribed montelukas t 10mgNotica ble improvemen t with montelukas tComplaini ng of pruritus in the right ear canal - Educated patient that this is a medication she will take on a daily basis- will send ear drops to pharmacy to help with pruritus Screening for malignant neoplasm of breast 034230606 Z12.39 5 cm cyst of the left breast visualized on prior mammograms Was unable to get a mammogram due to insuranceU yannale to do clinical breast exam at todays visit- Will do clinical breast exam at f/u visit [id number] ABIDA CHAIDEZ (Adult Med) [address] [place] [address] 11/07/2020 09:14:18 11/10/2020 08:55:38 Left upper quadrant pain 384355871 R10.12 Complains of abdominal distension x 1 [...] pylori breath test for further evaluation Polyarthropathy 19904470 M13.0 Complains of diffuse arthralgia s ( all joints ) and morning stiffness x 1 year Pain is greatest in her left hand and left elbow and worsened in the past week, has noticed intermitte nt swelling in her left hand 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 at home, no recent trauma or injury Uses an ointment and does regular stretches in the morning with improvemen t of pain No numbness or tingling, family history of RA or other autoimmune disease CHANTELLE, ESR, CK were normal in 11/2018 - Ordered RA profile for further evaluation Tension-type headache 39 8260643 G44.209 Complains of left-sided headache that radiates [...] on tension headaches Iron defic iency anemia 78695206 D50.9 08/31/2019: Hgb 10.5, iron and ferritin both low 10/24/2019: Hgb 10.8, iron and ferritin the same 02/05/2020: Hgb 12.5, iron normal, iron sat low, and ferritin low - Ordered repeat CBC, ferritin, iron and TIBC - Continue oral iron QD to help increase iron storage Anxiety 50500737 F41.9 Reports constantly worrying about her health [...] our counselor' s here Hand joint stiff 2192473 09 M25.649 Complains of diffuse arthralgia s ( all joints ) and morning stiffness x 1 year Pain is greatest in her left hand and left elbow and worsened in the past week, has noticed intermitte nt swelling in her left hand 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 pylori breast test today Asthma 051589687 J45.90 9 Pt with asthma exacerbati on 2 weeks ago with stomach retraction s and racing heart, improved with albuterol which she used daily for one week at the time. Also using Trimbow inhaler from [place] twice dialy (contains beclometas one dipropiona te, [...] with pulmonolog y Pain of left wrist 80231 04608 75745 M25.532 Pt with sharp stabbing pain over [...] Consider left wrist x-ray, ortho referral Hypoxia 265155394 R09.02 O2 sat 90% today, has been [...] f/u CT - Review pulm records Eczema 93909545 L30.9 Hx of eczema on her arms [...] follow all instructio ns on the label. [id number] ABIDA CHAIDEZ (Adult Med) [facility] [place] [address] 02/23/2021 09:21:27 02/24/2021 12:30:11 Gynecologic examination 12629126 Z01.419 Patient presents for annual well woman [...] her bleeding mid cycle. Screening mammography 24 229579 Z12.31 Patient with a family history of breast cancer. Last mammogram done in 2019 stable, showing dense breast tissue bilateral. - Mammogram order placed today. Mastodynia of bilateral breasts 9800298116 2223458 N64.4 Patient complainin g of 6 years of bilateral breast pain and tenderness to the touch.- Diagnostic mammogram ordered today. [id number] ABIDA CHAIDEZ (Adult Med) [facility] [place] [address] 02/27/2021 12:34:12 03/02/2021 14:19:00 Break-through bleeding 02442177 N92.1 Patient seen on 02/23/21 for annual pap test and complaints of bleeding mid cycle.Pap test and nuswab came back negative.W ill order pelvic US today to assess for any structural abnormalit ies. Patient is going to [place] in two days. She reports not being able to get this test done before she leaves. Will go to have it done when she returns. Helicobact er pylori-associated gastritis 203974943 B96.81 Hx of H pylori infection 11/07/20 and back in 2019 Treated for recent infection with triple abx therapy, Repeat hpylori breath test at 6 weeks was positive- unsure if tested too soon or if actually treatment failure, will repeat test again today- if positive, will start quad. therapy Hypoxia 499016121 R09.02 O2 sat 92% today, has been [...] with Dr. Maria back in 2018 and 2018 but lost to f/u since - Order repeat CXR today to check for resolution of PNA-consid er chest CT- Advised patient I would like to see her follow up with pulm Iron defic iency anemia 17709892 D50.9 08/31/2019: Hgb 10.5, iron and ferritin both low 10/24/2019: Hgb 10.8, iron and ferritin the same 02/05/2020: Hgb 12.5, iron normal, iron sat low, and ferritin low - Ordered repeat CBC, ferritin, iron and TIBC - Continue oral iron QD to help increase iron storage Impaired g lucose tolerance 9256209 R73.03 Patient requests HbA1c testing today.Will order with other labs [id number] [facility] [address] [place] [address] 06/29/2021 10:44:24 06/29/2021 15:09:44 Moderate persistent asthma 407137603 J45.40 Patient is using Symbicort 160/4.5, 2 puffs BID and Combivent respimat. ( she has been using those and buying them from [place]. I will add Incruse Chronic cough 72618763 R 05.3 Multifacto rial Tolerant non-smoker 8773 9003 Z87.891 lifelong but she has second hand smoking exposure Sleep disorder 33944527 G47.9 nocturnal hypoxemia, EDS, EDF and sleep disturbanc es, sleep study showed no ANGELA(2019) Solitary n odule of lung 847722512 R91.1 was seen on outside chest Xray in [place], Xray is not available. Irepeated CXR 06/2021 showed peribronch ial thickening Dyspnea on exertion 6084 5006 R06.09 Secondary to asthma. Allergic rhinitis 663509 04 J30.9 Patient will be continued on Zyrtec, Patient to continue Flonase [id number] Shahrzad Ken MD [facility] (Adult Med) [address] [place] [address] 08/21/2021 17:20:31 08/24/2021 13:16:46 Suspected COVID-19 878632527 Z20.822 She agreed for the med as ordered, advised to go to ER any time for any concern. She also agreed. [id number] Moises Maria MD [facility] [address] [place] [address] 09/07/2021 10:44:37 09/07/2021 13:10:28 Moderate persistent asthma 047700988 J45.40 Patient is using Symbicort 160/4.5, 2 puffs BID and Combivent respimat. ( she has been using those and buying them from [place]. she did not try Incruse Chronic ob structive pulmonary disease 64252550 J44.9 FEV1 68%, FVC 83%, FEV1/FVC 70%, BD- TLC 98%, DLCO 93% ( 2020) Allergic rhinitis 612666 04 J30.9 Patient will be continued on Zyrtec, singulair Patient to continue Flonase IgE-mediat ed allergic asthma 835232616 J45.909 Elevated IgE, continue Singulair, Flonase and Zyrtic History of SARS-CoV-2 29 36438482 57563982 Z86.16 She has COVID-19 pneumonia 07/2021 Dyspnea on exertion 6084 5006 R06.09 Secondary to asthma. Air trapping 05167573 J9 8.8 RV 128% Chronic cough 30933149 R 05.3 Multifacto rial Solitary n odule of lung 119319536 R91.1 was seen on outside chest Xray in [place], Xray is not available. Irepeated CXR 06/2021 showed peribronch ial thickening Tolerant non-smoker 8773 9003 Z87.891 lifelong but she has second hand smoking exposure [id number] ABIDA CHAIDEZ (Adult Med) [address] [place] [address] 10/23/2021 12:27:57 10/26/2021 12:59:32 Chronic back pain 672717154 G89.29 Worsening back pain x1 yr. She [...] at night- diclofenac prn for pain Fibromyalgia M 79.7 She was seen by an orthopedic surgeon 1 yr ago who ordered xrays and diagnosed her with fibromyalg ia.Not currently taking any medication for it.- starting duloxetine for depression that may help with nerve pain Fatigue 54865426 R53.83 Pt reports generalize d fatigue. She has a history of vitamin D deficiency .- start multivitam in- treat mood/depre ssion by starting medication today Depressive disorder 5795 9000 F32.9 Admits to decreased mood, low energy, [...] f/u in 1 month Allergic disposition 609 453221 T78.40XA Pt reports drowsiness from cetirizine . She is worried about worsened drowsiness with the muscle relaxer in addition to the cetirizine .- switch to loratadine to avoid drowsiness [id number] Moises Maria MD [facility] [address] [place] [address] 12/07/2021 10:58:38 12/09/2021 14:17:09 Moderate persistent asthma 081627608 J45.40 Patient is using Symbicort 160/4.5, 2 puffs BID and Combivent respimat. ( she has been using those and buying them from [place]. she did not try Incruse Chronic ob structive pulmonary disease 24075908 J44.9 FEV1 68%, FVC 83%, FEV1/FVC 70%, BD- TLC 98%, DLCO 93% ( 2020) Allergic rhinitis 203392 04 J30.9 Patient will be continued on Zyrtec, singulair Patient to continue Flonase Tolerant non-smoker 8773 9003 Z87.891 lifelong but she has second hand smoking exposure Chronic cough 22908515 R 05.3 Multifacto rial Dyspnea on exertion 6084 5006 R06.09 Secondary to asthma. Air trapping 31490355 J9 8.8 RV 128% IgE-mediat ed allergic asthma 747265659 J45.909 Elevated IgE, continue Singulair, Flonase and Zyrtic History of SARS-CoV-2 29 07391746 64657689 Z86.16 She has COVID-19 pneumonia 07/2021 [id number] ABIDA CHAIDEZ (Adult Med) [address] [place] [address] 01/25/2022 10:06:17 01/26/2022 10:35:42 Compression fracture of thoracic vertebra 9410307358 104 M48.54XA Patient complainin g today of [...] nerve injury History of Helicobacter pylori infection 4191712289 2855714 Z86.19 Hx of more than 1 episode of positive H. pylori test, patient having similar symptoms again today (01/25/22)- will repeat test- if negative, start PPI for indigestio n Depressive disorder 9726 0510 F32.9 Admitted in the past to decreased [...] f/u in 1 month Left flank pain 75134867 9 R10.9 Left flank pain has been [...] will check UA Left upper quadrant pain 788594797 R10.12 Complainin g of similar abdominal pain [...] CBC Blood gluc ose outside reference range 647005652 R73.09 HgbA1c elevated, 6.0- continue with lifestyle changes- will continue to monitor, ordering HgbA1C and lipid panel Mammography abnormal 168 835578 R92.8 Mammogram and US 06/04 showed bilateral breast cysts, f/u with bilateral US in 6 months was rec.- order placed for repeat breast US Cyst of right ovary 1223 288009 1557376 N83.201 Discussed results of pelvic US from 10/17/19 including numerous intermural fibroids and a small cyst to the right ovary.- Discussed radiologis t suggestion to repeat pelvic US in 6-10 weeks when off menstrual period. Pt is due for repeat US now, encouraged her to call and get US scheduled. [id number] Shahrzad Ken MD [facility] (Adult Med) [address] [place] [address] 04/09/2022 17:04:43 04/12/2022 11:38:13 Tinea corporis 20455173 B35.4 Rashes . itching spots on the, left hand, left foot and left chest . She is wiling to try, optional dermatolog ist referral. Tinea pedis 5043565 B35. 3 Will order topic cream as above. [id number] Moises Maria MD [facility] [address] [place] [address] 04/29/2022 10:58:52 04/29/2022 13:39:18 Moderate persistent asthma 417266366 J45.40 Patient is using Symbicort 160/4.5, 2 puffs BID and Combivent respimat. ( she has been using those and buying them from [place]. she did not try Incruse Chronic ob structive pulmonary disease 89296235 J44.9 FEV1 68%, FVC 83%, FEV1/FVC 70%, BD- TLC 98%, DLCO 93% ( 2020) Air trapping 53883008 J9 8.8 RV 128% Disorder o f function of stomach 403441275 K31.89 I will send for GI eval Thoracic back pain 76211 8004 M54.6 I will check chest xray. Tolerant non-smoker 8756 9003 Z87.891 lifelong but she has second hand smoking exposure Allergic rhinitis 256167 04 J30.9 Patient will be continued on Zyrtec, singulair Patient to continue Flonase History of SARS-CoV-2 29 01129976 36596294 Z86.16 She has COVID-19 pneumonia 07/2021 Dyspnea on exertion 6084 5006 R06.09 Secondary to asthma. 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 History of diagnosed eczema for many [...] and dermatolog y referral placed Psoriatic arthritis 1563 29004 L40.50 New concern for pustular plantar and [...] ry condition Standard c hest X-ray abnormal 627162604 R93.89 Following with Pulmonolog yRecent xray abnormal, showed new densities and CT scan of chest rec.- appears CT scan of chest has been ordered but waiting on approval [id number] Moises [facility] [address] [place] [address] 06/17/2022 10:24:36 06/17/2022 12:35:55 Moderate persistent asthma 679939670 J45.40 Patient is using Symbicort 160/4.5, 2 puffs BID, Incruse ellipta, and Combivent respimat.S he's in exacerbati on , will give Prednisone and Zpak Chronic ob structive pulmonary disease 26559968 J44.9 FEV1 68%, FVC 83%, FEV1/FVC 70%, BD- TLC 98%, DLCO 93% ( 2020) Iron defic iency anemia 72174357 D50.9 She needs iron supplement Allergic rhinitis 251014 04 J30.9 Patient will be continued on Zyrtec, singulair Patient to continue Flonase IgE-mediat ed allergic asthma 386352352 J45.909 Elevated IgE, continue Singulair, Flonase and Zyrtic Chronic cough 50027844 R 05.3 Multifacto rial Thoracic back pain 78642 8004 M54.6 Chest Xray was unremarkab le except for atelectasi s, I will order ct chest without contrast2021Mild abnormalit ies in the lungs. Dyspnea on exertion 6084 5006 R06.09 Secondary to asthma. Disorder o f function of stomach 085998358 K31.89 being evaluated with GI Air trapping 10115575 J9 8.8 RV 128% [id number] Moises Maria MD [facility] [address] [address] 07/22/2022 10:57:41 07/27/2022 14:38:16 Moderate persistent asthma 971449065 J45.40 Patient is using Symbicort 160/4.5, 2 puffs BID, Incruse ellipta, and Combivent respimat.S he's in exacerbati on , will give Prednisone and Zpak Chronic ob structive pulmonary disease 14524960 J44.9 FEV1 68%, FVC 83%, FEV1/FVC 70%, BD- TLC 98%, DLCO 93% ( 2020) Tolerant non-smoker 8773 9003 Z87.891 lifelong but she has second hand smoking exposure CT of chest abnormal 548 4474138 7633252 R93.89 . Atelectasi s in the medial [...] Ct chest in 3 months Air trapping 74631441 J9 8.8 RV 128% Disorder o f function of stomach 779527031 K31.89 being evaluated with GI Dyspnea on exertion 6084 5006 R06.09 Secondary to asthma. Iron defic iency anemia 35960164 D50.9 She needs iron supplement IgE-mediat ed allergic asthma 208634898 J45.909 Elevated IgE, continue Singulair, Flonase and Zyrtic Allergic rhinitis 274085 04 J30.9 Patient will be continued on Zyrtec, singulair Patient to continue Flonase Chronic cough 02259722 R 05.3 Multifacto rial Thoracic back pain 48591 8004 M54.6 Chest Xray was unremarkab le except for atelectasi s, I will order ct chest without contrast2021Mild abnormalit ies in the lungs. [id number] ABDIA CHAIDEZ (Adult Med) [address] [place] [address] 10/01/2022 09:40:38 10/04/2022 15:21:43 Overweight 795660292 E66.3 Advised decreased portion sizes, good food choices, limited eating out or fast food and eliminate soda and juice from diet. Advised physical activity daily and offered encouragem ent to continue with positive changes made so far. Mammography abnormal 168 444507 R92.8 Mammogram and US 06/04 showed bilateral breast cysts, f/u with bilateral US in 6 months was rec.US 02/2022 showed again 2 cysts on the L breast, repeat in 6 monthsComp laining of intermitte nt left breast pain, worse during cycles- order placed for mammogram and US, will send to [facility] Pain of left breast 1010 482093 N64.4 Hx of breast cysts in bilateral [...] and NSAIDs given to help with pain [id number] ABIDA CHAIDEZ (Adult Med) [address] [place] [address] 11/01/2022 10:14:26 11/02/2022 10:33:56 Acute bronchitis 40446320 J20.9 Recent ER visit for sore throat, rhinorrhea , body aches, voice hoarseness , cough, chest pain and SOB x 3 days, went to [facility] on 10/28[facility]2022. Chest xray normal, discharged home [...] care at home CT of chest abnormal 225 8089723 6046625 R93.89 . Atelectasi s in the medial [...] scan of chest Moderate p ersistent asthma 968503903 J45.40 Patient is using Symbicort 160/4.5, 2 puffs BID and Combivent respimat PRN right now.- provided new inhaler of albuterol to use as needed- c/w pulm Chronic ob structive pulmonary disease 27613159 J44.9 Patient is using Symbicort 160/4.5, 2 puffs BID and Combivent respimat PRN right now.- combivent best to use everyday- c/w pulm Left upper quadrant pain 438737389 R10.12 Having left upper quadrant pain x [...] on Screening for malignant neoplasm of colon 056725658 Z12.11 No prior history of colon cancer screeningH aving LUQ pain before and after bowel movements plus irregular bowel movements- referral sent for colonoscop y Thoracic back pain 41803 8004 M54.6 Patient complainin g today of [...] n fx and possible nerve injury Overweight 335002191 E66 .3 Advised decreased portion sizes, good food choices, limited eating out or fast food and eliminate soda and juice from diet. Advised physical activity daily and offered encouragem ent to continue with positive changes made so far. Depression screening 171 560358 Z13.31 PHQ 2/9 was negative in office today (0 out of 27) [id number] Moises Maria MD [facility] [address] [place] [address] 11/29/2022 11:05:52 11/30/2022 08:13:41 Chronic obstructive pulmonary disease 84712396 J44.9 FEV1 68%, FVC 83%, FEV1/FVC 70%, BD- TLC 98%, DLCO 93% ( 2020), I will check PFTs, She has not received COVID-19 vaccine Moderate p ersistent asthma 714710190 J45.40 Patient is using Symbicort 160/4.5, 2 puffs BID,was unable to tolerate Incruse ellipta, and Combivent respimat Allergic rhinitis 702448 04 J30.9 Patient will be continued on Zyrtec, singulair Patient to continue Flonase Tolerant non-smoker 8773 9003 Z87.891 lifelong but she has second hand smoking exposure Gastroesop hageal reflux disease 272233628 K21.9 Will add protonix Dyspnea on exertion 6084 5006 R06.09 Secondary to asthma. 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 Atelectasi s in the medial [...] chest in 6 months Thoracic back pain 04976 8004 M54.6 Chest Xray was unremarkab le except for atelectasi s, I will order ct chest without contrast2021Mild abnormalit ies in the lungs. Iron defic iency anemia 14340890 D50.9 She needs iron supplement [id number] [facility] [facility] ([facility] [address] [place] [address] 12/14/2022 11:08:19 12/16/2022 12:36:05 Overweight 383359318 E66.3 Advised decreased portion sizes, good food choices, limited eating out or fast food and eliminate soda and juice from diet. Advised physical activity daily and offered encouragem ent to continue with positive changes made so far. Asthma 713892431 J45.90 9 Using Trimbow inhaler from [place] twice dialy (contains beclometas one dipropiona te, formoterol fumarate dihydrate, glycopyrro nium bromide). She reports daily cough with thick white sputum. Asthma is exacerbate d by cold morning air. Also reports rhinorrhea . Not currently using fluticason e Denies sore throat, fever, chills - Continue Trimbow inhaler BID, albuterol as needed - following with pulm- recently completed lung tests at [facility], will request records Acute bronchitis 2037640 2 J20.9 Was recovering from acute bronchitis at our last visit, today she states the cough, nasal congestion and voice hoarseness has all since resolved- no further action needed Screening for malignant neoplasm of colon 262377384 Z12.11 No prior history of colon cancer screeningH aving LUQ pain before and after bowel movements plus irregular bowel movements- has colonoscop y scheduled for 12/20/2022 Depression screening 171 413048 Z13.31 PHQ 2 was mildly positive in office today (8 out of 27)- will continue to monitor Gastroesop hageal reflux disease without esophagitis 017288715 K21.9 Picked up Pantoprazo le but has not taken it yet, prescribed by Pulm due to chronic coughSched uled for EGD and colonoscop y on 12/20/2022-e ncouraged okay to wait until after her procedures , if GI finds concern for GERD/gastr itis - start taking PPI Iron defic iency without anemia 990499389 E61.1 Hx of SAIDA, taking iron supplement once daily- recheck levels today Large tonsils 468584672 J35.1 Seen on exam todayAdmit s to frequent URI infections and snoring at night with daytime fatigue- refer to ENT Thyroid nodule 539496933 E04.1 Complainin g of nodule on anterior throat and under jaw line on R side. Denies ear pain, dental infection or current sinus issues.- unable to palpate on exam but will order thyroid US to ensure Hyperlipidemia 76447966 E78.5 Hx of HLD- due for recheck today Impaired g lucose tolerance 0169917 R73.03 Patient requests HbA1c testing today.Will order with other labs [id number] [facility] [address] [address] 01/18/2023 15:46:48 01/24/2023 15:02:06 Acute sinusitis 21657312 J01.90 continue Flonase Dermatitis of external ear 070570325 H60.93 Hypertroph y of tonsils 80653006 J35.1 Sensorineu ral hearing loss of bilateral ears 278222024 H90.3 [id number] [facility] (Adult Med) [address]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
--- OUTSIDE RECORDS SUMMARY | 2024-11-23 16:48 | XMS_ITS | Encounter Summary ---
Author Organization [facility] Address [address] [place], [place] [address] [address] Care Team Providers Care Speed Winder Name Role Phone Connie Miller PA-C Primary Care Provider + Reason for Visit * Reason Onset Date Comments Medication Issue 09/13/2022 Encounter Details Date Type Department Care Team (Late st Contact Info) Description 09/13/2022 Telephone [facility] [address] [place] [address] Katalina Tai MD [facility] [place] [address] Medication Issue Social History Tobacco Use Types [...] to call her and she needs a interpreter deaf Clinical staff will call her and let her know she was advised to use Sarna WIRE ALINER * Telephone Encounter - Dee Grant - 09/13/2022 3:20 PM CST Pt needs to know what over the counter medication she was prescribed, she can't remember. WIRE ALINER documented in this encounter Plan of Treatment Upcoming Encounters Date Type Department Care Team (Late st Contact Info) Description 01/18/2025 1:30 PM CDT Office Visit [facility] - Dermatology [address] [place] [address], [place] [address] Katalina Tai MD [address] [place] [address] 3 [place] [address] documented as of this encounter Visit Diagnoses Not on filedocumented in this encounter Care Teams Speed Winder Relationship Specialty Start Date End Date Connie Miller PA-C [address] [place] [address] PCP - General 06/11/22 documented as of this encounter
== END 2024-11-23 16:45 | disposition home or self-care (01) ==
PROVIDERS: Visit Provider Internal Medicine Pulmonary Disease
DX: R91.8 Other nonspecific abnormal finding of lung field (principal); J18.1 Lobar pneumonia, unspecified organism
CPT/HCPCS: 71250

== ENCOUNTER 2024-12-31 21:42 | Emergency (ER) | payer BC, SELFPAY ==
--- OUTSIDE RECORDS SUMMARY | 2024-12-31 21:44 | XMS_ITS | Clinical Summary ---
Author Organization [facility] Physician Office Building [address] [place] [address] Care Team Providers Care Water Pumping Station Engineer Name Role Phone Lino Watson Primary Care Provider [phone]- [phone] Allergies Active Allergy Reactions Criticality Noted Date [...] 12/19/2023 Assessment & Plan (09/06/2024 2:39 PM ACADEMIC SERVICES COORDINATOR): Update TFTS If TSH is normal, will [...] any solid nodules need to be addressed Medical History Medical History Date Comments Thyroid disease Family History Medical History Relation Name Comments Hyperlipidemia Sister Relation Name Status Comments Sister Social History Tobacco Use Types Packs/Day Years Used Date Smoking Tobacco: Never Tobacco Cessation:Counseling Given: Not Answered Comments Unknown Sex and Gender Information Value Date Recorded Sex Assigned at Not on file Legal Sex Female 3:55 PM ACADEMIC SERVICES COORDINATOR Gender Identity Not on file Sexual Orientation Not on file Obstetrics History Last Filed Vital Signs Vital Sign Reading Time Taken Comments Blood Pressure 100/60 09/06/2024 1:53 PM ACADEMIC SERVICES COORDINATOR Pulse 66 09/06/2024 1:53 PM ACADEMIC SERVICES COORDINATOR Temperature 35.6 C (96 F) 05/28/2024 9:49 AM CDT Respiratory Rate 18 09/06/2024 1:53 PM ACADEMIC SERVICES COORDINATOR Oxygen Saturation 96% 05/28/2024 9:49 AM CDT Inhaled Oxygen Concentration - - Weight 65 kg (143 lb 3.2 oz) 09/06/2024 1:53 PM ACADEMIC SERVICES COORDINATOR Height 157.5 cm (5' 2 ) 09/06/2024 1:53 PM ACADEMIC SERVICES COORDINATOR Body Mass Index 26.19 09/06/2024 1:53 PM ACADEMIC SERVICES COORDINATOR Plan of Treatment Health Maintenance Due Date Last Done Comments Breast Cancer Screening-Mammogram 1975 Cervical Cancer Screening 1975 Colon Cancer Screening-Colonoscopy 1975 Depression Screening 1975 Hepatitis C Screening 1975 DTaP/Tdap/Td Vaccine (1 - Tdap) 1986 Hepatitis B Screening 1993 Regular Well Visit/Exam 18-64 1993 Influenza Vaccine (Season Ended) 2025 Pneumococcal vaccine <65 Completed 04/10/2024 Insurance [employer] OOS Care Teams Water Pumping Station Engineer Relationship Specialty Start Date End Date Lino Watson PA [address] [place] [address] PCP - General Physician Roller Skates Assembler 11/01/23
--- OUTSIDE RECORDS SUMMARY | 2024-12-31 21:44 | XMS_ITS | Data Portability ---
Author Organization [place] [facility] [employer], Main Office Address [address] [place] [address] Care Team Providers Care Sales And Marketing Assistant Name Role Phone SAVITA MARSH Referring Provider Assessment No assessment recorded. Plan of Treatment Reminders Order Date Submit Date Provider Last Modified By Organization Details Last Modified Time Details Appointments None recorded. Lab None recorded. Referral None recorded. Procedures colonoscopy procedure (PROC) [address] ([facility]), [address] [place], [address], 3 08:05:09 upper endoscopy procedure (EGD) (PROC) [address] ([facility]), [address] [place], [address], 3 08:05:08 Surgeries None recorded. Imaging None recorded. Medication Orders Golytely 236 gram-22.74 gram-6.74 gram-5.86 gram oral solution 2022 023 [facility], [address] [place], [place], [id number], 3 13:21:06 Patient TargetsNo targets recorded. Patient Instructions Encounter Date Encounter Id Patient Instructions Last Modified By Organization Details Last Modified Time 11/17/2022 [id number] GOLYTELY [email or web address] Not available 12/2022 13:07:09 PT WITH GRED AND HX/O H. PYLORI . RECOMMEND AN EGD . PT NEEDS A SCREENING COLON . R/O POLYP . RECOMMEND A COLONOSOPY . Risks benefits and complications were explained to the pt. ( BLEEDING PERFORATION , INFECTION , ). PT VERBALIZES UNDERSTANDING AND IS WILLING TO PROCEDE . [email or web address] Not available 11/17/2022 13:08:01 Reason for Referral None Reported. Problems Name Problem SNOMED Code Status Onset Date Resolution Date Notes Provider Name and Address Organization Details Recorded Time Left upper quadrant pain 152973832 Active Alyssa Corrigan LPN null, [place] [facility] 3 12:33:22 Asthma 036649462 Active Alyssa Corrigan LPN null, [place] [facility] 3 12:33:53 Chronic obstructiv e pulmonary disease 78098132 Active Alyssa Corrigan LPN null, [place] [facility] 3 12:34:01 History of Helicobact er pylori infection [id number] 9108 Active Alyssa Corrigan LPN null, [place] [facility] 3 12:34:30 Constipati on 94739188 Active Alyssa Corrigan LPN null, [place] [facility] 3 12:42:29 Anemia 700148572 Active Alyssa Corrigan LPN null, [place] [facility] 3 11:56:55 Gastroesop hageal reflux disease without esophagiti s 388184977 Active 2022 Sonia Coronado MD [address] [place] [address], [address] , [facility] 13:05:52 Problem Notes None recorded. Medical Equipment None Reported. Allergies Allergen ID Allergen Name Allergen Category Reaction Reaction Severity Criticality Documentation Date Start Date Code Code System Note Provider Name and Address Organization Details Recorded Time 52708 Product containin g penicilli n (product) medicatio n Not available Not available Not available 11/09/2022 81066 8001 SNOMED Alyssa dyer LPN null, [place] [facility] 3 12:36:14 Medications Name Sig Start Date [...] propionate 50 mcg/actuati on nasal spray,suspe nsion Lillian 1 spray every day by intranasa l [...] Not Available Not Available No t Available [place] Oil 1,000 mg capsule Take 1 capsule [...] Address Organization Details Last Updated DateTime 3 42627.8 6 g 25.7 kg/m2 162.56 cm 97.6 [degF] 63 /min 97 % 97 % Alyssa dyer LPN [facility] 3 11:54:53 Social History Question Answer Notes LastModified by Organizat ion Details LastModified Time Tobacco Smoking Status Never Smoker Alyssa Corrigan LPN null, [facility] 11/09/2022 12:36:42 Do You Have An Advance Directive? No linda Information not available 11/09/2022 What Is Your Level Of Caffeine Consumption? Moderate [email or web address] Information not available 11/17/2022 What Type Of Diet Are You Following? REGULAR [email or web address] Information not available 11/17/2022 What Is The Highest Grade Or Level Of School You Have Completed Or The Highest Degree You Have Received? [id number] Information not available 11/09/2022 What Was The Date Of Your Most Recent Tobacco Screening? 11/01/2022 [email or web address] Information not available 11/09/2022 Do You Use Your Seat Belt Or Car Seat Routinely? Yes [email or web address] Information not available 11/09/2022 Are You Sexually Active? Yes [email or web address] Information not available 11/09/2022 Do You Have Smoke And Carbon Monoxide Detectors In Your Home? Yes Information not available 11/09/2022 Are You Passively Exposed To Smoke? Yes [email or web address] Information not available 11/09/2022 Has Tobacco Cessation Counseling Been Provided? No [email or web address] Information not available 11/09/2022 Sex: Unknown Functional Status Question Answer Note LastModified by Organizat ion Details LastModified Time Do you use any illicit or recreational drugs? No [email or web address] Information not available 11/09/2022 Do you or have you ever used any other forms of tobacco or nicotine? No [email or web address] Information not available 11/09/2022 What is your level of alcohol consumption? None [email or web address] Information not available 11/09/2022 What is your exercise level? Occasional [email or web address] Information not available 11/17/2022 Mental Status None recorded. Family History Relationship Description Onset Age of this Age Resolved Age Notes LastModified by Organization Details LastModified Time Father No current problems or disability [email or web address] Not available 0 11/09/2022 12:36:02 Mother No current problems or disability [email or web address] Not available 0 11/09/2022 12:36:02 Medical History No medical history recorded. Gynecological HistoryNo gynecological history recorded. Obstetrics History GPAL:G 0 P 0 0 0 0 Past Encounters Encounter ID Performer Location Encounter Start Date Encounter Closed Date Diagnosis/Indication Diagnosis SNOMED-CT Code Diagnosis ICD10 Code Diagnosis Note [id number] Sonia Coronado MD [facility] General Surgery [address] [address] 11/17/2022 11:39:28 12/10/2022 11:20:57 Gastroesophageal reflux disease without esophagitis 336441698 K21.9 Left upper quadrant pain 473488215 R10.12 Screening for malignant neoplasm of colon 860792009 Z12.11 Health Concerns Section Related Observation LastModified by Organization Detai ls LastModified Time None Recorded Concern Status LastModified by Organization Details LastModified Time None Recorded Advance Directives Directive N: Payers Encounter Date Sequence Insurance Name Policy Number Policy Armstrong Covered Member ID Armstrong Member ID Guarantor Name 11/17/2022 1 [employer] [id number] 01 Drew Pearson [id number] Meaghan Sarmiento Notes Date Note Type Note Provider Name and Address Organization Details Recorded Time 11/17/2022 text/html DESEAN WAS SE EN IN THE OFFICE TODAY FOR EVALUATION . PT IS C/O LUQ PAIN . SHE IS S/P H. PYLORI DX AND TREATMENT . UBT DOCUMENTED ERRADICATION . SHE REPORTS WT LOSS 20 + LBS. SHE DENIES COLON SCREENING. SHE IS FROM [facility] . SHE DENIES BLEEDING . N/V. Sonia Coronado MD [address] [place] [address], [facility] [address], [place], [address], [place] [facility] 11/17/2022 13:09:01 OBGyn Episode No OBEpisode recorded.
--- OUTSIDE RECORDS SUMMARY | 2024-12-31 21:44 | XMS_ITS | Referral Summary ---
Author Organization [facility] Physician Office Building [address] [place] [address] Care Team Providers Care Roentgenology Teacher Name Role Phone Lino Watson Primary Care Provider [phone]- [phone] Allergies Active Allergy Reactions Criticality Noted Date [...] 12/19/2023 Assessment & Plan (09/06/2024 2:39 PM ENGRAVER ORNAMENTAL DESIGN): Update TFTS If TSH is normal, will [...] on file Legal Sex Female 3:55 PM ENGRAVER ORNAMENTAL DESIGN Gender Identity Not on file Sexual Orientation Not on file Last Filed Vital Signs Vital Sign Reading Time Taken Comments Blood Pressure 100/60 09/06/2024 1:53 PM ENGRAVER ORNAMENTAL DESIGN Pulse 66 09/06/2024 1:53 PM ENGRAVER ORNAMENTAL DESIGN Temperature 35.6 C (96 F) 05/28/2024 9:49 AM CDT Respiratory Rate 18 09/06/2024 1:53 PM ENGRAVER ORNAMENTAL DESIGN Oxygen Saturation 96% 05/28/2024 9:49 AM CDT Inhaled Oxygen Concentration - - Weight 65 kg (143 lb 3.2 oz) 09/06/2024 1:53 PM ENGRAVER ORNAMENTAL DESIGN Height 157.5 cm (5' 2 ) 09/06/2024 1:53 PM ENGRAVER ORNAMENTAL DESIGN Body Mass Index 26.19 09/06/2024 1:53 PM ENGRAVER ORNAMENTAL DESIGN Plan of Treatment Not on file Insurance [employer] OOS Care Teams Roentgenology Teacher Relationship Specialty Start Date End Date Lino Watson PA [address] [place] [address] PCP - General Physician Teacher Selection Specialist 11/01/23
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
[2024-12-31 21:45] VITALS: BP 177/59; PULSE 100; RESP 18; TEMP 36.7; O2SAT 96
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
--- OUTSIDE RECORDS SUMMARY | 2024-12-31 21:45 | XMS_ITS | Clinical Summary ---
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
--- OUTSIDE RECORDS SUMMARY | 2024-12-31 21:45 | XMS_ITS | Clinical Summary ---
Author Organization [facility] Address [address] [place] [address] Care Team Providers Care Grain Elevator Worker Name Role Phone Connie Miller PA-C Primary Care Provider + Source Comments [facility],non-owned Affiliates and Associated Physician Practices is amultiple site organization consisting of ambulatory clinics and hospital sitesin [place], [place], [place] and [place]. This disclosure is being madepursuant to the Care Everywhere program and may not contain all information available regarding this patient. Last updated 18.[facility] Allergies Active Allergy Reactions Criticality Noted Date Comments Penicillins Urticaria Medium 08/19/2022 Medications * Be aware that medications may not be up to date on this document. Alwaysverify current medications with the patient. Budesonide-Formo terol Fumarate (SYMBICORT IN) 2 Sprays every 12 hours Active Ipratropium-Albu terol (COMBIVENT IN) 2 sprays as needed Active Umeclidinium Welcome (INCRUSE ELLIPTA IN) Inhale by mouth once daily Active montelukast (Singulair) 10 MG tablet Take 1 (one) tablet by mouth at bedtime Active Ferrous Sulfate (IRON PO) Take by mouth once daily Active Multiple Vitamin (MULTIVITAMIN ADULT PO) Take by mouth once daily Active cetirizine (ZyrTEC) 10 MG tablet As needed Active mometasone (Elocon) 0.1 % ointmentIndicati ons:Other specified dermatitis,Other pruritus,Macular cutaneous amyloidosis (HCC) Apply to hands, feet, arms and back twice a day as needed for rash. 30 days supply. Label in colombian please 45 g 10/03/2024 Active Active Problems [...] Refill [facility] [address] [place] [phone] Katalina Tai MD MEDICATION REFILL from Last 3 Months Social History Tobacco Use Types Packs/Day Years Used Date Smoking Tobacco: Never Smokeless Tobacco: Never Tobacco Cessation:Counseling Given: No Comments Unknown Sex and Gender Information Value Date Recorded Sex Assigned at Not on file Legal Sex Female 9:55 AM CDT Gender Identity Not on file Sexual Orientation Not on file Plan of Treatment Upcoming Encounters Date Type Department Care Team (Late st Contact Info) Description 01/18/2025 1:30 PM CDT Office Visit [facility] [address] [place] [phone] Katalina Tai MD [address] [place] [address] [address] [place] [address] Health Maintenance Due Date Last Done Comments [...] 19+ 3-dose series) 1994 COVID-19 VACCINE (1 2023-2 5 season) 2024 DEPRESSION SCREENING 08/15/2024 [...] on patient's age to complete this topic Insurance ANTHEM ANTHEM Care Teams Grain Elevator Worker Relationship Specialty Start Date End Date Connie Miller PA-C [address] [place] [address] PCP - General 06/11/22
[2024-12-31 22:31] VITALS: BP 116/67; O2SAT 95
[2024-12-31 23:00] VITALS: BP 115/76; PULSE 79; RESP 14; O2SAT 96
[2024-12-31] MEDS: FAMOTIDINE 20 MG/2 ML VIAL IV PUSH (23:03)
[2024-12-31] MEDS: ONDANSETRON INJ 4 MG/2 ML VIAL IV PUSH (23:04)
--- OUTSIDE RECORDS SUMMARY | 2024-12-31 23:10 | XMS_ITS | Clinical Summary ---
Author Organization [facility] Care Team Providers Care Agricultural Commodities Inspector Name Role Phone Unavailable Primary Care Provider Unavailabl e Social History Tobacco Use Types Packs/Day Years Used Date Smoking Tobacco: Never Assessed Comments Unknown Sex and Gender Information Value Date Recorded Sex Assigned at Not on file Legal Sex Female 12:43 PM AUTOMOBILE ASSEMBLY SUPERVISOR Gender Identity Not on file Sexual Orientation [...]
--- OUTSIDE RECORDS SUMMARY | 2024-12-31 23:10 | XMS_ITS | Referral Summary ---
Author Organization [facility] [address] [place] [phone] Care Team Providers Care Opinion Polls Survey Worker Name Role Phone Lino Watson Primary Care Provider +1- [phone] Allergies Active Allergy Reactions Criticality Noted Date [...] 12/19/2023 Assessment & Plan (09/06/2024 2:39 PM MACHINE CLOTH TRIMMER): Update TFTS If TSH is normal, will [...] on file Legal Sex Female 3:55 PM MACHINE CLOTH TRIMMER Gender Identity Not on file Sexual Orientation Not on file Last Filed Vital Signs Vital Sign Reading Time Taken Comments Blood Pressure 100/60 09/06/2024 1:53 PM MACHINE CLOTH TRIMMER Pulse 66 09/06/2024 1:53 PM MACHINE CLOTH TRIMMER Temperature 35.6 C (96 F) 05/28/2024 9:49 AM CDT Respiratory Rate 18 09/06/2024 1:53 PM MACHINE CLOTH TRIMMER Oxygen Saturation 96% 05/28/2024 9:49 AM CDT Inhaled Oxygen Concentration - - Weight 65 kg (143 lb 3.2 oz) 09/06/2024 1:53 PM MACHINE CLOTH TRIMMER Height 157.5 cm (5' 2 ) 09/06/2024 1:53 PM MACHINE CLOTH TRIMMER Body Mass Index 26.19 09/06/2024 1:53 PM MACHINE CLOTH TRIMMER Plan of Treatment Not on file Insurance [employer] OOS Care Teams Opinion Polls Survey Worker Relationship Specialty Start Date End Date Lino Watson PA [address] [place] [address] PCP - General Physician Gang Ripsaw Operator 11/01/23
--- OUTSIDE RECORDS SUMMARY | 2024-12-31 23:10 | XMS_ITS | Clinical Summary ---
Author Organization [facility] [address] [place] [address] Care Team Providers Care Paving Plant Operator Name Role Phone Lino Watson Primary Care Provider +1- [phone] Allergies Active Allergy Reactions Criticality Noted Date [...] 12/19/2023 Assessment & Plan (09/06/2024 2:39 PM INDUSTRY OPERATIONS INVESTIGATOR): Update TFTS If TSH is normal, will [...] on file Legal Sex Female 3:55 PM INDUSTRY OPERATIONS INVESTIGATOR Gender Identity Not on file Sexual Orientation Not on file Obstetrics History Last Filed Vital Signs Vital Sign Reading Time Taken Comments Blood Pressure 100/60 09/06/2024 1:53 PM INDUSTRY OPERATIONS INVESTIGATOR Pulse 66 09/06/2024 1:53 PM INDUSTRY OPERATIONS INVESTIGATOR Temperature 35.6 C (96 F) 05/28/2024 9:49 AM CDT Respiratory Rate 18 09/06/2024 1:53 PM INDUSTRY OPERATIONS INVESTIGATOR Oxygen Saturation 96% 05/28/2024 9:49 AM CDT Inhaled Oxygen Concentration - - Weight 65 kg (143 lb 3.2 oz) 09/06/2024 1:53 PM INDUSTRY OPERATIONS INVESTIGATOR Height 157.5 cm (5' 2 ) 09/06/2024 1:53 PM INDUSTRY OPERATIONS INVESTIGATOR Body Mass Index 26.19 09/06/2024 1:53 PM INDUSTRY OPERATIONS INVESTIGATOR Plan of Treatment Health Maintenance Due Date Last Done Comments Breast Cancer Screening-Mammogram 1975 Cervical Cancer Screening 1975 Colon Cancer Screening-Colonoscopy 1975 Depression Screening 1975 Hepatitis C Screening 1975 DTaP/Tdap/Td Vaccine (1 - Tdap) 1986 Hepatitis B Screening 1993 Regular Well Visit/Exam 18-64 1993 Influenza Vaccine (Season Ended) 2025 Pneumococcal vaccine <65 Completed 04/10/2024 Insurance [employer] OOS Care Teams Paving Plant Operator Relationship Specialty Start Date End Date Lino Watson PA [address] [place] [address] PCP - General Physician Manager Specialty 11/01/23
--- OUTSIDE RECORDS SUMMARY | 2024-12-31 23:10 | XMS_ITS | Encounter Summary ---
Author Organization [facility] Address [facility] [place] [address] Care Team Providers Care Copy Machine Operator Name Role Phone Connie Miller PA-C Primary Care Provider + Reason for Visit * Reason Onset Date Comments Medication Issue 09/13/2022 Encounter Details Date Type Department Care Team (Late st Contact Info) Description 09/13/2022 Telephone [facility] [address] [place] [address] Katalina Tai MD [address] [place] [phone] Medication Issue Social History Tobacco Use Types [...] to call her and she needs a bee rancher Clinical staff will call her and let her know she was advised to use Sarna SEWER SEWER * Telephone Encounter - Dee Grant - 09/13/2022 3:20 PM CST Pt needs to know what over the counter medication she was prescribed, she can't remember. SEWER documented in this encounter Plan of Treatment Upcoming Encounters Date Type Department Care Team (Late st Contact Info) Description 01/18/2025 1:30 PM CDT Office Visit [facility] [address] [place] [address], [facility] [place] [address] Katalina Tai MD [address] [place] [address] [address] [place] [address] documented as of this encounter Visit Diagnoses Not on filedocumented in this encounter Care Teams Copy Machine Operator Relationship Specialty Start Date End Date Connie Miller PA-C [address] [place] [phone] PCP - General 06/11/22 documented as of this encounter
--- OUTSIDE RECORDS SUMMARY | 2024-12-31 23:11 | XMS_ITS | Clinical Summary ---
Author Organization [facility] Address [address] [place] [address] Care Team Providers Care Hvac Sales Representative Name Role Phone Connie Miller PA-C Primary Care Provider + Source Comments [facility],non-owned Affiliates and Associated Physician Practices is amultiple site organization consisting of ambulatory clinics and hospital sitesin [place], [place], [place] and [place]. This disclosure is being madepursuant to the Care Everywhere program and may not contain all information available regarding this patient. Last updated 18.[facility] Allergies Active Allergy Reactions Criticality Noted Date Comments Penicillins Urticaria Medium 08/19/2022 Medications * Be aware that medications may not be up to date on this document. Alwaysverify current medications with the patient. Budesonide-Formo terol Fumarate (SYMBICORT IN) 2 Sprays every 12 hours Active Ipratropium-Albu terol (COMBIVENT IN) 2 sprays as needed Active Umeclidinium [place] (INCRUSE ELLIPTA IN) Inhale by mouth once [...] for rash. [address] Label in [place] please 45 g 10/03/2024 Active Active Problems [...] 10/03/2024 Refill [facility] [address] [place] [phone] Katalina Tai MD MEDICATION REFILL from Last [...] Office Visit [facility] [address] [place] [phone] Katalina Tai MD [address] [place] [address] [address] [place] [address] Health Maintenance Due Date Last Done Comments [...] this topic Insurance ANTHEM ANTHEM Care Teams Hvac Sales Representative Relationship Specialty Start Date End Date Connie Miller PA-C [address] [place] [address] PCP - General 06/11/22
[2024-12-31 23:13] LABS: Basophils Absolute Auto 0.1 K/mm3 (0.0-0.1); Basophils Percent Auto 0.5 % (0.2-1.2); Eosinophils Absolute Auto 0.1 K/mm3 (0-0.3); Hematocrit 40.9 % (37.0-47.0); Hemoglobin 11.9 g/dL (12.0-15.0); Immature Granulocyte Absolute 0.03 K/mm3 (0.00-0.031); Immature Granulocyte Percent A 0.3 % (0-0.5); Lymphocytes Absolute Auto 1.25 K/mm3 (0.9-3.2); Lymphocytes Percent Auto 11.4 % (18.3-44.2); Mean Corpuscular HGB Conc 29.1 g/dl (32-36); Mean Corpuscular Hemoglobin 22.8 pg (26-34); Mean Corpuscular Volume 78.4 fl (80-100); Mean Platelet Volume 9.8 fl (7.4-10.4); Monocytes Absolute Auto 0.5 K/mm3 (0.1-0.6); Monocytes Percent Auto 4.7 % (2.6-8.5); Neutrophils Percent Auto 82.1 % (45.5-73.1); Platelet Count Result 433 k/mm3 (150-375); Red Blood Count 5.22 M/mm3 (4.2-5.4); Red Cell Distribution Width 15.1 % (11.5-14.5)
[2024-12-31 23:21] LABS: Alanine Aminotransferase 19 U/L (6-35); Albumin Level 4.3 g/dL (3.5-5.1); Alkaline Phosphatase 67 U/L (38-126); Anion Gap 8 mmol/L (4-12); Aspartate Amino Transferase 28 U/L (14-36); Bilirubin,Total 0.2 mg/dL (0.2-1.3); Blood Urea Nitrogen 9 mg/dL (7-17); Calcium 8.7 mg/dL (8.4-10.2); Carbon Dioxide 23 mmol/L (22-30); Chloride 106 mmol/L (98-107); Estimated CRCL calculation 92 ml/min; Estimated Glomerular Filt Rate > 60; Glucose 119 mg/dL (65-110); Lipase 86 U/L (23-300); Potassium 3.7 mmol/L (3.4-5.0); Sodium 137 mmol/L (137-145)
[2024-12-31 23:31] VITALS: BP 105/62; O2SAT 96
[2024-12-31 23:46] VITALS: BP 103/61; PULSE 75; RESP 15; O2SAT 98
--- NOTE | 2024-12-31 23:59 | ED_ITS ---
HPI - Abdominal Pain General Chief Complaint: Abdominal Pain Stated Complaint: Abd pain-gastritis. Since this AM Time Seen by Provider: 12/31/24 22:32 History of Present Illness HPI narrative: Patient has diagnosis of gastritis, was out of the esomeprazole she had been prescribed before and would like to be back on it. Has also been having some nausea. Ongoing for last few days. Also feeling bloated and gassy. Also has been having some slight shortness of breath. Related Data Home Medications Medication Instructions Recorded Confirmed Last Taken Type albuterol sulfate 2.5 mg/3 mL 2.5 mg inhalation Q6H PRN 07/04/24 11/27/24 Unknown History (0.083 %) solution for nebulization sob/wheezing albuterol sulfate 90 mcg/actuation 2 puff inhalation Q4H PRN 07/04/24 11/27/24 Unknown History aerosol inhaler sob/wheezing omeprazole 20 mg capsule,delayed 20 mg PO DAILY 11/27/24 11/27/24 Unknown History release Allergies Allergy/AdvReac Type Severity Reaction Status Date / Time Penicillins Allergy Rash Verified 12/31/24 21:43 Review of Systems 2 Review of Systems: All systems reviewed & are unremarkable except as noted in HPI and below PMFSH Past Medical History Medical History GERD (gastroesophageal reflux disease) Uterine fibroid Breast cyst Hx of thyroiditis Asthma Gastritis Pre-diabetes Anemia Surgical History Surgical History No history of previous surgery Family History Family History Mother Enlarged heart Son Asthma Social History Social History Social History: Lives at home with and 3 children. Lifelong non-smoker. No alcohol or drug use. Code status - Full Code Surrogate decision maker - Smoking status: Never smoker Do You Feel Safe in your Home?: Yes Lack of Transportation: No Lack of Food: Never True Current Housing: I Have Housing Concerned About Future Housing: No Difficulty Paying Gas/Electric Bills: No Difficulty Paying for Meds: No Currently Unemployed: No Education: High School Diploma/GED Difficulty w/ Childcare or Family Care: No Gender identity (if verbalized by the patient): Female Spiritual care concerns: No Exam 2 Narrative: EXAMINATION OF ORGAN SYSTEMS/BODY AREAS: Constitutional: Vital signs per nursing GENERAL:[No acute distress, non-toxic appearing.] HEAD: Normal with no signs of head trauma. EYES: EOMI, conjunctiva normal ENT: Hearing grossly intact LUNGS: Wheezing bilateral lungs but speaking full sentences HEART: [Regular rate and rhythm] ABD: [Soft], [nontender to palpation] EXT: Normal range of motion SKIN: [No rashes or lesions.] NEURO: [Alert and oriented x 3. No gross focal sensory or strength deficits.] PSYCH: Normal affect Course Vital Signs Vital signs: Vital Signs Temperature 98.0 F 12/31/24 21:45 Pulse Rate 100 12/31/24 21:45 Respiratory Rate 18 12/31/24 21:45 Blood Pressure 177/59 H 12/31/24 21:45 Pulse Oximetry 96 12/31/24 21:45 Oxygen Delivery Room Air 12/31/24 21:45 Temperature 98.0 F 12/31/24 21:45 Pulse Rate 80 01/01/25 00:52 Respiratory Rate 16 01/01/25 00:52 Blood Pressure 105/72 01/01/25 01:01 Pulse Oximetry 94 01/01/25 01:01 Oxygen Delivery Room Air 12/31/24 21:45 MDM - Abdominal Pain MDM Narrative Medical decision making narrative: Patient presents with a feels like a flare-up of her gastritis, she is given Zofran and Pepcid here and on re-evaluation feels much better, symptoms resolved. Labs within acceptable limits, other than very minimal elevation of WBCs. She does have some slight wheezing so I have started DuoNebs with improvement in her symptoms, will give albuterol and prednisone prescriptions and I will refill his omeprazole and give script for Zofran. Patient agreeable to this plan, I have asked her to follow up with her GI doctor. Lab Data 12/31/24 23:04 12/31/24 23:04 Labs: Lab Results 12/31/24 Range/Units 23:04 WBC 11.0 H (4.5-10.0) K/mm3 RBC 5.22 (4.2-5.4) M/mm3 Hgb 11.9 L (12.0-15.0) g/dL Hct 40.9 (37.0-47.0) % MCV 78.4 L (80-100) fl MCH 22.8 L (26-34) pg MCHC 29.1 L (32-36) g/dl RDW 15.1 H (11.5-14.5) % Plt Count 433 H (150-375) k/mm3 MPV 9.8 (7.4-10.4) fl Immature Gran % (Auto) 0.3 (0-0.5) % Neut % (Auto) 82.1 H (45.5-73.1) % Lymph % (Auto) 11.4 L (18.3-44.2) % [place] % (Auto) 4.7 (2.6-8.5) % Eos % (Auto) 1.0 (0-4.4) % Baso % (Auto) 0.5 (0.2-1.2) % Lymph # (Auto) 1.25 (0.9-3.2) K/mm3 [place] # (Auto) 0.5 (0.1-0.6) K/mm3 Eos # (Auto) 0.1 (0-0.3) K/mm3 Baso # (Auto) 0.1 (0.0-0.1) K/mm3 Abs Immat Gran (auto) 0.03 (0.00-0.031) K/mm3 Absolute Neuts (auto) 9.0 H (1.3-6.7) K/mm3 Absolute Nucleated RBC 0.000 (0.0-0.012) K/mm3 Nucleated RBC % 0.0 (0.0-0.2) % Sodium 137 (137-145) mmol/L Potassium 3.7 (3.4-5.0) mmol/L Chloride 106 (98-107) mmol/L Carbon Dioxide 23 (22-30) mmol/L Anion Gap 8 (4-12) mmol/L BUN 9 (7-17) mg/dL Creatinine 0.56 L (0.7-1.0) mg/dL Estim Creat Clear Calc 92 ml/min Estimated GFR > 60 (59 - ) Glucose 119 H (65-110) mg/dL Calcium 8.7 (8.4-10.2) mg/dL Total Bilirubin 0.2 (0.2-1.3) mg/dL AST 28 (14-36) U/L ALT 19 (6-35) U/L Alkaline Phosphatase 67 (38-126) U/L Total Protein 8.0 (6.3-8.2) g/dL Albumin 4.3 (3.5-5.1) g/dL Lipase 86 (23-300) U/L Discharge Plan Discharge Clinical Impression: Gastritis Patient Disposition: Home Condition: Stable Instructions: Abdominal Pain (ED) Additional Instructions: Please follow up with your GI doctor; you can always return for any further issues. Patient Language: Icelandic Prescriptions: New esomeprazole magnesium 40 mg capsule,delayed release(DR/EC) 40 mg PO DAILY Qty: 30 0RF alum-mag hydroxide-simeth [Maalox Advanced] 200-200-20 mg/5 mL suspension 10 ml PO QID PRN (Reason: dyspepsia) Qty: 200 0RF Rx Instructions: administer between meals and at bedtime ondansetron 4 mg tablet,disintegrating 4 mg PO Q8H PRN (Reason: nausea and vomiting) Qty: 10 0RF prednisone 20 mg tablet 40 mg PO DAILY 5 Days Qty: 10 0RF albuterol sulfate 90 mcg/actuation HFA aerosol inhaler 2 puff inhalation QID PRN (Reason: shortness of breath or wheezing) Qty: 8.5 0RF No Action omeprazole 20 mg capsule,delayed release(DR/EC) 20 mg PO DAILY albuterol sulfate 90 mcg/actuation HFA aerosol inhaler 2 puff INHALATION Q4H PRN (Reason: sob/wheezing) albuterol sulfate 2.5 mg /3 mL (0.083 %) solution for nebulization 2.5 mg inhalation Q6H PRN (Reason: sob/wheezing) fluticasone propion-salmeterol [Advair HFA] 230-21 mcg/actuation Hfa Aerosol Inhaler 2 puff inhalation Q12HRT Qty: 12 1RF Follow-up/Referrals: Walter,ABIDA Mills [Primary Care Provider] -
[2025-01-01] VITALS (11 sets, daily range): BP systolic 98–105; BP diastolic 56–72; PULSE 78–80; RESP 16; O2SAT 94–99
[2025-01-01] MEDS: IPRATROPIUM 0.5 MG/ALBUTEROL SULFATE 2.5 MG AMPUL.NEB 3 ML INHALATION (00:35)
== END 2025-01-01 01:13 | disposition home or self-care (01) ==
PROVIDERS: Emergency Provider Emergency Medicine; PCP Physician Assistant Medical
DX: K29.70 Gastritis, unspecified, without bleeding (principal); K21.9 Gastro-esophageal reflux disease without esophagitis; J45.909 Unspecified asthma, uncomplicated; D64.9 Anemia, unspecified
CPT/HCPCS: 36415; 80053; 83690; 85025; 94640; 96374; 96375; 99284; J2405

== ENCOUNTER 2025-02-13 10:47 | Outpatient (CLI) | payer BC, SELFPAY ==
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
--- OUTSIDE RECORDS SUMMARY | 2025-02-13 10:58 | XMS_ITS | Referral Summary ---
Author Organization [facility] [address] [place] [address] Care Team Providers Care Account Assistant Name Role Phone Lino Watson Primary Care Provider +1- [phone] Allergies Active Allergy Reactions Criticality Noted Date [...] Assessment & Plan (09/06/2024 2:39 PM BUSINESS PERFORMANCE MANAGER): Update TFTS If TSH is normal, [...] file Legal Sex Female 3:55 PM BUSINESS PERFORMANCE MANAGER Gender Identity Not on file Sexual Orientation Not on file Last Filed Vital Signs Vital Sign Reading Time Taken Comments Blood Pressure 100/60 09/06/2024 1:53 PM BUSINESS PERFORMANCE MANAGER Pulse 66 09/06/2024 1:53 PM BUSINESS PERFORMANCE MANAGER Temperature 35.6 C (96 F) 05/28/2024 9:49 AM CDT Respiratory Rate 18 09/06/2024 1:53 PM BUSINESS PERFORMANCE MANAGER Oxygen Saturation 96% 05/28/2024 9:49 AM CDT Inhaled Oxygen Concentration - - Weight 65 kg (143 lb 3.2 oz) 09/06/2024 1:53 PM BUSINESS PERFORMANCE MANAGER Height 157.5 cm (5' 2) 09/06/2024 1:53 PM BUSINESS PERFORMANCE MANAGER Body Mass Index 26.19 09/06/2024 1:53 PM BUSINESS PERFORMANCE MANAGER Plan of Treatment Not on file Insurance [employer] OOS Care Teams Account Assistant Relationship Specialty Start Date End Date Lino Watosn PA [address] [place] [address] PCP - General Physician Stadium Attendant 11/01/23
--- OUTSIDE RECORDS SUMMARY | 2025-02-13 10:58 | XMS_ITS | Data Portability ---
Author Organization [place] [facility] [place], Main Office Address [address] [place] [address] Care Team Providers Care Machine Rope Maker Name Role Phone SAVITA MARSH Referring Provider Assessment No assessment recorded. Plan of Treatment Reminders Order Date Submit Date Provider Last Modified By Organization Details Last Modified Time Details Appointments None recorded. Lab None recorded. Referral None recorded. Procedures colonoscopy procedure (PROC) [address] ([facility]), [address] [place], [address], 3 08:05:09 upper endoscopy procedure (EGD) (PROC) [address] ([facility]), [address] [place], [address], 3 08:05:08 Surgeries None recorded. Imaging None recorded. Medication Orders Golytely 236 gram-22.74 gram-6.74 gram-5.86 gram oral solution 2022 023 [facility], [address], [place], [id number], 3 13:21:06 Patient TargetsNo targets recorded. Patient Instructions Encounter Date Encounter Id Patient Instructions Last Modified By Organization Details Last Modified Time 11/17/2022 [id number] GOLYTELY [email or web address] Not available 12/2022 13:07:09 PT WITH GRED AND HX/O H. PYLORI . RECOMMEND AN EGD . PT NEEDS A SCREENING COLON . R/O POLYP . RECOMMEND A COLONOSOPY . Risks benefits and complications were explained to the pt. ( BLEEDING PERFORATION , INFECTION , ). PT VERBALIZES UNDERSTANDING AND IS WILLING TO PROCEDE . [email or web address] Not available 11/17/2022 13:08:01 Reason for Referral None Reported. Problems Name Problem SNOMED Code Status Onset Date Resolution Date Notes Provider Name and Address Organization Details Recorded Time Left upper quadrant pain 742360460 Active Alyssa Corrigan LPN null, [place] [facility] 3 12:33:22 Asthma 508382028 Active Alyssa Corrigan LPN null, [place] [facility] 3 12:33:53 Chronic obstructiv e pulmonary disease 45530181 Active Alyssa Corrigan LPN null, [place] [facility] 3 12:34:01 History of Helicobact er pylori infection 6215300576590 9108 Active Alyssa Corrigan LPN null, [place] [facility] 3 12:34:30 Constipati on 79779642 Active Alyssa Corrigan LPN null, [place] [facility] 12:42:29 Anemia 498289668 Active Alyssa Corrigan LPN null, [place] [facility] 3 11:56:55 Gastroesop hageal reflux disease without esophagiti s 051454666 Active 2022 Sonia Coronado MD [address] [place] [address], [phone] , [facility] - [facility] 13:05:52 Problem Notes None recorded. Medical Equipment None Reported. Allergies Allergen ID Allergen Name Allergen Category Reaction Reaction Severity Criticality Documentation Date Start Date Code Code System Note Provider Name and Address Organization Details Recorded Time 62958 Product containin g penicilli n (product) medicatio n Not available Not available Not available 11/09/2022 29595 8001 SNOMED Alyssa Holbrook rJANNETN null, [place] [facility] 3 12:36:14 Medications Name Sig Start [...] propionate 50 mcg/actuati on nasal spray,suspe nsion [place] 1 spray every day by intranasa l [...] Not Available Not Available No t Available Cam[place] Oil 1,000 mg capsule Take 1 capsule [...] Address Organization Details Last Updated DateTime 3 94945.8 6 g 25.7 kg/m2 162.56 cm 97.6 [degF] 63 /min 97 % 97 % Alyssa dyer LPN [employer] 3 11:54:53 Social History Question Answer Notes LastModified by Organizat ion Details LastModified Time Tobacco Smoking Status Never Smoker Alyssa Corrigan LPN [facility], [employer] 11/09/2022 12:36:42 Do You Have An Advance Directive? No linda Information not available 11/09/2022 What Is Your Level Of Caffeine Consumption? Moderate [email or web address] Information not available 11/17/2022 What Type Of Diet Are You Following? REGULAR [email or web address] Information not available 11/17/2022 What Is The Highest Grade Or Level Of School You Have Completed Or The Highest Degree You Have Received? [id number] [email or web address] Information not available 11/09/2022 What Was The Date Of Your Most Recent Tobacco Screening? 11/01/2022 [email or web address] Information not available 11/09/2022 Do You Use Your Seat Belt Or Car Seat Routinely? Yes [email or web address] Information not available 11/09/2022 Are You Sexually Active? Yes [email or web address] Information not available 11/09/2022 Do You Have Smoke And Carbon Monoxide Detectors In Your Home? Yes [email or web address] Information not available 11/09/2022 Are You Passively Exposed To Smoke? Yes [email or web address] Information not available 11/09/2022 Has Tobacco Cessation Counseling Been Provided? No [email or web address] Information not available 11/09/2022 Sex: Unknown Functional Status Question Answer Note LastModified by Organizat ion Details LastModified Time Do you use any illicit or recreational drugs? No [email or web address] Information not available 11/09/2022 Do you or have you ever used any other forms of tobacco or nicotine? No [email or web address] Information not available 11/09/2022 What is your level of alcohol consumption? None [email or web address] Information not available 11/09/2022 What is your exercise level? Occasional [email or web address] Information not available 11/17/2022 Mental Status None recorded. Family History Relationship Description Onset Age of this Age Resolved Age Notes LastModified by Organization Details LastModified Time Father No current problems or disability [email or web address] Not available 0 11/09/2022 12:36:02 Mother No current problems or disability [email or web address] Not available 0 11/09/2022 12:36:02 Medical History No medical history recorded. Gynecological HistoryNo gynecological history recorded. Obstetrics History GPAL:G 0 P 0 0 0 0 Past Encounters Encounter ID Performer Location Encounter Start Date Encounter Closed Date Diagnosis/Indication Diagnosis SNOMED-CT Code Diagnosis ICD10 Code Diagnosis Note [id number] Sonia Coronado MD [facility] General Surgery [address] [address] 11/17/2022 11:39:28 12/10/2022 11:20:57 Gastroesophageal reflux disease without esophagitis 766898638 K21.9 Left upper quadrant pain 861512378 R10.12 Screening for malignant neoplasm of colon 226565249 Z12.11 Health Concerns Section Related Observation LastModified by Organization Detai ls LastModified Time None Recorded Concern Status LastModified by Organization Details LastModified Time None Recorded Advance Directives Directive N: Payers Insurance Date Sequence Insurance Name Policy Number Policy Armstrong Covered Member ID Armstrong Member ID Guarantor Name 11/17/2022 1 [place] [id number] Meaghan Sarmiento [id number] Meaghan Sarmienot 01/24/2023 1 [place] [id number] Drew Pearson [id number] Meaghan Sarmiento Notes Date Note Type Note Provider Name and Address Organization Details Recorded Time 11/17/2022 text/html DESEAN WAS SE EN IN THE OFFICE TODAY FOR EVALUATION . PT IS C/O LUQ PAIN . SHE IS S/P [facility] DX AND TREATMENT . UBT DOCUMENTED ERRADICATION . SHE REPORTS WT LOSS 20 + LBS. SHE DENIES COLON SCREENING. SHE IS FROM [place] . SHE DENIES BLEEDING . N/V. Sonia Coronado MD [address] [place] [address], [place] [address], [place], [address], [place] [facility] 11/17/2022 13:09:01 OBGyn Episode No OBEpisode recorded.
--- OUTSIDE RECORDS SUMMARY | 2025-02-13 10:58 | XMS_ITS | Clinical Summary ---
Author Organization [facility] [address] [place] [address] Care Team Providers Care Conference Organizer Name Role Phone Lino Watson Primary Care Provider [phone] Allergies Active Allergy Reactions Criticality Noted Date [...] 12/19/2023 Assessment & Plan (09/06/2024 2:39 PM RATE INSERTER): Update TFTS If TSH is normal, will [...] on file Legal Sex Female 3:55 PM RATE INSERTER Gender Identity Not on file Sexual Orientation Not on file Obstetrics History Last Filed Vital Signs Vital Sign Reading Time Taken Comments Blood Pressure 100/60 09/06/2024 1:53 PM RATE INSERTER Pulse 66 09/06/2024 1:53 PM RATE INSERTER Temperature 35.6 C (96 F) 05/28/2024 9:49 AM CDT Respiratory Rate 18 09/06/2024 1:53 PM RATE INSERTER Oxygen Saturation 96% 05/28/2024 9:49 AM CDT Inhaled Oxygen Concentration - - Weight 65 kg (143 lb 3.2 oz) 09/06/2024 1:53 PM RATE INSERTER Height 157.5 cm (5' 2) 09/06/2024 1:53 PM RATE INSERTER Body Mass Index 26.19 09/06/2024 1:53 PM RATE INSERTER Plan of Treatment Health Maintenance Due Date Last Done Comments Breast Cancer Screening-Mammogram 1975 Cervical Cancer Screening 1975 Colon Cancer Screening-Colonoscopy 1975 Depression Screening 1975 Hepatitis C Screening 1975 DTaP/Tdap/Td Vaccine (1 - Tdap) 1986 Hepatitis B Screening 1993 Regular Well Visit/Exam 18-64 1993 Influenza Vaccine (Season Ended) 2025 Pneumococcal vaccine <65 Completed 04/10/2024 Insurance [employer] OOS Care Teams Conference Organizer Relationship Specialty Start Date End Date Lino Watson PA [address] [place] [address] PCP - General Physician Cost Engineer 11/01/23
--- OUTSIDE RECORDS SUMMARY | 2025-02-13 10:59 | XMS_ITS | Encounter Summary ---
Author Organization [facility] Address [address] [facility] [place] [address] Care Team Providers Care Machine Specialist Name Role Phone Connie Miller PA-C Primary Care Provider + Reason for Visit * Reason Onset Date Comments Medication Issue 09/13/2022 Encounter Details Date Type Department Care Team (Late st Contact Info) Description 09/13/2022 Telephone [facility] [address] [place] [address] Katalina Tai MD [address] [place] [address] Medication Issue Social History Tobacco Use Types [...] skin as moisturizer Send us photos via [email or web address] if develop pus on bottom of foot again I attempted to call her and she needs a occasional babysitter Clinical staff will call her and let her know she was advised to use Sarna CY LEGAL COUNSEL CY LEGAL COUNSEL * Telephone Encounter - Dee Grant - 09/13/2022 3:20 PM CST Pt needs to know what over the counter medication she was prescribed, she can't remember. CY LEGAL COUNSEL documented in this encounter Plan of Treatment Upcoming Encounters Date Type Department Care Team (Late st Contact Info) Description 03/15/2025 4:00 PM CDT Office Visit [facility] - Dermatology [address] [place] [address], [place] [address] Katalina Tai MD [address] [place] [address] [address] [place] [address] documented as of this encounter Visit Diagnoses Not on filedocumented in this encounter Care Teams Machine Specialist Relationship Specialty Start Date End Date Connie Miller PA-C [address] [place] [phone] PCP - General 06/11/22 documented as of this encounter
--- OUTSIDE RECORDS SUMMARY | 2025-02-13 10:59 | XMS_ITS | Data Portability ---
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 Shannon [place] [facility] 5 10:36:38 Date Recorded Body height Body mass index (BMI) Body weight Body temperature Oxygen saturation Oxygen saturation in Arterial blood by Pulse oximetry Heart rate Systolic blood pressure Diastolic blood pressure Provider Name and Address Organization Details Last Updated DateTime 5 158.75 cm 26.5 kg/m2 78985.0 8 g 98.1 [degF] 93 % 93 % 90 /min 118 mm[Hg] 64 mm[Hg] Amanda Santos [place] [facility] 5 12:49:53 Date Recorded Body height Body mass index (BMI) Body weight Body temperature Oxygen saturation Oxygen saturation in Arterial blood by Pulse oximetry Heart rate Systolic blood pressure Diastolic blood pressure Provider Name and Address Organization Details Last Updated DateTime 5 158.75 cm 26.2 kg/m2 67895.0 5 g 97.6 [degF] 91 % 91 % 92 /min 122 mm[Hg] 72 mm[Hg] Amanda Santos MA [facility] 5 11:34:11 Date Recorded Body height Body mass index (BMI) Body weight Body temperature Heart rate Heart rate Systolic blood pressure Diastolic blood pressure Systolic blood pressure Diastolic blood pressure Provider Name and Address Organization Details Last Updated DateTime 5 158.75 cm 25.7 kg/m2 91433.9 9 g 97.7 [degF] 80 /min 80 /min 99 mm[Hg] 64 mm[Hg] 105 mm[Hg] 62 mm[Hg] Elizabeth Mirtha [facility] 5 11:30:18 Social History Question Answer Notes LastModified by Organizat ion Details LastModified Time Tobacco Smoking Status Never Smoker Bessy Ocampo MA [facility], [facility] 06/10/2016 15:39:40 Do You Have An Advance Directive? No Information n ot available 06/10/2016 Are You Blind Or Do You Have Difficulty Seeing? No Information n ot available 06/10/2016 What Is Your Level Of Caffeine Consumption? Moderate Information not available 06/10/2016 How Much Tobacco Do You Chew? None Information not available 06/10/2016 In The 14 Days Before Symptom Onset, Have You Had Close Contact With A Laboratory-confirm ed COVID-19 While That Case Was Ill? No Information n ot available 02/27/2021 In The 14 Days Before Symptom Onset, Have You Had Close Contact With A Person Who Is Under Investigation For COVID-19 While That Person Was Ill? No Information not available 02/27/2021 Have You Been To An Area Known To Be High Risk For COVID-19? No Information not available 02/27/2021 Are You Deaf Or Do You Have Serious Difficulty Hearing? No Information not available 06/10/2016 What Type Of Diet Are You Following? REGULAR Information n ot available 06/10/2016 Which Illicit Or Recreational Drugs Have You Used? None Information not available 06/10/2016 Education 12 Information no t available 06/10/2016 [...] School Diploma Or Higher Education? Yes Information no t available 02/27/2021 Do You Sometimes Have To [...] Do You Have A Medical Power Of Gym Teacher? No [email or web address] Information not available 12/07/2021 What Was The Date Of Your Most Recent Tobacco Screening? 01/16/2025 Information not available 01/16/2025 How Many Children Do You Have? 4 [...] Smoke? Yes Information no t available 06/10/2016 How Much Tobacco Do You Smoke? No Information not available 06/10/2016 General Stress Level Low Information not available 06/10/2016 Do You Use Sunscreen Routinely? No Information not available 06/10/2016 Has Tobacco Cessation Counseling Been Provided? Yes Information not available 06/13/2024 On What Date Was Tobacco Cessation Counseling Provided? 01/16/2025 Information not available 01/16/2025 Do You Have Difficulty Walking Or Climbing Stairs? No Information not available 06/10/2016 Sex: Female Functional Status Question Answer Note LastModified by Organizat ion Details LastModified Time Do you use any illicit or recreational drugs? No Information not available 02/27/2021 Do you or have you ever used any other forms of tobacco or nicotine? No Information not available 06/13/2024 What is your level of alcohol consumption? None Information not available 06/10/2016 Do you or have you ever used smokeless tobacco? Never used smokeless tobacco Information not available 08/05/2020 Are you currently employed? No Information not available 06/10/2016 Do you have difficulty doing errands alone? No Information not available 06/10/2016 Are you able to care for yourself? Yes Information not available 06/10/2016 Do you have difficulty dressing or bathing? No Information not available 06/10/2016 Do you or have you ever used e-cigarettes or vape? Never used electronic cigarettes Information not available 08/05/2020 What is your exercise level? Moderate Information [...] Response Coronary Artery Disease N Other N Atrial Fibrillation N High Blood Pressure N Thyroid Problems N Kidney or Bladder Problems N Depression N COPD N Blood Clots N GI Problems N Skin Problems N Eating Disorder N Anemia N Heart Attack (SC) N Diabetes N Anxiety Disorder N Muscle, Joint, or Bone Problems N Seizures/Epilepsy N Arthritis N Acid Reflux (GERD) N Cancer N Stroke N Allergies N Asthma N ADHD N Substance Abuse N High [...] Details Recorded Time Pneumococcal conjugate PCV20, polysaccharide MYT509 conjugate, adjuvant, PF 4 completed Amanda Santos MA [place], [place] - [place] 04/10/2024 12:56:06 Past Encounters Encounter ID Performer Location Encounter Start Date Encounter Closed Date Diagnosis/Indication Diagnosis SNOMED-CT Code Diagnosis ICD10 Code Diagnosis Note [id number] [facility] [address] [place] [phone] 06/10/2016 15:19:13 06/10/2016 18:22:10 Body mass index 25-29 - overweight 600024376 Z68.29 Advised 30 minutes of exercise 5 days/weekA dvised not to drink her calories Gynecologi c examination 88197963 Z01.411 Tenderness of breast 552 93282 N64.4 Patient has mammogram appointmen t tomorrow at 1:40PM Inflammati on of cervix 13770566 N72 Depressive disorder 3548 9007 F33.1 Advised to schedule an appointmen t to establish for PCP and then we can address this [id number] [facility] [address] [place] [address] [phone] 0 06/24/2016 12:00:19 06/24/2016 13:44:34 Body mass index 25-29 - overweight 245047684 Z68.29 Advised 30 minutes of exercise 5 days/weekA dvised not to drink her calories Depressive disorder 3548 9007 F33.1 Will begin venlafaxin e 50mgDiscus sed doing calming exercise and finding some time to herselfAny SI/HI go directly to the [facility] 6 weeks for f/u Atopic dermatitis 446799 01 L20.9 Anxiety 61140317 F41.9 Adult heal th examination 275808144 Z00.01 40YO female here to establish care. [id number] MD Leigh Noe (Adult Med) [address] [place] [address] [phone] 0 08/06/2016 10:19:12 08/06/2016 16:38:21 Thyroid stimulating hormone level above reference range 807898800 R79.89 Will repeat today Blood gluc ose outside reference range 867119728 R73.09 a1c: 6.2LDL: 118 Lost 2lbsAdvise d to stay away from sugary drinks, tortillas, breads, sweets, potatoes, rice Body mass index 25-29 - overweight 539430587 Z68.29 Advised 30 minutes of exercise 5 days/weekA dvised not to drink her calories Depressive disorder 3548 9007 F33.1 Will begin venlafaxin e 50mg and to take this BID and Vistaril PRNDiscuss ed doing calming exercise and finding some time to herselfAny SI/HI go directly to the ERContact office in 2-3 weeks to let us know how medication is working [id number] MD Leigh Noe (Adult Med) [address] [place] [address] [phone] 0 09/16/2016 10:52:40 09/16/2016 15:14:33 Depressive disorder 35774180 F33.1 Will begin buproprion 100mg QD x 1 week and then BID and to take this BID and Vistaril PRNDiscuss ed doing calming exercise and finding some time to herselfAny SI/HI go directly to the ERContact office in 2-3 weeks to let us know how medication is working and have [place] [id number] MD Leigh Noe (Adult Med) [address] [place] [address] [phone] 01/05/2017 13:52:50 01/05/2017 14:49:50 Vaginal discharge 525990303 N89.8 WIll check Nuswab Candidiasis of vagina 72 430076 B37.3 Long discussion concerning the angry red appearance of her genital area and that it likely points to a vaginal yeast infection - advised no cortisone cream to area - use nystatin BID x 1 weekAdvise d to keep area clean and dry other than with creamTake fluconazol e pill as well Atopic dermatitis 413848 01 L20.9 Will refill triamcinol one cream - had an allergic rx to something outside and has worked in the past Depressive disorder 6154 9000 F33.1 Wellbutrin working work - will continue medication [id number] MD Leigh Noe (Adult Med) [address] [place] [address] [phone] 0 02/16/2017 14:08:23 02/17/2017 12:29:53 Vaginal pain 86285785 R10.2 Will check NuswabUA negativeWI ll treat for yeast infection at this time and send patient results of swab via patient portal and then she states she will find someone in [place] for treatment if necessary after receiving swab results Advised to purchase lubricant for sex to help with pain Candidiasis of vagina 72 584176 B37.3 Will retreat at this [facility] [id number] [facility] [address] [place] [address] [phone] 04/13/2017 09:28:11 04/13/2017 17:55:27 Tonsillitis 24182501 J03.90 Sinusitis 98611789 J32.9 sx's> 2 weeksAdvis ed to drink plenty of waterAlter marysol ibuprofen and tylenol for painRestOT C cough syrup PRN Allergic rhinitis 553407 04 J30.9 [id number] [facility] (Adult Med) [address] [place] [address] [phone] 06/02/2017 09:32:01 06/02/2017 11:48:38 Acute bronchitis 40601342 J20.9 wheezing gone after albuterol tx'sWIll initiate medrol dose pack and refill inhalerAdv ised that if her SOB or wheezing worsens, she develops fever, chills, n/v she needs to go directly to the ER - advised [facility] d/t insurance issues Acute otitis media 47891 03 H66.92 left earwill treat with abx at this time - PCN allergy Dyspnea 842934604 R06.00 wheezing gone after albuterol txs Acute asthma 575822020 J 45.901 wheezing gone after albuterol tx's WIll initiate medrol dose pack and refill inhaler Advised that if her SOB or wheezing worsens, she develops fever, chills, n/v she needs to go directly to the ER - advised [facility] d/t insurance issues [id number] MD Leigh English (Adult Med) [address] [place] [address] [phone] 0 07/28/2017 10:21:12 07/28/2017 12:22:32 Acute bronchitis 37371982 J20.9 WIll initiate medrol dose pack and refill inhalerAdv ised that if her SOB or wheezing worsens, she develops fever, chills, n/v she needs to go directly to the ER - advised [facility] d/t insurance issuesAdvi sed to complete abx as prescribed for pneumonia Chronic bronchitis 15685 004 J42 D/t 3 bouts of pneumonia over the last 3 months, will refer to pulm In addition, will initiate Advair 1 puff BID as maintainan ce RTC if no improvemen t [id number] MD Leigh English (Adult Med) [address] [place] [address] [phone] 0 10/05/2017 10:33:10 10/05/2017 12:00:26 Gastroenteritis 59096181 K52.9 Advised bland BRAT dietNo spicy foodsPlent y of waterVirus runs its own course and she is feeling betterNo need for further interventi on at this time Chronic bronchitis 49321 004 J42 c/w Advair BID - ProAir PRNf/u with pulmwell controlled at this time Contact clinic if you use ProAir more than 3-4 times week, wake up at night coughing, begin to have SOB [id number] MD Leigh English (Adult Med) [address] [place] [address] 11/23/2017 10:58:31 11/23/2017 13:37:01 Chronic bronchitis 77542242 J42 c/w Advair BID - ProAir PRNf/u with pulmwell controlled at this time Contact clinic if you use ProAir more than 3-4 times week, wake up at night coughing, begin to have SOB Allergic disposition 609 535173 Z91.09 Body mass index 25-29 - overweight 704479460 Z68.29 Advised 30 minutes of exercise 5 days/weekA dvised not to drink her calories Blood gluc ose outside reference range 560757777 R73.09 last a1c: 6.2LDL: 118 Lost 2lbsAdvise d to stay away from sugary drinks, tortillas, breads, sweets, potatoes, rice Eczema 28827200 L30.9 left antecubitu s: Apply plenty of [...] weeks. The parents verbalized understand ing. Asthma 626284626 J45.90 9 Refilled Advair for 3 months. Instructed family if albuterol usage increases beyond 2 times per week for 2 weeks, it may been a sign of worsening control. Call office or go to ER for worsening cough, wheeze or work of breathing. Follow up in office in 3 months - family verbalized understand ing. [id number] MD Leigh English (Adult Med) [address] [place] [address] 12/13/2017 10:24:46 12/13/2017 11:42:29 Bronchitis 53645503 J40 Improvingc omplete all medication s as prescribed c/w inhalers as prescribed establish with pulm Body mass index 25-29 - overweight 228130957 Z68.29 Advised 30 minutes of exercise 5 days/weekA dvised not to drink her calories Asthma 215604430 J45.90 9 Patient to f/u with pulm [id number] MD Leigh Lamar (Adult Med) [address] [place] [address] [phone] 0 01/06/2018 16:22:32 01/10/2018 11:40:59 Asthmatic bronchitis 698351419 J45.909 F/U with her PCP PAC Ms. Acevedo, may go t ER any time for any concern she understood and agreed. Has no health insurance. [id number] MD Leigh Lamar (Adult Med) [address] [place] [address] [phone] 01/20/2018 15:01:53 01/23/2018 11:48:56 Asthmatic bronchitis 060559200 J45.909 F/U with her PCP PAC Ms. Acevedo, may go t ER any time for any concern she understood and agreed. Has no health insurance. Go to Er any time for any concern, they understood and agreed,. Chronic bronchitis 53052 004 J42 [id number] Chon Frost MD [facility] [address] [place] [address] [phone] 2 04/03/2018 10:45:58 04/05/2018 12:21:59 Moderate persistent asthma 122904079 J45.40 Patient to use Advair 250/50 on regular basis. Change theophylli ne to 100 mg BID. Continue Albuterol on PRN and quit Prednisone . She was advised about the harms of taking prednisone on regular basis. Will et PFTs, CXR, CBC, IgE Allergic rhinitis 209074 04 J30.9 Patient will be continued on Zyrtec Chronic cough 97751961 R 05 multifacto rial Dyspnea on exertion 6084 5006 R06.09 Secondary to asthma. Sleep disorder 19800172 G47.9 I will check overnight O2 study [id number] MD Leigh Gibson (HAND P[employer]ER/[employer]AGER) [address] [place] [address] [phone] 04/24/2018 11:15:03 04/24/2018 12:39:20 Pain of breast 33519586 N64.4 Counseled about it and possible causes.Adv ised to decrease caffeine. Pain in pelvis 03278774 R10.2 Counseled about possible causes. Patient refused any testing, pelvic exam because she does not have insurance. She say she will get clearance from [facility] for PAP smear. She say she will let me know when decided. [id number] ZEUS BURGERC Leigh (Adult Med) [address] [place] [address] [phone] 0 04/26/2018 13:32:10 04/27/2018 10:49:32 Allergic disposition 901531566 Z91.09 lungs clear-like ly allergies continue zyrtec daily restart flonase nasal spray f/u as needed Asthmatic bronchitis 405 119252 J45.909 continue advair and proair as needed f/u prn [id number] Moises Maria MD [facility] [address] [place] [address] 05/18/2018 10:11:41 05/19/2018 14:37:47 Moderate persistent asthma 971769791 J45.40 Patient to use Advair Diskus 250/50 on regular basis. Change theophylli ne to 100 mg BID. Continue Albuterol on PRN and quit Prednisone . She was advised about the harms of taking prednisone on regular basis. Will get PFTs, CXR, CBC, IgE Acute uppe r respiratory infection 44295878 J06.9 Viral, symptomati c treament Chronic cough 92244713 R 05 multifacto rial Sleep disorder 37496680 G47.9 nocturnal hypoxemia, EDS, EDF and sleep disturbanc es, I will check split sleep study on the patient Dyspnea on exertion 6084 5006 R06.09 Secondary to asthma. Allergic rhinitis 248101 04 J30.9 Patient will be continued on Zyrtec, I will add Flonase [id number] Amrik Steinberg MD [facility] [address] [place] [address] 05/25/2018 12:28:54 05/30/2018 14:09:33 Fibrocystic disease of breast 81670638 N60.19 Right uppe r quadrant pain 641962305 R10.11 [id number] MD Leigh English (Adult Med) [address] [place] [address] [phone] 0 06/29/2018 09:04:11 06/29/2018 12:02:52 Asthmatic bronchitis 728143823 J45.909 Patient has uncontroll ed Asthma. Using [...] of her asthma concerns. Allergic disposition 609 153332 Z91.09 Allergic rhinitis 039079 04 J30.9 continue with medication . [id number] MD Leigh English (Adult Med) [address] [place] [address] [phone] 0 07/17/2018 09:02:27 07/18/2018 10:06:11 Acute otitis media 7332050 H66.92 Patient presents today to f/u after [...] hours to control painReturn if symptoms worsen [id number] MD Leigh Flores (Adult Med) [address] [place] [address] 65488-214 0 11/29/2018 15:55:36 11/30/2018 09:17:21 Asthma 689420433 J45.909 increase advair Depressive disorder 3548 9007 F32.9 Abdominal bloating 70585 9008 R14.0 Muscle pain 10894389 M79 .10 Abnormal weight gain 161 755480 R63.5 Allergic rhinitis 899533 04 J30.9 [id number] Christy Lang MD [facility] (Adult Med) [address] [place] [address] 74789-731 0 01/10/2019 10:43:22 01/11/2019 11:43:07 Iron deficiency anemia 69511999 D50.9 Allergic rhinitis 025258 04 J30.9 Fatigue 78175211 R53.83 Asthma 952755012 J45.90 9 DcAdvair .Trial Symbicort Vitamin D deficiency 347 99689 E55.9 Constipation 54109329 K5 9.00 Abdominal bloating 39469 9008 R14.0 [id number] Christy Lang MD [facility] (Adult Med) [address] [place] [address] [phone] 0 02/20/2019 17:06:02 02/21/2019 09:50:08 Asthma 897827512 J45.909 STart Medrol dose pascual then restart Advair in three days Allergic rhinitis 690634 04 J30.9 Gastroesop hageal reflux disease 504848619 K21.9 [id number] ABIDA CHAIDEZ (Adult Med) [address] [place] [address] [phone] 04/20/2019 09:48:54 04/23/2019 11:59:40 Acute otitis media 8859575 H66.93 Bilateral TM erythema and bulging present Allergic to penicillin - Will start patient on azithromyc in Gastroesop hageal reflux disease 630546260 K21.9 Will refill omeprazole for patient [id number] [facility] [address] [place] [address] [phone] 0 05/17/2019 11:46:02 05/18/2019 09:46:52 Asthma 170423451 J45.909 Cont. meds she is using now. F/U with lung specialist [id number] ABIDA CHAIDEZ (Adult Med) [address] [place] [address] [phone] 06/07/2019 11:06:45 06/08/2019 09:17:50 Acute otitis media 8224562 H66.93 Complainin g of right ear pain, cough, and nasal congestion x 1 weekBilate ral TM erythema and bulging present Allergic to penicillin - Will start patient on doxycyclin e x 7 days- Provided her with informatio n regarding supportive care Tendinitis of left rotator cuff 5348835083 5114886 M67.814 Complainin g of left shoulder pain [...] 3x/day Screening for malignant neoplasm of breast 630704433 Z12.39 5 cm cyst of the left breast visualized on prior mammograms Last mammogram was 04/28/18- Will put in mammogram order [id number] Moises Maria MD [facility] [address] [address] 06/21/2019 11:23:44 06/22/2019 08:46:01 Moderate persistent asthma 475230209 J45.40 Patient to continue (trelegy). Continue Albuterol on PRN and quit Prednisone . She was advised about the harms of taking prednisone on regular basis. She did not receive flu shot Chronic cough 19771565 R 05 multifacto rial Sleep disorder 37883490 G47.9 nocturnal hypoxemia, EDS, EDF and sleep disturbanc es, sleep study showed no ANGELA Dyspnea on exertion 6084 5006 R06.09 Secondary to asthma. Allergic rhinitis 239525 04 J30.9 Patient will be continued on Zyrtec, Patient to continue Flonase Tolerant non-smoker 8773 9003 Z87.891 lifelong but she has second hand smoking exposure Solitary n odule of lung 591685622 R91.1 was seen on outside chest Xray in prompton, Xray is not available. I will repeat CXR on the patient [id number] ABIDA CHAIDEZ (Adult Med) [address] [place] [address] 08/16/2019 09:50:20 08/17/2019 09:36:19 Asthma 777225031 J45.[address] Maria for pulmonary care.Kimberlyn juarez using an inhaler from [place] because it is much cheaper and it is working well.- continue to follow with Dr. Maria Impaired g lucose tolerance 0706230 R73.03 Hx of abnormal HgbA1c- Will check today Anemia 493602059 D64.9 Hx of anemia- Will check today Candidiasis of vagina 72 004764 B37.3 Complainin g of external vaginal irritation and itching.Ur ine dipstick in office showed trace LE and moderate amount of blood, patient on menses- Will start nystatin cream and diflucan Adult heal th examination 652012838 Z00.00 - Will check labs Gastroesop hageal reflux disease 403542278 K21.9 Complainin g of epigastric pain and burning sensation radiating up her chest x 1-2 months- Will restart omeprazole 20 mg Constipation 81885281 K5 9.00 Admits to constipati on and bloatingHa s 2-3 BMs per day, but admits to straining and only being able to go small amounts.- Provided her with informatio n regarding constipati on- Advised her to drink 8-10 glasses of water per day- Take metamucil daily- Provided her with Miralax supplement s, take when no BM in 2-3 days Atypical chest pain 1025 29932 R07.89 Complainin g of my heart is fatigued. Admits to episodes of feeling an ache in the left aspect of her chest and SOB 3x/week. Symptoms usually occur while being active and will last x 5-10 minutes at a time.No prior cardiac history.- Will order EKG Uterine leiomyoma 178434 05 D25.9 Hx of uterine fibroids. Was told in [place] but has never had imaging, patient is requesting more informatio n.- Will order [id number] ABIDA BOSWELL (HAND PACKER/PACKAGER) [address] [place] [address] [phone] 0 09/14/2019 15:47:30 09/14/2019 16:44:12 Upper respiratory infection 97467973 J06.9 Likely viral URI.-Get plenty of rest-rescu e inhaler as needed to wheezing-i buprofen as needed to headaches, body aches, and fevers-cet irizine QD-increas e fluid intake-OTC cough syrup prn [id number] ABIDA CHAIDEZ (Adult Med) [address] [place] [address] [phone] 0 10/04/2019 10:36:09 10/04/2019 13:27:56 Subcutaneous nodule 20617669 R22.9 Complainin g of knot on her [...] US of nodule to better assess Sciatica 03567156 M54.32 Complainin g of lower back pain with left leg numbness, tingling, and weakness x 2 weeksOn PE: left SI joint TTP - will start steroids to decrease inflammati on- take muscle relaxer at bedtime- complete stretches and exercies at home, if no improvemen t, will put in order for PT [id number] ABIDA CHAIDEZ (Adult Med) [address] [place] [address] 10/24/2019 09:54:00 10/25/2019 12:22:47 Subcutaneous nodule 06876430 R22.9 Complainin g of knot on her [...] MRI at f/u Iron defic iency anemia 33423513 D50.9 Labs from 08/31/19 indicative of SAIDA. Ferritin 5, iron level 20, iron saturation 6, Hgb 10.5. Iron supplement s given, pt has been on these for over a month. - Provided pt lab handouts from previous results, pt states will get labs tested today. Acute otitis media 60052 03 H66.93 Complainin g of bilateral ear pain which has persisted for 3 years.Bila teral TM erythema and bulging present Allergic to penicillin - Will start patient on doxycyclin e x 5 days and antibacter ial ear drops for the issue. Cyst of right ovary 1223 144892 8569630 N83.201 Discussed results of pelvic US from 10/17/19 including numerous intermural fibroids and a small cyst to the right ovary.- Discussed radiologis t suggestion to repeat pelvic US in 6-10 weeks when off menstrual period. Pt is understand ing of this and states will repeat this US in late November when off menstrual period. Body mass index 25-29 - overweight 655435359 Z68.29 BMI 29- Advised decreased portion sizes, good food choices, limited eating out or fast food and eliminate soda and juice from diet. Advised physical activity daily and offered encouragem ent to continue with positive changes made so far. [id number] AIBDA CHAIDEZ (Adult Med) [address] [place] [address] 01/02/2020 11:56:10 01/03/2020 10:21:05 Acute otitis media 2510351 H66.93 Complainin g of bilateral ear pain [...] ear infections Cyst of right ovary 1223 319616 7493247 N83.201 Discussed results of pelvic US from 10/17/19 including numerous intermural fibroids and a small cyst to the right ovary.- Discussed radiologis t suggestion to repeat pelvic US in 6-10 weeks when off menstrual period. Pt is due for repeat US now, encouraged her to call and get US scheduled. Body mass index 25-29 - overweight 132581321 Z68.29 BMI 29- Advised decreased portion sizes, good food choices, limited eating out or fast food and eliminate soda and juice from diet. Advised physical activity daily and offered encouragem ent to continue with positive changes made so far. Cyst of breast 292132275 N60.09 Notes to have continued intermitte nt [...] visit with me in the office Eczema 65798052 L30.9 Hx of eczema on her arms [...] follow all instructio ns on the label. [id number] ABIDA CHAIDEZ (Adult [address] [address] 01/31/2020 10:41:24 02/01/2020 14:34:07 Iron deficiency anemia 37529347 D50.9 08/31/19: Hgb 10.5, Iron and ferritin both low10/24/19 : Hgb 10.8, iron and ferritin the sameRan out of iron pills and never returned for repeat testing - provided her with labs to repeat iron testing Mass of ovary 078931797 R19.09 US 10/17/2019 showed numerous intermural fibroids and small hypoechoic structure on R ovary, it was recommende d that she repeats US in 6-10 weeksPatie nt never completed repeat US- provided with order today in the office, encouraged her to call and get appointmen t scheduled Contact dermatitis 48869 004 L25.9 Complainin g of rash on [...] help sleep if needed Acute otitis media 05208 03 H66.93 Complainin g ofl eft ear [...] appointmen t scheduled Increased frequency of urination 048695919 R35.0 Complainin g of left flank pain x 1 day. Admits to urinary hesitancy and urinary frequency x 2-3 days. She has not tried anything for this at home. Denies dysuria and hematuria. Urine dipstick in the office showed: moderate LE and trace blood- will treat for UTI with macrobid- will send urine off for culture Bursitis o f ankle region 333247685 M76.899 Complainin g of swelling of left [...] on Blood gluc ose outside reference range 466035693 R73.09 HgbA1c elevated in the past- will screen her again Abnormal weight loss 267 258671 R63.4 Patient notes she has lost weight since last visit without trying, feels like she has been eating more than usual and still losing weightWas 161 pounds (10/24/2019 ) and today weighs 155 pounds (01/31/2020 ) - encouraged her to log her diet at home and continue to monitor her weight- return to office in 1 month for weight check [id number] ABIDA CHAIDEZ (Adult Med) [address] [place] [address] 08/05/2020 08:25:36 08/06/2020 11:06:59 Gastroesophageal reflux disease 792477944 K21.9 Reports epigastric pain and burning sensation [...] a time.Tiki mock reports that doctor in [place] told her she needed an EGD. However patient has not on been on any medication s.Likely GERD-Presc ribed famotidine 20 mg BID x 1 month-F/u with 1 month; advised to bring medication s prescribed from [place]- f/u in 1 month Asthma 778533369 J45.90 9 Patient has a history of asthma and was seeing Dr. Maria for pulmonary care. Receives her medication from [place]. Currently taking a maintenanc e inhaler with betamethas one and salmeterol BID (Trelegy). Denies having a rescue inhaler at this moment.-Pr escribed albuterol inhaler to use as needed Upper resp iratory infection 60406028 J06.9 Began having chest congestion , green rhinorrhea , otalgia, and coughing green sputum 4 days ago. Patient has not been around anybody with the same symptoms. Denies COVID exposure.R eports taking 2 of ibuprofen with no relief. -Prescribe d tessalon jolynnes for symptomati c treatment- Prescribed Z-Pascual for URI symptoms, allergic to PCN Screening for malignant neoplasm of breast 113896822 Z12.39 5 cm cyst of the left breast visualized on prior mammograms Was unable to get a mammogram due to insurance- Will do a clinical breast exam at f/u visit in 1 month Allergic rhinitis 188667 04 J30.9 Pt taking zyrtec and flonase. States she sees no improvemen t with with flonase-d/ c zyrtec-Pre scribed montelukas t with hx of asthma-Booker l hold off on flonase for now [id number] ABIDA CHAIDEZ (Adult Med) [address] [place] [address] 09/03/2020 10:50:48 09/05/2020 09:58:19 Asthma 747844388 J45.909 Patient has a history of asthma and was seeing Dr. Maria for pulmonary care.Recei ves her medication from [place]. Currently taking a maintenanc e inhaler with [...] to the ER Gastroesop hageal reflux disease 024987392 K21.9 Previously seen for epigastric pain and [...] office or go to ER Acute sinusitis 25831639 J01.90 Previous 08-05-2020 visit complaints of green [...] go to the ER Irritable bowel syndrome 26316274 K58.9 Mixed IBS, dominate constipati on Complains [...] office or go to ER Allergic rhinitis 552006 04 J30.9 Pt taking zyrtec and flonase, no improvemen t, d/c zyrtec 08-05-2020 & prescribed montelukas t 10mgNotica ble improvemen t with montelukas tComplaini ng of pruritus in the right ear canal - Educated patient that this is a medication she will take on a daily basis- will send ear drops to pharmacy to help with pruritus Screening for malignant neoplasm of breast 272647076 Z12.39 5 cm cyst of the left breast visualized on prior mammograms Was unable to get a mammogram due to insuranceU yannale to do clinical breast exam at todays visit- Will do clinical breast exam at f/u visit [id number] ABIDA CHAIDEZ (Adult Med) [facility] [place] [address] 11/07/2020 09:14:18 11/10/2020 08:55:38 Left upper quadrant pain 355308894 R10.12 Complains of abdominal distension x 1 [...] pylori breath test for further evaluation Polyarthropathy 95845874 M13.0 Complains of diffuse arthralgia s (all joints) and morning stiffness x 1 year Pain is greatest in her left hand and left elbow and worsened in the past week, has noticed intermitte nt swelling in her left hand 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, no recent trauma or injury Uses an ointment and does regular stretches in the morning with improvemen t of pain No numbness or tingling, family history of RA or other autoimmune disease CHANTELLE, ESR, CK were normal in 11/2018 - Ordered RA profile for further evaluation Tension-type headache 39 5824768 G44.209 Complains of left-sided headache that radiates [...] on tension headaches Iron defic iency anemia 62953089 D50.9 08/31/2019: Hgb 10.5, iron and ferritin both low 10/24/2019: Hgb 10.8, iron and ferritin the same 02/05/2020: Hgb 12.5, iron normal, iron sat low, and ferritin low - Ordered repeat CBC, ferritin, iron and TIBC - Continue oral iron QD to help increase iron storage Anxiety 05547676 F41.9 Reports constantly worrying about her health [...] our counselor' s here Hand joint stiff 5499143 09 M25.649 Complains of diffuse arthralgia s (all joints) and morning stiffness x 1 year Pain is greatest in her left hand and left elbow and worsened in the past week, has noticed intermitte nt swelling in her left hand 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 pylori breast test today Asthma 595715588 J45.90 9 Pt with asthma exacerbati on 2 weeks ago with stomach retraction s and racing heart, improved with albuterol which she used daily for one week at the time. Also using Trimbow inhaler from [place] twice dialy (contains beclometas one dipropiona te, [...] with pulmonolog y Pain of left wrist 88247 74992 46433 M25.532 Pt with sharp stabbing pain over [...] Consider left wrist x-ray, ortho referral Hypoxia 630889863 R09.02 O2 sat 90% today, has been [...] f/u CT - Review pulm records Eczema 46997825 L30.9 Hx of eczema on her arms [...] follow all instructio ns on the label. [id number] ABIDA CHAIDEZ (Adult Med) [address] [place] [address] 02/23/2021 09:21:27 02/24/2021 12:30:11 Gynecologic examination 42752384 Z01.419 Patient presents for annual well woman [...] her bleeding mid cycle. Screening mammography 24 236704 Z12.31 Patient with a family history of breast cancer. Last mammogram done in 2019 stable, showing dense breast tissue bilateral. - Mammogram order placed today. Mastodynia of bilateral breasts 1627759268 2053447 N64.4 Patient complainin g of 6 years of bilateral breast pain and tenderness to the touch.- Diagnostic mammogram ordered today. [id number] ABIDA CHAIDEZ (Adult Med) [address] [place] [address] 02/27/2021 12:34:12 03/02/2021 14:19:00 Break-through bleeding 27362148 N92.1 Patient seen on 02/23/21 for annual pap test and complaints of bleeding mid cycle.Pap test and nuswab came back negative.W ill order pelvic US today to assess for any structural abnormalit ies. Patient is going to [place] in two days. She reports not being able to get this test done before she leaves. Will go to have it done when [facility] returns[facility] 561531602 B96.81 Hx of H pylori infection 11/07/20 and back in 2019 Treated for recent infection with triple abx therapy, Repeat hpylori breath test at 6 weeks was positive- unsure if tested too soon or if actually treatment failure, will repeat test again today- if positive, will start quad. therapy Hypoxia 674745891 R09.02 O2 sat 92% today, has been [...] up with pulm Iron defic iency anemia 09982167 D50.9 08/31/2019: Hgb 10.5, iron and ferritin both low 10/24/2019: Hgb 10.8, iron and ferritin the same 02/05/2020: Hgb 12.5, iron normal, iron sat low, and ferritin low - Ordered repeat CBC, ferritin, iron and TIBC - Continue oral iron QD to help increase iron storage Impaired g lucose tolerance 1405550 R73.03 Patient requests HbA1c testing today.Will order with other labs [id number] Moises Maria MD [facility] [address] [place] [address] 06/29/2021 10:44:24 06/29/2021 15:09:44 Moderate persistent asthma 024756776 J45.40 Patient is using Symbicort 160/4.5, 2 puffs BID and Combivent respimat. ( she has been using those and buying them from [place]. I will add Incruse Chronic cough 95985494 R 05.3 Multifacto rial Tolerant non-smoker 8773 9003 Z87.891 lifelong but she has second hand smoking exposure Sleep disorder 35416593 G47.9 nocturnal hypoxemia, EDS, EDF and sleep disturbanc es, sleep study showed no ANGELA(2019) Solitary n odule of lung 333620314 R91.1 was seen on outside chest Xray in [place], Xray is not available. Irepeated CXR 06/2021 showed peribronch ial thickening Dyspnea on exertion 6084 5006 R06.09 Secondary to asthma. Allergic rhinitis 093418 04 J30.9 Patient will be continued on Zyrtec, Patient to continue Flonase [id number] Shahrzad Ken MD [facility] (Adult Med) [address] [place] [address] 08/21/2021 17:20:31 08/24/2021 13:16:46 Suspected COVID-19 210247707 Z20.822 She agreed for the med as ordered, advised to go to ER any time for any concern. She also agreed. [id number] Moises Maria MD [facility] [address] [place] [address] 09/07/2021 10:44:37 09/07/2021 13:10:28 Moderate persistent asthma 086926089 J45.40 Patient is using Symbicort 160/4.5, 2 puffs BID and Combivent respimat. ( she has been using those and buying them from [place]. she did not try Incruse Chronic ob structive pulmonary disease 81779212 J44.9 FEV1 68%, FVC 83%, FEV1/FVC 70%, BD- TLC 98%, DLCO 93% ( 2020) Allergic rhinitis 122095 04 J30.9 Patient will be continued on Zyrtec, singulair Patient to continue Flonase IgE-mediat ed allergic asthma 710776963 J45.909 Elevated IgE, continue Singulair, Flonase and Zyrtic History of SARS-CoV-2 29 81576468 82863717 Z86.16 She has COVID-19 pneumonia 07/2021 Dyspnea on exertion 6084 5006 R06.09 Secondary to asthma. Air trapping 34704521 J9 8.8 RV 128% Chronic cough 26204204 R 05.3 Multifacto rial Solitary n odule of lung 490775679 R91.1 was seen on outside chest Xray in [place], Xray is not available. Irepeated CXR 06/2021 showed peribronch ial thickening Tolerant non-smoker 8773 9003 Z87.891 lifelong but she has second hand smoking exposure [id number] ABIDA CHAIDEZ (Adult Med) [address] [place] [address] 10/23/2021 12:27:57 10/26/2021 12:59:32 Chronic back pain 567521753 G89.29 Worsening back pain x1 yr. She [...] at night- diclofenac prn for pain Fibromyalgia 844135080 M 79.7 She was seen by an orthopedic surgeon 1 yr ago who ordered xrays and diagnosed her with fibromyalg ia.Not currently taking any medication for it.- starting duloxetine for depression that may help with nerve pain Fatigue 59727856 R53.83 Pt reports generalize d fatigue. She has a history of vitamin D deficiency .- start multivitam in- treat mood/depre ssion by starting medication today Depressive disorder 7800 9003 F32.9 Admits to decreased mood, low energy, [...] f/u in 1 month Allergic disposition 609 657543 T78.40XA Pt reports drowsiness from cetirizine . She is worried about worsened drowsiness with the muscle relaxer in addition to the cetirizine .- switch to loratadine to avoid drowsiness [id number] Moises Maria MD [facility] [address] [place] [address] 12/07/2021 10:58:38 12/09/2021 14:17:09 Moderate persistent asthma 591410885 J45.40 Patient is using Symbicort 160/4.5, 2 puffs BID and Combivent respimat. ( she has been using those and buying them from [place]. she did not try Incruse Chronic ob structive pulmonary disease 36310279 J44.9 FEV1 68%, FVC 83%, FEV1/FVC 70%, BD- TLC 98%, DLCO 93% ( 2020) Allergic rhinitis 384393 04 J30.9 Patient will be continued on Zyrtec, singulair Patient to continue Flonase Tolerant non-smoker 8773 9003 Z87.891 lifelong but she has second hand smoking exposure Chronic cough 05220329 R 05.3 Multifacto rial Dyspnea on exertion 6084 5006 R06.09 Secondary to asthma. Air trapping 56509038 J9 8.8 RV 128% IgE-mediat ed allergic asthma 979562094 J45.909 Elevated IgE, continue Singulair, Flonase and Zyrtic History of SARS-CoV-2 29 11871861 55652847 Z86.16 She has COVID-19 pneumonia 07/2021 [id number] ABIDA CHAIDEZ (Adult Med) [facility] [place] [address] 01/25/2022 10:06:17 01/26/2022 10:35:42 Compression fracture of thoracic vertebra 1350073992 104 M48.54XA Patient complainin g today of [...] nerve injury History of Helicobacter pylori infection 7491716534 9955194 Z86.19 Hx of more than 1 episode of positive H. pylori test, patient having similar symptoms again today (01/25/22)- will repeat test- if negative, start PPI for indigestio n Depressive disorder 0888 9007 F32.9 Admitted in the past to [...] f/u in 1 month Left flank pain 22476316 9 R10.9 Left flank pain has been [...] will check UA Left upper quadrant pain 701387460 R10.12 Complainin g of similar abdominal pain today for ~3 months compared to when she had H. pylori in 2018 and 2020. Has been experienci ng indigestio [...] CBC Blood gluc ose outside reference range 881922912 R73.09 HgbA1c elevated, 6.0- continue with lifestyle changes- will continue to monitor, ordering HgbA1C and lipid panel Mammography abnormal 168 638458 R92.8 Mammogram and US 06/04 showed bilateral breast cysts, f/u with bilateral US in 6 months was rec.- order placed for repeat breast US Cyst of right ovary 1223 710049 3873757 N83.201 Discussed results of pelvic US from 10/17/19 including numerous intermural fibroids and a small cyst to the right ovary.- Discussed radiologis t suggestion to repeat pelvic US in 6-10 weeks when off menstrual period. Pt is due for repeat US now, encouraged her to call and get US scheduled. [id number] Shahrzad Ken MD [facility] (Adult Med) [address] [place] [address] 04/09/2022 17:04:43 04/12/2022 11:38:13 Tinea corporis 20973266 B35.4 Rashes . itching spots on the, left hand, left foot and left chest . She is wiling to try, optional dermatolog ist referral. Tinea pedis 1933356 B35. 3 Will order topic cream as above. [id number] Moises Maria MD [facility] [address] [place] [address] 04/29/2022 10:58:52 04/29/2022 13:39:18 Moderate persistent asthma 695659949 J45.40 Patient is using Symbicort 160/4.5, 2 puffs BID and Combivent respimat. ( she has been using those and buying them from [place]. she did not try Incruse Chronic ob structive pulmonary disease 20811184 J44.9 FEV1 68%, FVC 83%, FEV1/FVC 70%, BD- TLC 98%, DLCO 93% ( 2020) Air trapping 79624273 J9 8.8 RV 128% Disorder o f function of stomach 080748560 K31.89 I will send for GI eval Thoracic back pain 71134 8004 M54.6 I will check chest xray. Tolerant non-smoker 8773 9003 Z87.891 lifelong but she has second hand smoking exposure Allergic rhinitis 181737 04 J30.9 Patient will be continued on Zyrtec, singulair Patient to continue Flonase History of SARS-CoV-2 29 14064348 99029270 Z86.16 She has COVID-19 pneumonia 07/2021 Dyspnea on exertion 6084 5006 R06.09 Secondary to asthma. 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 History of diagnosed eczema for many [...] and dermatolog y referral placed Psoriatic arthritis 0574 60457 L40.50 New concern for pustular plantar and [...] ry condition Standard c hest X-ray abnormal 414128019 R93.89 Following with Pulmonolog yRecent xray abnormal, showed new densities and CT scan of chest rec.- appears CT scan of chest has been ordered but waiting on approval [id number] Moises Maria MD [facility] [address] [place] [address] 06/17/2022 10:24:36 06/17/2022 12:35:55 Moderate persistent asthma 228804820 J45.40 Patient is using Symbicort 160/4.5, 2 puffs BID, Incruse ellipta, and Combivent respimat.S he's in exacerbati on , will give Prednisone and Zpak Chronic ob structive pulmonary disease 24824875 J44.9 FEV1 68%, FVC 83%, FEV1/FVC 70%, BD- TLC 98%, DLCO 93% ( 2020) Iron defic iency anemia 85307857 D50.9 She needs iron supplement Allergic rhinitis 865487 04 J30.9 Patient will be continued on Zyrtec, singulair Patient to continue Flonase IgE-mediat ed allergic asthma 679595903 J45.909 Elevated IgE, continue Singulair, Flonase and Zyrtic Chronic cough 34961155 R 05.3 Multifacto rial Thoracic back pain 92034 8004 M54.6 Chest Xray was unremarkab le except for atelectasi s, I will order ct chest without contrast2021Mild abnormalit ies in the lungs. Dyspnea on exertion 6084 5006 R06.09 Secondary to asthma. Disorder o f function of stomach 649331382 K31.89 being evaluated with GI Air trapping 46672720 J9 8.8 RV 128% [id number] Moises Maria MD [facility] [address] [place] [address] 07/22/2022 10:57:41 07/27/2022 14:38:16 Moderate persistent asthma 226627214 J45.40 Patient is using Symbicort 160/4.5, 2 puffs BID, Incruse ellipta, and Combivent respimat.S he's in exacerbati on , will give Prednisone and Zpak Chronic ob structive pulmonary disease 90548629 J44.9 FEV1 68%, FVC 83%, FEV1/FVC 70%, BD- TLC 98%, DLCO 93% ( 2020) Tolerant non-smoker 8773 9003 Z87.891 lifelong but she has second hand smoking exposure CT of chest abnormal 692 4907674 3827033 R93.89 . Atelectasi s in the medial [...] Ct chest in 3 months Air trapping 47998475 J9 8.8 RV 128% Disorder o f function of stomach 135325283 K31.89 being evaluated with GI Dyspnea on exertion 6084 5006 R06.09 Secondary to asthma. Iron defic iency anemia 17135448 D50.9 She needs iron supplement IgE-mediat ed allergic asthma 039523760 J45.909 Elevated IgE, continue Singulair, Flonase and Zyrtic Allergic rhinitis 509754 04 J30.9 Patient will be continued on Zyrtec, singulair Patient to continue Flonase Chronic cough 74315583 R 05.3 Multifacto rial Thoracic back pain 96522 8004 M54.6 Chest Xray was unremarkab le except for atelectasi s, I will order ct chest without contrast2021Mild abnormalit ies in the lungs. [id number] ABIDA CHAIDEZ (Adult Med) [address] [place] [address] 10/01/2022 09:40:38 10/04/2022 15:21:43 Overweight 373714260 E66.3 Advised decreased portion sizes, good food choices, limited eating out or fast food and eliminate soda and juice from diet. Advised physical activity daily and offered encouragem ent to continue with positive changes made so far. Mammography abnormal 168 326922 R92.8 Mammogram and US 06/04 showed bilateral breast cysts, f/u with bilateral US in 6 months was rec.US 02/2022 showed again 2 cysts on the L breast, repeat in 6 monthsComp laining of intermitte nt left breast pain, worse during cycles- order placed for mammogram and US, will send to [facility] [place] Pain of left breast 1010 361860 N64.4 Hx of breast cysts in bilateral [...] and NSAIDs given to help with pain [id number] ABIDA CHAIDEZ (Adult Med) [address] [place] [address] 11/01/2022 10:14:26 11/02/2022 10:33:56 Acute bronchitis 23302073 J20.9 Recent ER visit for sore throat, rhinorrhea , body aches, voice hoarseness , cough, chest pain and SOB x 3 days, went to [facility] [place] on 10/28/2022. Chest xray normal, discharged home [...] care at home CT of chest abnormal 765 4243915 9916388 R93.89 . Atelectasi s in the medial [...] scan of chest Moderate p ersistent asthma 158670530 J45.40 Patient is using Symbicort 160/4.5, 2 puffs BID and Combivent respimat PRN right now.- provided new inhaler of albuterol to use as needed- c/w pulm Chronic ob structive pulmonary disease 66002580 J44.9 Patient is using Symbicort 160/4.5, 2 puffs BID and Combivent respimat PRN right now.- combivent best to use everyday- c/w pulm Left upper quadrant pain 854521892 R10.12 Having left upper quadrant pain x [...] on Screening for malignant neoplasm of colon [id number] Z12.11 No prior history of colon cancer screeningH aving LUQ pain before and after bowel movements plus irregular bowel movements- referral sent for colonoscop y Thoracic back pain 65273 5887 M54.6 Patient complainin g today of left [...] n fx and possible nerve injury Overweight 631849371 E66 .3 Advised decreased portion sizes, good food choices, limited eating out or fast food and eliminate soda and juice from diet. Advised physical activity daily and offered encouragem ent to continue with positive changes made so far. Depression screening 171 254029 Z13.31 PHQ 2/ was negative in office today (0 out of 27) [id number] Moises Maria MD [facility] [address] [place] [address] 11/29/2022 11:05:52 11/30/2022 08:13:41 Chronic obstructive pulmonary disease 67640114 J44.9 FEV1 68%, FVC 83%, FEV1/FVC 70%, BD- TLC 98%, DLCO 93% ( 2020), I will check PFTs, She has not received COVID-19 vaccine Moderate p ersistent asthma 067890082 J45.40 Patient is using Symbicort 160/4.5, 2 puffs BID,was unable to tolerate Incruse ellipta, and Combivent respimat Allergic rhinitis 748486 04 J30.9 Patient will be continued on Zyrtec, singulair Patient to continue Flonase Tolerant non-smoker 8773 9003 Z87.891 lifelong but she has second hand smoking exposure Gastroesop hageal reflux disease 573390874 K21.9 Will add protonix Dyspnea on exertion 6084 5006 R06.09 Secondary to asthma. 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 Atelectasi s in the medial [...] chest in 6 months Thoracic back pain 29140 8004 M54.6 Chest Xray was unremarkab le except for atelectasi s, I will order ct chest without contrast2021Mild abnormalit ies in the lungs. Iron defic iency anemia 49454870 D50.9 She needs iron supplement [id number] ABIDA CHAIDEZ [facility] (Adult Med) [address] [place] [address] 12/14/2022 11:08:19 12/16/2022 12:36:05 Overweight 520950846 E66.3 Advised decreased portion sizes, good food choices, limited eating out or fast food and eliminate soda and juice from diet. Advised physical activity daily and offered encouragem ent to continue with positive changes made so far. Asthma 301278285 J45.90 9 Using Trimbow inhaler from [place] twice dialy (contains beclometas one dipropiona te, formoterol fumarate dihydrate, glycopyrro nium bromide). She reports daily cough with thick white sputum. Asthma is exacerbate d by cold morning air. Also reports rhinorrhea . Not currently using fluticason e Denies sore throat, fever, chills - Continue Trimbow inhaler BID, albuterol as needed - following with pulm- recently completed lung tests at [facility], will request records Acute bronchitis 6351166 2 J20.9 Was recovering from acute bronchitis at our last visit, today she states the cough, nasal congestion and voice hoarseness has all since resolved- no further action needed Screening for malignant neoplasm of colon 386044660 Z12.11 No prior history of colon cancer screeningH aving LUQ pain before and after bowel movements plus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
--- OUTSIDE RECORDS SUMMARY | 2025-02-13 10:59 | XMS_ITS | Clinical Summary ---
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
--- OUTSIDE RECORDS SUMMARY | 2025-02-13 10:59 | XMS_ITS | Clinical Summary ---
Author Organization [facility] [employer] Address [address] [facility] [place] [address] Care Team Providers Care Manager Equipment Name Role Phone Connie Miller PA-C Primary Care Provider + Source Comments [facility] [employer],non-owned Affiliates and Associated Physician Practices is amultiple site organization consisting of ambulatory clinics and hospital sitesin [place], [place], [place] and [place]. This disclosure is being madepursuant to the Care Everywhere program and may not contain all information available regarding this patient. Last updated 18.[facility] [employer] Allergies Active Allergy Reactions Criticality Noted Date Comments Penicillins Urticaria Medium 08/19/2022 Medications * Be aware that medications may not be up to date on this document. Alwaysverify current medications with the patient. Budesonide-Formo terol Fumarate (SYMBICORT IN) 2 Sprays every 12 hours Active Ipratropium-Albu terol (COMBIVENT IN) 2 sprays as needed Active Umeclidinium [place] (INCRUSE ELLIPTA IN) Inhale by mouth once [...] for rash. 30 days supply. Label in sami please 45 g 5 Active Additional Information Patient not taking.Reported on 01/18/2025 gabapentin (Neurontin) 300 MG capsuleIndicatio ns:Other specified dermatitis Take 1 capsule every night. If not controlled, increase up to 1 capsule three times daily as instructed. 30 day supply. 90 capsule 2 5 Active clobetasol (Temovate) 0.05 % ointmentIndicati ons:Other specified dermatitis Apply to affected area twice daily as needed for rash. 30 days supply. 60 g 2 5 Active Active Problems Problem Noted Date Diagnosed [...] Encounters Date Type Department Care Team Description 01/18/2025 1:30 PM CDT Office Visit 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 - Dermatology [address] [place] [phone] Katalina Tai MD [address] [place] [address] [place] [address] Health Maintenance Due Date Last Done Comments COLOGUARD (AGES 45-75) - COL ON CA SCREENING 1975 COLON MONITORING 1975 COLONOSCOPY - COLON CA SCREENING 1975 CT COLONOGRAPHY - COLON CA SCREENING 1975 Colorectal Cancer Screening 1975 FIT - COLON CA SCREENING 1975 FLEX SIG - COLON CA SCREENING 1975 LIPID TESTING 1975 MAMMOGRAM 1975 HIV SCREENING 1990 HEPATITIS C SCREENING 06/27/1993 DTAP/TDAP/TD VACCINES (1 - Tdap) 1994 HEPATITIS B VACCINE (1 of 3 - 19+ 3-dose series) 1994 PAP SMEAR 1996 COVID-19 VACCINE (1 - 2023-2 5 season) 2024 DEPRESSION SCREENING 08/15/2024 INFLUENZA VACCINE (#1) 2025 ZOSTER VACCINE (1 of 2) 2025 [...] this topic Insurance ANTHEM ANTHEM Care Teams Manager Equipment Relationship Specialty Start Date End Date Connie Miller PA-C [address] [place] [address] PCP - General 06/11/22
--- NOTE | 2025-03-14 15:34 | P.PCNPFT_ITS ---
PFT Procedure Performed PFT Procedure Performed Spirometry with Pre/Post Bronchodilator Plethysmography (Lung Vol) Diffusing Cap (DLCO) Flow Vol Loop PFT Interpretation DOS: 02/13/2025 REQUESTING: Noel Lopez APRN REASON FOR TESTING: Asthma PULMONARY FUNCTION TESTS Results are reliable and reproducible. Repeatability of spirometry FEV1 maneuver pre and post bronchodilator is Grade A. Miguel Ángel: [facility] 2012 reference equations were used. Spirometry: The pre-bronchodilator FEV1 is 1.59 L, 67% predicted, decreased. The pre-bronchodilator FVC is 2.63 L, 91%, normal. The FEV1/FVC ratio is 60%, decreased, consistent with airflow obstruction. After bronchodilator, the FEV1 is 1.75 L, 73%, +10%. After bronchodilator, the FVC is 2.71 L, 94%, +3%. The FEV1/FVC ratio is 65%, remains below normal. Lung volumes: The total lung capacity is 5.42 L, 110%, normal. The FRC is 3.17 L, 116%, normal. The residual volume is 2.73 L, 159%, increased, consistent with air trapping. The RV/TLC is 51%, elevated. Airway resistance is increased. Diffusion: DLCO is 15.9, 71%. The DLCO/VA is 4.11, 88%. Flow volume loop: The flow volume loop shows mild coving of the expiratory limb. IMPRESSION: This study shows a moderate obstructive ventilatory impairment with a non statistically significant response to bronchodilator administration, moderate air trapping, normal diffusion. Lack of response to bronchodilator should not preclude use if clinically indicated. There are no prior studies for comparison. Nadia Bahena MD
== END 2025-02-13 10:48 | disposition home or self-care (01) ==
PROVIDERS: PCP Physician Assistant Medical; Visit Provider Internal Medicine Pulmonary Disease
DX: J45.909 Unspecified asthma, uncomplicated (principal)
CPT/HCPCS: 94060; 94726; 94729

== ENCOUNTER 2025-03-29 10:25 | Outpatient (CLI) | payer BC, MEDICAID, SELFPAY ==
--- NOTE | ~2025-03-29 | US_ITS ---
EXAMINATION:US venous doppler LE RT INDICATION:Right lower extremity pain TECHNIQUE: Multiple grayscale, color flow and Doppler images of the right lower extremity deep venous systems were obtained and reviewed. COMPARISON:No prior studies for comparison. FINDINGS: The common femoral, superficial femoral and popliteal veins demonstrate normal respiratory variation, augmentation and compressibility. Color flow is also seen within the posterior tibial, pe roneal, greater saphenous and profunda veins. IMPRESSION: 1: No lower extremity deep venous thrombosis. Reviewed, dictated and finalized at location A.
--- OUTSIDE RECORDS SUMMARY | 2025-03-29 10:29 | XMS_ITS | Clinical Summary ---
[facility] Organization [facility] [address] [place] [phone] Care Team Providers Care Freight Service Inspector Name Role Phone Lino Watson Primary Care Provider [phone]- [phone] Allergies Active Allergy Reactions Criticality Noted Date [...] 12/19/2023 Assessment & Plan (09/06/2024 2:39 PM SECURITY SHIFT SUPERVISOR): Update TFTS If TSH is normal, will [...] on file Legal Sex Female 3:55 PM SECURITY SHIFT SUPERVISOR Gender Identity Not on file Sexual Orientation Not on file Obstetrics History Last Filed Vital Signs Vital Sign Reading Time Taken Comments Blood Pressure 100/60 09/06/2024 1:53 PM SECURITY SHIFT SUPERVISOR Pulse 66 09/06/2024 1:53 PM SECURITY SHIFT SUPERVISOR Temperature 35.6 C (96 F) 05/28/2024 9:49 AM CDT Respiratory Rate 18 09/06/2024 1:53 PM SECURITY SHIFT SUPERVISOR Oxygen Saturation 96% 05/28/2024 9:49 AM CDT Inhaled Oxygen Concentration - - Weight 65 kg (143 lb 3.2 oz) 09/06/2024 1:53 PM SECURITY SHIFT SUPERVISOR Height 157.5 cm (5' 2) 09/06/2024 1:53 PM SECURITY SHIFT SUPERVISOR Body Mass Index 26.19 09/06/2024 1:53 PM SECURITY SHIFT SUPERVISOR Plan of Treatment Health Maintenance Due Date Last Done Comments Breast Cancer Screening-Mammogram 1975 Cervical Cancer Screening 1975 Colon Cancer Screening-Colonoscopy 1975 Depression Screening 1975 Hepatitis C Screening 1975 DTaP/Tdap/Td Vaccine (1 - Tdap) 1986 Hepatitis B Screening 1993 Regular Well Visit/Exam 18-64 1993 Influenza Vaccine (#1) 2025 Pneumococcal vaccine <65 Completed 04/10/2024 Insurance [employer] OOS Care Teams Freight Service Inspector Relationship Specialty Start Date End Date Lino Watson PA [address] [place] [address] PCP - General Physician Enterprise Sales Executive 11/01/23
--- OUTSIDE RECORDS SUMMARY | 2025-03-29 10:29 | XMS_ITS | Encounter Summary ---
Author Organization [facility] Address [address] [place] [address] Care Team Providers Care Tool Crib Manager Name Role Phone Connie Miller PA-C Primary Care Provider + Reason for Visit * Reason Onset Date Comments Medication Issue 09/13/2022 Encounter Details Date Type Department Care Team (Late st Contact Info) Description 09/13/2022 Telephone [facility] [address] [place] [address] Katalina Tai MD [address] [place] [address] Medication Issue Social History Tobacco [...] skin as moisturizer Send us photos via [facility] if develop pus on bottom of foot again I attempted to call her and she needs a federal mediation commissioner Clinical staff will call her and let her know she was advised to use Sarna ROLOGY SOCIAL WORKER ROLOGY SOCIAL WORKER * Telephone Encounter - Dee Grant - 09/13/2022 3:20 PM CST Pt needs to know what over the counter medication she was prescribed, she can't remember. ROLOGY SOCIAL WORKER documented in this encounter Plan of Treatment Not on file documented as of this encounter Visit Diagnoses Not on filedocumented in this encounter Care Teams Tool Crib Manager Relationship Specialty Start Date End Date Connie Miller PA-C [address] [place] [address] PCP - General 06/11/22 documented as of this encounter
--- OUTSIDE RECORDS SUMMARY | 2025-03-29 10:29 | XMS_ITS | Encounter Summary ---
Author Organization [facility] Address [address] [place] [address] Care Team Providers Care Policy Checker Name Role Phone Connie Miller PA-C Primary Care Provider + Reason for Referral * OP/Amb RFL Auth (Routine) - Open Specialty Diagnoses / Procedures Referred By Contac t Referred To Contact Rheumatology Diagnoses Fibromyalgia Heriberto Gold DO [address] [place] [address] [address] [place] [address] Phone: tel: fax: [facility] - Rheumatology [address] [place] [address], [address] [place] [address] Phone: tel: fax: Referral ID Status Reason Start Date Expiration Date V isits Requested Visits Authorized [id number] Open Specialty Services Required 02/28/2025 02/28/2026 1 1 Encounter Details Date Type Department Care Team (Late st Contact Info) Description 02/28/2025 Transcribe Orders [facility] - Rheumatology [address] [place] [address], [address] [place] [address] [facility] Social History Tobacco Use Types Packs/Day Years Used Date Smoking Tobacco: Never Smokeless Tobacco: Never Comments Unknown Sex and Gender Information Value Date Recorded Sex Assigned at Not on file Legal Sex Female 9:55 AM CDT Gender Identity Not on file Sexual Orientation Not on file documented as of this encounter Plan of Treatment Scheduled Referrals Name Type Priority Associated Diagnoses Order Schedule AMB REFERRAL TO RHEUMATOLOGY Outpatient Referral Routine Fibromyalgia 1 Occurrences starting 02/28/2025 until 02/28/2026 documented as of this encounter Visit Diagnoses Diagnosis Fibromyalgia- Primary Mylagia and myositis, unspecified documented in this encounter Care Teams Policy Checker Relationship Specialty Start Date End Date Connie Miller PA-C [address] [place] [address] PCP - General 06/11/22 documented as of this encounter
--- OUTSIDE RECORDS SUMMARY | 2025-03-29 10:29 | XMS_ITS | Clinical Summary ---
Author Organization [facility] [employer] Address [address] [place] [address] Care Team Providers Care Line Installer Repairer Name Role Phone Connie iMller PA-C Primary Care Provider + Source Comments [facility] [employer],non-owned Affiliates and Associated Physician Practices is amultiple site organization consisting of ambulatory clinics and hospital sitesin [place], [place], [place] and [place]. This disclosure is being madepursuant to the Care Everywhere program and may not contain all information available regarding this patient. Last updated 18.[facility] [employer] Allergies Active Allergy Reactions Criticality Noted Date Comments Penicillins Urticaria Medium 08/19/2022 Medications * Be aware that medications may not be up to date on this document. Alwaysverify current medications with the patient. Budesonide-Formo terol Fumarate (SYMBICORT IN) 2 Sprays every 12 hours Active Ipratropium-Albu terol (COMBIVENT IN) 2 sprays as needed Active Umeclidinium [place] (INCRUSE ELLIPTA IN) Inhale by mouth once [...] for rash. 30 days supply. Label in persian please 45 g 5 Active Additional Information [...] Encounters Date Type Department Care Team Description 03/05/2025 Telephone [facility] - Rheumatology [address] [place] [address], [address] [phone] Group, [facility] [address] Medical Referral 02/28/2025 Transcribe Orders [facility] - Rheumatology [address] [place] [address], [facility] [address] [place] [address] [facility] Fibromyalgia 01/18/2025 1:30 PM CDT Office Visit [facility] - Dermatology [address] [place] [address], [place] [phone] Katalina Tai MD Other specified dermatitis (Primary [...] series) 1994 PAP SMEAR 1996 COVID-19 VACCINE (2023-2 5 season) 2024 DEPRESSION SCREENING 08/15/2024 INFLUENZA [...] age to complete this topic Insurance ANTHEM Care Teams Line Installer Repairer Relationship Specialty Start Date End Date Connie Miller PA-C [address] [place] [address] PCP - General 06/11/22
--- OUTSIDE RECORDS SUMMARY | 2025-03-29 10:29 | XMS_ITS | Clinical Summary ---
Author Organization [facility] Care Team Providers Care Rug Touch Up Painter Name Role Phone Unavailable Primary Care Provider Unavailabl e Social History Tobacco Use Types Packs/Day Years Used Date Smoking Tobacco: Never Assessed Comments Unknown Sex and Gender Information Value Date Recorded Sex Assigned at Not on file Legal Sex Female 12:43 PM SAW OPERATOR Gender Identity Not on file Sexual Orientation Not on file Plan of Treatment Health Maintenance Due Date Last Done Comments Hepatitis C Virus (HCV) Screening 1975 TdaP Immunization 1975 Hepatitis B Immunization (1 of 3 - 19+ 3-dose series) 1994 Pap Smear 1996 Cervical Cancer Screening (CCS) 2005 HPV/Cotest 2005 Cologuard 2020 Colonoscopy 2020 Colorectal Cancer Screening 2020 Immunochemical Fecal Occult Blood 2020 SARS-COV-2 Immunization ( season) 2024 Influenza Immunization (#1) 2025 Respiratory Syncytial Virus (RSV) Immunization (Adult) (1 - 1-dose 75+ series) 2050 Human Papillomavirus (HPV) Immunization Aged Out No longer eligible b ased on patient's age to complete this topic Meningococcal Immunization (ACWY) Aged Out No longer eligible based on patient's age to complete this topic Pneumococcal Immunization Combined Aged Out No longer eligible based on patient's age to complete this topic Rotavirus Immunization Aged Out No lo nger eligible based on patient's age to complete this topic
== END 2025-03-29 10:26 | disposition home or self-care (01) ==
PROVIDERS: PCP Physician Assistant Medical; Visit Provider Nurse Practitioner Family
DX: M79.661 Pain in right lower leg (principal)
CPT/HCPCS: 93971